=== PATIENT | male | born 1960 | race Caucasian/White ===

== ENCOUNTER → 2017-01-13 | Outpatient (CLI) | payer MEDICARE, MEDICAID ==
[~2017-01-13] VITALS: Ht 175.3 cm; Wt 117.9 kg
[~2017-01-13] MED LIST: /CARBXR20T; /CIPR75TA OR; /IPRA3SP INH; /PANT40TA; ABIL5TAB; ALBU83IN IN; ALBU83IN INH; ALBUTEROL LIQ INH; AMBI10TA; ASMA1AER3 INH; ASPI325T PO; ASPI81TA85 PO; ATRO0.06 INH; CHLO25TA; CLIN1CAP5 PO; COLA100C2 OR; DEPAKOTE PO; DITR1TAB PO; DOCU100T8 PO; DULO30CA PO; DYAZ37.5 OR; ENAL10TA2; ENAL10TA2 OR; FERR325T; FERR325T OR; FISH1000 PO; FLEXERIL PO; FLOM5CAP PO; FLON0.054; FLUN7IN; GABA300T; GLIP10TA PO; GLIP5TAB2 OR; GLUC1000; GLUC1000 OR; GLUC4CHW PO; HUMA100I5 SC; HYDR25T PO; HYDR25TA6; INSULANT SC; KETO0.02 OU; LANTINJ4 SC; LEVI20TA; LIPI20TA PO; LISI40TAB PO; LOPR1TAB6 PO; LOPR50TA OR; MELOPOW; METF500T PO; METH2.5T; METO25TAB PO; MOBI7.5T10 PO; MOME50SP; NS 1,000 ML IV SCH; OMEP20TA7 OR; POLY33502 PO; PRED10TA2 OR; PRIL20CA9 PO; PROA1AER INH; PROPOFOL 200 MG/20 ML VIAL As Ordered ONE; PROV90AE; SELE25SHA TOP; SEROQUEL PO; SIMV40TA2; SIMV40TA2 OR; SPIR50TA2 PO; TERB1CRE8 TOP; VICO5TAB; VICO5TAB OR; [UNRECOGNIZED DRUG - OTHER]; metroprolol
--- NOTE | 2017-01-13 08:46 | ROOR ---
Patient Name: Jameson Garrett Procedure Date: 01/13/2017 8:21 AM Date of : 1960 Age: 56 Room: [facility] Gender: Male Note Status: Finalized Procedure: Colonoscopy Indications: Rectal bleeding Providers: Venkatesh Dial Jr, MD Referring MD: Lalito Rivera DO Requesting Provider: Medicines: Propofol per Anesthesia Complications: No immediate complications. Procedure: Pre-Anesthesia Assessment: - Prior to the procedure, a History and Physical was performed, and patient medications and allergies were reviewed. The patient is competent. The risks and benefits of the procedure and the sedation options and risks were discussed with the patient. All questions were answered and informed consent was obtained. Patient identification and proposed procedure were verified by the physician and the nurse in the pre-procedure area and in the procedure room. Mental Status Examination: alert and oriented. Airway Examination: normal oropharyngeal airway and neck mobility. Respiratory Examination: clear to auscultation. CV Examination: normal. ASA Grade Assessment: II - A patient with mild systemic disease. After reviewing the risks and benefits, the patient was deemed in satisfactory condition to undergo the procedure. The anesthesia plan was to use moderate sedation / analgesia (conscious sedation). Immediately prior to administration of medications, the patient was re-assessed for adequacy to receive sedatives. The heart rate, respiratory rate, oxygen saturations, blood pressure, adequacy of pulmonary ventilation, and response to care were monitored throughout the procedure. The physical status of the patient was re-assessed after the procedure. The Colonoscope was introduced through the anus and advanced to the cecum, identified by appendiceal orifice and ileocecal valve. The colonoscopy was performed without difficulty. The patient tolerated the procedure well. The quality of the bowel preparation was adequate and fair. Findings: The perianal exam findings include non-thrombosed external hemorrhoids, non-thrombosed internal hemorrhoids, internal hemorrhoids that prolapse with straining, but spontaneously regress to the resting position (Grade II) and internal hemorrhoids that prolapse with straining, but require manual replacement into the anal canal (Grade III). A few small-mouthed diverticula were found in the sigmoid colon and ascending colon. The recto-sigmoid colon, descending colon, transverse colon, cecum, appendiceal orifice and ileocecal valve appeared normal. A localized area of moderately friable mucosa with no bleeding was found in the rectum and in the distal rectumand possibly localized proctitis. Impression: - Preparation of the colon was fair. - Non-thrombosed external hemorrhoids, non-thrombosed internal hemorrhoids, internal hemorrhoids that prolapse with straining, but spontaneously regress to the resting position (Grade II) and internal hemorrhoids that prolapse with straining, but require manual replacement into the anal canal (Grade III) found on perianal exam. - Diverticulosis in the sigmoid colon and in the ascending colon. - The recto-sigmoid colon, descending colon, transverse colon, cecum, appendiceal orifice and ileocecal valve are normal. - No specimens collected. Recommendation: - Discharge patient to home (ambulatory). - Repeat colonoscopy in 10 years for screening purposes. Venkatesh Dial MD Venkatesh Dial Jr, MD 01/13/2017 8:46:07 AM This report has been signed electronically. Number of Addenda: 0 Note Initiated On: 01/13/2017 8:21 AM Estimated Blood Loss: Estimated blood loss: none.
[2017-01-13 09:20] VITALS: BP 173/101
== END | disposition home or self-care (01) ==
LOC: M OPP 07:31
PROVIDERS: ATTEND Surgery
DX: K64.4 Residual hemorrhoidal skin tags (principal); K64.8 Other hemorrhoids; K64.1 Second degree hemorrhoids; K64.2 Third degree hemorrhoids; K57.30 Diverticulosis of large intestine without perforation or abscess without bleeding; I10 Essential (primary) hypertension; I25.10 Atherosclerotic heart disease of native coronary artery without angina pectoris; E78.00 Pure hypercholesterolemia, unspecified; E11.9 Type 2 diabetes mellitus without complications; M19.90 Unspecified osteoarthritis, unspecified site; J45.909 Unspecified asthma, uncomplicated; J44.9 Chronic obstructive pulmonary disease, unspecified; G47.30 Sleep apnea, unspecified; R06.83 Snoring; F41.9 Anxiety disorder, unspecified; F33.9 Major depressive disorder, recurrent, unspecified; G62.9 Polyneuropathy, unspecified; Z95.5 Presence of coronary angioplasty implant and graft; Z79.899 Other long term (current) drug therapy; Z79.82 Long term (current) use of aspirin; Z79.4 Long term (current) use of insulin; Z79.84 Long term (current) use of oral hypoglycemic drugs; Z79.51 Long term (current) use of inhaled steroids; Z88.0 Allergy status to penicillin; Z88.8 Allergy status to other drugs, medicaments and biological substances

== ENCOUNTER → 2017-02-28 | Outpatient (REF) | payer MEDICARE, MEDICAID ==
[~2017-02-28] MED LIST changes: -NS 1,000 ML IV SCH; -PROPOFOL 200 MG/20 ML VIAL As Ordered ONE
== END ==
LOC: M SFHCPLAZ 11:32
PROVIDERS: ATTEND Family Medicine
DX: E11.65 Type 2 diabetes mellitus with hyperglycemia (principal); Z53.8 Procedure and treatment not carried out for other reasons

== ENCOUNTER → 2017-04-13 | Outpatient (CLI) | payer MEDICARE, MEDICAID | LOC: M LAB 06:15 | PROVIDERS: ATTEND Family Medicine | DX: E11.65 Type 2 diabetes mellitus with hyperglycemia (principal) ==

== ENCOUNTER → 2017-04-15 | Outpatient (REF) | payer MEDICARE, MEDICAID | LOC: M SFHCPLAZ 15:13 | DX: E11.65 Type 2 diabetes mellitus with hyperglycemia (principal) ==

== ENCOUNTER 2017-05-13 16:08 | Emergency (ER) | payer MEDICARE, MEDICAID ==
[~2017-05-13] VITALS: Ht 175.3 cm; Wt 113.2 kg
[~2017-05-13 16:08] MED LIST changes: +CLIN150C14 PO; -CLIN1CAP5 PO; +HYDR-3363 PO; -HYDR25T PO; -METF500T PO; +METF500T13 PO; +MOBI4TAB PO; -MOBI7.5T10 PO; -POTA1TAB14 PO; -PROA1AER INH; +PROAAER10 INH; -SPIR25TA2 PO; +TERB1CRE12 TOP; -TERB1CRE8 TOP
[2017-05-13] MEDS ORDERED: ASPI81TA85 PO (16:21)
[2017-05-13] MEDS ORDERED: NS 1,000 ML IV ONE (17:15)
[2017-05-13 17:50] LABS: BASO % 0.7 % (0.0-1.0); EOS # 0.1 K/mm3 (0.0-0.50); EOS % 1.5 % (0.0-3.0); LARGE UNSTAINED CELL # 0.1 K/mm3 (0.0-0.4); LARGE UNSTAINED CELL % 1.6 % (0.0-4.0); LYMPH # 1.1 K/mm3 (1.5-4.5); LYMPH % 17.4 % (24.0-44.0); MEAN CORPUSCULAR HGB CONC 34.5 g/dl (32.0-36.5); MEAN CORPUSCULAR VOLUME 81.1 fl (80.0-96.0); MONO # 0.4 K/mm3 (0.0-0.8); MONO % 6.4 % (0.0-5.0); NEUTROPHILS # 4.3 K/mm3 (1.8-7.7); NEUTROPHILS % 72.4 % (36.0-66.0); PLATELET COUNT, AUTOMATED 228 k/mm3 (150-450); RED CELL DISTRIBUTION WIDTH 13.5 % (11.5-14.5); WHITE BLOOD COUNT 5.9 K/mm3 (4.0-10.0)
[2017-05-13 17:59] LABS: ALBUMIN 3.4 GM/DL (3.2-5.2); ALKALINE PHOSPHATASE 99 U/L (45-117); ALT/SGPT 34 U/L (12-78); ANION GAP 9 MEQ/L (8-16); AST/SGOT 20 U/L (15-37); BILIRUBIN,DIRECT < 0.1 MG/DL (0.0-0.2); BILIRUBIN,TOTAL 0.4 MG/DL (0.2-1.0); BLOOD UREA NITROGEN 10 MG/DL (7-18); CALCIUM LEVEL 8.6 MG/DL (8.5-10.1); CARBON DIOXIDE LEVEL 25 MEQ/L (21-32); CHLORIDE LEVEL 101 MEQ/L (98-107); CREATININE FOR GFR 0.95 MG/DL (0.70-1.30); GLOMERULAR FILTRATION RATE > 60.0 (>56); POTASSIUM SERUM 3.2 MEQ/L (3.5-5.1); SODIUM LEVEL 135 MEQ/L (136-145); TOTAL PROTEIN 6.8 GM/DL (6.4-8.2)
[2017-05-13 18:00] LABS: GLUCOSE, FASTING 431 MG/DL (70-105)
[2017-05-13] MEDS ORDERED: HumaLOG INSULIN (NovoLOG) PER UNIT SC ONE (18:00)
[2017-05-13] MEDS ORDERED: hydrALAZINE INJ 20 MG/ML VIAL IV ONE (19:00)
[2017-05-13] MEDS ORDERED: POTASSIUM CHLORIDE 10 MEQ SR TABLET PO ONE (19:00)
[2017-05-13] MEDS ORDERED: KCL 40MEQ in NS 1000ML 1,000 ML IV SCH (19:00)
[2017-05-13 19:24] VITALS: BP 177/109
[2017-05-13] MEDS ORDERED: POTA1TAB14 PO (19:28)
[2017-05-13] MEDS ORDERED: SPIR25TA2 PO (19:28)
[2017-05-13] MEDS ORDERED: SPIRONOLACTONE 25 MG TAB PO ONE (19:30)
[2017-05-13 19:59] VITALS: BP 168/94
== END 2017-05-13 20:01 | disposition home or self-care (01) ==
LOC: M ED 17:21
DX: E11.65 Type 2 diabetes mellitus with hyperglycemia (principal); E11.21 Type 2 diabetes mellitus with diabetic nephropathy; I10 Essential (primary) hypertension; Z91.14 Patient's other noncompliance with medication regimen; I25.10 Atherosclerotic heart disease of native coronary artery without angina pectoris; Z98.61 Coronary angioplasty status
CPT/HCPCS: 36415; 80048; 80076; 83036; 85025; 96372; 96374; 99284; 99490; G0463

== ENCOUNTER → 2017-05-13 | Outpatient (REF) | payer MEDICARE, MEDICAID ==
[~2017-05-13] MED LIST changes: +POTA1TAB14 PO; +SPIR25TA2 PO
[2017-05-13 14:00] LABS: ANION GAP 9 MEQ/L (8-16); BLOOD UREA NITROGEN 10 MG/DL (7-18); CALCIUM LEVEL 8.8 MG/DL (8.5-10.1); CARBON DIOXIDE LEVEL 26 MEQ/L (21-32); CHLORIDE LEVEL 101 MEQ/L (98-107); CREATININE FOR GFR 0.96 MG/DL (0.70-1.30); GLOMERULAR FILTRATION RATE > 60.0 (>56); POTASSIUM SERUM 3.8 MEQ/L (3.5-5.1); SODIUM LEVEL 136 MEQ/L (136-145)
[2017-05-13 14:05] LABS: GLUCOSE, FASTING 404 MG/DL (70-105)
== END ==
LOC: M SFHCPLAZ 10:45
PROVIDERS: ATTEND Family Medicine
DX: E11.65 Type 2 diabetes mellitus with hyperglycemia (principal); I10 Essential (primary) hypertension

== ENCOUNTER → 2017-05-26 | Outpatient (CLI) | payer MEDICARE, MEDICAID ==
[~2017-05-26] MED LIST changes: +AMBI10TA PO; +ATOR40TA75 PO; +CYCL10TA PO; +DULO1CAP3 PO; +FLON1SPR; +IBUP-1022 PO; +INSUHUMDS SC; +LOPR1TAB7 PO; +METF-699 PO; +NITR4TASL SL; +OMEP20CA3 PO; +OMEP40CA2 PO; +PERC5TAB12 PO; +POTA1TAB14 PO; +SPIR25TA2 PO; +TOUJ1.2I SC; +TROS20TA3 PO; +VICT18IN SC; +VIST25CA PO; +VITA1CAP40 PO
--- NOTE | 2017-05-26 16:49 | REP ---
Clinical: Pain. Dorsalgia. Technique: AP, lateral, flexion/extension, bilateral oblique, and open-mouth views. Comparison: 09/02/2015 Findings: Alignment and lordosis is maintained. There is no evidence for acute fracture / compression injury or subluxation. Mild multilevel degenerative changes include anterior spurring and disc space narrowing most notably at the C4-5 level. Oblique views demonstrate patent neural foramen. Open mouth view demonstrates normal C1-C2 articulation and odontoid process. Impression: Mild/early moderate degenerative changes at the C4-5 level. Signed by Greg Blackwood MD 05/26/2017 04:40 P
--- NOTE | 2017-05-26 16:50 | REP ---
Clinical: Dorsalgia. Technique: AP, lateral, swimmers views of the thoracic spine. Comparison: 09/02/2015. Findings: Alignment and kyphosis maintained. No acute fracture / compression injury or subluxation. Stable age-related degenerative changes include bridging osteophytes with endplate sclerosis and minimal disc space narrowing. Impression: Age-related degenerative changes. Normal alignment. No acute fracture / compression injury. Signed by Greg Blackwood MD 05/26/2017 04:41 P
--- NOTE | 2017-05-26 16:52 | REP ---
Clinical: Dorsalgia. Comparison: 09/02/2015. Technique: AP, lateral, bilateral oblique, and coned-down views. Findings: Alignment and lordosis is maintained. The vertebral bodies including transverse process and spinous processes are intact and normal. There is no evidence for acute fracture / compression injury or subluxation. No evidence for spondylolysis or spondylolisthesis. Mild relatively stable degenerative changes at the L5-S1 level include endplate sclerosis and hypertrophic facet changes. Remainder examination appears relatively normal for age. Impression: Essentially age-appropriate lumbosacral spine radiograph series. Mild/early moderate degenerative changes at the L5-S1 level similar to prior examination. Signed by Greg Blackwood MD 05/26/2017 04:44 P
== END ==
LOC: M RAD 15:51
PROVIDERS: ATTEND Family Medicine
DX: M50.321 Other cervical disc degeneration at C4-C5 level (principal); M51.36 Other intervertebral disc degeneration, lumbar region; M54.9 Dorsalgia, unspecified
CPT/HCPCS: 72052; 72072; 72114; G0463

== ENCOUNTER 2017-07-08 11:03 | Emergency (ER) | payer MEDICARE, MEDICAID ==
[~2017-07-08] VITALS: Ht 175.3 cm; Wt 112.0 kg
[~2017-07-08 11:03] MED LIST changes: -AMBI10TA PO; -ATOR40TA75 PO; -CYCL10TA PO; -DULO1CAP3 PO; -FLON1SPR; -IBUP-1022 PO; -INSUHUMDS SC; -LOPR1TAB7 PO; -METF-699 PO; -NITR4TASL SL; -OMEP20CA3 PO; -OMEP40CA2 PO; -PERC5TAB12 PO; -TOUJ1.2I SC; -TROS20TA3 PO; -VICT18IN SC; -VIST25CA PO; -VITA1CAP40 PO
[2017-07-08] MEDS ORDERED: METOPROLOL TART 25 MG TABLET PO ONE (12:00)
[2017-07-08] MEDS ORDERED: MORPHINE 4 MG/ML 1ML SYRINGE IV PRN (12:00)
[2017-07-08] MEDS ORDERED: ASPIRIN 81 MG CHEW TABLET PO ONE (12:00)
[2017-07-08 12:07] LABS: BASO % 0.8 % (0.0-1.0); EOS # 0.1 K/mm3 (0.0-0.50); EOS % 1.8 % (0.0-3.0); LARGE UNSTAINED CELL # 0.1 K/mm3 (0.0-0.4); LARGE UNSTAINED CELL % 1.3 % (0.0-4.0); LYMPH % 16.4 % (24.0-44.0); MEAN CORPUSCULAR HEMOGLOBIN 28.6 pg (27.0-33.0); MEAN CORPUSCULAR HGB CONC 35.2 g/dl (32.0-36.5); MEAN CORPUSCULAR VOLUME 81.3 fl (80.0-96.0); MONO # 0.4 K/mm3 (0.0-0.8); MONO % 6.8 % (0.0-5.0); NEUTROPHILS # 4.2 K/mm3 (1.8-7.7); NEUTROPHILS % 72.9 % (36.0-66.0); PLATELET COUNT, AUTOMATED 236 k/mm3 (150-450); RED CELL DISTRIBUTION WIDTH 13.3 % (11.5-14.5); WHITE BLOOD COUNT 5.7 K/mm3 (4.0-10.0)
[2017-07-08 12:23] LABS: INR 0.89
[2017-07-08 12:28] LABS: ALBUMIN 3.3 GM/DL (3.2-5.2); ALKALINE PHOSPHATASE 103 U/L (45-117); ANION GAP 9 MEQ/L (8-16); AST/SGOT 13 U/L (15-37); BILIRUBIN,DIRECT 0.1 MG/DL (0.0-0.2); BILIRUBIN,TOTAL 0.4 MG/DL (0.2-1.0); BLOOD UREA NITROGEN 8 MG/DL (7-18); CALCIUM LEVEL 8.3 MG/DL (8.5-10.1); CARBON DIOXIDE LEVEL 25 MEQ/L (21-32); CHLORIDE LEVEL 104 MEQ/L (98-107); CREATININE FOR GFR 0.69 MG/DL (0.70-1.30); GLOMERULAR FILTRATION RATE > 60.0 (>56); GLUCOSE, FASTING 251 MG/DL (70-105); POTASSIUM SERUM 3.4 MEQ/L (3.5-5.1); SODIUM LEVEL 138 MEQ/L (136-145); TOTAL PROTEIN 6.6 GM/DL (6.4-8.2)
[2017-07-08 12:34] LABS: ALT/SGPT 34 U/L (12-78)
--- NOTE | 2017-07-08 12:44 | REP ---
Chest one-view HISTORY: Chest pain Comparison: 09/22/2016 The lungs are clear. The cardiac silhouette is enlarged. The pulmonary vasculature is normal in appearance. Impression: Cardiomegaly. Signed by Jose Piedra MD 07/08/2017 12:36 P
[2017-07-08] MEDS ORDERED: MORPHINE 4 MG/ML 1ML SYRINGE IV ONE (13:30)
[2017-07-08] MEDS ORDERED: hydroCHLOROthiazide 25 MG TAB PO ONE (13:30)
[2017-07-08] MEDS ORDERED: LISINOPRIL 10 MG TAB PO ONE (13:30)
[2017-07-08 13:45] VITALS: BP 189/117
[2017-07-08 15:27] VITALS: BP 144/96
--- NOTE | 2017-07-08 19:55 | ECGEPIP ---
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 Order Number: [id number] Reading MD: Saima Vallejo Measurements Intervals [place] Rate: 79 P: 30 MS: 178 QRS: -18 QRSD: 113 T: 31 QT: 399 QTc: 460 Interpretive Statements SINUS RHYTHM INFERIOR MYOCARDIAL INFARCTION, PROBABLY OLD CW 09/23/16 RATE INCREASED Electronically Signed On 07-08-2017 19:54:52 EDT by Saima Vallejo
== END 2017-07-08 15:44 | disposition home or self-care (01) ==
LOC: M ED 11:03
DX: R07.89 Other chest pain (principal); I10 Essential (primary) hypertension; R06.02 Shortness of breath
CPT/HCPCS: 71010; 80048; 80076; 82550; 82553; 82948; 83880; 84484; 85025; 85379; 85610; 85730; 93005; 96374; 96376; 99284; G0463

== ENCOUNTER 2017-07-17 12:54 | Observation (INO) | payer MEDICARE, MEDICAID ==
[~2017-07-17] VITALS: Ht 175.3 cm; Wt 109.5 kg
[2017-07-17] MEDS ORDERED: GLIP10TA PO (13:11)
[2017-07-17] MEDS ORDERED: SPIR50TA2 PO (13:11)
[2017-07-17] MEDS ORDERED: LISI40TAB PO (13:11)
[2017-07-17] MEDS ORDERED: VIST25CA PO (13:11)
[2017-07-17] MEDS ORDERED: ASPI81TA85 PO (13:11)
[2017-07-17] MEDS ORDERED: LOPR1TAB6 PO (13:11)
[2017-07-17] MEDS ORDERED: DITR1TAB PO (13:11)
[2017-07-17] MEDS ORDERED: OMEP40CA2 PO (13:11)
[2017-07-17] MEDS ORDERED: METF500T13 PO (13:11)
[2017-07-17] MEDS ORDERED: LABETALOL HCL 100 MG/20 ML VIAL IV STA ×2 (14:28→16:14)
[2017-07-17 14:39] LABS: BASO % 0.8 % (0.0-1.0); EOS # 0.1 K/mm3 (0.0-0.50); EOS % 1.4 % (0.0-3.0); LARGE UNSTAINED CELL # 0.1 K/mm3 (0.0-0.4); LARGE UNSTAINED CELL % 1.2 % (0.0-4.0); LYMPH # 0.9 K/mm3 (1.5-4.5); LYMPH % 14.4 % (24.0-44.0); MEAN CORPUSCULAR HEMOGLOBIN 28.6 pg (27.0-33.0); MEAN CORPUSCULAR HGB CONC 34.8 g/dl (32.0-36.5); MEAN CORPUSCULAR VOLUME 82.2 fl (80.0-96.0); MONO # 0.4 K/mm3 (0.0-0.8); MONO % 6.6 % (0.0-5.0); NEUTROPHILS # 4.9 K/mm3 (1.8-7.7); NEUTROPHILS % 75.6 % (36.0-66.0); PLATELET COUNT, AUTOMATED 280 k/mm3 (150-450); RED CELL DISTRIBUTION WIDTH 13.4 % (11.5-14.5); WHITE BLOOD COUNT 6.5 K/mm3 (4.0-10.0)
[2017-07-17 14:47] LABS: ANION GAP 10 MEQ/L (8-16); BLOOD UREA NITROGEN 7 MG/DL (7-18); CALCIUM LEVEL 8.9 MG/DL (8.5-10.1); CARBON DIOXIDE LEVEL 25 MEQ/L (21-32); CHLORIDE LEVEL 102 MEQ/L (98-107); CREATININE FOR GFR 0.96 MG/DL (0.70-1.30); GLOMERULAR FILTRATION RATE > 60.0 (>56); GLUCOSE, FASTING 391 MG/DL (70-105); POTASSIUM SERUM 3.6 MEQ/L (3.5-5.1); SODIUM LEVEL 137 MEQ/L (136-145)
[2017-07-17] MEDS ORDERED: GLUCAGON FOR INJ 1 MG VIAL (J1610) SC PRN (16:30)
[2017-07-17] MEDS ORDERED: DEXTROSE 50% 50 ML SYRINGE IV PRN (16:30)
[2017-07-17] MEDS ORDERED: ONDANSETRON 4MG/2ML VIAL (J2405) IV PRN (16:30)
[2017-07-17] MEDS ORDERED: ACETAMINOPHEN TAB 650MG DOSE (2X325MG) PO PRN (16:30)
[2017-07-17] MEDS ORDERED: PERCOCET 5MG/325MG TAB PO PRN (16:30)
[2017-07-17] MEDS ORDERED: GLUCOSE 4 GM CHEW TABLET PO PRN (16:30)
[2017-07-17] MEDS ORDERED: IPRATROPIUM 0.5MG/ALBUTEROL 2.5MG INH SOL UD 3ML (DUONEB)(J7620) NEB PRN (16:45)
[2017-07-17] MEDS ORDERED: VICT18IN SC (17:13)
[2017-07-17] MEDS ORDERED: TROS20TA3 PO (17:13)
[2017-07-17] MEDS ORDERED: AMBI10TA PO (17:13)
[2017-07-17] MEDS ORDERED: OMEP20CA3 PO (17:13)
[2017-07-17] MEDS ORDERED: NITR4TASL SL (17:13)
[2017-07-17] MEDS ORDERED: DULO1CAP3 PO (17:13)
[2017-07-17] MEDS ORDERED: LOPR1TAB7 PO (17:13)
[2017-07-17] MEDS ORDERED: METF-699 PO (17:13)
[2017-07-17] MEDS ORDERED: FLON1SPR (17:13)
[2017-07-17] MEDS ORDERED: INSUHUMDS SC (17:13)
[2017-07-17] MEDS ORDERED: ATOR40TA75 PO (17:13)
[2017-07-17] MEDS ORDERED: TOUJ1.2I SC (17:13)
[2017-07-17] MEDS ORDERED: VITA1CAP40 PO (17:14)
[2017-07-17] MEDS ORDERED: hydrALAZINE INJ 20 MG/ML VIAL IV PRN (17:15)
[2017-07-17] MEDS ORDERED: HumaLOG INSULIN (NovoLOG) PER UNIT SC SCH ×3 (17:30→21:00)
[2017-07-17] MEDS ORDERED: hydrOXYzine 25 MG TAB PO PRN (17:30)
[2017-07-17] MEDS ORDERED: zolPIDEM TARTRATE 10MG TAB PO PRN (17:30)
[2017-07-17] MEDS ORDERED: CHLORTHALIDONE 25 MG TAB PO ONE (18:00)
[2017-07-17] MEDS ORDERED: POTASSIUM CHLORIDE 10 MEQ SR TABLET PO ONE (18:00)
--- NOTE | 2017-07-17 18:42 | HPE ---
DATE OF ADMISSION: 07/17/2017 CHIEF COMPLAINT: Headache and hypertension. PRIMARY CARE PROVIDER: Dr. Ace Ramirez. HISTORY OF PRESENT ILLNESS: This is a 57-year-old male with underlying medical history of hypertension, poorly controlled diabetes type 2, bipolar disorder type 1, depression, asthma, diabetic neuropathy, prostate cancer status post radiation 2013, coronary arterial disease with stent. The patient presented with headache since this morning, measured blood pressure at home that was really high, subsequently came to the emergency department (ED). In the emergency room, the patient's blood pressure was 200/100. Subsequently given labetalol with only minimal improvement, continued to have headache. The patient denies any chest pain, pressure, discomfort, although last week the patient was diagnosed with costochondritis, but no further chest pain since then. 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 The patient reported nausea but no vomiting. Denies any vision change, hearing change. Reported frontal headache that is sharp, about 9/10, constant since this morning. No weakness. No loss of consciousness. No shortness of breath. No fevers, chills, coughing, dysuria, abdominal pain. ALLERGIES: PENICILLIN. PAST MEDICAL HISTORY: 1. Hypertension. 2. Type 2 diabetes. 3. Obstructive sleep apnea. 4. Bipolar disorder. 5. Depression. 6. Asthma. 7. Diabetic neuropathy. 8. Prostate cancer status post radiation in 2013. 9. Coronary arterial disease with stent in 2012. PAST SURGICAL HISTORY: 1. Tonsillectomy. 2. Adenoidectomy. 3. Cholecystectomy. 4. Diverticulitis. 5. Cataract surgery. 6. Hernia repair. 7. Cardiac stent 2012. 8. Heel surgery. 9. Colonoscopy 2016. FAMILY HISTORY: Father with myocardial infarction ([place]) and stroke. Mother with type 2 diabetes. SOCIAL HISTORY: The patient lives at home with his girlfriend. 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 Denies smoking or alcohol drinking or illicit drug use, but does drink a lot of iced tea. REVIEW OF SYSTEMS: Reported frontal headache and hypertension. All other review of systems is negative. HOME MEDICATIONS: - nabumetone 750 mg by mouth twice a day - chlorthalidone 25 mg by mouth in the morning - Toujeo insulin 90 units subcutaneous daily - Humalog premeal three times a day 30 units - albuterol inhalation every four hours as needed - duloxetine 30 mg by mouth twice a day - Flonase nasal spray daily - ketotifen 0.025 solution ophthalmic drops twice a day - mometasone 220 inhalation once a day - omeprazole 20 mg by mouth daily - oxybutynin 10 mg by mouth daily - MiraLAX one pack as needed daily - selenium sulfide 2.5 lotion externally twice a day - Flomax 0.4 mg by mouth daily - fish oil one tablet by mouth daily - Lipitor 80 mg by mouth daily - metoprolol 50 mg by mouth daily - lisinopril 40 mg by mouth daily - Colace 100 mg by mouth twice a day - albuterol nebulizer treatment four times a day as needed - metformin 1000 mg by mouth twice a day - aspirin 81 mg by mouth daily - potassium chloride 20 mEq by mouth daily - spironolactone 25 mg by mouth daily - Victoza injection once a day - vitamin D 50,000 by mouth weekly PHYSICAL EXAMINATION: GENERAL: Patient obese, alert and oriented times three. VITAL SIGNS: Temperature 96.0, pulse 80, respirations 18, blood pressure 180/100, pulse oximetry 97% on room air. GENERAL: Patient alert and oriented times three, obese, in no acute distress. HEENT: Normocephalic, atraumatic. PULMONARY: Bilaterally clear to auscultation. CARDIAC: Regular rate and rhythm. Normal S1, S2. ABDOMEN: Soft, nontender. Positive bowel sounds. EXTREMITIES: No clubbing, cyanosis or edema. Foot, dorsalis pedis and posterior tibial (DPPT) pulses intact. No ulcers bilateral feet. IMAGING: EKG sinus rhythm at 74, no ST segment changes. CT of the head within normal limits. LABORATORY DATA: WBC 6.5, hemoglobin and hematocrit 15.6 over 44.9, platelets 280. Chemistry: Sodium 137, potassium 3.6, chloride 102, bicarbonate 25, BUN seven, creatinine 0.96, fasting glucose 390. Cardiac enzymes negative times one. ASSESSMENT AND PLAN: This is a 57-year-old male patient with underlying medical history of obstructive sleep apnea not compliant with CPAP, obesity, poorly controlled type 2 diabetes, hypertension, bipolar disorder, depression, chronic obstructive pulmonary disease (COPD) asthma, diabetic neuropathy, prostate cancer, coronary arterial disease with stents, admitted for hypertensive urgency with headache. 1. Hypertensive urgency with headache. Labetalol has been given. Continue lisinopril, chlorthalidone, metoprolol, spironolactone. Adjust as needed. Followup cardiac enzymes. EKG, telemetry. 2. Headache likely secondary to hypertension. Pain medication as prescribed. Control blood pressure. Blood pressure goal 140-160 systolic over the next 24 hours. Monitor heart rate. Neurologic with no focal neurologic deficits. CT scan appreciated. 3. Type 2 diabetes, poorly controlled. Followup A1c. Basal bolus insulin. Holding oral medication. 4. Bipolar disorder and depression. Continue home medication. 5. Asthma. Continue nebulizer treatment. Patient not having any wheeze. 6. Diabetic neuropathy. Continue current medication. 7. History of prostate cancer with radiation. Continue current medication. 8. Coronary arterial disease with stents. Continue aspirin, statin, beta blockers, angiotension-converting enzyme (FORREST) inhibitor, spironolactone. Monitor blood pressure. 9. Benign prostatic hypertrophy (BPH). Continue current medication. 10. Deep venous thrombosis (DVT) prophylaxis. Heparin subcutaneous. DISPOSITION: Pending clinical improvement.
[2017-07-17] MEDS ORDERED: zolPIDEM TARTRATE 5 MG TAB PO PRN (19:13)
[2017-07-17 20:00] VITALS: BP 158/88
[2017-07-17] MEDS: IPRATROPIUM 0.5MG/ALBUTEROL 2.5MG INH SOL UD 3ML (DUONEB)(J7620) NEB SCH (20:00)
[2017-07-17] MEDS: HumaLOG INSULIN (NovoLOG) PER UNIT SC SCH (20:16)
[2017-07-17] MEDS: OMEPRAZOLE 20 MG CAP PO SCH (20:18)
[2017-07-17] MEDS: HEPARIN SOD (PORCINE) 5000 UNITS/ML VIAL SC SCH (20:18)
[2017-07-17] MEDS: METOPROLOL TARTRATE 100 MG TAB PO SCH (20:18)
[2017-07-17] MEDS: LEVEMIR (INSULIN DETEMIR) 1 UNITS/0.01ML SC SCH (20:18)
[2017-07-17] MEDS: SENOKOT S TAB PO SCH (20:18)
[2017-07-17] MEDS ORDERED: NABUMETONE 500 MG TAB PO SCH (21:00)
[2017-07-17] MEDS ORDERED: TAMSULOSIN 0.4 MG CAP PO SCH (21:00)
[2017-07-17] MEDS ORDERED: ATORVASTATIN 20 MG TAB PO SCH ×2 (21:00)
[2017-07-17] MEDS ORDERED: LEVEMIR (INSULIN DETEMIR) 1 UNITS/0.01ML SC SCH (21:00)
[2017-07-17] MEDS ORDERED: DULoxetine 30 MG CAP (CYMBALTA) PO SCH (21:00)
--- NOTE | 2017-07-17 21:41 | ECGEPIP ---
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
[2017-07-17 23:11] LABS: METHADONE URINE NEGATIVE (NEGATIVE)
[2017-07-17 23:29] VITALS: BP 143/67
[2017-07-18] MEDS: IPRATROPIUM 0.5MG/ALBUTEROL 2.5MG INH SOL UD 3ML (DUONEB)(J7620) NEB SCH ×2 (02:00→08:15)
[2017-07-18 03:24] LABS: MEAN CORPUSCULAR HGB CONC 34.1 g/dl (32.0-36.5); MEAN CORPUSCULAR VOLUME 82.1 fl (80.0-96.0); RED CELL DISTRIBUTION WIDTH 13.5 % (11.5-14.5); WHITE BLOOD COUNT 7.9 K/mm3 (4.0-10.0)
[2017-07-18 03:43] LABS: ANION GAP 8 MEQ/L (8-16); BLOOD UREA NITROGEN 11 MG/DL (7-18); CALCIUM LEVEL 8.5 MG/DL (8.5-10.1); CARBON DIOXIDE LEVEL 29 MEQ/L (21-32); CHLORIDE LEVEL 107 MEQ/L (98-107); CREATININE FOR GFR 0.86 MG/DL (0.70-1.30); GLOMERULAR FILTRATION RATE > 60.0 (>56); GLUCOSE, FASTING 225 MG/DL (70-105); MAGNESIUM LEVEL 1.9 MG/DL (1.8-2.4); POTASSIUM SERUM 3.3 MEQ/L (3.5-5.1); SODIUM LEVEL 144 MEQ/L (136-145)
[2017-07-18] MEDS: HEPARIN SOD (PORCINE) 5000 UNITS/ML VIAL SC SCH (06:30)
[2017-07-18 07:21] VITALS: BP 122/83
[2017-07-18] MEDS: HumaLOG INSULIN (NovoLOG) PER UNIT SC SCH (08:21)
[2017-07-18] MEDS: LEVEMIR (INSULIN DETEMIR) 1 UNITS/0.01ML SC SCH (08:21)
[2017-07-18 08:22] VITALS: BP 123/79
[2017-07-18] MEDS: SENOKOT S TAB PO SCH (08:22)
[2017-07-18] MEDS: METOPROLOL TARTRATE 100 MG TAB PO SCH (08:22)
[2017-07-18] MEDS: OMEPRAZOLE 20 MG CAP PO SCH (08:23)
[2017-07-18] MEDS ORDERED: METOCLOPRAMIDE INJ 10MG/2ML VIAL (J2765) IV ONE (08:30)
[2017-07-18] MEDS ORDERED: KETOROLAC 30 MG/ML VIAL (J1885) IV ONE (08:30)
[2017-07-18] MEDS ORDERED: POTASSIUM CHLORIDE 10 MEQ SR TABLET PO ONE (08:30)
[2017-07-18] MEDS ORDERED: CHLORTHALIDONE 25 MG TAB PO SCH (09:00)
[2017-07-18] MEDS ORDERED: DULoxetine 30 MG CAP (CYMBALTA) PO SCH (09:00)
[2017-07-18] MEDS ORDERED: LISINOPRIL 40 MG TAB PO SCH (09:00)
[2017-07-18] MEDS ORDERED: ASPIRIN 81 MG ENTERIC TAB PO SCH (09:00)
[2017-07-18] MEDS ORDERED: oxyBUTYnin *DITROPAN XL* 5 MG TABCR PO SCH (09:00)
[2017-07-18] MEDS ORDERED: SPIRONOLACTONE 25 MG TAB PO SCH (09:00)
[2017-07-18] MEDS ORDERED: TROSPIUM 20 MG TAB PO SCH (09:00)
[2017-07-18] MEDS ORDERED: METOPROLOL SUCC (TopROL XL) 50MG **XL** TAB PO SCH (09:00)
[2017-07-18] MEDS ORDERED: OMEGA-3 1050MG CAPSULE PO SCH (09:00)
[2017-07-18] MEDS ORDERED: FLUTICASONE PROP 0.05% NASAL SPRAY 16 GM (FLONASE) SCH (09:00)
[2017-07-18] MEDS ORDERED: OMEPRAZOLE 20 MG CAP PO SCH (09:00)
--- NOTE | 2017-07-18 11:57 | REP ---
CT STUDY OF THE BRAIN WITHOUT CONTRAST: HISTORY: Headache. Hypertension. Evaluate for intracranial hemorrhage. COMPARISON STUDY: August 10, 2016. FINDINGS: Bone window settings demonstrate an intact bony calvarium. Visualized paranasal sinuses are clear. Vascular calcification is noted. There is no evidence of intracranial hemorrhage. There is minimal diffuse cerebral atrophy. No extra-axial fluid collection, mass, infarction or midline shift is seen. IMPRESSION: Vascular calcification and minimal diffuse atrophy. Otherwise negative. Signed by Tim Chacon MD 07/18/2017 12:37 P
--- NOTE | 2017-07-18 12:05 | REP ---
Chest x-ray: Two views. History: Hypertension. Evaluate for CHF. Comparison chest x-ray: July 08, 2017. Findings: EKG monitoring electrodes overlie the chest. Heart is not felt to be enlarged. It is unchanged. Pleural angles are sharp. Pulmonary vasculature is not increased. Impression: No acute disease. Signed by Tim Chacon MD 07/18/2017 12:39 P
--- NOTE | 2017-07-18 19:35 | DS.PDOC ---
Discharge Summary General Date of Admission Jul 17, 2017 at 16:28 Date of Discharge 07/18/17 Primary Care Physician: MELISSA ACEVEDO-1 Attending Physician: RADAMES CALLOWAY MD Specialist/Consultants Involve none. Discharge Summary PROCEDURES PERFORMED DURING STAY: None ADMITTING DIAGNOSES: 1. Hypertensive urgency. 2. Headache likely secondary to hypertensive urgency. 3. Type 2 diabetes, poorly controlled. DISCHARGE DIAGNOSES: 1. Hypertensive urgency. 2. Headache likely secondary to hypertensive urgency. 3. Type 2 diabetes, poorly controlled. COMPLICATIONS/CHIEF COMPLAINT: Hypertensive Urgency,Uncontrolled Hypertension. HISTORY OF PRESENT ILLNESS: Patient is a 57-year-old male with a past medical history type 2 diabetes, poorly controlled, bipolar and depression, asthma, diabetic neuropathy, coronary artery disease with stent, prostate cancer status post radiation 2013 presents to the ER with headache. Headache and been present since that morning of admission. Patient measured blood pressure at home and it was really high and subsequently came to the ER. In the emergency room the patient's blood pressure was 200/100. He was given labetalol with only minimal improvement and continued to have the headache. Patient denied any chest pain pressure discomfort. Last week he was diagnosed with costochondritis but no further chest pain since then. Patient reports that the headache is about 910 and was sharp and constant since the morning of admission. Patient denied weakness or loss of consciousness. No shortness of breath. HOSPITAL COURSE: Since being in the hospital patient has been given labetalol as blood pressure has dropped. Luttrell's given 2 separate times at 10 mg and 20 mg. The goal is to have blood pressure decrease to 140-160 systolic over the next 24 hours. This morning blood pressure had gone down to 122/83 by this morning on exam. Patient's headache improved with decreased blood pressure. Patient still had some headache this morning and was given 1 dose of Percocet. Patient's headache decreased to an 8 out of 10 on exam. At that point patient was given a dose of Reglan and Toradol. Patient's blood pressure remained lower. Patient was deemed eligible for discharge. Patient was instructed to follow-up with primary care physician to go over medications and one week. Patient needs to discuss compliance with PCP. DISCHARGE MEDICATIONS: Please see below. ALLERGIES: Please see below. PHYSICAL EXAMINATION ON DISCHARGE: VITAL SIGNS: Please see below. GENERAL: Alert. Orientated. Speech intact. No acute distress. HEENT: Atraumatic. No ptosis. No rhinorrhea. NECK: No lymphadenopathy, neck masses. No thyromegaly. CARDIOVASCULAR EXAMINATION: Normal S1 and S2. No clicks rubs gallops or murmurs. RESPIRATORY EXAMINATION: Clear to auscultation. No wheezing. ABDOMINAL EXAMINATION: Nondistended. Bowel sounds auscultation. Nontender to palpation. EXTREMITIES: No lower extremity edema. Radial pulses 2/4 bilaterally. SKIN: No rashes or skin lesions. NEUROLOGICAL EXAMINATION: Speech intact. PSYCHIATRIC EXAMINATION: Normal affect. LABORATORY DATA: Please see below. IMAGING:Head CT reported Vascular calcification and minimal diffuse atrophy. Otherwise negative. chest radiograph report showed No acute disease. PROGNOSIS: Stable ACTIVITY: As tolerated. DIET: Consistent carbohydrate diet. DISCHARGE PLAN: Home. Follow-up with PCP within one week. Continue home medications as prescribed. DISPOSITION: 01 , Self-Care. DISCHARGE INSTRUCTIONS: 1. Patient will follow-up with PCP and less than a week to discuss compliance with medications.. 2. Continue current medications at this time.. 3. Return to the ER if symptoms worsen.. DISCHARGE CONDITION: Stable. TIME SPENT ON DISCHARGE: Greater than 30 minutes. Vital Signs/I&Os Vital Signs Date Time Temp Pulse Resp B/P (MAP) Pulse Ox O2 Delivery O2 Flow Rate FiO2 07/18/17 08:51 20 07/18/17 08:22 67 123/79 07/18/17 07:21 98.7 96 Room Air I&O- Last 24 Hours up to 6 AM 07/18/17 06:00 Intake Total 200 ml Output Total 500 ml Balance -300 ml Laboratory Data Labs 24H Laboratory Tests 2 07/17/17 20:06: Bedside Glucose (Misc Panel) 254H 07/17/17 22:44: Urine Appearance CLEAR, Urine Color YELLOW, Urine pH 6.0, Urine Specific [place] 1.040, Urine Protein NEGATIVE, Urine Glucose (UA) 3+H, Urine Ketones TRACEH, Urine Urobilinogen 0.2, Urine Bilirubin NEGATIVE, Urine Leukocyte Esterase NEGATIVE, Urine Blood NEGATIVE, Urine Nitrite NEGATIVE, Urine WBC (Auto ) 1, Urine RBC (Auto) 0, Urine Hyaline Casts (Auto) 0, Urine Bacteria (Auto) NEGATIVE, Urine Squamous Epithelial Cells 0, Urine Sperm (Auto) , Urine Amphetamines Screen NEGATIVE, Urine Benzodiazepines Screen NEGATIVE, Urine Opiates Screen NEGATIVE, Urine Methadone Screen NEGATIVE, Urine Barbiturates Screen NEGATIVE, Urine Phencyclidine Screen NEGATIVE, Urine Cocaine Metabolite Screen NEGATIVE, Urine Cannabinoids Screen NEGATIVE 07/18/17 03:12: Anion Gap 8, Glomerular Filtration Rate > 60.0, Estimated Mean Plasma Glucose 269H, Hemoglobin A1c 11.0H, Blood Urea Nitrogen 11#, Creatinine 0.86, Sodium Level 144#, Potassium Level 3.3L, Chloride Level 107, Carbon Dioxide Level 29, Calcium Level 8.5, Magnesium Level 1.9 07/18/17 03:15: Total Creatine Kinase 40, Creatine Kinase MB 1.0, Creatine Kinase MB Relative Index 2.50, Troponin I < 0.02 07/18/17 06:29: Bedside Glucose (Misc Panel) 191H CBC/BMP Laboratory Tests 07/18/17 03:12 Red Blood Count 5.28, Mean Corpuscular Volume 82.1, Mean Corpuscular Hemoglobin 28.0, Mean Corpuscular Hemoglobin Concent 34.1, Red Cell Distribution Width 13.5 , Calcium Level 8.5 FSBS Laboratory Tests Test 07/17/17 20:06 07/18/17 06:29 Range/Units Bedside Glucose (Misc Panel) 254 191 70-105 MG/DL Discharge Medications Scheduled (Jasmin Callahan) 300 Unit/Ml Inj, 90 UNIT SC QHS, (Reported) Aspirin (Aspir-81) 81 Mg Tab, 81 MG PO DAILY, (Reported) Atorvastatin Calcium (Atorvastatin Calcium) 40 Mg Tab, 20 MG PO DAILY, (Reported ) Duloxetine Hcl (Duloxetine HCl) 60 Mg Cap, 120 MG PO DAILY, (Reported) Ergocalciferol (Vitamin D) 50,000 Unit Cap, 50,000 UNIT PO QWEEK, (Reported) MONDAYS Fish Oil (Fish Oil) 1,000 Mg Cap, 1,000 MG PO DAILY, (Reported) Insulin Human Lispro (Humalog) 1 Units/0.01 Ml Inj, 0 SC ACHS, (Reported) PER SLIDING SCALE Liraglutide (Victoza) 18 Mg/3 Ml Inj, 1.2 MG SC QHS, (Reported) Lisinopril (Lisinopril) 40 Mg Tab, 40 MG PO DAILY, (Reported) Metformin Hydrochloride (Metformin HCl ER) 500 Mg Tab, 2,000 MG PO DAILY, ( Reported) Metoprolol Tartrate (Lopressor) 100 Mg Tab, 100 MG PO BID, (Reported) Omeprazole (Omeprazole) 20 Mg Cap, 20 MG PO BID, (Reported) Tamsulosin Hydrochloride (Flomax) 0.4 Mg Cap, 0.8 MG PO DAILY, (Reported) Trospium Chloride (Trospium Chloride) 20 Mg Tab, 40 MG PO DAILY, (Reported) Scheduled PRN (Flonase Allergy Relief) 50 Mcg/Act Spr, 2 SPRAYS NA DAILY PRN for ALLERGIES, ( Reported) Albuterol Sulfate (Proair Hfa) 108 Mcg/Act Aer, 90 MCG INH Q6HP PRN for WHEEZING , (Reported) Docusate Sodium (Docusate Sodium) 100 Mg Tab, 100 MG PO BID PRN for CONSTIPATION , (Reported) Glucose (Glucose) 4 Gm Chw, 4 GM PO PRN PRN for BLOOD SUGAR < 50, (Reported) Hydroxyzine Pamoate (Vistaril) 25 Mg Cap, 25 MG PO Q4HP PRN for ANXIETY/ AGITATION, (Reported) Nitroglycerin (Nitrostat) 0.4 Mg Subl, 0.4 MG SL Q5MP PRN for CHEST PAIN, ( Reported) Zolpidem Tartrate (Ambien) 10 Mg Tab, 10 MG PO QHS PRN for SLEEP, (Reported) Allergies Coded Allergies: Penicillins (Verified Allergy, Unknown, 07/18/15) Procaine (Verified Allergy, Unknown, 07/18/15) GME ATTESTATION GME ATTESTATION My preceptor for this patient encounter was Dr. Calloway and he was physically present in the building during the encounter and was fully available. As needed , all aspects of the patient interview, examination, medical decision making process, and medical care plan development were reviewed and approved by the preceptor. Preceptor is aware and concurs with the plan as stated in the body of this note and will attest to such by his/her co-signature. ATTENDING NOTE Patient is seen and examined. Agree with the plan mentioned in the resident's note. I will continue to participate in the care of the patient. KIRILL Fountain MD, DO Jul 18, 2017 19:35 RADAMES CALLOWAY MD Jul 22, 2017 11:35
== END 2017-07-18 10:22 | disposition home or self-care (01) ==
LOC: M ED 12:54 → M ED INP 16:28
PROVIDERS: ADMIT Hospitalist; ATTEND Hospitalist
DX: I16.0 Hypertensive urgency (principal); R51 Headache; E11.65 Type 2 diabetes mellitus with hyperglycemia; J45.909 Unspecified asthma, uncomplicated; E11.21 Type 2 diabetes mellitus with diabetic nephropathy; I25.10 Atherosclerotic heart disease of native coronary artery without angina pectoris; Z95.5 Presence of coronary angioplasty implant and graft; F31.9 Bipolar disorder, unspecified; G47.30 Sleep apnea, unspecified; E66.9 Obesity, unspecified; J44.9 Chronic obstructive pulmonary disease, unspecified; Z85.46 Personal history of malignant neoplasm of prostate; Z79.899 Other long term (current) drug therapy; Z79.4 Long term (current) use of insulin; Z79.82 Long term (current) use of aspirin; Z88.0 Allergy status to penicillin; Z92.3 Personal history of irradiation
CPT/HCPCS: 36415; 70450; 71020; 80048; 80307; 81001; 82550; 82553; 83036; 83735; 84484; 85025; 85027; 93005; 93041; 94640; 94760; 96372; 96374; 96375; 96376; 99285; G0378; J1885; J2765

== ENCOUNTER → 2017-08-03 | Outpatient (REF) | payer MEDICARE, MEDICAID ==
[~2017-08-03] MED LIST changes: +AMBI10TA PO; +ATOR40TA75 PO; +CYCL10TA PO; +DULO1CAP3 PO; +FLON1SPR; +IBUP-1022 PO; +INSUHUMDS SC; +LOPR1TAB7 PO; +METF-699 PO; +NITR4TASL SL; +OMEP20CA3 PO; +OMEP40CA2 PO; +PERC5TAB12 PO; +TOUJ1.2I SC; +TROS20TA3 PO; +VICT18IN SC; +VIST25CA PO; +VITA1CAP40 PO
[2017-08-03 14:16] LABS: ANION GAP 12 MEQ/L (8-16); BLOOD UREA NITROGEN 14 MG/DL (7-18); CALCIUM LEVEL 9.2 MG/DL (8.5-10.1); CARBON DIOXIDE LEVEL 26 MEQ/L (21-32); CHLORIDE LEVEL 103 MEQ/L (98-107); CREATININE FOR GFR 0.88 MG/DL (0.70-1.30); GLOMERULAR FILTRATION RATE > 60.0 (>56); GLUCOSE, FASTING 251 MG/DL (70-105); MAGNESIUM LEVEL 1.8 MG/DL (1.8-2.4); POTASSIUM SERUM 3.9 MEQ/L (3.5-5.1); SODIUM LEVEL 141 MEQ/L (136-145)
== END ==
LOC: M SFHCPLAZ 10:41
PROVIDERS: ATTEND Family Medicine
DX: I10 Essential (primary) hypertension (principal); E11.65 Type 2 diabetes mellitus with hyperglycemia
CPT/HCPCS: 80048; 82043; 83735; G0463

== ENCOUNTER 2017-08-27 17:57 | Emergency (ER) | payer MEDICARE, MEDICAID ==
[~2017-08-27] VITALS: Ht 175.3 cm; Wt 110.0 kg
[~2017-08-27 17:57] MED LIST changes: -CYCL10TA PO; -IBUP-1022 PO; -PERC5TAB12 PO
[2017-08-27] MEDS ORDERED: ASPIRIN 81 MG CHEW TABLET PO ONE (18:30)
[2017-08-27 18:35] LABS: BASO # 0.1 10^3/uL (0.0-0.2); BASO % 0.7 % (0.0-1.0); EOS # 0.1 10^3/uL (0.0-0.50); EOS % 1.9 % (0.0-3.0); IMMATURE GRANULOCYTE % 0.7 % (0-0); LYMPH # 1.9 10^3/uL (1.5-4.5); LYMPH % 25.7 % (24.0-44.0); MEAN CORPUSCULAR HEMOGLOBIN 27.7 pg (27.0-33.0); MEAN CORPUSCULAR HGB CONC 34.9 g/dl (32.0-36.5); MEAN CORPUSCULAR VOLUME 79.3 fl (80.0-96.0); MONO # 0.7 10^3/uL (0.0-0.8); MONO % 9.2 % (0.0-5.0); NEUTROPHILS # 4.5 10^3/uL (1.8-7.7); NEUTROPHILS % 61.8 % (36.0-66.0); PLATELET COUNT, AUTOMATED 262 10^3/uL (150-450); RED CELL DISTRIBUTION WIDTH 12.8 % (11.5-14.5); WHITE BLOOD COUNT 7.3 10^3/uL (4.0-10.0)
[2017-08-27] MEDS: NITROGLYCERIN 0.4 MG SUBL TABLET SL PRN ×3 (18:36→19:18)
[2017-08-27 18:39] LABS: ADD MORPHOLOGY? NO
[2017-08-27 18:43] LABS: INR 0.87
[2017-08-27 19:02] LABS: ALBUMIN 3.3 GM/DL (3.2-5.2); ALBUMIN/GLOBULIN RATIO 0.85 (1.00-1.93); ALKALINE PHOSPHATASE 98 U/L (45-117); ALT/SGPT 28 U/L (12-78); ANION GAP 9 MEQ/L (8-16); AST/SGOT 11 U/L (15-37); BILIRUBIN,DIRECT < 0.1 MG/DL (0.0-0.2); BILIRUBIN,TOTAL 0.4 MG/DL (0.2-1.0); BLOOD UREA NITROGEN 14 MG/DL (7-18); CALCIUM LEVEL 8.5 MG/DL (8.5-10.1); CARBON DIOXIDE LEVEL 24 MEQ/L (21-32); CHLORIDE LEVEL 98 MEQ/L (98-107); CREATININE FOR GFR 1.15 MG/DL (0.70-1.30); FREE T4 1.01 NG/DL (0.76-1.46); GLOMERULAR FILTRATION RATE > 60.0 (>56); POTASSIUM SERUM 3.5 MEQ/L (3.5-5.1); SODIUM LEVEL 131 MEQ/L (136-145); TOTAL PROTEIN 7.2 GM/DL (6.4-8.2)
--- NOTE | 2017-08-27 19:12 | REP ---
PA and lateral chest: Comparison is 07/17/2017. Lung noble are clear. Cardiac size is normal. The thee, mediastinum, and bony thorax are unremarkable. There is a right epicardial fat pad, unchanged. Impression: No interval change. No acute cardiopulmonary findings. Signed by Jaziel Cheney MD 08/27/2017 07:03 P
[2017-08-27 19:15] LABS: GLUCOSE, FASTING 421 MG/DL (70-105)
[2017-08-27] MEDS ORDERED: NS 1,000 ML IV ONE (19:30)
[2017-08-27 19:45] LABS: VENOUS BASE EXCESS -0.2 (-2.0-2.0); VENOUS O2 SATURATION 81.9 % (60.0-80.0); VENOUS PARTIAL PRESSURE CO2 42.2 mmHg (38.0-50.0); VENOUS PARTIAL PRESSURE O2 43.6 mmHg (30.0-50.0); VENOUS STANDARD HCO3 23.9 MEQ/L; VENOUS TOTAL CO2 26.2 MEQ/L (24.0-28.0)
[2017-08-27] MEDS ORDERED: KETOROLAC 30 MG/ML VIAL (J1885) IV ONE (20:15)
[2017-08-27 21:16] VITALS: BP 118/65
--- NOTE | 2017-08-27 21:53 | ECGEPIP ---
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
--- NOTE | 2017-08-27 21:55 | ECGEPIP ---
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
== END 2017-08-27 22:39 | disposition home or self-care (01) ==
LOC: M ED 17:57
DX: R07.9 Chest pain, unspecified (principal); R73.9 Hyperglycemia, unspecified; R06.02 Shortness of breath; I11.0 Hypertensive heart disease with heart failure; E78.5 Hyperlipidemia, unspecified; I50.9 Heart failure, unspecified; G47.33 Obstructive sleep apnea (adult) (pediatric); G89.29 Other chronic pain; M54.9 Dorsalgia, unspecified; Z87.19 Personal history of other diseases of the digestive system; Z95.5 Presence of coronary angioplasty implant and graft; Z82.49 Family history of ischemic heart disease and other diseases of the circulatory system; Z79.899 Other long term (current) drug therapy; Z79.82 Long term (current) use of aspirin; Z88.0 Allergy status to penicillin
CPT/HCPCS: 36415; 71020; 80048; 80076; 82010; 82550; 82553; 82803; 83690; 83880; 84439; 84443; 84484; 85025; 85379; 85610; 85730; 93005; 93041; 96361; 96374; 99285; J1885

== ENCOUNTER 2017-09-11 16:14 | Emergency (ER) | payer OTHER, MEDICARE, MEDICAID ==
[~2017-09-11] VITALS: Ht 175.3 cm; Wt 113.2 kg
[2017-09-11 16:15] VITALS: BP 137/94
[2017-09-11] MEDS ORDERED: IBUP-1022 PO (18:42)
[2017-09-11] MEDS ORDERED: CYCL10TA PO (18:42)
[2017-09-11] MEDS ORDERED: PERC5TAB12 PO (18:42)
== END 2017-09-11 18:51 | disposition home or self-care (01) ==
LOC: M ED 16:14
DX: S16.1XXA Strain of muscle, fascia and tendon at neck level, initial encounter (principal); S33.5XXA Sprain of ligaments of lumbar spine, initial encounter; V43.52XA Car driver injured in collision with other type car in traffic accident, initial encounter; Y92.410 Unspecified street and highway as the place of occurrence of the external cause; Y93.89 Activity, other specified; Y99.8 Other external cause status; M54.40 Lumbago with sciatica, unspecified side; I11.0 Hypertensive heart disease with heart failure; J44.9 Chronic obstructive pulmonary disease, unspecified; E11.9 Type 2 diabetes mellitus without complications; I50.9 Heart failure, unspecified; E78.00 Pure hypercholesterolemia, unspecified; F41.9 Anxiety disorder, unspecified; F33.9 Major depressive disorder, recurrent, unspecified; K76.0 Fatty (change of) liver, not elsewhere classified; Z95.5 Presence of coronary angioplasty implant and graft; Z79.899 Other long term (current) drug therapy; Z79.82 Long term (current) use of aspirin; Z79.4 Long term (current) use of insulin; Z88.0 Allergy status to penicillin; Z88.4 Allergy status to anesthetic agent

== ENCOUNTER 2017-10-14 20:58 | Emergency (ER) | payer MEDICARE, MEDICAID ==
[~2017-10-14] VITALS: Ht 175.3 cm; Wt 111.8 kg
[~2017-10-14 20:58] MED LIST changes: +CYCL10TA PO; +IBUP-1022 PO; +PERC5TAB12 PO
[2017-10-14] MEDS ORDERED: METOPROLOL TART 50 MG TAB PO ONE (22:15)
[2017-10-14] MEDS ORDERED: LISINOPRIL 40 MG TAB PO ONE (22:15)
[2017-10-14] MEDS ORDERED: METOPROLOL TARTRATE 100 MG TAB PO ONE (22:15)
[2017-10-14 23:53] VITALS: BP 153/95
== END 2017-10-14 23:55 | disposition home or self-care (01) ==
LOC: M ED 20:58 → EDBD 20:58 → M ED 23:55
DX: I10 Essential (primary) hypertension (principal); Z91.14 Patient's other noncompliance with medication regimen; I25.10 Atherosclerotic heart disease of native coronary artery without angina pectoris; E11.9 Type 2 diabetes mellitus without complications; J45.909 Unspecified asthma, uncomplicated; G47.30 Sleep apnea, unspecified; F31.9 Bipolar disorder, unspecified; Z95.5 Presence of coronary angioplasty implant and graft; Z85.46 Personal history of malignant neoplasm of prostate; Z87.19 Personal history of other diseases of the digestive system; Z98.890 Other specified postprocedural states
CPT/HCPCS: 82948; 99284; G0463

== ENCOUNTER → 2017-10-25 | Outpatient (REF) | payer MEDICARE, MEDICAID | LOC: M SFHCPLAZ 11:54 | PROVIDERS: ATTEND Family Medicine | DX: E11.9 Type 2 diabetes mellitus without complications (principal) ==

== ENCOUNTER 2017-11-23 10:12 | Outpatient (RCR) | payer MEDICARE, SELFPAY, MEDICAID | END 2017-11-27 | LOC: M PT 10:12 | DX: Z51.89 Encounter for other specified aftercare (principal); M54.9 Dorsalgia, unspecified | CPT/HCPCS: 97163 ==

== ENCOUNTER 2017-11-30 08:39 | Outpatient (RCR) | payer SELFPAY | END 2017-12-28 | LOC: M PT 08:39 | DX: Z51.89 Encounter for other specified aftercare (principal); M54.2 Cervicalgia; M54.5 Low back pain ==

== ENCOUNTER → 2018-01-11 | Outpatient (REF) | payer MEDICARE, MEDICAID ==
[2018-01-11 15:10] LABS: TOTAL 25(OH) VITAMIN D 22.5 NG/ML (30.0-100.0)
== END ==
LOC: M SFHCPLAZ 11:16
DX: E55.9 Vitamin D deficiency, unspecified (principal)
CPT/HCPCS: 82306

== ENCOUNTER → 2018-02-01 | Outpatient (REF) | payer MEDICARE, MEDICAID ==
[2018-02-01 12:51] LABS: BASO % 0.7 % (0.0-1.0); EOS # 0.1 10^3/uL (0.0-0.50); EOS % 1.9 % (0.0-3.0); HEMATOCRIT 46.8 % (42.0-52.0); HEMOGLOBIN 15.9 g/dl (14.0-18.0); IMMATURE GRANULOCYTE % 0.7 % (0-3.0); LYMPH # 1.2 10^3/uL (1.5-4.5); LYMPH % 20.9 % (24.0-44.0); MEAN CORPUSCULAR HEMOGLOBIN 27.1 pg (27.0-33.0); MEAN CORPUSCULAR VOLUME 79.9 fl (80.0-96.0); MONO # 0.6 10^3/uL (0.0-0.8); MONO % 10.3 % (0.0-5.0); NEUTROPHILS # 3.8 10^3/uL (1.8-7.7); NEUTROPHILS % 65.5 % (36.0-66.0); PLATELET COUNT, AUTOMATED 265 10^3/uL (150-450); RED BLOOD COUNT 5.86 10^6/uL (4.30-6.10); RED CELL DISTRIBUTION WIDTH 13.3 % (11.5-14.5); RETIC HEMOGLOBIN EQUIVALENT 33.8 pg (24-36); RETICULOCYTE # 113.1 10^9/L (17-77); RETICULOCYTE % 1.9 % (0.5-1.5); WHITE BLOOD COUNT 5.9 10^3/uL (4.0-10.0)
[2018-02-01 13:48] LABS: ALBUMIN 3.7 GM/DL (3.2-5.2); ANION GAP 9 MEQ/L (8-16); BLOOD UREA NITROGEN 8 MG/DL (7-18); CALCIUM LEVEL 8.6 MG/DL (8.5-10.1); CARBON DIOXIDE LEVEL 25 MEQ/L (21-32); CHLORIDE LEVEL 105 MEQ/L (98-107); CREATININE FOR GFR 0.89 MG/DL (0.70-1.30); GLOMERULAR FILTRATION RATE > 60.0 (>56); GLUCOSE, FASTING 246 MG/DL (70-100); PHOSPHORUS LEVEL 2.6 MG/DL (2.5-4.9); POTASSIUM SERUM 3.9 MEQ/L (3.5-5.1); SODIUM LEVEL 139 MEQ/L (136-145)
[2018-02-01 15:04] LABS: MALB URINE SIEMENS 79.8 MG/L; MAU/CREAT RATIO 53.2 MCG/MG (0.0-30.0)
[2018-02-01 15:41] LABS: ESTIMATED AVERAGE GLUCOSE 263 MG/DL (60-110); HEMOGLOBIN A1c 10.8 %
== END ==
LOC: M SFHCPLAZ 07:54
DX: I10 Essential (primary) hypertension (principal); E11.65 Type 2 diabetes mellitus with hyperglycemia
CPT/HCPCS: 80069

== ENCOUNTER → 2018-03-15 | Outpatient (CLI) | payer MEDICARE, MEDICAID | LOC: M RAD 10:22 | DX: M54.5 Low back pain (principal) | CPT/HCPCS: 72052 ==

== ENCOUNTER 2018-04-03 22:52 | Emergency (ER) | payer MEDICARE, MEDICAID ==
[2018-04-04] MEDS: ONDANSETRON 4MG/2ML VIAL (J2405) IV ×2 (00:10)
[2018-04-04 00:13] LABS: BASO # 0.1 10^3/uL (0.0-0.2); BASO % 0.7 % (0.0-1.0); EOS # 0.1 10^3/uL (0.0-0.50); EOS % 1.2 % (0.0-3.0); HEMATOCRIT 46.3 % (42.0-52.0); HEMOGLOBIN 15.9 g/dl (13.5-17.5); IMMATURE GRANULOCYTE % 0.7 % (0-3.0); LYMPH # 1.8 10^3/uL (1.5-4.5); LYMPH % 21.5 % (24.0-44.0); MEAN CORPUSCULAR HEMOGLOBIN 27.3 pg (27.0-33.0); MEAN CORPUSCULAR HGB CONC 34.3 g/dl (32.0-36.5); MEAN CORPUSCULAR VOLUME 79.6 fl (80.0-96.0); MONO # 0.7 10^3/uL (0.0-0.8); MONO % 8.6 % (0.0-5.0); NEUTROPHILS # 5.7 10^3/uL (1.8-7.7); NEUTROPHILS % 67.3 % (36.0-66.0); PLATELET COUNT, AUTOMATED 293 10^3/uL (150-450); RED BLOOD COUNT 5.82 10^6/uL (4.30-6.10); RED CELL DISTRIBUTION WIDTH 13.3 % (11.5-14.5); WHITE BLOOD COUNT 8.5 10^3/uL (4.0-10.0)
[2018-04-04] MEDS: MORPHINE 4 MG/ML 1ML VIAL/SYRINGE (J2270) IV ×4 (00:13→00:42)
[2018-04-04 00:23] LABS: ALBUMIN 3.8 GM/DL (3.2-5.2); ALBUMIN/GLOBULIN RATIO 1.09 (1.00-1.93); ALKALINE PHOSPHATASE 108 U/L (45-117); ALT/SGPT 21 U/L (12-78); ANION GAP 5 MEQ/L (8-16); AST/SGOT 15 U/L (7-37); BILIRUBIN,DIRECT 0.1 MG/DL (0.0-0.2); BILIRUBIN,TOTAL 0.5 MG/DL (0.2-1.0); BLOOD UREA NITROGEN 12 MG/DL (7-18); CALCIUM LEVEL 8.7 MG/DL (8.5-10.1); CARBON DIOXIDE LEVEL 28 MEQ/L (21-32); CHLORIDE LEVEL 108 MEQ/L (98-107); CREATININE FOR GFR 0.87 MG/DL (0.70-1.30); GLOMERULAR FILTRATION RATE > 60.0 (>56); GLUCOSE, FASTING 184 MG/DL (70-100); LIPASE 178 U/L (73-393); POTASSIUM SERUM 3.5 MEQ/L (3.5-5.1); SODIUM LEVEL 141 MEQ/L (136-145); TOTAL PROTEIN 7.3 GM/DL (6.4-8.2)
[2018-04-04] MEDS ORDERED: ISOVUE-370 76% 100ML VIAL (Q9967) As Ordered ×2 (00:42)
[2018-04-04] MEDS: MAGNESIUM CITRATE 300 ML BTL PO ×2 (02:49)
== END 2018-04-04 02:58 | disposition home or self-care (01) ==
LOC: M ED 22:52
DX: K59.00 Constipation, unspecified (principal); Z79.899 Other long term (current) drug therapy; Z79.82 Long term (current) use of aspirin; Z79.4 Long term (current) use of insulin; Z88.0 Allergy status to penicillin; Z88.6 Allergy status to analgesic agent
CPT/HCPCS: J2270

== ENCOUNTER → 2018-04-03 | Outpatient (CLI) | payer MEDICARE, MEDICAID ==
[2018-04-03 17:07] LABS: ALBUMIN 3.8 GM/DL (3.2-5.2); ALBUMIN/GLOBULIN RATIO 1.12 (1.00-1.93); ALKALINE PHOSPHATASE 113 U/L (45-117); ALT/SGPT 17 U/L (12-78); ANION GAP 7 MEQ/L (8-16); AST/SGOT 15 U/L (7-37); BILIRUBIN,TOTAL 0.8 MG/DL (0.2-1.0); BLOOD UREA NITROGEN 13 MG/DL (7-18); CALCIUM LEVEL 8.9 MG/DL (8.5-10.1); CARBON DIOXIDE LEVEL 26 MEQ/L (21-32); CHLORIDE LEVEL 108 MEQ/L (98-107); CREATININE FOR GFR 0.93 MG/DL (0.70-1.30); GLOMERULAR FILTRATION RATE > 60.0 (>56); GLUCOSE, FASTING 230 MG/DL (70-100); LIPASE 162 U/L (73-393); POTASSIUM SERUM 4.1 MEQ/L (3.5-5.1); SODIUM LEVEL 141 MEQ/L (136-145); TOTAL PROTEIN 7.2 GM/DL (6.4-8.2)
[2018-04-03 17:35] LABS: BASO # 0.1 10^3/uL (0.0-0.2); BASO % 0.8 % (0.0-1.0); EOS # 0.1 10^3/uL (0.0-0.50); EOS % 0.9 % (0.0-3.0); HEMATOCRIT 48.3 % (42.0-52.0); HEMOGLOBIN 16.4 g/dl (13.5-17.5); IMMATURE GRANULOCYTE % 0.6 % (0-3.0); LYMPH # 1.3 10^3/uL (1.5-4.5); LYMPH % 20.6 % (24.0-44.0); MEAN CORPUSCULAR HEMOGLOBIN 27.4 pg (27.0-33.0); MEAN CORPUSCULAR VOLUME 80.6 fl (80.0-96.0); MONO # 0.5 10^3/uL (0.0-0.8); MONO % 8.2 % (0.0-5.0); NEUTROPHILS # 4.5 10^3/uL (1.8-7.7); NEUTROPHILS % 68.9 % (36.0-66.0); PLATELET COUNT, AUTOMATED 269 10^3/uL (150-450); RED BLOOD COUNT 5.99 10^6/uL (4.30-6.10); RED CELL DISTRIBUTION WIDTH 13.4 % (11.5-14.5); WHITE BLOOD COUNT 6.5 10^3/uL (4.0-10.0)
== END ==
LOC: M WUC 11:40
DX: R10.9 Unspecified abdominal pain (principal); Z98.890 Other specified postprocedural states
CPT/HCPCS: 83690

== ENCOUNTER 2018-05-23 12:10 | Emergency (ER) | payer MEDICARE, MEDICAID ==
[2018-05-23 16:32] LABS: CHLAMYDIA DNA AMPLIFICATION NEGATIVE (NEGATIVE); GC DNA AMPLIFICATION NEGATIVE (NEGATIVE)
[2018-05-24 10:01] LABS: HEPATITIS B SURFACE ANTIBODY POSITIVE (POSITIVE)
[2018-05-24 10:12] LABS: HEPATITIS B SURFACE ANTIGEN NEGATIVE (NEGATIVE)
[2018-05-24 10:39] LABS: HEPATITIS C VIRUS ABY INDEX 0.1 INDEX (<0.8)
[2018-05-24 10:40] LABS: HIV 1&2 SCREEN CENTAUR NEGATIVE (NEGATIVE)
== END 2018-05-23 14:42 | disposition home or self-care (01) ==
LOC: M ED 12:10
DX: M25.511 Pain in right shoulder (principal); M79.621 Pain in right upper arm; Z11.3 Encounter for screening for infections with a predominantly sexual mode of transmission; E11.9 Type 2 diabetes mellitus without complications; J44.9 Chronic obstructive pulmonary disease, unspecified; I10 Essential (primary) hypertension; E78.5 Hyperlipidemia, unspecified; Z88.8 Allergy status to other drugs, medicaments and biological substances; Z88.0 Allergy status to penicillin; Z79.899 Other long term (current) drug therapy
CPT/HCPCS: 73060

== ENCOUNTER → 2018-06-19 | Outpatient (CLI) | payer MEDICARE, MEDICAID ==
[2018-06-19 18:30] LABS: MAU/CREAT RATIO 29.1 MCG/MG (0.0-30.0)
[2018-06-19 18:47] LABS: ESTIMATED AVERAGE GLUCOSE 220 MG/DL (60-110); HEMOGLOBIN A1c 9.3 %
[2018-06-22 08:10] LABS: AMPHETAMINE SCREEN, URINE Negative ng/mL (Cutoff=1000); BARBITURATES SCREEN, URINE Negative ng/mL (Cutoff=200); BENZODIAZEPINES, URINE SCREEN Negative ng/mL (Cutoff=200); CANNABINOID SCREEN, URINE Negative ng/mL (Cutoff=20); COCAINE SCREEN, URINE Negative ng/mL (Cutoff=300); CREATININE, URINE 114.3 mg/dL (20.0-300.0); FENTANYL URINE SCREEN Negative pg/mL (Cutoff=2000); METHADONE, URINE SCREEN Negative ng/mL (Cutoff=300); OPIATE SCREEN, URINE Negative ng/mL (Cutoff=300); OXYCODONE, SCREEN, URINE Negative ng/mL (Cutoff=100); PCP SCREEN, URINE Negative ng/mL (Cutoff=25); SPECIFIC GRAVITY, URINE 1.013 (.); pH, URINE 5.7 (4.5-8.9)
== END ==
LOC: M WUC 14:03
DX: E11.65 Type 2 diabetes mellitus with hyperglycemia (principal); G89.29 Other chronic pain
CPT/HCPCS: 83036

== ENCOUNTER 2018-06-23 11:48 | Observation (INO) | payer MEDICARE, MEDICAID ==
[2018-06-23 13:08] LABS: BASO % 0.4 % (0.0-1.0); EOS % 0.3 % (0.0-3.0); HEMATOCRIT 47.3 % (42.0-52.0); HEMOGLOBIN 16.4 g/dl (13.5-17.5); IMMATURE GRANULOCYTE % 0.8 % (0-3.0); LYMPH # 0.6 10^3/uL (1.5-4.5); LYMPH % 6.2 % (24.0-44.0); MEAN CORPUSCULAR HEMOGLOBIN 27.7 pg (27.0-33.0); MEAN CORPUSCULAR HGB CONC 34.7 g/dl (32.0-36.5); MONO # 0.6 10^3/uL (0.0-0.8); MONO % 5.9 % (0.0-5.0); NEUTROPHILS % 86.4 % (36.0-66.0); PLATELET COUNT, AUTOMATED 301 10^3/uL (150-450); RED BLOOD COUNT 5.91 10^6/uL (4.30-6.10); RED CELL DISTRIBUTION WIDTH 13.1 % (11.5-14.5); WHITE BLOOD COUNT 10.4 10^3/uL (4.0-10.0)
[2018-06-23 13:21] LABS: ALBUMIN 3.5 GM/DL (3.2-5.2); ALKALINE PHOSPHATASE 103 U/L (45-117); ALT/SGPT 19 U/L (12-78); ANION GAP 8 MEQ/L (8-16); AST/SGOT 11 U/L (7-37); BILIRUBIN,DIRECT < 0.1 MG/DL (0.0-0.2); BILIRUBIN,TOTAL 0.5 MG/DL (0.2-1.0); BLOOD UREA NITROGEN 10 MG/DL (7-18); CALCIUM LEVEL 8.4 MG/DL (8.5-10.1); CARBON DIOXIDE LEVEL 24 MEQ/L (21-32); CHLORIDE LEVEL 104 MEQ/L (98-107); CPK CREATINE PHOSPHOKINASE 63 U/L (39-308); CREATININE FOR GFR 0.87 MG/DL (0.70-1.30); FREE T4 0.93 NG/DL (0.76-1.46); GLOMERULAR FILTRATION RATE > 60.0 (>56); GLUCOSE, FASTING 238 MG/DL (70-100); INR 0.89; LIPASE 205 U/L (73-393); PARTIAL THROMBOPLASTIN TIME 23.6 SECONDS (25.4-37.6); POTASSIUM SERUM 4.1 MEQ/L (3.5-5.1); PROTHROMBIN TIME 12.1 SECONDS (12.1-14.4); SODIUM LEVEL 136 MEQ/L (136-145); TOTAL PROTEIN 7.4 GM/DL (6.4-8.2); TROPONIN I < 0.02 NG/ML (< 0.10)
[2018-06-23 13:26] LABS: CK-MB VALUE MASS 1.2 NG/ML (<3.6); NT-PRO BNP 47 PG/ML (<125)
[2018-06-23] MEDS: KETOROLAC 30 MG/ML VIAL (J1885) IV ×2 (14:14)
[2018-06-23] MEDS: ONDANSETRON 4MG/2ML VIAL (J2405) IV ×2 (14:14)
[2018-06-23] MEDS: NS 1,000 ML IV ×2 (14:14)
[2018-06-23] MEDS: MORPHINE 2 MG/ML 1ML SYRINGE (J2270) IV ×4 (14:14→18:11)
[2018-06-23] MEDS: CLINDAMYCIN 600 MG in APPROPRIATE DILUENT 1 EA IV (17:08)
[2018-06-23] MEDS: PERCOCET 5MG/325MG TAB PO ×2 (17:08)
[2018-06-23] MEDS ORDERED: ISOVUE-370 76% 100ML VIAL (Q9967) As Ordered ×2 (19:39)
[2018-06-23] MEDS: KETOROLAC TROMETHAMINE 10 MG TAB PO ×2 (20:27)
[2018-06-23] MEDS: GABAPENTIN 100 MG CAP PO ×2 (20:27)
[2018-06-23] MEDS: METOCLOPRAMIDE INJ 10MG/2ML VIAL (J2765) IV ×2 (20:28)
[2018-06-23] MEDS ORDERED: CLINDAMYCIN 300 MG in APPROPRIATE DILUENT 1 EA IV (20:30)
[2018-06-23] MEDS ORDERED: hydrOXYzine 25 MG TAB PO ×2 (21:00)
[2018-06-23] MEDS: cefTRIAXone SOD 1 GM in D5W MINI-BAG PLUS 50 ML IV (21:00)
[2018-06-23] MEDS: HumaLOG INSULIN (NovoLOG) PER UNIT SC ×2 (21:00)
[2018-06-23] MEDS ORDERED: GLUCAGON FOR INJ 1 MG VIAL (J1610) SC ×2 (21:00)
[2018-06-23] MEDS ORDERED: DEXTROSE 50% 50 ML SYRINGE IV ×2 (21:00)
[2018-06-23] MEDS ORDERED: GLUCOSE 4 GM CHEW TABLET PO ×2 (21:00)
[2018-06-23] MEDS: hydrALAZINE INJ 20 MG/ML VIAL IV ×2 (21:15)
[2018-06-23] MEDS ORDERED: hydrALAZINE INJ 20 MG/ML VIAL IV ×2 (21:15)
[2018-06-24 02:45] LABS: C REACTIVE PROTEIN QUANTITATIV 1.41 MG/DL (0.00-0.30); CK-MB VALUE MASS < 1.0 NG/ML (<3.6); CPK CREATINE PHOSPHOKINASE 37 U/L (39-308); TROPONIN I < 0.02 NG/ML (< 0.10)
[2018-06-24] MEDS: metroNIDAZOLE 500 MG in APPROPRIATE DILUENT 1 EA IV ×4 (03:32→21:01)
[2018-06-24] MEDS: METOPROLOL TARTRATE 100 MG TAB PO ×6 (05:27→20:18)
[2018-06-24] MEDS: OMEPRAZOLE 20 MG CAP PO ×6 (05:28→20:17)
[2018-06-24] MEDS: DOCUSATE SODIUM 100 MG CAP PO ×6 (05:28→20:17)
[2018-06-24 05:48] LABS: HEMATOCRIT 45.9 % (42.0-52.0); MEAN CORPUSCULAR HEMOGLOBIN 27.1 pg (27.0-33.0); MEAN CORPUSCULAR HGB CONC 32.7 g/dl (32.0-36.5); MEAN CORPUSCULAR VOLUME 82.9 fl (80.0-96.0); PLATELET COUNT, AUTOMATED 277 10^3/uL (150-450); RED BLOOD COUNT 5.54 10^6/uL (4.30-6.10); RED CELL DISTRIBUTION WIDTH 13.3 % (11.5-14.5); WHITE BLOOD COUNT 10.6 10^3/uL (4.0-10.0)
[2018-06-24 06:08] LABS: ANION GAP 5 MEQ/L (8-16); BLOOD UREA NITROGEN 12 MG/DL (7-18); C REACTIVE PROTEIN QUANTITATIV 1.67 MG/DL (0.00-0.30); CALCIUM LEVEL 8.1 MG/DL (8.5-10.1); CARBON DIOXIDE LEVEL 30 MEQ/L (21-32); CHLORIDE LEVEL 104 MEQ/L (98-107); CK-MB VALUE MASS < 1.0 NG/ML (<3.6); CPK CREATINE PHOSPHOKINASE 40 U/L (39-308); CREATININE FOR GFR 1.02 MG/DL (0.70-1.30); GLOMERULAR FILTRATION RATE > 60.0 (>56); GLUCOSE, FASTING 128 MG/DL (70-100); MAGNESIUM LEVEL 1.8 MG/DL (1.8-2.4); SODIUM LEVEL 139 MEQ/L (136-145); TROPONIN I < 0.02 NG/ML (< 0.10)
[2018-06-24] MEDS: HumaLOG INSULIN (NovoLOG) PER UNIT SC ×8 (08:20→21:00)
[2018-06-24] MEDS: DULoxetine 30 MG CAP (CYMBALTA) PO ×2 (08:35)
[2018-06-24] MEDS: ASPIRIN 81 MG ENTERIC TAB PO ×2 (08:35)
[2018-06-24] MEDS: ATORVASTATIN 20 MG TAB PO ×2 (08:35)
[2018-06-24] MEDS: TROSPIUM 20 MG TAB PO ×2 (08:35)
[2018-06-24] MEDS: GABAPENTIN 100 MG CAP PO ×6 (08:35→20:17)
[2018-06-24] MEDS: LISINOPRIL 40 MG TAB PO ×2 (08:35)
[2018-06-24] MEDS: ENOXAPARIN 40 MG/0.4 ML SYRINGE (J1650) SC ×2 (08:36)
[2018-06-24] MEDS: SENOKOT S TAB PO ×4 (08:36→20:17)
[2018-06-24 11:56] LABS: BEDSIDE GLUCOSE 229 MG/DL (70-105)
[2018-06-24] MEDS: ACETAMINOPHEN TAB 650MG DOSE (2X325MG) PO ×2 (14:29)
[2018-06-24 17:16] LABS: BEDSIDE GLUCOSE 187 MG/DL (70-105)
[2018-06-24] MEDS: cefTRIAXone SOD 1 GM in D5W MINI-BAG PLUS 50 ML IV (20:18)
[2018-06-24 21:07] LABS: BEDSIDE GLUCOSE 238 MG/DL (70-105)
[2018-06-25] MEDS: metroNIDAZOLE 500 MG in APPROPRIATE DILUENT 1 EA IV (05:37)
[2018-06-25 06:28] LABS: HEMATOCRIT 40.7 % (42.0-52.0); HEMOGLOBIN 13.7 g/dl (13.5-17.5); MEAN CORPUSCULAR HGB CONC 33.7 g/dl (32.0-36.5); MEAN CORPUSCULAR VOLUME 80.3 fl (80.0-96.0); PLATELET COUNT, AUTOMATED 228 10^3/uL (150-450); RED BLOOD COUNT 5.07 10^6/uL (4.30-6.10); RED CELL DISTRIBUTION WIDTH 13.2 % (11.5-14.5); WHITE BLOOD COUNT 5.9 10^3/uL (4.0-10.0)
[2018-06-25 06:47] LABS: ANION GAP 7 MEQ/L (8-16); BLOOD UREA NITROGEN 11 MG/DL (7-18); C REACTIVE PROTEIN QUANTITATIV 1.84 MG/DL (0.00-0.30); CALCIUM LEVEL 7.8 MG/DL (8.5-10.1); CARBON DIOXIDE LEVEL 27 MEQ/L (21-32); CHLORIDE LEVEL 107 MEQ/L (98-107); CREATININE FOR GFR 0.92 MG/DL (0.70-1.30); GLOMERULAR FILTRATION RATE > 60.0 (>56); GLUCOSE, FASTING 265 MG/DL (70-100); MAGNESIUM LEVEL 1.9 MG/DL (1.8-2.4); POTASSIUM SERUM 3.9 MEQ/L (3.5-5.1); SODIUM LEVEL 141 MEQ/L (136-145)
[2018-06-25 07:38] LABS: BEDSIDE GLUCOSE 143 MG/DL (70-105)
[2018-06-25] MEDS: HumaLOG INSULIN (NovoLOG) PER UNIT SC ×4 (07:52→12:17)
[2018-06-25] MEDS: GABAPENTIN 100 MG CAP PO ×2 (07:53)
[2018-06-25] MEDS: ASPIRIN 81 MG ENTERIC TAB PO ×2 (07:53)
[2018-06-25] MEDS: DULoxetine 30 MG CAP (CYMBALTA) PO ×2 (07:53)
[2018-06-25] MEDS: LISINOPRIL 40 MG TAB PO ×2 (07:53)
[2018-06-25] MEDS: TROSPIUM 20 MG TAB PO ×2 (07:53)
[2018-06-25] MEDS: DOCUSATE SODIUM 100 MG CAP PO ×2 (07:54)
[2018-06-25] MEDS: SENOKOT S TAB PO ×2 (07:54)
[2018-06-25] MEDS: METOPROLOL TARTRATE 100 MG TAB PO ×2 (07:54)
[2018-06-25] MEDS: OMEPRAZOLE 20 MG CAP PO ×2 (07:54)
[2018-06-25] MEDS: ATORVASTATIN 20 MG TAB PO ×2 (07:55)
[2018-06-25] MEDS: ENOXAPARIN 40 MG/0.4 ML SYRINGE (J1650) SC ×2 (07:55)
[2018-06-25] MEDS: KETOROLAC TROMETHAMINE 10 MG TAB PO ×2 (08:01)
[2018-06-25 11:34] LABS: BEDSIDE GLUCOSE 142 MG/DL (70-105)
== END 2018-06-25 12:45 | disposition home or self-care (01) ==
LOC: M PCU 06-24 04:27 → M PED 06-25 00:50 → M ED 11:48 → M ED INP 21:43
DX: I16.0 Hypertensive urgency (principal); K08.89 Other specified disorders of teeth and supporting structures (principal); K08.9 Disorder of teeth and supporting structures, unspecified; G43.809 Other migraine, not intractable, without status migrainosus; E11.21 Type 2 diabetes mellitus with diabetic nephropathy; E11.9 Type 2 diabetes mellitus without complications; F31.9 Bipolar disorder, unspecified; N32.81 Overactive bladder; J44.9 Chronic obstructive pulmonary disease, unspecified; Z79.82 Long term (current) use of aspirin; Z79.899 Other long term (current) drug therapy; Z79.4 Long term (current) use of insulin; Z88.0 Allergy status to penicillin; Z88.8 Allergy status to other drugs, medicaments and biological substances; I25.10 Atherosclerotic heart disease of native coronary artery without angina pectoris; Z92.3 Personal history of irradiation; Z85.46 Personal history of malignant neoplasm of prostate
CPT/HCPCS: J2405

== ENCOUNTER → 2018-07-07 | Outpatient (CLI) | payer MEDICARE, MEDICAID ==
[2018-07-07 16:50] LABS: BASO # 0.1 10^3/uL (0.0-0.2); BASO % 0.9 % (0.0-1.0); EOS # 0.1 10^3/uL (0.0-0.50); EOS % 1.4 % (0.0-3.0); HEMATOCRIT 48.9 % (42.0-52.0); HEMOGLOBIN 16.8 g/dl (13.5-17.5); IMMATURE GRANULOCYTE % 0.8 % (0-3.0); LYMPH # 1.6 10^3/uL (1.5-4.5); LYMPH % 17.9 % (24.0-44.0); MEAN CORPUSCULAR HEMOGLOBIN 27.1 pg (27.0-33.0); MEAN CORPUSCULAR HGB CONC 34.4 g/dl (32.0-36.5); MONO # 0.6 10^3/uL (0.0-0.8); MONO % 7.4 % (0.0-5.0); NEUTROPHILS # 6.2 10^3/uL (1.8-7.7); NEUTROPHILS % 71.6 % (36.0-66.0); PLATELET COUNT, AUTOMATED 331 10^3/uL (150-450); RED BLOOD COUNT 6.19 10^6/uL (4.30-6.10); RED CELL DISTRIBUTION WIDTH 13.2 % (11.5-14.5); WHITE BLOOD COUNT 8.7 10^3/uL (4.0-10.0)
[2018-07-07 17:37] LABS: ALBUMIN 3.6 GM/DL (3.2-5.2); ALKALINE PHOSPHATASE 118 U/L (45-117); ALT/SGPT 28 U/L (12-78); ANION GAP 11 MEQ/L (8-16); AST/SGOT 13 U/L (7-37); BILIRUBIN,TOTAL 0.3 MG/DL (0.2-1.0); BLOOD UREA NITROGEN 18 MG/DL (7-18); C REACTIVE PROTEIN QUANTITATIV 0.41 MG/DL (0.00-0.30); CALCIUM LEVEL 9.1 MG/DL (8.5-10.1); CARBON DIOXIDE LEVEL 22 MEQ/L (21-32); CHLORIDE LEVEL 102 MEQ/L (98-107); CREATININE FOR GFR 0.92 MG/DL (0.70-1.30); FREE T4 0.76 NG/DL (0.76-1.46); GLOMERULAR FILTRATION RATE > 60.0 (>56); GLUCOSE, FASTING 302 MG/DL (70-100); POTASSIUM SERUM 4.3 MEQ/L (3.5-5.1); SODIUM LEVEL 135 MEQ/L (136-145); TOTAL PROTEIN 7.6 GM/DL (6.4-8.2)
[2018-07-07 17:45] LABS: ERYTHROCYTE SEDIMENTATION RATE 1 mm/hr (0-20)
[2018-07-11 00:07] LABS: Lyme Disease IgG/IgM Antibodie <0.91 ISR (0.00-0.90); Lyme Disease IgM Ab Quantitati <0.80 index (0.00-0.79)
== END ==
LOC: M WUC 14:09
DX: R53.83 Other fatigue (principal)
CPT/HCPCS: 84443

== ENCOUNTER 2018-07-13 17:07 | Emergency (ER) | payer MEDICARE, MEDICAID ==
[2018-07-13] MEDS: NS 1,000 ML IV (18:45)
[2018-07-13 19:55] LABS: BASO % 0.4 % (0.0-1.0); EOS # 0.1 10^3/uL (0.0-0.50); EOS % 0.7 % (0.0-3.0); HEMATOCRIT 47.7 % (42.0-52.0); HEMOGLOBIN 16.3 g/dl (13.5-17.5); IMMATURE GRANULOCYTE % 0.7 % (0-3.0); LYMPH # 1.7 10^3/uL (1.5-4.5); MEAN CORPUSCULAR HEMOGLOBIN 27.2 pg (27.0-33.0); MEAN CORPUSCULAR HGB CONC 34.2 g/dl (32.0-36.5); MEAN CORPUSCULAR VOLUME 79.5 fl (80.0-96.0); MONO # 0.7 10^3/uL (0.0-0.8); MONO % 7.3 % (0.0-5.0); NEUTROPHILS # 7.2 10^3/uL (1.8-7.7); NEUTROPHILS % 73.9 % (36.0-66.0); PLATELET COUNT, AUTOMATED 323 10^3/uL (150-450); RED CELL DISTRIBUTION WIDTH 13.2 % (11.5-14.5); WHITE BLOOD COUNT 9.7 10^3/uL (4.0-10.0)
[2018-07-13 19:56] LABS: VENOUS BASE EXCESS -4.9 (-2.0-2.0); VENOUS HCO3 19.6 MEQ/L (23.0-27.0); VENOUS O2 SATURATION 92.9 % (60.0-80.0); VENOUS PARTIAL PRESSURE CO2 35.5 mmHg (38.0-50.0); VENOUS PARTIAL PRESSURE O2 66.3 mmHg (30.0-50.0); VENOUS STANDARD HCO3 20.4 MEQ/L; VENOUS TOTAL CO2 20.7 MEQ/L (24.0-28.0)
[2018-07-13] MEDS ORDERED: LABETALOL 100 MG TAB PO (20:00)
[2018-07-13 20:15] LABS: AMPHETAMINES LEVEL URINE NEGATIVE (NEGATIVE); BARBITURATES URINE NEGATIVE (NEGATIVE); BENZODIAZEPINES URINE NEGATIVE (NEGATIVE); CANNABINOIDS URINE NEGATIVE (NEGATIVE); COCAINE METABOLITE URINE NEGATIVE (NEGATIVE); METHADONE URINE NEGATIVE (NEGATIVE); OPIATES URINE NEGATIVE (NEGATIVE); PHENCYCLIDINE URINE NEGATIVE (NEGATIVE)
[2018-07-13 20:20] LABS: ALBUMIN 3.4 GM/DL (3.2-5.2); ALBUMIN/GLOBULIN RATIO 0.89 (1.00-1.93); ALKALINE PHOSPHATASE 117 U/L (45-117); ALT/SGPT 36 U/L (12-78); ANION GAP 12 MEQ/L (8-16); AST/SGOT 16 U/L (7-37); BILIRUBIN,DIRECT < 0.1 MG/DL (0.0-0.2); BILIRUBIN,TOTAL 0.2 MG/DL (0.2-1.0); BLOOD UREA NITROGEN 13 MG/DL (7-18); CALCIUM LEVEL 8.7 MG/DL (8.5-10.1); CARBON DIOXIDE LEVEL 21 MEQ/L (21-32); CHLORIDE LEVEL 105 MEQ/L (98-107); CK-MB VALUE MASS < 1.0 NG/ML (<3.6); CPK CREATINE PHOSPHOKINASE 74 U/L (39-308); CREATININE FOR GFR 1.15 MG/DL (0.70-1.30); ETHYL ALCOHOL (ETHANOL) < 0.003 % (0.000-0.010); GLOMERULAR FILTRATION RATE > 60.0 (>56); GLUCOSE, FASTING 368 MG/DL (70-100); MB/CK RELATIVE INDEX 1.35 (< OR =4); POTASSIUM SERUM 3.9 MEQ/L (3.5-5.1); SALICYLATE LEVEL < 1.7 MG/DL (5.0-30.0); SODIUM LEVEL 138 MEQ/L (136-145); TOTAL PROTEIN 7.2 GM/DL (6.4-8.2); TROPONIN I < 0.02 NG/ML (< 0.10)
[2018-07-13 20:23] LABS: ACETAMINOPHEN LEVEL < 2.0 UG/ML (10.0-30.0)
[2018-07-13] MEDS: HumuLIN R (REGULAR) INSULIN (NovoLIN R) **100U/ML** PER UNIT IV (20:43)
[2018-07-13 20:50] LABS: BEDSIDE GLUCOSE 288 MG/DL (70-105)
[2018-07-13 21:31] LABS: BEDSIDE GLUCOSE 198 MG/DL (70-105)
== END 2018-07-13 22:11 | disposition home or self-care (01) ==
LOC: M ED 17:07
DX: E11.65 Type 2 diabetes mellitus with hyperglycemia (principal); R00.0 Tachycardia, unspecified; I10 Essential (primary) hypertension; Z82.49 Family history of ischemic heart disease and other diseases of the circulatory system; Z88.0 Allergy status to penicillin; Z88.4 Allergy status to anesthetic agent; Z79.899 Other long term (current) drug therapy; Z79.2 Long term (current) use of antibiotics; Z79.82 Long term (current) use of aspirin; Z79.4 Long term (current) use of insulin
CPT/HCPCS: 71045

== ENCOUNTER → 2018-08-11 | Outpatient (CLI) | payer MEDICARE, MEDICAID | LOC: M SLEEP 19:33 | DX: G47.33 Obstructive sleep apnea (adult) (pediatric) (principal) | CPT/HCPCS: 95810 ==

== ENCOUNTER → 2018-09-07 | Outpatient (CLI) | payer MEDICARE, MEDICAID | LOC: M SLEEP 19:59 | DX: G47.33 Obstructive sleep apnea (adult) (pediatric) (principal) | CPT/HCPCS: 95811 ==

== ENCOUNTER → 2018-09-22 | Outpatient (CLI) | payer MEDICARE, MEDICAID ==
[2018-09-22 15:28] LABS: PROSTATIC SPECIFIC AG MONITOR 0.18 NG/ML (< 4.0)
== END ==
LOC: M SMT 11:55
DX: C61 Malignant neoplasm of prostate (principal); R35.0 Frequency of micturition
CPT/HCPCS: 84153

== ENCOUNTER → 2018-09-22 | Outpatient (REF) | payer MEDICARE, MEDICAID ==
[2018-09-22 13:57] LABS: APPEARANCE, URINE CLEAR (CLEAR); BACTERIA, URINE AUTO NEGATIVE (NEGATIVE); BILIRUBIN, URINE AUTO NEGATIVE (NEGATIVE); BLOOD, URINE BLOOD NEGATIVE (NEGATIVE); COLOR, URINE YELLOW (YELLOW); GLUCOSE, URINE (UA) AUTO 3+ mg/dL (NEGATIVE); KETONE, URINE AUTO NEGATIVE (NEGATIVE); LEUKOCYTE ESTERASE, URINE AUTO NEGATIVE (NEGATIVE); MUCUS, URINE SMALL (NEGATIVE); NITRITE, URINE AUTO NEGATIVE (NEGATIVE); PROTEIN, URINE AUTO NEGATIVE (NEGATIVE); RBC, URINE AUTO 0 /HPF (0-3); SPECIFIC GRAVITY URINE AUTO 1.035 (1.002-1.035); SQUAMOUS EPITHELIAL CELL UR AU 0 /HPF (0-6); UROBILINOGEN, URINE AUTO 0.2 mg/dL (0.0-2.0); WBC, URINE AUTO 1 /HPF (0-3)
== END ==
LOC: M SMT 13:17
DX: R35.0 Frequency of micturition (principal)
CPT/HCPCS: 81001

== ENCOUNTER → 2018-10-06 | Outpatient (REF) | payer MEDICARE, MEDICAID ==
[2018-10-06 11:08] LABS: CHOLESTEROL LEVEL 189 MG/DL (<200); CHOLESTEROL RISK RATIO 5.906 (<5); HDL CHOLESTEROL 32 MG/DL (>40); LDL CHOLESTEROL 125 MG/DL (<100); NON-HDL-C 157 MG/DL; TRIGLYCERIDES LEVEL 158 MG/DL (<150)
[2018-10-06 11:19] LABS: ESTIMATED AVERAGE GLUCOSE 214 MG/DL (60-110); HEMOGLOBIN A1c 9.1 %
== END ==
LOC: M SFHCPLAZ 08:39
DX: E11.65 Type 2 diabetes mellitus with hyperglycemia (principal)
CPT/HCPCS: 83036

== ENCOUNTER 2018-11-03 15:38 | Emergency (ER) | payer MEDICARE, MEDICAID ==
[2018-11-03] MEDS: MECLIZINE 25 MG TABLET PO (16:19)
[2018-11-03 16:31] LABS: BASO % 0.3 % (0.0-1.0); EOS % 0.2 % (0.0-3.0); HEMOGLOBIN 17.5 g/dl (13.5-17.5); IMMATURE GRANULOCYTE % 0.3 % (0-3.0); LYMPH # 1.4 10^3/uL (1.5-4.5); LYMPH % 13.9 % (24.0-44.0); MEAN CORPUSCULAR HEMOGLOBIN 27.2 pg (27.0-33.0); MEAN CORPUSCULAR VOLUME 77.8 fl (80.0-96.0); MONO # 0.8 10^3/uL (0.0-0.8); MONO % 8.2 % (0.0-5.0); NEUTROPHILS # 7.9 10^3/uL (1.8-7.7); NEUTROPHILS % 77.1 % (36.0-66.0); PLATELET COUNT, AUTOMATED 319 10^3/uL (150-450); RED BLOOD COUNT 6.43 10^6/uL (4.30-6.10); RED CELL DISTRIBUTION WIDTH 13.6 % (11.5-14.5); WHITE BLOOD COUNT 10.2 10^3/uL (4.0-10.0)
[2018-11-03] MEDS: NS 1,000 ML IV (17:00)
[2018-11-03 17:03] LABS: ANION GAP 12 MEQ/L (8-16); BLOOD UREA NITROGEN 17 MG/DL (7-18); CARBON DIOXIDE LEVEL 26 MEQ/L (21-32); CHLORIDE LEVEL 103 MEQ/L (98-107); CPK CREATINE PHOSPHOKINASE 140 U/L (39-308); CREATININE FOR GFR 1.16 MG/DL (0.70-1.30); GLOMERULAR FILTRATION RATE > 60.0 (>56); GLUCOSE, FASTING 180 MG/DL (70-100); MB/CK RELATIVE INDEX 0.79 (< OR =4); SODIUM LEVEL 141 MEQ/L (136-145); TROPONIN I < 0.02 NG/ML (< 0.10)
[2018-11-03] MEDS: ONDANSETRON 4 MG ORAL DISINTEGRATING TAB (Q0162 PER 1MG) PO (17:59)
== END 2018-11-03 18:01 | disposition home or self-care (01) ==
LOC: M ED 15:38
DX: H65.01 Acute serous otitis media, right ear (principal); R42 Dizziness and giddiness; I10 Essential (primary) hypertension; R11.0 Nausea; I25.2 Old myocardial infarction; Z98.61 Coronary angioplasty status; Z88.4 Allergy status to anesthetic agent; Z88.0 Allergy status to penicillin; Z79.82 Long term (current) use of aspirin; Z79.84 Long term (current) use of oral hypoglycemic drugs; Z79.899 Other long term (current) drug therapy
CPT/HCPCS: Q0162

== ENCOUNTER 2018-11-24 17:10 | Inpatient (IN) | payer MEDICARE, MEDICAID ==
[~2018-11-24] VITALS: Ht 175.3 cm; Wt 109.0 kg
[~2018-11-24 17:10] MED LIST changes: +AMLO2.5T2 PO; +CYMB60CA3 PO; +FLOM0.4C39 PO; -FLOM5CAP PO; -GLUC4CHW PO; +GLUC4CHW19 PO; +MECL25CH45 PO; +MYRB25TA PO; +NOVOINJ3 SC; +SPIR-10 PO; -SPIR25TA2 PO; -SPIR50TA2 PO; +SPIR50TA4 PO; +TRAM50TA2 PO; +TRES1INJ; +TRUL0.5I SQ; -VITA1CAP40 PO; +VITA50005 PO; +ZOFR4TAB14 PO; +[UNRECOGNIZED DRUG - REMARK] SQ
[2018-11-24 18:20] VITALS: BP 156/97
[2018-11-24] MEDS ORDERED: ONDANSETRON 4 MG TAB (S0181) PO PRN (19:00)
[2018-11-24] MEDS ORDERED: ACETAMINOPHEN TAB 650MG DOSE (2X325MG) PO PRN (19:00)
[2018-11-24] MEDS ORDERED: IPRATROPIUM 0.5MG/ALBUTEROL 2.5MG INH SOL UD 3ML (DUONEB)(J7620) NEB PRN (19:15)
[2018-11-24] MEDS ORDERED: PERCOCET 5MG/325MG TAB PO PRN (19:15)
[2018-11-24] MEDS ORDERED: GLUCOSE 4 GM CHEW TABLET PO PRN (19:15)
[2018-11-24] MEDS ORDERED: MECLIZINE 25 MG TABLET PO PRN (19:15)
[2018-11-24] MEDS ORDERED: DEXTROSE 50% 50 ML SYRINGE IV PRN (19:15)
[2018-11-24] MEDS ORDERED: GLUCAGON FOR INJ 1 MG VIAL (J1610) SC PRN (19:15)
[2018-11-24] MEDS ORDERED: METF500T4 PO (20:11)
[2018-11-24] MEDS ORDERED: ZOFR4TAB14 PO (20:11)
--- NOTE | 2018-11-24 20:11 | CR.PDOC ---
General Date of Consultation: Nov 24, 2018 Consultation REASON FOR CONSULTATION/CHIEF COMPLAINT: Medical management. HISTORY OF PRESENT ILLNESS: Mr. Garrett is a 58-year-old male presenting to [facility] for rehabilitation after being discharged from [facility] in [place] following a left thalamic stroke on 11/16/18. He presented to the emergency department with right sided weakness and initially an MRI was negative for acute stroke. The timing of the rest of his hospitalization his confusing given the discharge summary provided, however it is evident that on day 3 of his hospital stay (a bilateral lower extremity numbness necessitating an MRI that showed a left thalamic stroke that was not present on the prior MRI. He also at some point during his hospital stay began having episodes of confusion. Given this acute confusion and Ortega's palsy that was noted on admission to the emergency department, a lumbar puncture was performed that demonstrated elevated protein without pleocytosis suggestive of Guillain- Wyatt syndrome and was started on steroids. He was discharged on 11/25/18 to do follow-up rehabilitation at [facility]. We are consulted for medical management at this time. ALLERGIES: Please see below. HOME MEDICATIONS: Please see below. PAST MEDICAL HISTORY: [place] Palsy Acute ischemic stroke Guillain [place] syndrome Type 2 diabetes COPD Asthma Diabetic nephropathy Hypertension Patent foramen ovale Hyperlipidemia HUMBEL History of present prostate cancer status post radiation 2013 CAD status post stenting 2012 CHF PAST SURGICAL HISTORY: TNA Cholecystectomy Diverticulitis 2004 Cataract 1998 and 2008 Hernia repair 1998 Cardiac stent 09/2013 Heel surgery Colonoscopy 12/2016 FAMILY HISTORY: Father: , stroke, [place] Mother: Alive, type 2 diabetes Children: Son and daughter both alivehealthy SOCIAL HISTORY: Nonsmoker. Denies alcohol use. Denies illicit drugs. Lives at home with girlfriend, stepchild, friend, [id number]. He is unemployed secondary to disability REVIEW OF SYSTEMS: CONSTITUTIONAL: Denies fevers, chills, recent unexpected weight change. HEENT: States he has had a headache since being admitted to [facility]. Denies vision changes. States he cannot hear out of his right ear for the past 2 weeks. CARDIOVASCULAR: Denies chest pain, palpitations, dyspnea. RESPIRATORY: Denies shortness of breath, wheezing, cough. GENITOURINARY: Denies difficulty urinating, frequency, urgency. MUSCULOSKELETAL: Denies muscle aches, joint pain. GASTROINTESTINAL: States he vomited yesterday morning after breakfast. Denies any current nausea, vomiting, abdominal pain, constipation, diarrhea.. NEUROLOGICAL: Denies current numbness/tingling. States he does feel weakness on his right side PSYCHIATRIC: Normal mood. PHYSICAL EXAMINATION: VITAL SIGNS: Please see below. GENERAL APPEARANCE: No acute distress resting comfortably in bed HEENT: Normocephalic, atraumatic. EOMI. RESPIRATORY: CTAB with full breath sounds bilaterally. No wheezes, crackles, rhonchi.. CARDIOVASCULAR: RRR. Normal S1 and S2. No murmurs appreciated on auscultation ABDOMEN: Soft, nontender, nondistended. Obese abdomen. Bowel sounds present. EXTREMITIES: Feet tender to palpation bilaterally. NEUROLOGICAL: Alert and oriented 3. Cranial nerves VII exhibits right-sided facial weakness with smiling. Remainder of cranial nerve exam was normal. Cranial nerve I was not tested. Strength 5/5 in right upper extremity, 4 minus in left upper extremity. 5/5 bilateral lower extremities. PSYCHIATRIC: Mood normal.. LABORATORY DATA: Please see below. ASSESSMENT/PLAN: Patient is a 58-year-old male who presents to us for rehabilitation following discharge from [facility] for an acute ischemic stroke. #. History of stroke Continue aspirin, atorvastatin, Plavix. Continue with rehabilitation #. Guillain [place] syndrome Continue steroid as prescribed by [facility] #. Type 2 diabetes Continue home meds #. COPD/Asthma Continue home meds #. Diabetic nephropathy Continue home meds #. Hypertension Continue home meds #. Hyperlipidemia Continue home meds #. HUMBLE - Continue with home CPAP #GI prophylaxis Continue pantoprazole #. DVT prophylaxis Heparin Vital Signs/I&O Vital Signs Date Time Temp Pulse Resp B/P (MAP) Pulse Ox O2 Delivery O2 Flow Rate FiO2 11/24/18 18:20 97.9 90 20 156/97 (116) 98 Room Air Allergies Coded Allergies: Penicillins (Verified Allergy, Unknown, 06/23/18) Procaine (Verified Allergy, Unknown, 06/23/18) Home Medications Scheduled (Trulicity) 1.5 Mg/0.5 Ml Inj, 1.5 MG SQ 1XWK, (Reported) TUESDAYS Aspirin (Aspir-81) 81 Mg Tab, 81 MG PO DAILY, (Reported) Atorvastatin Calcium (Atorvastatin Calcium) 40 Mg Tab, 20 MG PO DAILY, (Reported) Budesonide/Formoterol (Symbicort 160-4.5 Mcg/Act) 60 Puff/Inhaler Aers, 2 PUFF INH BID, (Reported) Chlorthalidone (Chlorthalidone) 25 Mg Tab, 25 MG PO DAILY, (Reported) Duloxetine Hcl (Cymbalta) 60 Mg Cap, 60 MG PO DAILY, (Reported) Insulin Aspart (Novolog Flexpen) 100 Unit/Ml Inj, 1 DOSE SC ACHS, (Reported) PER SLIDING SCALE Insulin Glargine (Lantus Solostar) 100 Unit/Ml Inj, 15 UNITS SC QHS, (Reported) Lisinopril (Lisinopril) 40 Mg Tab, 40 MG PO DAILY, (Reported) Metformin Hydrochloride (Metformin HCl ER) 500 Mg Tab, 1,000 MG PO BID, (Reported) Metoprolol Tartrate (Lopressor) 100 Mg Tab, 100 MG PO BID, (Reported) Mirabegron Base (Myrbetriq) 25 Mg Tab, 25 MG PO DAILY, (Reported) Omeprazole (Omeprazole) 20 Mg Cap, 20 MG PO BID, (Reported) Scheduled PRN Albuterol Sulfate (Proair Hfa) 108 Mcg/Act Aer, 2 PUFF INH Q6H PRN for WHEEZING, (Reported) Albuterol Sulfate (Albuterol Sulfate) 2.5 Mg/3 Ml Nebu, 2.5 MG INH QID PRN for SOB/WHEEZING, (Reported) Glucose (Glucose) 4 Gm Chw, 4 GM PO ASDIRECTED PRN for BLOOD SUGAR < 50, (Reported) Hydroxyzine Pamoate (Vistaril) 25 Mg Cap, 25 MG PO Q4H PRN for ANXIETY/AGITATION, (Reported) Meclizine HCl (Meclizine HCl) 25 Mg Tab, 25 MG PO Q6H PRN for DIZZINESS, (Reported) Nitroglycerin (Nitrostat) 0.4 Mg Subl, 0.4 MG SL NITRO PRN for CHEST PAIN, (Reported) Ondansetron (Zofran Odt) 4 Mg Tab, 4 MG PO Q4H PRN for NAUSEA, (Reported) Tramadol HCl (Tramadol HCl) 50 Mg Tab, 50 MG PO Q6H PRN for PAIN, (Reported) GME ATTESTATION GME ATTESTATION My faculty preceptor for this patient encounter was physically present during the encounter and was fully available. All aspects of the patient interview, examination, medical decision making process, and medical care plan development were reviewed and approved by the faculty preceptor. The faculty preceptor is aware and concurs with the plan as stated in the body of this note and will attest to such by his/her cosignature. AUDRA EDUARDO DO Nov 24, 2018 20:11 NATANAEL BURLESON MD Nov 25, 2018 23:07
[2018-11-24] MEDS ORDERED: ALBU83IN INH (20:14)
[2018-11-24] MEDS ORDERED: CHLO25TA PO (20:14)
[2018-11-24] MEDS ORDERED: LANTINJ4 SC (20:14)
[2018-11-24] MEDS ORDERED: SYMB16INH INH (20:14)
[2018-11-24] MEDS ORDERED: MECL-68 PO (20:14)
[2018-11-24 20:30] VITALS: BP 180/100
[2018-11-24] MEDS ORDERED: LEVEMIR (INSULIN DETEMIR) 1 UNITS/0.01ML SC SCH (21:00)
[2018-11-24] MEDS ORDERED: HumaLOG INSULIN (NovoLOG) PER UNIT SC SCH (21:00)
[2018-11-24] MEDS: HEPARIN SOD (PORCINE) 5000 UNITS/ML VIAL SQ SCH (21:33)
[2018-11-24] MEDS: LISINOPRIL 40 MG TAB PO SCH (21:34)
[2018-11-24] MEDS: GABAPENTIN 300 MG CAP PO SCH (21:34)
[2018-11-24] MEDS: METOPROLOL TART 50 MG TAB PO SCH (21:35)
[2018-11-24] MEDS: SYMBICORT 160/4.5MCG INHALER 6GM INH SCH (23:28)
[2018-11-25 01:45] VITALS: BP 152/100
[2018-11-25 05:28] VITALS: BP 152/98
[2018-11-25] MEDS: HEPARIN SOD (PORCINE) 5000 UNITS/ML VIAL SQ SCH ×2 (05:49→15:19)
[2018-11-25 06:51] LABS: BASO % 0.3 % (0.0-1.0); EOS % 0.2 % (0.0-3.0); HEMATOCRIT 45.1 % (42.0-52.0); HEMOGLOBIN 15.8 g/dl (13.5-17.5); LYMPH # 1.8 10^3/uL (1.5-4.5); LYMPH % 14.2 % (24.0-44.0); MEAN CORPUSCULAR VOLUME 77.1 fl (80.0-96.0); MONO # 1.2 10^3/uL (0.0-0.8); MONO % 9.4 % (0.0-5.0); NEUTROPHILS # 9.7 10^3/uL (1.8-7.7); NEUTROPHILS % 74.8 % (36.0-66.0); PLATELET COUNT, AUTOMATED 346 10^3/uL (150-450); RED BLOOD COUNT 5.85 10^6/uL (4.30-6.10)
[2018-11-25 07:06] LABS: ALBUMIN 2.8 GM/DL (3.2-5.2); ALT/SGPT 19 U/L (12-78); BILIRUBIN,TOTAL 0.6 MG/DL (0.2-1.0); BLOOD UREA NITROGEN 34 MG/DL (7-18); CALCIUM LEVEL 8.8 MG/DL (8.5-10.1); CARBON DIOXIDE LEVEL 19 MEQ/L (21-32); CHLORIDE LEVEL 105 MEQ/L (98-107); CREATININE FOR GFR 1.15 MG/DL (0.70-1.30); GLOMERULAR FILTRATION RATE > 60.0 (>56); GLUCOSE, FASTING 280 MG/DL (70-100); POTASSIUM SERUM 3.4 MEQ/L (3.5-5.1); SODIUM LEVEL 132 MEQ/L (136-145); TOTAL PROTEIN 9.4 GM/DL (6.4-8.2)
[2018-11-25] MEDS ORDERED: metFORMIN (GLUCOPHAGE) 1000 MG TABLET PO SCH (08:00)
[2018-11-25] MEDS: SYMBICORT 160/4.5MCG INHALER 6GM INH SCH ×2 (08:10→18:37)
[2018-11-25] MEDS: LISINOPRIL 40 MG TAB PO SCH (08:31)
[2018-11-25] MEDS: GABAPENTIN 300 MG CAP PO SCH ×2 (08:31→15:48)
[2018-11-25 08:33] VITALS: BP 130/80
[2018-11-25] MEDS: METOPROLOL TART 50 MG TAB PO SCH (08:33)
[2018-11-25] MEDS ORDERED: ASPIRIN 81 MG ENTERIC TAB PO SCH (09:00)
[2018-11-25] MEDS ORDERED: CHLORTHALIDONE 25 MG TAB PO SCH (09:00)
[2018-11-25] MEDS ORDERED: CLOPIDOGREL 75 MG TAB PO SCH (09:00)
[2018-11-25] MEDS ORDERED: PANTOPRAZOLE 40MG TAB (PROTONIX) PO SCH (09:00)
[2018-11-25] MEDS ORDERED: ATORVASTATIN 20 MG TAB PO SCH (09:00)
[2018-11-25] MEDS ORDERED: CYANOCOBALAMIN 500 MCG TAB PO SCH (09:00)
[2018-11-25] MEDS ORDERED: predniSONE 20 MG TAB PO SCH (09:00)
[2018-11-25] MEDS ORDERED: BISACODYL 10 MG SUPP PR PRN (10:45)
[2018-11-25] MEDS ORDERED: MIRALAX *UNIT DOSE* 17GM PACKET PO PRN (10:45)
[2018-11-25] MEDS ORDERED: traZODone 50 MG TAB PO PRN (10:45)
[2018-11-25] MEDS ORDERED: POTASSIUM CHLORIDE 10 MEQ SR TABLET PO ONE (11:00)
[2018-11-25] MEDS: DOCUSATE SODIUM 100 MG CAP PO SCH ×2 (11:08→15:48)
--- NOTE | 2018-11-25 12:16 | NUR ---
Bedside dypshagia eval completed. Pt safe and appropriate for a regular textured diet with thin liquids. Recommend upright positioning for all PO intake with encouragement for small bites and slow rate of intake. Pt noted to take large bites, but adequate tolerance noted despite bite size. Adequate mastication despite bottom dentition only. Pt reports trying dentures several years ago, but with poor fit so he Addendum: 11/25/18 at 1219 by LARISA DUTTA SSV SP Amended: Links added.
--- NOTE | 2018-11-25 12:27 | NUR ---
Speech eval completed. Pt presents with mild dysarthria affecting speech intellibility. Intelligibility adequate for comprehension by listener, but not at pt's baseline. Poor breath support and control also affects speech intelligibility. Pt noted to have reduced breath support and reduced intelligibility at greatest levels when producing lengthy sentences and in conversation. Addendum: 11/25/18 at 1229 by LARISA DUTTA SSV SP Amended: Links added.
--- NOTE | 2018-11-25 12:53 | REP ---
Clinical: Altered mental status. Rule out acute infarction. Comparison: 11/03/2018 . Findings: The ventricles, sulci, and cisterns are normal in position and appearance. Mild atrophy. George-white differentiation is maintained. No acute intracranial hemorrhage, mass/mass effect, pathology or trauma/injury. No evidence for acute infarction. No extra-axial fluid collection. Calvarium is intact. Paranasal sinuses and mastoid air cells are clear. Impression: Mild stable atrophy suggested. No evidence for acute intracranial pathology or trauma/injury. Electronically Signed by Greg Blackwood MD 11/25/2018 12:45 P
[2018-11-25 14:00] VITALS: BP 109/57
[2018-11-25 14:16] LABS: HEMATOCRIT 51.6 % (42.0-52.0); HEMOGLOBIN 17.3 g/dl (13.5-17.5); MEAN CORPUSCULAR HGB CONC 33.5 g/dl (32.0-36.5); MEAN CORPUSCULAR VOLUME 80.5 fl (80.0-96.0); PLATELET COUNT, AUTOMATED 261 10^3/uL (150-450); RED BLOOD COUNT 6.41 10^6/uL (4.30-6.10); WHITE BLOOD COUNT 13.5 10^3/uL (4.0-10.0)
--- NOTE | 2018-11-25 14:53 | REP ---
Clinical: Symptoms related to acute infarction. Technique: Standard noncontrast MRI of the brain. Note: Examination is limited due to motion artifact and prematurely terminated at the patient's request. Findings: The limited examination demonstrates high signal intensity foci on diffusion weighted sequence in the left thalamus and scattered within the bilateral occipital lobes (left greater than right) and left parietal lobe are consistent with small acute non hemorrhagic infarctions. There also appears to be an area of acute infarction in the right cerebellar peduncle. No obvious hemorrhage or mass/mass effect. No significant edema or shift. No extra-axial collection. Impression: Limited examination demonstrates multiple small scattered acute non hemorrhagic infarctions primarily noted in the left thalamus, right cerebellar peduncle, and within the occipital lobes (left greater than right) and left parietal lobe. Electronically Signed by Greg Blackwood MD 11/25/2018 02:44 P
[2018-11-25] MEDS ORDERED: prednisoLONE ACET 1% OPHTH SUSP 5ML XX SCH (16:00)
--- NOTE | 2018-11-25 17:08 | HPEPDOC ---
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 CTH showed no acute intracranial findings, MRI on 11-17-18 showed small vessel ischemic disease. ECHO was positive for LVEF 40-45% function, bubble study was positive, and CTA head and neck angiogram on 11-16-18 showed showed severe stenosis of the left P3 segment of the left posterior cerebral artery and moderate stenosis of the P1-P2 junction in the right [employer] in addition to "an area of left occipital hypodensity...may represent an acute posterior watershed zone infarction". Repeat MRI on 11-19-18 showed a left thalamic stroke. On 11-19-18 h e developed ascending paresthesias and bilateral LE weakness and there was concern for Guillain Redbird Syndrome given a recent history of ear infection. He was given IVIG from 11-20 until 11-24 and after two days his bilateral weakness resolved, but he had a persistent right facial droop. He was found to have preserved reflexes and EMG/NCS work-up did not confirm an acute demyelinating process, but did provide evidence for a right C6-C7 and right L2-L3 chronic radiculopathy. MRI of the entire spine sis not show any contrast enhancement or focal cord lesion , but did show chronic degenerative changes. He was started on a steroid taper and deemed medically appropriate for discharge to ARU on . Upon arrival patient reported having right sided numbness in both the upper and lower extremity, and reported his bilateral leg weakness had resolved. He denied any dysphagia or difficulty breathing. He reports still having right ear pain. REVIEW OF SYSTEMS: The following is a completed review of systems and has been reviewed. Review of systems otherwise unremarkable. PAIN: right ear pain EYES: Negative EARS, NOSE, & THROAT: +right facial droop, no dysphagia, no rhinorrhea CARDIOVASCULAR: denies chest pain or palpitations PULMONARY: Negative. Denies shortness of breath, +HUMBLE GASTROINTESTINAL: +constipation GENITOURINARY: Negative for dysuria NEUROLOGICAL: right facial droop, possible recent GBS PSYCHIATRIC: Unremarkable All other review of systems found to be negative. PAST MEDICAL HISTORY: HTN, HLD, HUMBLE (non-compliant with CPAP), DM ALLERGIES: Please see below. MEDICATIONS: Please see below. SOCIAL HISTORY: Lives with significant other, denies smoking, ETOH, or drug use DIET: Regular PHYSICAL EXAMINATION: VITAL SIGNS: Please see below. GENERAL: Pleasant and cooperative. No acute distress. Alert and oriented times three. HEENT: PERRL. Extraocular movements intact. Clear conjunctiva, +eyebrow sparing right facial droop CARDIOVASCULAR: Regular rate and rhythm. No murmurs, rubs, or gallops LUNGS:Clear to auscultation bilaterally. No wheezes. No rhonchi ABDOMEN: Soft, nontender, nondistended. Positive bowel sounds. Normal active bowel sounds NEUROLOGICAL: [Alert and oriented times three. Cranial nerves II through XII grossly intact. Sensation decreased RUE and RLE EXTREMITIES:5\\5 strength bilateral upper extremities. 5\\5 strength right lower extremity. 5/5 strength in left lower extremity. Imaging documentation personally reviewed by record FUNCTIONAL STATUS: Premorbid: Independent with all activities of daily life as well as mobility On Admission: Minimal Assist for functional transfers and ambulation with RW. Goal: Sara-I with ambulation RW, grooming, upper and lower body grooming, stairs, medical optimization, assess for DME needs, family training. ASSESSMENT:58-year-old M with past medical history of DM, HTN, HUMBLE who presents status post left thalamic stroke and possible AIDP/GBS PLAN: 1. Rehab: PT/OT, KITCHEN AIDE assess for DME needs 2. Neuro: recent left thalamic stroke with multiple foci of intracranial stenosis, right facial droop is eye-brow sparing suggesting it is central in origin and not Ortega's Palsey -BP management and statin for secondary stroke prevention, ASA and Plavix for stenosis -recent asceding paralysis and paresthesias s/p IVIG currently on Prednisone taper 3. Cardio: pmh HTN- continue home BP meds, ASa and Plavix- medicine consulted 4. Resp: HUMBLE may use home CPAP, duonebs, monitor for signs of infection, Incent ria Spirometry 5. Endo: pmh DM- continue MEtofrim and Insulin coverage 6. : f/u admission UA and Ucx, monitor PVRs 7. DVT ppx Heparin 8. Dipo: TBD POST ADMISSION PHYSICIAN EVALUATION: Medical and functional status: Description of medical status, medical assessment: As above. Rehabilitation diagnosis and current and prior cold morbid medical conditions as above. Risk of complications and plans to mitigate them as above. Description of functional status current status is as above. Prior status as above. Status compared to preadmission: There are no clinically significant differences between the patient's current status and the information described on the preadmission screening document. Treatment plan anticipated: Treatment plan is as described above. Required disciplines including physical therapy, occupational therapy, others as noted above Intensity of services: 3 hours a day, 6 days a week. Special considerations: There are no specific special or safety considerations that would likely preclude immediate implementation of an intensive rehabilitation program or subsequently influence the plan of care ATTESTATION: Considering all the information above, it is my best judgment that this patient requires intensive rehabilitation therapy as described above and an inpatient hospital environment due to the complexity of nursing, medical, and rehabilitation needs required by the patient. Furthermore, this patient can reasonably be expected to participate in an benefit from an inpatient rehabilitation stay with an interdisciplinary team approach to the delivery of rehabilitation care under the direction and supervision of rehabilitation physician PROGNOSIS: Excellent ESTIMATED LENGTH OF STAY:10-14 days. PROJECTED DISCHARGE DESTINATION: Home with family support and any durable medical equipment required to increase functional safety and mobility. TIME SPENT COUNSELING AND COORDINATING INITIAL CARE: Greater than 70 minutes. Vital Signs Vital Sign - Last 24 Hours 11/24/18 11/24/18 11/24/18 11/25/18 18:20 20:30 21:35 01:45 Temp 97.9 98.5 Pulse 90 93 93 Resp 20 18 B/P (MAP) 156/97 (116) 180/100 (126) 180/100 152/100 (117) Pulse Ox 98 96 O2 Delivery Room Air Room Air 11/25/18 11/25/18 05:28 08:33 Temp 97.7 Pulse 77 77 Resp 18 B/P (MAP) 152/98 (116) 130/80 Pulse Ox 96 O2 Delivery Room Air Laboratory Data CBC/BMP Laboratory Tests 11/25/18 06:23 Red Blood Count 5.85, Mean Corpuscular Volume 77.1 L, Mean Corpuscular Hemoglobin 27.0, Mean Corpuscular Hemoglobin Concent 35.0, Red Cell Distribution Width 13.7, Neutrophils (%) (Auto) 74.8 H, Lymphocytes (%) (Auto) 14.2 L, Monocytes (%) (Auto) 9.4 H, Eosinophils (%) (Auto) 0.2, Basophils (%) (Auto) 0.3, Neutrophils # (Auto) 9.7 H, Lymphocytes # (Auto) 1.8, Monocytes # (Auto) 1.2 H, Eosinophils # (Auto) 0.0, Basophils # (Auto) 0.0, Calcium Level 8.8, Aspartate Amino Transf (AST/SGOT) 11, Alanine Aminotransferase (ALT/SGPT) 19, Alkaline Phosphatase 79, Total Bilirubin 0.6, Total Protein 9.4 H, Albumin 2.8 L 11/25/18 14:03 Red Blood Count 6.41 H, Mean Corpuscular Volume 80.5, Mean Corpuscular Hemoglobin 27.0, Mean Corpuscular Hemoglobin Concent 33.5, Red Cell Distribution Width 13.9 Labs 24H Laboratory Tests 2 11/24/18 21:22: Bedside Glucose (Misc Panel) 407H 11/25/18 06:23: Immature Granulocyte % (Auto) 1.1, White Blood Count 13.0H, Red Blood Count 5.85, Hemoglobin 15.8, Hematocrit 45.1, Mean Corpuscular Volume 77.1L, Mean Corpuscular Hemoglobin 27.0, Mean Corpuscular Hemoglobin Concent 35.0, Red Cell Distribution Width 13.7, Platelet Count 346, Neutrophils (%) (Auto) 74.8H, Lymphocytes (%) (Auto) 14.2L, Monocytes (%) (Auto) 9.4H, Eosinophils (%) (Auto) 0.2, Basophils (%) (Auto) 0.3, Neutrophils # (Auto) 9.7H, Lymphocytes # (Auto) 1.8, Monocytes # (Auto) 1.2H, Eosinophils # (Auto) 0.0, Basophils # (Auto) 0.0, Nucleated Red Blood Cells % (auto) 0.0, Anion Gap 8, Glomerular Filtration Rate > 60.0, Blood Urea Nitrogen 34H, Creatinine 1.15, Sodium Level 132L, Potassium Level 3.4L, Chloride Level 105, Carbon Dioxide Level 19L, Calcium Level 8.8, Aspartate Amino Transf (AST/SGOT) 11, Alanine Aminotransferase (ALT/SGPT) 19, Alkaline Phosphatase 79, Total Bilirubin 0.6, Total Protein 9.4H, Albumin 2.8L, Albumin/Globulin Ratio 0.42L 11/25/18 11:42: Bedside Glucose (Misc Panel) 350H 11/25/18 14:03: Nucleated Red Blood Cells % (auto) 0.0 FSBS Laboratory Tests Test 11/24/18 21:22 11/25/18 11:42 Range/Units Bedside Glucose (Misc Panel) 407 350 70-105 MG/DL Home Medications Scheduled (Trulicity) 1.5 Mg/0.5 Ml Inj, 1.5 MG SQ 1XWK, (Reported) TUESDAYS Aspirin (Aspir-81) 81 Mg Tab, 81 MG PO DAILY, (Reported) Atorvastatin Calcium (Atorvastatin Calcium) 40 Mg Tab, 20 MG PO DAILY, (Reported) Budesonide/Formoterol (Symbicort 160-4.5 Mcg/Act) 60 Puff/Inhaler Aers, 2 PUFF INH BID, (Reported) Chlorthalidone (Chlorthalidone) 25 Mg Tab, 25 MG PO DAILY, (Reported) Duloxetine Hcl (Cymbalta) 60 Mg Cap, 60 MG PO DAILY, (Reported) Insulin Aspart (Novolog Flexpen) 100 Unit/Ml Inj, 1 DOSE SC ACHS, (Reported) PER SLIDING SCALE Insulin Glargine (Lantus Solostar) 100 Unit/Ml Inj, 15 UNITS SC QHS, (Reported) Lisinopril (Lisinopril) 40 Mg Tab, 40 MG PO DAILY, (Reported) Metformin Hydrochloride (Metformin HCl ER) 500 Mg Tab, 1,000 MG PO BID, (Reported) Metoprolol Tartrate (Lopressor) 100 Mg Tab, 100 MG PO BID, (Reported) Mirabegron Base (Myrbetriq) 25 Mg Tab, 25 MG PO DAILY, (Reported) Omeprazole (Omeprazole) 20 Mg Cap, 20 MG PO BID, (Reported) Scheduled PRN Albuterol Sulfate (Proair Hfa) 108 Mcg/Act Aer, 2 PUFF INH Q6H PRN for WHEEZING, (Reported) Albuterol Sulfate (Albuterol Sulfate) 2.5 Mg/3 Ml Nebu, 2.5 MG INH QID PRN for SOB/WHEEZING, (Reported) Glucose (Glucose) 4 Gm Chw, 4 GM PO ASDIRECTED PRN for BLOOD SUGAR < 50, (Reported) Hydroxyzine Pamoate (Vistaril) 25 Mg Cap, 25 MG PO Q4H PRN for ANXIETY/AGITATION, (Reported) Meclizine HCl (Meclizine HCl) 25 Mg Tab, 25 MG PO Q6H PRN for DIZZINESS, (Reported) Nitroglycerin (Nitrostat) 0.4 Mg Subl, 0.4 MG SL NITRO PRN for CHEST PAIN, (Reported) Ondansetron (Zofran Odt) 4 Mg Tab, 4 MG PO Q4H PRN for NAUSEA, (Reported) Tramadol HCl (Tramadol HCl) 50 Mg Tab, 50 MG PO Q6H PRN for PAIN, (Reported) Allergies Coded Allergies: Penicillins (Verified Allergy, Unknown, 06/23/18) Procaine (Verified Allergy, Unknown, 06/23/18) SILVA STEEN MD Nov 25, 2018 16:30
--- NOTE | 2018-11-25 17:27 | IPNPDOC ---
Date Seen The patient was seen on 11/25/18. Progress Note SUBJECTIVE: Patient complains of numbness to his right lip as well as weakness in his right leg which she has not had for several days. He denies changes in bowel or bladder or visual changes difficulty with word finding or any other complaints upon extensive questioning OBJECTIVE PHYSICAL EXAMINATION: VITAL SIGNS: Please see below. GENERAL: Obese man appears older than stated age laying comfortably in bed at a 25 angle he is in no acute distress HEENT: I do appreciate some depression of the right nasolabial fold also [employer] is not able to close his right eyelid CARDIOVASCULAR: 1 S2 regular. RESPIRATORY: Clear to auscultation. ABDOMINAL: Obese bowel sounds present abdomen soft EXTREMITIES: No Cyanosis or edema, 5/5 strength throughout some decreased sensation subjectively stated on the right lower extremity LABORATORY DATA, IMAGING STUDIES, MICROBIOLOGY: Please see below. Echocardiogram: Per report from [place] reported a positive bubble study as well as moderately reduced systolic function with EF of 40-45%. DVT prophylaxis ordered?: Heparin every 8 ASSESSMENT AND PLAN: This is a 58-year-old man with right facial droop as well as right lower extremity weakness. PROBLEMS: 1. And right facial droop and right lower extremity weakness: He did have this upon his presentation on November 16 at [facility] however it did reportedly improve with steroids and IVIG. He had extensive workup there including EMGs which revealed chronic polyneuropathy he did have an LP that elevated protein which raises concern for GBS henceforth IVIG 2 days he received there. His actual presentation that was more suggestive of Ortega's palsy and as such was started on steroids however he had acute worsening of symptoms while there and had a second MRI which revealed left thalamic tiny acute stroke as well as some occipital hyperintensity lesion suggestive of occipital watershed stroke as well. From there he had an echocardiogram that reportedly had a positive bubble study as well as a CTA that revealed severe P3 stenosis. At this time his exam is more consistent with Ortega's palsy-type picture however strains of the symptoms have waxed and waned in that he has an MRI today which shows new findings. Nursing staff and I have attempted to obtain the previous images from outside hospital unfortunately we will be unable to have these until Tuesday at which point a true comparison can be made. For the time being he remains on aspirin Plavix Lipitor blood pressure control, prednisone taper glycemic control gabapentin. I do have concern for him potential thromboembolic disease versus intracranial atherosclerotic disease as well and will recheck her to neurology f or consultation at this time. I wonder if he would not benefit from anticoagulation and transesophageal echocardiogram to assess for any source of emboli related to his PFO 2. 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 4. Diabetes: Previously uncontrolled, hold his metformin and add sliding scale insulin to with meal coverage in addition to the at night that he is currently receiving and change his diet to consistent carb. Address his neuropathy is continued on gabapentin. His neuropathy was also started on B12 daily at [facility] 5. Hypertension fairly resistant he is currently on metoprolol lisinopril and chlorthalidone is certainly possible he has some resistance secondary to his noncompliance for obstructive sleep apnea 6. Obstructive sleep apnea: Noncompliant with CPAP lengthy discussion was had with him he understands the importance of this but tells me he is claustrophobic and cannot tolerate it is not open to trying it at this time 7. COPD: He is at his baseline respiratory status she is continued on Symbicort and DuoNeb when necessary 8. Coronary artery disease: Documented history that she is on aspirin and statin and beta kushal as well as Plavix 9. PFO: Reportedly positive bubble study in Jun could not find the actual echocardiogram report documented in progress notes. He also does have some systolic dysfunction which is near as I can tell no clear etiology has been discerned. I think he would benefit from outpatient cardiology evaluation VS, I&O, 24H, Fishbone Vital Signs/I&O Vital Signs Date Time Temp Pulse Resp B/P (MAP) Pulse Ox O2 Delivery O2 Flow Rate FiO2 11/25/18 08:33 77 130/80 11/25/18 05:28 97.7 18 96 Room Air I&O- Last 24 Hours up to 6 AM 11/25/18 06:00 Intake Total 770 ml Output Total 1375 ml Balance -605 ml Laboratory Data 24H LABS Laboratory Tests 2 11/24/18 21:22: Bedside Glucose (Misc Panel) 407H 11/25/18 06:23: Immature Granulocyte % (Auto) 1.1, White Blood Count 13.0H, Red Blood Count 5.85, Hemoglobin 15.8, Hematocrit 45.1, Mean Corpuscular Volume 77.1L, Mean Corpuscular Hemoglobin 27.0, Mean Corpuscular Hemoglobin Concent 35.0, Red Cell Distribution Width 13.7, Platelet Count 346, Neutrophils (%) (Auto) 74.8H, Lymphocytes (%) (Auto) 14.2L, Monocytes (%) (Auto) 9.4H, Eosinophils (%) (Auto) 0.2, Basophils (%) (Auto) 0.3, Neutrophils # (Auto) 9.7H, Lymphocytes # (Auto) 1.8, Monocytes # (Auto) 1.2H, Eosinophils # (Auto) 0.0, Basophils # (Auto) 0.0, Nucleated Red Blood Cells % (auto) 0.0, Anion Gap 8, Glomerular Filtration Rate > 60.0, Blood Urea Nitrogen 34H, Creatinine 1.15, Sodium Level 132L, Potassium Level 3.4L, Chloride Level 105, Carbon Dioxide Level 19L, Calcium Level 8.8, Aspartate Amino Transf (AST/SGOT) 11, Alanine Aminotransferase (ALT/SGPT) 19, Alkaline Phosphatase 79, Total Bilirubin 0.6, Total Protein 9.4H, Albumin 2.8L, Albumin/Globulin Ratio 0.42L 11/25/18 11:42: Bedside Glucose (Misc Panel) 350H 11/25/18 14:03: Nucleated Red Blood Cells % (auto) 0.0 11/25/18 16:56: Bedside Glucose (Misc Panel) 471H CBC/BMP Laboratory Tests 11/25/18 06:23 Red Blood Count 5.85, Mean Corpuscular Volume 77.1 L, Mean Corpuscular Hemoglobin 27.0, Mean Corpuscular Hemoglobin Concent 35.0, Red Cell Distribution Width 13.7, Neutrophils (%) (Auto) 74.8 H, Lymphocytes (%) (Auto) 14.2 L, Monocytes (%) (Auto) 9.4 H, Eosinophils (%) (Auto) 0.2, Basophils (%) (Auto) 0.3, Neutrophils # (Auto) 9.7 H, Lymphocytes # (Auto) 1.8, Monocytes # (Auto) 1.2 H, Eosinophils # (Auto) 0.0, Basophils # (Auto) 0.0, Calcium Level 8.8, Aspartate Amino Transf (AST/SGOT) 11, Alanine Aminotransferase (ALT/SGPT) 19, Alkaline Phosphatase 79, Total Bilirubin 0.6, Total Protein 9.4 H, Albumin 2.8 L 11/25/18 14:03 Red Blood Count 6.41 H, Mean Corpuscular Volume 80.5, Mean Corpuscular Hemoglobin 27.0, Mean Corpuscular Hemoglobin Concent 33.5, Red Cell Distribution Width 13.9 OSEAS PEDROZA MD Nov 25, 2018 17:27
[2018-11-25] MEDS ORDERED: HumaLOG INSULIN (NovoLOG) PER UNIT SC SCH (17:30)
[2018-11-25 18:40] VITALS: BP 148/92
[2018-11-25] MEDS ORDERED: NS 1,000 ML IV ONE (19:15)
[2018-11-25 19:50] VITALS: BP 143/92
[2018-11-25] MEDS ORDERED: LEVEMIR (INSULIN DETEMIR) 1 UNITS/0.01ML SC SCH (21:00)
[2018-11-26] MEDS ORDERED: SENNA 8.6 MG TAB (SENOKOT) PO SCH (12:00)
[2018-11-27] MEDS ORDERED: predniSONE 20 MG TAB PO SCH (09:00)
[2018-11-29] MEDS ORDERED: predniSONE 10 MG TAB PO SCH (09:00)
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
[2018-12-02] MEDS ORDERED: predniSONE 5 MG TAB PO SCH (09:00)
[2018-12-05] MEDS ORDERED: predniSONE 5 MG TAB PO SCH (09:00)
== END 2018-11-25 20:33 | disposition short-term general hospital (02) | DRG 56 ==
LOC: M PM&R 18:20
PROVIDERS: ADMIT Physical Medicine & Rehabilitation; ATTEND Physical Medicine & Rehabilitation
DX: I69.392 Facial weakness following cerebral infarction (principal); I63.59 Cerebral infarction due to unspecified occlusion or stenosis of other cerebral artery; G61.0 Guillain-Barre syndrome; Q21.1 Atrial septal defect; E11.42 Type 2 diabetes mellitus with diabetic polyneuropathy; I11.0 Hypertensive heart disease with heart failure; E78.5 Hyperlipidemia, unspecified; G47.33 Obstructive sleep apnea (adult) (pediatric); E11.21 Type 2 diabetes mellitus with diabetic nephropathy; I25.10 Atherosclerotic heart disease of native coronary artery without angina pectoris; J44.9 Chronic obstructive pulmonary disease, unspecified; J45.909 Unspecified asthma, uncomplicated; I50.9 Heart failure, unspecified; Z79.82 Long term (current) use of aspirin; Z79.4 Long term (current) use of insulin; Z79.899 Other long term (current) drug therapy; Z88.0 Allergy status to penicillin; Z88.8 Allergy status to other drugs, medicaments and biological substances; Z85.46 Personal history of malignant neoplasm of prostate; Z95.5 Presence of coronary angioplasty implant and graft; Z92.3 Personal history of irradiation; Z91.19 Patient's noncompliance with other medical treatment and regimen

== ENCOUNTER 2018-11-30 14:05 | Inpatient (IN) | payer MEDICARE, MEDICAID ==
[~2018-11-30] VITALS: Ht 175.3 cm; Wt 98.1 kg
[~2018-11-30 14:05] MED LIST changes: -AMLO2.5T2 PO; +AMLO2.5T3 PO; +CHLO25TA PO; +LISI40TA PO; +MECL-68 PO; +METF500T4 PO; +POLY1POW38 PO; -POLY33502 PO; +SYMB16INH INH
[2018-11-30 15:30] VITALS: BP 153/88
[2018-11-30] MEDS ORDERED: ALBUTEROL SULFATE 2.5 MG/0.5 ML INH NEB SOLN NEB PRN (15:45)
[2018-11-30] MEDS ORDERED: ULTRACET TAB PO PRN (15:45)
[2018-11-30] MEDS ORDERED: GLUCOSE 4 GM CHEW TABLET PO PRN (15:45)
[2018-11-30] MEDS ORDERED: GLUCAGON FOR INJ 1 MG VIAL (J1610) SC PRN (15:45)
[2018-11-30] MEDS ORDERED: DEXTROSE 50% 50 ML SYRINGE IV PRN (15:45)
[2018-11-30] MEDS ORDERED: ATOR80TA59 PO (15:47)
[2018-11-30] MEDS ORDERED: ELIQ5TAB PO (15:50)
[2018-11-30] MEDS ORDERED: VITA100072 PO (15:50)
[2018-11-30] MEDS ORDERED: GABA-843 PO (15:50)
[2018-11-30] MEDS ORDERED: BISACODYL 10 MG SUPP PR PRN (16:00)
[2018-11-30] MEDS ORDERED: MOM 30ML SUSPENSION UDC PO PRN (16:00)
[2018-11-30] MEDS ORDERED: ACETAMINOPHEN TAB 650MG DOSE (2X325MG) PO PRN (16:00)
[2018-11-30] MEDS: HumaLOG INSULIN (NovoLOG) PER UNIT SC SCH (17:35)
[2018-11-30 18:00] LABS: APPEARANCE, URINE CLEAR (CLEAR); BACTERIA, URINE AUTO NEGATIVE (NEGATIVE); BILIRUBIN, URINE AUTO NEGATIVE (NEGATIVE); BLOOD, URINE BLOOD NEGATIVE (NEGATIVE); COLOR, URINE YELLOW (YELLOW); GLUCOSE, URINE (UA) AUTO 3+ mg/dL (NEGATIVE); KETONE, URINE AUTO NEGATIVE (NEGATIVE); LEUKOCYTE ESTERASE, URINE AUTO NEGATIVE (NEGATIVE); MUCUS, URINE SMALL (NEGATIVE); NITRITE, URINE AUTO NEGATIVE (NEGATIVE); PROTEIN, URINE AUTO NEGATIVE (NEGATIVE); RBC, URINE AUTO 1 /HPF (0-3); SQUAMOUS EPITHELIAL CELL UR AU 0 /HPF (0-6); WBC, URINE AUTO 1 /HPF (0-3)
[2018-11-30] MEDS: SYMBICORT 160/4.5MCG INHALER 6GM INH SCH (18:52)
[2018-11-30] MEDS: metFORMIN XR 500MG TAB *GLUCOPHAGE XR PO SCH (19:53)
[2018-11-30 20:00] VITALS: BP 164/106
[2018-11-30 21:30] VITALS: BP 142/84
[2018-11-30] MEDS: GABAPENTIN 100 MG CAP PO SCH (21:32)
[2018-11-30] MEDS: DOCUSATE SODIUM 100 MG CAP PO SCH (21:32)
[2018-11-30] MEDS: SENNA 8.6 MG TAB (SENOKOT) PO SCH (21:32)
[2018-11-30] MEDS: APIXABAN 5 MG TAB (ELIQUIS) PO SCH (21:35)
[2018-11-30] MEDS: METOPROLOL TART 50 MG TAB PO SCH (21:35)
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
[2018-12-01] MEDS: GABAPENTIN 100 MG CAP PO SCH ×3 (05:41→21:45)
[2018-12-01 06:00] VITALS: BP 137/98
[2018-12-01 06:27] LABS: BASO % 0.3 % (0.0-1.0); EOS # 0.1 10^3/uL (0.0-0.50); EOS % 1.3 % (0.0-3.0); HEMATOCRIT 43.6 % (42.0-52.0); HEMOGLOBIN 15.2 g/dl (13.5-17.5); LYMPH # 1.6 10^3/uL (1.5-4.5); LYMPH % 18.5 % (24.0-44.0); MEAN CORPUSCULAR HEMOGLOBIN 27.4 pg (27.0-33.0); MEAN CORPUSCULAR HGB CONC 34.9 g/dl (32.0-36.5); MEAN CORPUSCULAR VOLUME 78.6 fl (80.0-96.0); MONO # 0.8 10^3/uL (0.0-0.8); MONO % 9.4 % (0.0-5.0); NEUTROPHILS # 5.9 10^3/uL (1.8-7.7); NEUTROPHILS % 68.9 % (36.0-66.0); PLATELET COUNT, AUTOMATED 278 10^3/uL (150-450); RED BLOOD COUNT 5.55 10^6/uL (4.30-6.10); WHITE BLOOD COUNT 8.6 10^3/uL (4.0-10.0)
[2018-12-01 06:50] LABS: ALBUMIN 2.7 GM/DL (3.2-5.2); ALT/SGPT 29 U/L (12-78); BILIRUBIN,TOTAL 0.6 MG/DL (0.2-1.0); BLOOD UREA NITROGEN 16 MG/DL (7-18); CALCIUM LEVEL 8.3 MG/DL (8.5-10.1); CARBON DIOXIDE LEVEL 19 MEQ/L (21-32); CHLORIDE LEVEL 112 MEQ/L (98-107); GLOMERULAR FILTRATION RATE > 60.0 (>56); GLUCOSE, FASTING 181 MG/DL (70-100); POTASSIUM SERUM 3.7 MEQ/L (3.5-5.1); SODIUM LEVEL 140 MEQ/L (136-145); TOTAL PROTEIN 7.5 GM/DL (6.4-8.2)
[2018-12-01] MEDS: SYMBICORT 160/4.5MCG INHALER 6GM INH SCH ×2 (08:27→19:59)
[2018-12-01] MEDS: APIXABAN 5 MG TAB (ELIQUIS) PO SCH ×2 (08:38→21:45)
[2018-12-01] MEDS: HumaLOG INSULIN (NovoLOG) PER UNIT SC SCH ×3 (08:38→17:27)
[2018-12-01] MEDS: CHLORTHALIDONE 25 MG TAB PO SCH (08:38)
[2018-12-01] MEDS: METOPROLOL TART 50 MG TAB PO SCH (08:38)
[2018-12-01] MEDS: DOCUSATE SODIUM 100 MG CAP PO SCH ×2 (08:38→21:00)
[2018-12-01] MEDS: PANTOPRAZOLE 40MG TAB (PROTONIX) PO SCH (08:38)
[2018-12-01] MEDS: LISINOPRIL 40 MG TAB PO SCH (08:38)
[2018-12-01] MEDS: ATORVASTATIN 20 MG TAB PO SCH (08:38)
--- NOTE | 2018-12-01 11:02 | NUR ---
Pt w/ moderate cognitive impairment. Deficits in attention, memory, problem-solving, awareness of deficits, and goal-setting. Pt w/ poor awareness of deficits, although he may be close to baseline status. Pt reports mild dysarthria, but notes no other changes since CVA. Recommend ACID MAKER tx for cognitive-communication skills. Addendum: 12/01/18 at 1104 by ELIO TOLENTINO [facility] SP Amended: Links added.
--- NOTE | 2018-12-01 11:09 | NUR ---
Pt w/ mild-moderate dysarthria. Recommend DOUGHNUT MAKER tx for articulation training and oral motor exercises. Addendum: 12/01/18 at 1109 by ELIO TOLENTINO [facility] SP Amended: Links added.
[2018-12-01] MEDS ORDERED: VARIBAR PUDDING 40% w/v 230ML TUBE As Ordered ONE (11:59)
[2018-12-01] MEDS ORDERED: E-Z-PAQUE 96% w/w SUSP 176GM BTL As Ordered ONE (12:00)
[2018-12-01] MEDS ORDERED: VARIBAR NECTAR 40% w/v 240ML SUSP BTL As Ordered ONE (12:00)
--- NOTE | 2018-12-01 13:36 | NUR ---
[facility] completed this date s/p thalamic stroke. Exam was unremarkable and swallow is adequate. Pt is baseline with chewing without dentures. Recommend: Regular solids and thin liquids. Upright in chair for all meals. Frequent checks throughout meals. Addendum: 12/01/18 at 1338 by NATI BILLINGSLEY [facility] SP Amended: Links added.
[2018-12-01 14:00] VITALS: BP 134/92
--- NOTE | 2018-12-01 14:56 | HPEPDOC ---
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 CTH showed no acute intracranial findings, MRI on 11-17-18 showed small vessel ischemic disease. ECHO was positive for LVEF 40-45% function, bubble study was positive, and CTA head and neck angiogram on 11-16-18 showed showed severe stenosis of the left P3 segment of the left posterior cerebral artery and moderate stenosis of the P1-P2 junction in the right [place] in addition to "an area of left occipital hypodensity...may represent an acute posterior watershed zone infarction". Repeat MRI on 11-19-18 showed a left thalamic stroke. 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 He was given IVIG from 11-20 until 11-24 and after two days his bilateral weakness resolved, but he had a persistent right facial droop. He was found to have preserved reflexes and EMG/NCS work-up did not confirm an acute demyelinating process, but did provide evidence for a right C6-C7 and right L2-L3 chronic radiculopathy. MRI of the entire spine sis not show any contrast enhancement or focal cord lesion , but did show chronic degenerative changes. He was started on a steroid taper and deemed medically appropriate for discharge to ARU on 11-24-18. Upon arrival patient reported having right sided numbness in both the upper and lower extremity, and reported his bilateral leg weakness had resolved. He denied any dysphagia or difficulty breathing. He reported having right ear pain. On 11-25-18 he complained of worsening numbness and had slurred speech so stat CT was negative for hemorrhage and stat MRI showed, "Limited examination demonstrates multiple small scattered acute non hemorrhagic infarctions primarily noted in the left thalamus, right cerebellar peduncle, and within the occipital lobes (left greater than right) and left parietal lobe." He was urgently transferred back to [facility] for further work-up. He was admitted to telemetry, KIAH revealed no LA Appendage thrombus, given concern for embolic source, he was started on Eliquis on 11-30-18 and his antiplatelet therapy was discontinued. A Loop recorder was also placed. He was found to have rectal bleeding on 11-28-18 for which GI was consulted, but was deemed to be from hemorrhoids and was cleared for AC per GI following a colonoscopy performed 11-29-18. Overall his numbness and paresthesias improved, he continued to have a right facial droop, and he was deemed medically appropriate for discharge back to ARU on 11-30-18. REVIEW OF SYSTEMS: The following is a completed review of systems and has been reviewed. Review of systems otherwise unremarkable. PAIN: right ear pain EYES: Negative EARS, NOSE, & THROAT: +right facial droop, no dysphagia, no rhinorrhea CARDIOVASCULAR: denies chest pain or palpitations PULMONARY: Negative. Denies shortness of breath, +HUMBLE GASTROINTESTINAL: +constipation GENITOURINARY: Negative for dysuria NEUROLOGICAL: right facial droop, possible recent GBS PSYCHIATRIC: Unremarkable All other review of systems found to be negative. PAST MEDICAL HISTORY: HTN, HLD, HUMBLE (non-compliant with CPAP), DM ALLERGIES: Please see below. MEDICATIONS: Please see below. SOCIAL HISTORY: Lives with significant other, denies smoking, ETOH, or drug use DIET: puree and nectar PHYSICAL EXAMINATION: VITAL SIGNS: Please see below. GENERAL: Pleasant and cooperative. No acute distress. Alert and oriented times three. HEENT: PERRL. Extraocular movements intact. Clear conjunctiva, +right facial droop including eyebrow lifting CARDIOVASCULAR: Regular rate and rhythm. No murmurs, rubs, or gallops LUNGS:Clear to auscultation bilaterally. No wheezes. No rhonchi ABDOMEN: Soft, nontender, nondistended. Positive bowel sounds. Normal active bowel sounds NEUROLOGICAL: Alert and oriented times three. No notable aphasia, mild dysarthria Cranial nerves II through XII grossly intact. Sensation decreased bilateral LE (-) Babinski 3+biceps and brachioradialis reflex on the right EXTREMITIES:5\\5 strength bilateral upper extremities. 5\\5 strength right lower extremity. 5/5 strength in left lower extremity. Imaging documentation personally reviewed by record FUNCTIONAL STATUS: Premorbid: Independent with all activities of daily life as well as mobility On Admission: Minimal Assist for functional transfers and ambulation with RW. Goal: Sara-I with ambulation RW, grooming, upper and lower body grooming, stairs, medical optimization, assess for DME needs, family training. ASSESSMENT:58-year-old M with past medical history of DM, HTN, HUMBLE who presents status post left thalamic stroke and possible AIDP/GBS PLAN: 1. Rehab: PT/OT, [facility] assess for DME needs, advance diet per [facility]RAYON SAWYER 2. 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 Cardio: pmh HTN- continue home BP meds, medicine consulted 4. Resp: HUMBLE may use home CPAP, duonebs, monitor for signs of infection, Incentive Spirometry 5. Endo: pmh DM- continue MEtofrim and Insulin coverage 6. : f/u admission UA and Ucx, monitor PVRs 7. ID: right ear infection, will start antibiotic ear drops and prednisolone for pain 8. DVT on Eliquis 9. Dipo: TBD POST ADMISSION PHYSICIAN EVALUATION: Medical and functional status: Description of medical status, medical assessment: As above. Rehabilitation diagnosis and current and prior cold morbid medical conditions as above. Risk of complications and plans to mitigate them as above. Description of functional status current status is as above. Prior status as above. Status compared to preadmission: There are no clinically significant differences between the patient's current status and the information described on the preadmission screening document. Treatment plan anticipated: Treatment plan is as described above. Required disciplines including physical therapy, occupational therapy, others as noted above Intensity of services: 3 hours a day, 6 days a week. Special considerations: There are no specific special or safety considerations that would likely preclude immediate implementation of an intensive rehabilitation program or subsequently influence the plan of care ATTESTATION: Considering all the information above, it is my best judgment that this patient requires intensive rehabilitation therapy as described above and an inpatient hospital environment due to the complexity of nursing, medical, and rehabilitation needs required by the patient. Furthermore, this patient can reasonably be expected to participate in an benefit from an inpatient rehabilitation stay with an interdisciplinary team approach to the delivery of rehabilitation care under the direction and supervision of rehabilitation physician PROGNOSIS: Excellent ESTIMATED LENGTH OF STAY:14-18 days. PROJECTED DISCHARGE DESTINATION: Home with family support and any durable medical equipment required to increase functional safety and mobility. TIME SPENT COUNSELING AND COORDINATING INITIAL CARE: Greater than 70 minutes. Vital Signs Vital Signs Date Time Temp Pulse Resp B/P (MAP) Pulse Ox O2 Delivery O2 Flow Rate FiO2 11/30/18 15:30 97.0 71 18 153/88 (109) 98 Room Air Laboratory Data Labs 24H Laboratory Tests 2 11/30/18 17:16: Bedside Glucose (Misc Panel) 181H 11/30/18 17:24: Urine Appearance CLEAR, Urine Color YELLOW, Urine pH 5.0, Urine Specific [place] 1.010, Urine Protein NEGATIVE, Urine Glucose (UA) 3+H, Urine Ketones NEGATIVE, Urine Urobilinogen 2.0H, Urine Bilirubin NEGATIVE, Urine Leukocyte Esterase NEGATIVE, Urine Blood NEGATIVE, Urine Nitrite NEGATIVE, Urine WBC (Auto) 1, Urine RBC (Auto) 1, Urine Hyaline Casts (Auto) 0, Urine Bacteria (Auto) NEGATIVE, Urine Squamous Epithelial Cells 0, Urine Mucus (Auto) SMALL, Urine Sperm (Auto) FSBS Laboratory Tests Test 11/30/18 17:16 Range/Units Bedside Glucose (Misc Panel) 181 70-105 MG/DL Microbiology Microbiology 11/30/18 Urine Culture, Received Pending Home Medications Scheduled (Trulicity) 1.5 Mg/0.5 Ml Inj, 1.5 MG SQ 1XWK, (Reported) TUESDAYS Apixaban Base (Eliquis) 5 Mg Tab, 5 MG PO BID, (Reported) Atorvastatin Calcium (Atorvastatin Calcium) 80 Mg Tab, 80 MG PO DAILY, (Reported) Budesonide/Formoterol (Symbicort 160-4.5 Mcg/Act) 60 Puff/Inhaler Aers, 2 PUFF INH BID, (Reported) Chlorthalidone (Chlorthalidone) 25 Mg Tab, 25 MG PO DAILY, (Reported) Cyanocobalamin (Vitamin B12) 1,000 Mcg Tab, 1,000 MCG PO DAILY, (Reported) Duloxetine Hcl (Cymbalta) 60 Mg Cap, 60 MG PO DAILY, (Reported) Gabapentin (Gabapentin) 300 Mg Cap, 300 MG PO TID, (Reported) Insulin Aspart (Novolog Flexpen) 100 Unit/Ml Inj, 1 DOSE SC ACHS, (Reported) PER SLIDING SCALE Lisinopril (Lisinopril) 40 Mg Tab, 40 MG PO DAILY, (Reported) Metformin Hydrochloride (Metformin HCl ER) 500 Mg Tab, 1,000 MG PO BID, (Reported) Metoprolol Tartrate (Lopressor) 100 Mg Tab, 100 MG PO BID, (Reported) Mirabegron Base (Myrbetriq) 25 Mg Tab, 25 MG PO DAILY, (Reported) Omeprazole (Omeprazole) 20 Mg Cap, 20 MG PO BID, (Reported) Scheduled PRN Albuterol Sulfate (Proair Hfa) 108 Mcg/Act Aer, 2 PUFF INH Q6H PRN for WHEEZING, (Reported) Albuterol Sulfate (Albuterol Sulfate) 2.5 Mg/3 Ml Nebu, 2.5 MG INH QID PRN for SOB/WHEEZING, (Reported) Glucose (Glucose) 4 Gm Chw, 4 GM PO ASDIRECTED PRN for BLOOD SUGAR < 50, (Reported) Meclizine HCl (Meclizine HCl) 25 Mg Tab, 25 MG PO Q6H PRN for DIZZINESS, (Reported) Nitroglycerin (Nitrostat) 0.4 Mg Subl, 0.4 MG SL NITRO PRN for CHEST PAIN, (Reported) Ondansetron (Zofran Odt) 4 Mg Tab, 4 MG PO Q4H PRN for NAUSEA, (Reported) Tramadol HCl (Tramadol HCl) 50 Mg Tab, 50 MG PO Q6H PRN for PAIN, (Reported) Allergies Coded Allergies: Penicillins (Verified Allergy, Unknown, 06/23/18) Procaine (Verified Allergy, Unknown, 06/23/18) SILVA STEEN MD Nov 30, 2018 19:46
--- NOTE | 2018-12-01 14:58 | IPNPDOC ---
PM&R Progress Note DATE OF SERVICE: Dec 01, 2018 [employer] Dispatcher Progress Note Subjective: He is eager to eat a regular diet and reports right ear pain. REVIEW OF SYSTEMS: The following is a completed review of systems and has been reviewed. Review of systems otherwise unremarkable. PAIN: right ear pain EYES: Negative EARS, NOSE, & THROAT: +right facial droop, no dysphagia, no rhinorrhea CARDIOVASCULAR: denies chest pain or palpitations PULMONARY: Negative. Denies shortness of breath, +HUMBLE GASTROINTESTINAL: +constipation GENITOURINARY: Negative for dysuria NEUROLOGICAL: right facial droop, possible recent GBS PSYCHIATRIC: Unremarkable All other review of systems found to be negative. PAST MEDICAL HISTORY: HTN, HLD, HUMBLE (non-compliant with CPAP), DM PHYSICAL EXAMINATION: VITAL SIGNS: Please see below. GENERAL: Pleasant and cooperative. No acute distress. Alert and oriented times three. HEENT: PERRL. Extraocular movements intact. Clear conjunctiva, +right facial droop including eyebrow lifting CARDIOVASCULAR: Regular rate and rhythm. No murmurs, rubs, or gallops LUNGS:Clear to auscultation bilaterally. No wheezes. No rhonchi ABDOMEN: Soft, nontender, nondistended. Positive bowel sounds. Normal active bowel sounds NEUROLOGICAL: Alert and oriented times three. No notable aphasia, mild dysarthria Cranial nerves II through XII grossly intact. Sensation decreased bilateral LE (-) Babinski 3+biceps and brachioradialis reflex on the right EXTREMITIES:5\5 strength bilateral upper extremities. 5\5 strength right lower extremity. 5/5 strength in left lower extremity. ASSESSMENT:58-year-old M with past medical history of DM, HTN, HUMBLE who presents status post left thalamic stroke and possible AIDP/GBS PLAN: 1. Rehab: PT/OT, [employer] assess for DME needs, MBS today, rodrigo to tolerate regular diet and thins 2. 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 Cardio: pmh HTN- continue home BP meds, medicine consulted 4. Resp: HUMBLE may use home CPAP, duonebs, monitor for signs of infection, Incentive Spirometry 5. Endo: pmh DM- continue MEtofrim and Insulin coverage 6. : f/u admission UA and Ucx, monitor PVRs 7. ID: right ear infection, will start antibiotic ear drops and prednisolone for pain 8. DVT on Eliquis 9. Dipo: TBD Allergies Coded Allergies: Penicillins (Verified Allergy, Unknown, 06/23/18) Procaine (Verified Allergy, Unknown, 06/23/18) Vital Signs Vital Signs Date Time Temp Pulse Resp B/P (MAP) Pulse Ox O2 Delivery O2 Flow Rate FiO2 12/01/18 14:00 98.2 86 18 134/92 (106) 99 Room Air Laboratory Data CBC/BMP Laboratory Tests 12/01/18 05:56 Red Blood Count 5.55, Mean Corpuscular Volume 78.6 L, Mean Corpuscular Hemoglobin 27.4, Mean Corpuscular Hemoglobin Concent 34.9, Red Cell Distribution Width 13.9, Neutrophils (%) (Auto) 68.9 H, Lymphocytes (%) (Auto) 18.5 L, Monocytes (%) (Auto) 9.4 H, Eosinophils (%) (Auto) 1.3, Basophils (%) (Auto) 0.3, Neutrophils # (Auto) 5.9, Lymphocytes # (Auto) 1.6, Monocytes # (Auto) 0.8, Eosinophils # (Auto) 0.1, Basophils # (Auto) 0.0, Calcium Level 8.3 L, Aspartate Amino Transf (AST/SGOT) 17, Alanine Aminotransferase (ALT/SGPT) 29, Alkaline Phosphatase 76, Total Bilirubin 0.6, Total Protein 7.5, Albumin 2.7 L Labs 24H Laboratory Tests 2 11/30/18 17:16: Bedside Glucose (Misc Panel) 181H 11/30/18 17:24: Urine Appearance CLEAR, Urine Color YELLOW, Urine pH 5.0, Urine Specific [place] 1.010, Urine Protein NEGATIVE, Urine Glucose (UA) 3+H, Urine Ketones NEGATIVE, Urine Urobilinogen 2.0H, Urine Bilirubin NEGATIVE, Urine Leukocyte Esterase NEGATIVE, Urine Blood NEGATIVE, Urine Nitrite NEGATIVE, Urine WBC (Auto) 1, Urine RBC (Auto) 1, Urine Hyaline Casts (Auto) 0, Urine Bacteria (Auto) NEGATIVE, Urine Squamous Epithelial Cells 0, Urine Mucus (Auto) SMALL, Urine Sperm (Auto) 11/30/18 19:47: Bedside Glucose (Misc Panel) 248H 12/01/18 05:53: Bedside Glucose (Misc Panel) 192H 12/01/18 05:56: Immature Granulocyte % (Auto) 1.6, White Blood Count 8.6, Red Blood Count 5.55, Hemoglobin 15.2, Hematocrit 43.6, Mean Corpuscular Volume 78.6L, Mean Corpuscular Hemoglobin 27.4, Mean Corpuscular Hemoglobin Concent 34.9, Red Cell Distribution Width 13.9, Platelet Count 278, Neutrophils (%) (Auto) 68.9H, Lymphocytes (%) (Auto) 18.5L, Monocytes (%) (Auto) 9.4H, Eosinophils (%) (Auto) 1.3, Basophils (%) (Auto) 0.3, Neutrophils # (Auto) 5.9, Lymphocytes # (Auto) 1.6, Monocytes # (Auto) 0.8, Eosinophils # (Auto) 0.1, Basophils # (Auto) 0.0, Nucleated Red Blood Cells % (auto) 0.0, Anion Gap 9, Glomerular Filtration Rate > 60.0, Blood Urea Nitrogen 16, Creatinine 1.00, Sodium Level 140, Potassium Level 3.7, Chloride Level 112H, Carbon Dioxide Level 19L, Calcium Level 8.3L, Aspartate Amino Transf (AST/SGOT) 17, Alanine Aminotransferase (ALT/SGPT) 29, Alkaline Phosphatase 76, Total Bilirubin 0.6, Total Protein 7.5, Albumin 2.7L, Albumin/Globulin Ratio 0.56L 12/01/18 12:18: Bedside Glucose (Misc Panel) 196H Microbiology Microbiology 11/30/18 Urine Culture - Final, Complete Current Medications Current Medications Current Medications Acetaminophen (Tylenol Tab) 650 mg Q4HP PRN PO fever/MILD PAIN (PS 1-4); Start 11/30/18 at 16:00 Albuterol Sulfate (Proventil Neb) 2.5 mg Q6HP PRN NEB SOB/WHEEZING; Start 11/30/18 at 15:45 Apixaban (Eliquis) 5 mg BID PO Last administered on 12/01/18 08:38; Start 11/30/18 at 21:00 Atorvastatin Calcium (Lipitor) 80 mg DAILY PO Last administered on 12/01/18at 08:38; Start 12/01/18 at 09:00 Bisacodyl (Dulcolax Suppository) 10 mg DAILYPRN PRN AR CONSTIPATION; Start 11/30/18 at 16:00 Budesonide/ Formoterol Fumarate (Symbicort 160/ 4.5mcg) 2 puff BID INH Last administered on 12/01/18at 08:27; Start 11/30/18 at 21:00 Chlorthalidone (Hygroton) 25 mg DAILY PO Last administered on 12/01/18at 08:38; Start 12/01/18 at 09:00 Dextrose (Dextrose 50%) 25 ml ASDIRECTED PRN IV SEE LABEL COMMENTS; Start 11/30/18 at 15:45 Docusate Sodium (Colace) 100 mg BID PO Last administered on 12/01/18 08:38; Start 11/30/18 at 21:00 Gabapentin (Neurontin) 100 mg Q8H PO Last administered on 12/01/18at 14:32; Start 11/30/18 at 22:00 Glucagon (Glucagon) 1 mg ASDIRECTED PRN SC SEE LABEL COMMENTS; Start 11/30/18 at 15:45 Glucose (Glucose) 16 GM ASDIRECTED PRN PO SEE LABEL COMMENTS; Start 11/30/18 at 15:45 Home Med (Med Rec Complete!) ASDIRECTED XX ; Start 11/30/18 at 16:00; Stop 11/30/18 at 16:19; Status DC Insulin Detemir (Levemir Insulin) 5 units QHS SC ; Start 12/01/18 at 21:00 Insulin Human Lispro (HumaLOG INSULIN) SEE PROTOCOL TABLE AC SC Last administered on 12/01/18at 14:32; Start 11/30/18 at 17:30 Lisinopril (Prinivil) 40 mg DAILY PO Last administered on 12/01/18at 08:38; Start 12/01/18 at 09:00 Magnesium Hydroxide (Milk Of Magnesia) 30 ml DAILYPRN PRN PO CONSTIPATION; Start 11/30/18 at 16:00 Metformin HCl (Glucophage Xr) 1,000 mg DAILY@18 PO Last administered on 11/30/18at 19:53; Start 11/30/18 at 18:00 Metoprolol Tartrate (Lopressor) 50 mg BID PO Last administered on 12/01/18at 08:38; Start 11/30/18 at 21:00; Stop 12/01/18 at 11:01; Status DC Metoprolol Tartrate (Lopressor) 75 mg BID PO ; Start 12/01/18 at 21:00 Pantoprazole Sodium (Protonix) 40 mg DAILY PO Last administered on 12/01/18at 08:38; Start 12/01/18 at 09:00 Senna (Senokot) 1 tab QHS PO Last administered on 11/30/18at 21:32; Start 11/30/18 at 21:00 Tramadol/ Acetaminophen (Ultracet 37.5/ 325 Mg) 1 tab Q6HP PRN PO PAIN; Start 11/30/18 at 15:45 SILVA STEEN MD Dec 01, 2018 14:58
[2018-12-01] MEDS: FLUTICASONE PROP 0.05% NASAL SPRAY 16 GM (FLONASE) NARES SCH (17:26)
[2018-12-01] MEDS: SODIUM CHLORIDE NASAL 0.65% SPRAY BTL (OCEAN) SCH ×2 (17:26→21:46)
[2018-12-01] MEDS: prednisoLONE ACET 1% OPHTH SUSP 5ML XX SCH ×2 (17:27→21:45)
[2018-12-01] MEDS: metFORMIN XR 500MG TAB *GLUCOPHAGE XR PO SCH (17:27)
--- NOTE | 2018-12-01 18:22 | REP ---
COOKIE SWALLOW The procedure was performed under the direct supervision of Dr. Chacon. The procedure was performed with Manasa Alves from speech pathology present. 5 ml aliquots of nectar, thin, pudding, fruit and solid consistency barium was administered. There is no evidence of penetration or aspiration. The detailed report of this examination will be provided by speech pathology. Reviewed by ANDREY Johnson 12/01/2018 03:36 P Electronically Signed by Tim Chacon MD 12/01/2018 06:14 P
[2018-12-01 20:00] VITALS: BP 135/88
[2018-12-01] MEDS: SENNA 8.6 MG TAB (SENOKOT) PO SCH (21:00)
[2018-12-01] MEDS ORDERED: LEVEMIR (INSULIN DETEMIR) 1 UNITS/0.01ML SC SCH (21:00)
[2018-12-01] MEDS: DOXYCYCLINE HYCLATE 100 MG TAB PO SCH (21:45)
[2018-12-01] MEDS: METOPROLOL TART 25 MG TABLET PO SCH (21:46)
[2018-12-02 06:00] VITALS: BP 138/88
[2018-12-02] MEDS: GABAPENTIN 100 MG CAP PO SCH ×3 (06:01→20:53)
[2018-12-02] MEDS: SYMBICORT 160/4.5MCG INHALER 6GM INH SCH ×2 (08:12→21:00)
[2018-12-02] MEDS: HumaLOG INSULIN (NovoLOG) PER UNIT SC SCH ×4 (08:28→17:53)
[2018-12-02] MEDS: APIXABAN 5 MG TAB (ELIQUIS) PO SCH ×2 (08:29→20:53)
[2018-12-02] MEDS: ATORVASTATIN 20 MG TAB PO SCH (08:29)
[2018-12-02] MEDS: DOXYCYCLINE HYCLATE 100 MG TAB PO SCH ×2 (08:29→20:53)
[2018-12-02] MEDS: LISINOPRIL 40 MG TAB PO SCH (08:29)
[2018-12-02] MEDS: DOCUSATE SODIUM 100 MG CAP PO SCH ×2 (08:29→20:53)
[2018-12-02] MEDS: METOPROLOL TART 25 MG TABLET PO SCH ×2 (08:29→20:53)
[2018-12-02] MEDS: PANTOPRAZOLE 40MG TAB (PROTONIX) PO SCH (08:29)
[2018-12-02] MEDS: CHLORTHALIDONE 25 MG TAB PO SCH (08:29)
[2018-12-02] MEDS: SODIUM CHLORIDE NASAL 0.65% SPRAY BTL (OCEAN) SCH ×3 (08:30→20:54)
[2018-12-02] MEDS: prednisoLONE ACET 1% OPHTH SUSP 5ML XX SCH ×3 (08:30→20:54)
[2018-12-02] MEDS: FLUTICASONE PROP 0.05% NASAL SPRAY 16 GM (FLONASE) NARES SCH (08:30)
[2018-12-02 14:00] VITALS: BP 111/78
[2018-12-02] MEDS: metFORMIN XR 500MG TAB *GLUCOPHAGE XR PO SCH (17:54)
[2018-12-02 20:00] VITALS: BP 127/75
[2018-12-02] MEDS: SENNA 8.6 MG TAB (SENOKOT) PO SCH (20:53)
[2018-12-02] MEDS: LEVEMIR (INSULIN DETEMIR) 1 UNITS/0.01ML SC SCH (20:54)
[2018-12-03] MEDS: GABAPENTIN 100 MG CAP PO SCH ×3 (05:38→21:41)
[2018-12-03 06:00] VITALS: BP 120/72
[2018-12-03] MEDS: SYMBICORT 160/4.5MCG INHALER 6GM INH SCH ×2 (07:53→20:57)
[2018-12-03] MEDS: DOCUSATE SODIUM 100 MG CAP PO SCH ×2 (08:52→21:40)
[2018-12-03] MEDS: APIXABAN 5 MG TAB (ELIQUIS) PO SCH ×2 (08:52→21:40)
[2018-12-03] MEDS: PANTOPRAZOLE 40MG TAB (PROTONIX) PO SCH (08:52)
[2018-12-03] MEDS: METOPROLOL TART 25 MG TABLET PO SCH ×2 (08:52→21:41)
[2018-12-03] MEDS: DOXYCYCLINE HYCLATE 100 MG TAB PO SCH ×2 (08:52→21:41)
[2018-12-03] MEDS: ATORVASTATIN 20 MG TAB PO SCH (08:52)
[2018-12-03] MEDS: prednisoLONE ACET 1% OPHTH SUSP 5ML XX SCH ×3 (08:53→21:45)
[2018-12-03] MEDS: SODIUM CHLORIDE NASAL 0.65% SPRAY BTL (OCEAN) SCH ×3 (08:53→21:44)
[2018-12-03] MEDS: FLUTICASONE PROP 0.05% NASAL SPRAY 16 GM (FLONASE) NARES SCH (08:53)
[2018-12-03] MEDS: CHLORTHALIDONE 25 MG TAB PO SCH (08:53)
[2018-12-03] MEDS: LISINOPRIL 40 MG TAB PO SCH (08:53)
[2018-12-03] MEDS: HumaLOG INSULIN (NovoLOG) PER UNIT SC SCH ×6 (08:54→17:49)
[2018-12-03 14:00] VITALS: BP 113/69
[2018-12-03] MEDS: metFORMIN XR 500MG TAB *GLUCOPHAGE XR PO SCH (17:50)
[2018-12-03 20:00] VITALS: BP 118/68
[2018-12-03] MEDS: SENNA 8.6 MG TAB (SENOKOT) PO SCH (21:41)
[2018-12-03] MEDS: LEVEMIR (INSULIN DETEMIR) 1 UNITS/0.01ML SC SCH (21:44)
[2018-12-04 06:00] VITALS: BP 145/73
[2018-12-04] MEDS: GABAPENTIN 100 MG CAP PO SCH ×3 (06:30→20:16)
[2018-12-04] MEDS: HumaLOG INSULIN (NovoLOG) PER UNIT SC SCH ×6 (08:07→17:18)
[2018-12-04] MEDS: CHLORTHALIDONE 25 MG TAB PO SCH (08:08)
[2018-12-04] MEDS: LISINOPRIL 40 MG TAB PO SCH (08:08)
[2018-12-04] MEDS: APIXABAN 5 MG TAB (ELIQUIS) PO SCH ×2 (08:08→20:17)
[2018-12-04] MEDS: PANTOPRAZOLE 40MG TAB (PROTONIX) PO SCH (08:08)
[2018-12-04] MEDS: DOXYCYCLINE HYCLATE 100 MG TAB PO SCH ×2 (08:08→20:17)
[2018-12-04] MEDS: DOCUSATE SODIUM 100 MG CAP PO SCH ×2 (08:08→20:17)
[2018-12-04] MEDS: ATORVASTATIN 20 MG TAB PO SCH (08:09)
[2018-12-04] MEDS: METOPROLOL TART 25 MG TABLET PO SCH ×2 (08:09→20:17)
[2018-12-04] MEDS: SODIUM CHLORIDE NASAL 0.65% SPRAY BTL (OCEAN) SCH ×3 (08:09→20:19)
[2018-12-04] MEDS: prednisoLONE ACET 1% OPHTH SUSP 5ML XX SCH ×3 (08:10→20:20)
[2018-12-04] MEDS: FLUTICASONE PROP 0.05% NASAL SPRAY 16 GM (FLONASE) NARES SCH (08:10)
[2018-12-04] MEDS: SYMBICORT 160/4.5MCG INHALER 6GM INH SCH (11:45)
--- NOTE | 2018-12-04 13:10 | IPNPDOC ---
Date Seen The patient was seen on 12/04/18. Progress Note HPI: Mr. Garrett is a 58-year-old male presenting to [facility] for rehabilitation after being discharged from [facility] (11/17/18-11/24/18) after he was admitted to [facility] for rehab on 11/24/18 and exhibited signs and symptoms of another stroke on 11/25/18. After discussion with [facility] neurology service, there was concern for a new embolic stroke coming from his PFO so he was transferred there for further care. A KIAH performed at [facility] demonstrated no LA appendage thrombus and PFO with R-L shunt. The patient also had a 1 hour episode of expressive aphasia the evening of 11/28/18, repeat imaging was stable. An EEG done out of concern for possible seizures revealved no epileptiform discharges. The patient was ultimately placed on eliquis to prevent further thrombus formation and a loop recorder was implanted for intermediate ambulatory cardiac telemetry monitoring to assess for PAF/flutter as a possible cause of cryptogenic stroke. During the course of his hospital stay he also had an episode of hematochezia which was found to likely be due to hemorrhoids given his history of hemorrhoids and negative colonoscopy results on 11/29/18. He was deemed stable for discharge on 11/30/18, and was transferred to the care of ARU, Dr Moreno, 11/30/18. No acute medical complaints today. The pt has been OOB and working with therapy. Denies any fevers, chills, weakness, fatigue, Headache, Chest Pain, Shortness of breath, cough, palpitations, abdominal pain, N/V/D or changes in bowel or bladder habits. PAST MEDICAL HISTORY: [place] Palsy Acute ischemic stroke Guillain [place] syndrome Type 2 diabetes COPD Asthma Diabetic nephropathy Hypertension Patent foramen ovale Hyperlipidemia HUMBLE History of present prostate cancer status post radiation 2013 CAD status post stenting 2012 CHF PAST SURGICAL HISTORY: TNA Cholecystectomy Diverticulitis 2004 Cataract 1998 and 2008 Hernia repair 1998 Cardiac stent 09/2013 Heel surgery Colonoscopy 12/2016 PE: GENERAL APPEARANCE: No acute distress sitting on side of bed HEENT: Normocephalic, atraumatic. EOMI. RESPIRATORY: CTAB with full breath sounds bilaterally. No wheezes, crackles, rhonchi.. CARDIOVASCULAR: RRR. Normal S1 and S2. No murmurs appreciated on auscultation ABDOMEN: Soft, nontender, nondistended. Obese abdomen. Bowel sounds present. Scar from loop recorder is CDI with no signs of purulence or infection. EXTREMITIES: No edema or cyanosis bilaterally. NEUROLOGICAL: Alert and oriented 3. Nml strength bilaterally. Mild dysarthria noted. PSYCHIATRIC: Mood normal. A&P: Mr. Garrett is a 58-year-old male presenting to [facility] for rehabilitation after being discharged from [facility] (11/17/18-11/24/18) after he was admitted to [facility] for rehab on 11/24/18 and exhibited signs and symptoms of another stroke on 11/25/18. After discussion with [facility] neurology service, there was concern for a new embolic stroke coming from his PFO so he was transferred there for further care. A KIAH performed at [facility] demonstrated no LA appendage thrombus and PFO with R-L shunt. The patient also had a 1 hour episode of expressive aphasia the evening of 11/28/18, repeat imaging was stable. An EEG done out of concern for possible seizures revealved no epileptiform discharges. The patient was ultimately placed on eliquis to prevent further thrombus formation and a loop recorder was implanted for terminal block assembler ambulatory cardiac telemetry monitoring to assess for PAF/flutter as a possible cause of cryptogenic stroke. During the course of his hospital stay he also had an episode of hematochezia which was found to likely be due to hemorrhoids given his history of hemorrhoids and negative colonoscopy results on 11/29/18. He was deemed stable for discharge on 11/30/18, and was transferred to the care of ARU, Dr Moreno, 11/30/18. Cryptogenic stroke Continue Eliquis and atorvastatin ARU as per Dr Moreno. PT/OT/ST as per Dr Moreno. Pain control as per Dr Moreno. Bowel care as per Dr Moreno. Type 2 diabetes CC diet Metformin. Levemir SSI COPD/Asthma Symbicort Hypertension Lopressor/Chlorthalidone/Lisinopril. Hyperlipidemia statin. HUMBLE Continue with home CPAP DVT prophylaxis Pt on Eliquis VS, I&O, 24H, Fishbone Vital Signs/I&O Vital Signs Date Time Temp Pulse Resp B/P (MAP) Pulse Ox O2 Delivery O2 Flow Rate FiO2 12/04/18 08:09 77 130/84 12/04/18 06:00 97.6 22 97 Room Air I&O- Last 24 Hours up to 6 AM 12/04/18 06:00 Intake Total 1760 ml Output Total 600 ml Balance 1160 ml Laboratory Data 24H LABS Laboratory Tests 2 12/03/18 17:10: Bedside Glucose (Misc Panel) 286H 12/03/18 19:59: Bedside Glucose (Misc Panel) 248H Microbiology Microbiology 11/30/18 Urine Culture - Final, Complete Hiral Day Dec 04, 2018 13:10
[2018-12-04 14:00] VITALS: BP 128/79
--- NOTE | 2018-12-04 16:07 | IPNPDOC ---
PM&R Progress Note DATE OF SERVICE: Dec 04, 2018 Director Religious Education Progress Note Subjective: Patient reports he did well over the weekend, his ear pain is improving, and he still has bilateral extremity numbness. REVIEW OF SYSTEMS: The following is a completed review of systems and has been reviewed. Review of systems otherwise unremarkable. PAIN: right ear pain EYES: Negative EARS, NOSE, & THROAT: +right facial droop, no dysphagia, no rhinorrhea CARDIOVASCULAR: denies chest pain or palpitations PULMONARY: Negative. Denies shortness of breath, +HUMBLE GASTROINTESTINAL: +constipation GENITOURINARY: Negative for dysuria NEUROLOGICAL: right facial droop, possible recent GBS PHYSICAL EXAMINATION: VITAL SIGNS: Please see below. GENERAL: Pleasant and cooperative. No acute distress. Alert and oriented times three. HEENT: PERRL. Extraocular movements intact. Clear conjunctiva, +right facial droop including eyebrow lifting CARDIOVASCULAR: Regular rate and rhythm. No murmurs, rubs, or gallops LUNGS:Clear to auscultation bilaterally. No wheezes. No rhonchi ABDOMEN: Soft, nontender, nondistended. Positive bowel sounds. Normal active bowel sounds NEUROLOGICAL: Alert and oriented times three. No notable aphasia, mild dysa rthria Cranial nerves II through XII grossly intact. Sensation decreased bilateral LE (-) Babinski 3+biceps and brachioradialis reflex on the right EXTREMITIES:5\5 strength bilateral upper extremities. 5\5 strength right lower extremity. 5/5 strength in left lower extremity. ASSESSMENT:58-year-old M with past medical history of DM, HTN, HUMBLE who presents status post left thalamic stroke and possible AIDP/GBS PLAN: 1. Rehab: PT/OT, DEPARTMENT EDITOR assess for DME needs, upgraded to regular diet with thins, ambulating well with RW 2. 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 Cardio: pmh HTN- continue home BP meds, medicine consulted, recs appreciated 4. Resp: HUMBLE may use home CPAP, duonebs, monitor for signs of infection, Incentive Spirometry 5. Endo: pmh DM- continue MEtofrim and Insulin coverage, increased eventing Levemir to 15 units 6. : admission UA and Ucx negative, monitor PVRs 7. ID: right ear infection, continue Doxycycline and prednisolone ear drops 8. DVT on Eliquis 9. Dipo: 12-15-18 to home, progressing towards goals Allergies Coded Allergies: Penicillins (Verified Allergy, Unknown, 06/23/18) Procaine (Verified Allergy, Unknown, 06/23/18) Vital Signs Vital Signs Date Time Temp Pulse Resp B/P (MAP) Pulse Ox O2 Delivery O2 Flow Rate FiO2 12/04/18 14:00 98.1 78 18 128/79 (95) 99 Room Air Laboratory Data Labs 24H Laboratory Tests 2 12/03/18 17:10: Bedside Glucose (Misc Panel) 286H 12/03/18 19:59: Bedside Glucose (Misc Panel) 248H Microbiology Microbiology 11/30/18 Urine Culture - Final, Complete Current Medications Current Medications Current Medications Acetaminophen (Tylenol Tab) 650 mg Q4HP PRN PO fever/MILD PAIN (PS 1-4); Start 11/30/18 at 16:00 Albuterol Sulfate (Proventil Neb) 2.5 mg Q6HP PRN NEB SOB/WHEEZING; Start 11/30/18 at 15:45 Apixaban (Eliquis) 5 mg BID PO Last administered on 12/04/18at 08:08; Start 11/30/18 at 21:00 Atorvastatin Calcium (Lipitor) 80 mg DAILY PO Last administered on 12/04/18at 08 :09; Start 12/01/18 at 09:00 Bisacodyl (Dulcolax Suppository) 10 mg DAILYPRN PRN [place] CONSTIPATION; Start 11/30/18 at 16:00 Budesonide/ Formoterol Fumarate (Symbicort 160/ 4.5mcg) 2 puff BID INH Last administered on 12/04/18at 11:45; Start 11/30/18 at 21:00 Chlorthalidone (Hygroton) 25 mg DAILY PO Last administered on 12/04/18at 08:08; Start 12/01/18 at 09:00 Dextrose (Dextrose 50%) 25 ml ASDIRECTED PRN IV SEE LABEL COMMENTS; Start 11/30/18 at 15:45 Docusate Sodium (Colace) 100 mg BID PO Last administered on 12/04/18at 08:08; Start 11/30/18 at 21:00 Doxycycline Hyclate (Vibramycin) 100 mg BID PO Last administered on 12/04/18at 08:08; Start 12/01/18 at 21:00; Stop 12/08/18 at 09:01 Fluticasone Propionate (Flonase 0.05% Nasal [place]) 2 spray DAILY NARES Last administered on 12/04/18at 08:10; Start 12/01/18 at 09:00 Gabapentin (Neurontin) 100 mg Q8H PO Last administered on 12/04/18at 14:05; Start 11/30/18 at 22:00 Glucagon (Glucagon) 1 mg ASDIRECTED PRN SC SEE LABEL COMMENTS; Start 11/30/18 at 15:45 Glucose (Glucose) 16 GM ASDIRECTED PRN PO SEE LABEL COMMENTS; Start 11/30/18 at 15:45 Home Med (Med Rec Complete!) ASDIRECTED XX ; Start 11/30/18 at 16:00; Stop 11/30/18 at 16:19; Status DC Insulin Detemir (Levemir Insulin) 5 units QHS SC Last administered on 12/01/18at 21:47; Start 12/01/18 at 21:00; Stop 12/02/18 at 15:14; Status DC Insulin Detemir (Levemir Insulin) 10 units QHS SC Last administered on 12/03/18at 21:44; Start 12/02/18 at 21:00; Stop 12/04/18 at 11:29; Status DC Insulin Detemir (Levemir Insulin) 15 units QHS SC ; Start 12/04/18 at 21:00 Insulin Human Lispro (HumaLOG INSULIN) 4 units AC SC Last administered on 12/04/18at 08:07; Start 12/02/18 at 17:30; Stop 12/04/18 at 10:26; Status DC Insulin Human Lispro (HumaLOG INSULIN) 6 units AC SC Last administered on 12/04/18at 12:21; Start 12/04/18 at 12:00 Insulin Human Lispro (HumaLOG INSULIN) SEE PROTOCOL TABLE AC SC Last administered on 12/04/18 12:21; Start 11/30/18 at 17:30 Lisinopril (Prinivil) 40 mg DAILY PO Last administered on 12/04/18 08:08; Start 12/01/18 at 09:00 Magnesium Hydroxide (Milk Of Magnesia) 30 ml DAILYPRN PRN PO CONSTIPATION; Start 11/30/18 at 16:00 Metformin HCl (Glucophage Xr) 1,000 mg DAILY@18 PO Last administered on 12/03/18 17:50; Start 11/30/18 at 18:00 Metoprolol Tartrate (Lopressor) 50 mg BID PO Last administered on 12/01/18 08:38; Start 11/30/18 at 21:00; Stop 12/01/18 at 11:01; Status DC Metoprolol Tartrate (Lopressor) 75 mg BID PO Last administered on 12/04/18 08:09; Start 12/01/18 at 21:00 Pantoprazole Sodium (Protonix) 40 mg DAILY PO Last administered on 12/04/18 08:08; Start 12/01/18 at 09:00 Prednisolone Acetate (Predforte 1% Ophth Susp) 2 drop TID XX Last administered on 12/04/18 08:10; Start 12/01/18 at 16:00 Senna (Senokot) 1 tab QHS PO Last administered on 12/03/18 21:41; Start 11/30/18 at 21:00 Sodium Chloride ([place] Nasal [place]) 2 spray TID NA Last administered on 12/04/18 08:09; Start 12/01/18 at 16:00 Tramadol/ Acetaminophen (Ultracet 37.5/ 325 Mg) 1 tab Q6HP PRN PO PAIN; Start 11/30/18 at 15:45 SILVA STEEN MD Dec 04, 2018 16:07
[2018-12-04] MEDS: metFORMIN XR 500MG TAB *GLUCOPHAGE XR PO SCH (17:17)
[2018-12-04 20:00] VITALS: BP 109/72
[2018-12-04] MEDS: LEVEMIR (INSULIN DETEMIR) 1 UNITS/0.01ML SC SCH (20:17)
[2018-12-04] MEDS: SENNA 8.6 MG TAB (SENOKOT) PO SCH (20:17)
[2018-12-05] MEDS: SYMBICORT 160/4.5MCG INHALER 6GM INH SCH ×2 (00:34→07:48)
[2018-12-05] MEDS: GABAPENTIN 100 MG CAP PO SCH (05:42)
[2018-12-05 06:00] VITALS: BP 109/72
[2018-12-05 06:49] LABS: BASO % 0.4 % (0.0-1.0); EOS # 0.1 10^3/uL (0.0-0.50); EOS % 1.5 % (0.0-3.0); HEMATOCRIT 41.6 % (42.0-52.0); HEMOGLOBIN 14.3 g/dl (13.5-17.5); LYMPH # 1.6 10^3/uL (1.5-4.5); LYMPH % 22.4 % (24.0-44.0); MEAN CORPUSCULAR HEMOGLOBIN 27.2 pg (27.0-33.0); MEAN CORPUSCULAR HGB CONC 34.4 g/dl (32.0-36.5); MEAN CORPUSCULAR VOLUME 79.2 fl (80.0-96.0); MONO # 0.7 10^3/uL (0.0-0.8); MONO % 9.6 % (0.0-5.0); NEUTROPHILS # 4.7 10^3/uL (1.8-7.7); NEUTROPHILS % 65.1 % (36.0-66.0); PLATELET COUNT, AUTOMATED 263 10^3/uL (150-450); RED BLOOD COUNT 5.25 10^6/uL (4.30-6.10); WHITE BLOOD COUNT 7.2 10^3/uL (4.0-10.0)
[2018-12-05 07:20] LABS: BLOOD UREA NITROGEN 23 MG/DL (7-18); CALCIUM LEVEL 8.5 MG/DL (8.5-10.1); CARBON DIOXIDE LEVEL 24 MEQ/L (21-32); CHLORIDE LEVEL 108 MEQ/L (98-107); CREATININE FOR GFR 1.28 MG/DL (0.70-1.30); GLOMERULAR FILTRATION RATE > 60.0 (>56); GLUCOSE, FASTING 153 MG/DL (70-100); POTASSIUM SERUM 3.7 MEQ/L (3.5-5.1); SODIUM LEVEL 142 MEQ/L (136-145)
[2018-12-05] MEDS: HumaLOG INSULIN (NovoLOG) PER UNIT SC SCH ×6 (08:56→17:34)
[2018-12-05] MEDS: ATORVASTATIN 20 MG TAB PO SCH (08:57)
[2018-12-05] MEDS: PANTOPRAZOLE 40MG TAB (PROTONIX) PO SCH (08:57)
[2018-12-05] MEDS: DOCUSATE SODIUM 100 MG CAP PO SCH ×2 (08:57→21:00)
[2018-12-05] MEDS: DOXYCYCLINE HYCLATE 100 MG TAB PO SCH ×2 (08:57→21:03)
[2018-12-05] MEDS: APIXABAN 5 MG TAB (ELIQUIS) PO SCH ×2 (08:57→21:03)
[2018-12-05] MEDS: LISINOPRIL 40 MG TAB PO SCH (08:58)
[2018-12-05] MEDS: METOPROLOL TART 25 MG TABLET PO SCH ×2 (08:58→21:03)
[2018-12-05] MEDS: CHLORTHALIDONE 25 MG TAB PO SCH (08:58)
[2018-12-05] MEDS: FLUTICASONE PROP 0.05% NASAL SPRAY 16 GM (FLONASE) NARES SCH (08:59)
[2018-12-05] MEDS: prednisoLONE ACET 1% OPHTH SUSP 5ML XX SCH ×3 (08:59→21:05)
[2018-12-05] MEDS: SODIUM CHLORIDE NASAL 0.65% SPRAY BTL (OCEAN) SCH ×3 (08:59→21:04)
[2018-12-05 14:00] VITALS: BP 131/79
--- NOTE | 2018-12-05 15:21 | REP ---
MRA Brain without contrast History: Confusion Comparison: 06/11/2009 3-D [id number] MR angiography was performed at the level of the [place] of [place]. There is no aneurysm or arteriovenous malformation. Mild atherosclerotic disease involves the right middle cerebral artery trifurcation. There are areas of moderate to severe atherosclerotic disease involving the posterior cerebral arteries. Major intracranial vessels are patent. The left vertebral artery is dominant. Impression: 1. There is no aneurysm or arteriovenous malformation. 2. Atherosclerotic disease as described above. Electronically Signed by Jose Piedra MD 12/05/2018 03:12 P
[2018-12-05] MEDS: metFORMIN XR 500MG TAB *GLUCOPHAGE XR PO SCH (17:32)
--- NOTE | 2018-12-05 18:38 | IPNPDOC ---
PM&R Progress Note DATE OF SERVICE: Dec 05, 2018 Graphic Art Designer Progress Note Subjective: Patient reports he does not feel more confused today or since he was admitted to the hospital, he denies any worsening paresthesias, swallowing, or speech. No dizziness or new focal weakness. He did have episode of fecal and urinary incontinence. REVIEW OF SYSTEMS: The following is a completed review of systems and has been reviewed. Review of systems otherwise unremarkable. PAIN: right ear pain EYES: Negative EARS, NOSE, & THROAT: +right facial droop, no dysphagia, no rhinorrhea CARDIOVASCULAR: denies chest pain or palpitations PULMONARY: Negative. Denies shortness of breath, +HUMBLE GASTROINTESTINAL: +constipation GENITOURINARY: Negative for dysuria NEUROLOGICAL: right facial droop, possible recent GBS PHYSICAL EXAMINATION: VITAL SIGNS: Please see below. GENERAL: Pleasant and cooperative. No acute distress. Alert and oriented times three. HEENT: PERRL. Extraocular movements intact. Clear conjunctiva, +right facial droop including eyebrow lifting CARDIOVASCULAR: Regular rate and rhythm. No murmurs, rubs, or gallops LUNGS:Clear to auscultation bilaterally. No wheezes. No rhonchi ABDOMEN: Soft, nontender, nondistended. Positive bowel sounds. Normal active bowel sounds NEUROLOGICAL: Alert and oriented times three. No notable aphasia, mild dysarthria Cranial nerves II through XII grossly intact. Sensation decreased bilateral LE (-) Babinski 3+biceps and brachioradialis reflex on the right EXTREMITIES:5\5 strength bilateral upper extremities. 5\5 strength right lower extremity. 5/5 strength in left lower extremity. ASSESSMENT:58-year-old M with past medical history of DM, HTN, HUMBLE who presents status post left thalamic stroke and possible AIDP/GBS PLAN: 1. Rehab: PT/OT, MERCHANDISING COORDINATOR assess for DME needs, upgraded to regular diet with thins, ambulating further with RW 2. 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 Cardio: pmh HTN- continue home BP meds, medicine consulted, recs appreciated 4. Resp: HUMBLE may use home CPAP, duonebs, monitor for signs of infection, Incent ria Spirometry 5. Endo: pmh DM- continue MEtofrim and Insulin coverage, increased evening Levemir to 15 units 6. : admission UA and Ucx negative, monitor PVRs, episode of incontinence, will order repeat UA 7. ID: right ear infection, continue Doxycycline and prednisolone ear drops 8. DVT on Eliquis 9. Dipo: 12-15-18 to home, progressing towards goals Allergies Coded Allergies: Penicillins (Verified Allergy, Unknown, 06/23/18) Procaine (Verified Allergy, Unknown, 06/23/18) Vital Signs Vital Signs Date Time Temp Pulse Resp B/P (MAP) Pulse Ox O2 Delivery O2 Flow Rate FiO2 12/05/18 14:00 97.2 104 19 131/79 (96) 98 Room Air Laboratory Data CBC/BMP Laboratory Tests 12/05/18 06:30 Red Blood Count 5.25, Mean Corpuscular Volume 79.2 L, Mean Corpuscular Hemoglobin 27.2, Mean Corpuscular Hemoglobin Concent 34.4, Red Cell Distribution Width 14.2, Neutrophils (%) (Auto) 65.1, Lymphocytes (%) (Auto) 22.4 L, Monocytes (%) (Auto) 9.6 H, Eosinophils (%) (Auto) 1.5, Basophils (%) (Auto) 0.4, Neutrophils # (Auto) 4.7, Lymphocytes # (Auto) 1.6, Monocytes # (Auto) 0.7, Eosinophils # (Auto) 0.1, Basophils # (Auto) 0.0, Calcium Level 8.5 Labs 24H Laboratory Tests 2 12/04/18 20:40: Bedside Glucose (Misc Panel) 263H 12/05/18 06:30: Immature Granulocyte % (Auto) 1.0, White Blood Count 7.2, Red Blood Count 5.25, Hemoglobin 14.3, Hematocrit 41.6L, Mean Corpuscular Volume 79.2L, Mean Corpuscular Hemoglobin 27.2, Mean Corpuscular Hemoglobin Concent 34.4, Red Cell Distribution Width 14.2, Platelet Count 263, Neutrophils (%) (Auto) 65.1, Lymphocytes (%) (Auto) 22.4L, Monocytes (%) (Auto) 9.6H, Eosinophils (%) (Auto) 1.5, Basophils (%) (Auto) 0.4, Neutrophils # (Auto) 4.7, Lymphocytes # (Auto) 1.6, Monocytes # (Auto) 0.7, Eosinophils # (Auto) 0.1, Basophils # (Auto) 0.0, Nucleated Red Blood Cells % (auto) 0.0, Anion Gap 10, Glomerular Filtration Rate > 60.0, Blood Urea Nitrogen 23H, Creatinine 1.28, Sodium Level 142, Potassium Level 3.7, Chloride Level 108H, Carbon Dioxide Level 24, Calcium Level 8.5 12/05/18 11:52: Bedside Glucose (Misc Panel) 192H 12/05/18 16:56: Bedside Glucose (Misc Panel) 220H Microbiology Microbiology 11/30/18 Urine Culture - Final, Complete Current Medications Current Medications Current Medications Acetaminophen (Tylenol Tab) 650 mg Q4HP PRN PO fever/MILD PAIN (PS 1-4); Start 11/30/18 at 16:00 Albuterol Sulfate (Proventil Neb) 2.5 mg Q6HP PRN NEB SOB/WHEEZING; Start 11/30/18 at 15:45 Apixaban (Eliquis) 5 mg BID PO Last administered on 12/05/18at 08:57; Start 11/30/18 at 21:00 Atorvastatin Calcium (Lipitor) 80 mg DAILY PO Last administered on 12/05/18at 08:57; Start 12/01/18 at 09:00 Bisacodyl (Dulcolax Suppository) 10 mg DAILYPRN PRN [place] CONSTIPATION; Start 11/30/18 at 16:00 Budesonide/ Formoterol Fumarate (Symbicort 160/ 4.5mcg) 2 puff BID INH Last administered on 12/05/18at 07:48; Start 11/30/18 at 21:00 Chlorthalidone (Hygroton) 25 mg DAILY PO Last administered on 12/04/18at 08:08; Start 12/01/18 at 09:00 Dextrose (Dextrose 50%) 25 ml ASDIRECTED PRN IV SEE LABEL COMMENTS; Start 11/30/18 at 15:45 Docusate Sodium (Colace) 100 mg BID PO Last administered on 12/05/18at 08:57; Start 11/30/18 at 21:00 Doxycycline Hyclate (Vibramycin) 100 mg BID PO Last administered on 12/05/18at 08:57; Start 12/01/18 at 21:00; Stop 12/08/18 at 09:01 Fluticasone Propionate (Flonase 0.05% Nasal [place]) 2 spray DAILY NARES Last administered on 12/05/18at 08:59; Start 12/01/18 at 09:00 Gabapentin (Neurontin) 100 mg Q8H PO Last administered on 12/05/18at 05:42; Start 11/30/18 at 22:00; Stop 12/05/18 at 14:13; Status DC Glucagon (Glucagon) 1 mg ASDIRECTED PRN SC SEE LABEL COMMENTS; Start 11/30/18 at 15:45 Glucose (Glucose) 16 GM ASDIRECTED PRN PO SEE LABEL COMMENTS; Start 11/30/18 at 15:45 Home Med (Med Rec Complete!) ASDIRECTED XX ; Start 11/30/18 at 16:00; Stop 11/30/18 at 16:19; Status DC Insulin Detemir (Levemir Insulin) 5 units QHS SC Last administered on 12/01/18at 21:47; Start 12/01/18 at 21:00; Stop 12/02/18 at 15:14; Status DC Insulin Detemir (Levemir Insulin) 10 units QHS SC Last administered on 12/03/18at 21:44; Start 12/02/18 at 21:00; Stop 12/04/18 at 11:29; Status DC Insulin Detemir (Levemir Insulin) 15 units QHS SC Last administered on 12/04/18at 20:17; Start 12/04/18 at 21:00 Insulin Human Lispro (HumaLOG INSULIN) 4 units AC SC Last administered on 12/04/18at 08:07; Start 12/02/18 at 17:30; Stop 12/04/18 at 10:26; Status DC Insulin Human Lispro (HumaLOG INSULIN) 6 units AC SC Last administered on 12/05/18 17:34; Start 12/04/18 at 12:00 Insulin Human Lispro (HumaLOG INSULIN) SEE PROTOCOL TABLE AC SC Last administered on 12/05/18 17:33; Start 11/30/18 at 17:30 Lisinopril (Prinivil) 40 mg DAILY PO Last administered on 12/04/18 08:08; Start 12/01/18 at 09:00 Magnesium Hydroxide (Milk Of Magnesia) 30 ml DAILYPRN PRN PO CONSTIPATION; Start 11/30/18 at 16:00 Metformin HCl (Glucophage Xr) 1,000 mg DAILY@18 PO Last administered on 17:32; Start 11/30/18 at 18:00 Metoprolol Tartrate (Lopressor) 50 mg BID PO Last administered on 12/01/18 08:38; Start 11/30/18 at 21:00; Stop 12/01/18 at 11:01; Status DC Metoprolol Tartrate (Lopressor) 75 mg BID PO Last administered on 12/04/18 08:09; Start 12/01/18 at 21:00 Pantoprazole Sodium (Protonix) 40 mg DAILY PO Last administered on 12/05/18 08:57; Start 12/01/18 at 09:00 Prednisolone Acetate (Predforte 1% Ophth Susp) 2 drop TID XX Last administered on 12/05/18 16:10; Start 12/01/18 at 16:00 Senna (Senokot) 1 tab QHS PO Last administered on 12/04/18 20:17; Start 11/30/18 at 21:00 Sodium Chloride ([place] Nasal [place]) 2 spray TID NA Last administered on 12/05/18 16:10; Start 12/01/18 at 16:00 Tramadol/ Acetaminophen (Ultracet 37.5/ 325 Mg) 1 tab Q6HP PRN PO PAIN; Start 11/30/18 at 15:45 SILVA STEEN MD Dec 05, 2018 18:38
[2018-12-05 20:20] VITALS: BP 126/71
[2018-12-05] MEDS: SENNA 8.6 MG TAB (SENOKOT) PO SCH (21:00)
[2018-12-05] MEDS: LEVEMIR (INSULIN DETEMIR) 1 UNITS/0.01ML SC SCH (21:04)
--- NOTE | 2018-12-05 21:15 | REPVR ---
EXAM: MR Head Without Contrast EXAM DATE/TIME: 12/05/2018 8:24 PM CLINICAL HISTORY: 58 years old, male; Signs and symptoms; Altered mental status/memory loss; Confusion or disorientation; Patient HX: AMS; Additional info: Recent multiple stroke, rule out new stroke TECHNIQUE: MR of the head without contrast. COMPARISON: MRI-Brain without Contrast 11/25/2018 1:10 PM FINDINGS: Brain: Focus of diffusion-weighted and ADC map abnormality in the posterior paraventricular white matter and a small focus in the mid periventricular white matter on the left. Small similar foci demonstrated in the posterior parieto-occipital white matter on the left. Findings visible on T2 weighted and flair weighted imaging and faintly visible on T1 weighted imaging suggesting acute to subacute duration. Multiplicity of findings suggests possible embolic etiology. Multiple foci of T2 lengthening are demonstrated in the subcortical, periventricular and centrum semiovale white matter consistent with age-related small vessel gliosis. Ventricles: Normal. No ventriculomegaly. Bones/joints: See Brain Finding. Soft tissues: Normal. Sinuses: Normal as visualized. No acute sinusitis. Mastoid air cells: Normal as visualized. No mastoid effusion. Orbits: Unremarkable. IMPRESSION: 1. Multiple new foci of abnormal diffusion and ADC map weighted images in the left periventricular and right occipital white matter which are faintly visible on flair, T2 and to a lesser degree T1 weighted imaging consistent with acute to subacute infarcts. Several foci were demonstrated on the prior study of 11/25/2018 indicating subacute infarcts whereas others have reverted to normal diffusion/ADC signal in the interval between scans. Multiplicity of findings suggests possible embolic etiology. 2. Multiple foci of T2 lengthening are demonstrated in the subcortical, periventricular and centrum semiovale white matter consistent with age-related small vessel gliosis. A critical call has been made to speak with the ordering physician/practitioner. This report will be amended once consultation has occurred. Electronically signed by: Shantanu Yoon On 12/05/2018 21:15:22 PM
[2018-12-06] MEDS: SYMBICORT 160/4.5MCG INHALER 6GM INH SCH ×3 (03:48→20:53)
[2018-12-06 06:02] VITALS: BP 113/79
[2018-12-06] MEDS: HumaLOG INSULIN (NovoLOG) PER UNIT SC SCH ×6 (07:30→17:26)
[2018-12-06] MEDS: METOPROLOL TART 25 MG TABLET PO SCH ×3 (09:00→21:28)
[2018-12-06] MEDS ORDERED: METOPROLOL TART 25 MG TABLET PO SCH (09:00)
[2018-12-06] MEDS: DOCUSATE SODIUM 100 MG CAP PO SCH ×2 (09:34→21:00)
[2018-12-06] MEDS: CHLORTHALIDONE 25 MG TAB PO SCH (09:35)
[2018-12-06] MEDS: ATORVASTATIN 20 MG TAB PO SCH (09:35)
[2018-12-06] MEDS: APIXABAN 5 MG TAB (ELIQUIS) PO SCH ×2 (09:36→21:27)
[2018-12-06] MEDS: PANTOPRAZOLE 40MG TAB (PROTONIX) PO SCH (09:36)
[2018-12-06] MEDS: DOXYCYCLINE HYCLATE 100 MG TAB PO SCH ×2 (09:36→21:27)
[2018-12-06] MEDS: FLUTICASONE PROP 0.05% NASAL SPRAY 16 GM (FLONASE) NARES SCH (12:29)
[2018-12-06] MEDS: SODIUM CHLORIDE NASAL 0.65% SPRAY BTL (OCEAN) SCH ×3 (12:30→21:28)
[2018-12-06] MEDS: prednisoLONE ACET 1% OPHTH SUSP 5ML XX SCH ×3 (12:30→21:29)
--- NOTE | 2018-12-06 12:44 | IPNPDOC ---
Date Seen The patient was seen on 12/06/18. Progress Note HPI: Mr. Garrett is a 58-year-old male presenting to [facility] for rehabilitation after being discharged from [facility] (11/17/18-11/24/18) after he was admitted to [facility] for rehab on 11/24/18 and exhibited signs and symptoms of another stroke on 11/25/18. After discussion with [facility] neurology service, there was concern for a new embolic stroke coming from his PFO so he was transferred there for further care. A KIAH performed at [facility] demonstrated no LA appendage thrombus and PFO with R-L shunt. The patient also had a 1 hour episode of expressive aphasia the evening of 11/28/18, repeat imaging was stable. An EEG done out of concern for possible seizures revealed no epileptiform discharges. The patient was ultimately placed on eliquis to prevent further thrombus formation and a loop recorder was implanted for gem stone cutter ambulatory cardiac telemetry monitoring to assess for PAF/flutter as a possible cause of cryptogenic stroke. During the course of his hospital stay he also had an episode of hematochezia which was found to likely be due to hemorrhoids given his history of hemorrhoids and negative colonoscopy results on 11/29/18. He was deemed stable for discharge on 11/30/18, and was transferred to the care of ARU, Dr Moreno, 11/30/18. The pt has no verbalized complaints today and states he does not feel confused. Denies any fevers, chills, weakness, fatigue, Headache, Chest Pain, Shortness of breath, cough, palpitations, abdominal pain, N/V/D or changes in bowel or bladder habits. 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 EOMI. RESPIRATORY: CTAB with full breath sounds bilaterally. No wheezes, crackles, rhonchi.. CARDIOVASCULAR: RRR. Normal S1 and S2. No murmurs appreciated on auscultation ABDOMEN: Soft, nontender, nondistended. Obese abdomen. Bowel sounds present. EXTREMITIES: No edema or cyanosis bilaterally. NEUROLOGICAL: Alert and oriented 3. Nml strength bilaterally. Mild dysarthria noted. PSYCHIATRIC: Mood normal. 12/06/18 pending. A&P: Mr. Garrett is a 58-year-old male presenting to [facility] for rehabilitation after being discharged from [facility] (11/17/18-11/24/18) after he was admitted to [facility] for rehab on 11/24/18 and exhibited signs and symptoms of another stroke on 11/25/18. After discussion with [facility] neurology service, there was concern for a new embolic stroke coming from his PFO so he was transferred there for further care. A KIAH performed at [facility] demonstrated no LA appendage thrombus and PFO with R-L shunt. The patient also had a 1 hour episode of expressive aphasia the evening of 11/28/18, repeat imaging was stable. An EEG done out of concern for possible seizures revealved no epileptiform discharges. The patient was ultimately placed on eliquis to prevent further thrombus formation and a loop recorder was implanted for assisted ambulatory cardiac telemetry monitoring to assess for PAF/flutter as a possible cause of cryptogenic stroke. During the course of his hospital stay he also had an episode of hematochezia which was found to likely be due to hemorrhoids given his history of hemorrhoids and negative colonoscopy results on 11/29/18. He was deemed stable for discharge on 11/30/18, and was transferred to the care of ARU, Dr Moreno, 11/30/18. Cryptogenic stroke Continue Eliquis and atorvastatin ARU as per Dr Moreno. PT/OT/ST as per Dr Moreno. Pain control as per Dr Moreno. Bowel care as per Dr Moreno. As per therapy 12/05/18 the patient seemed more confused, repeat MRI/MRA was ordered. Reviewed results and discussed with Dr Moreno who states these were forwarded to Neurology [facility] for review, comparison to films there, and any further recommendations. Dr Moreno discussed with [facility] this afternoon. Plan to proceed with LEs U/S B/L. Further review with radiology. Recommend to allow for higher BP. MRA brain 3-D [id number] MR angiography was performed at the level of the [place] of [place]. There is no aneurysm or arteriovenous malformation. Mild atherosclerotic disease involves the right middle cerebral artery trifurcation. There are areas of moderate to severe atherosclerotic disease involving the posterior cerebral arteries. Major intracranial vessels are patent. The left vertebral artery is Metoprolol was decreased with plan for SBP 130-150 acceptable. Type 2 diabetes CC diet Metformin. Levemir SSI COPD/Asthma Symbicort Hypertension Lopressor/Chlorthalidone/Lisinopril. SBP 130-150 acceptable. Hyperlipidemia statin. HUMBLE Continue with home CPAP DVT prophylaxis Pt on Eliquis VS, I&O, 24H, Fishbone Vital Signs/I&O Vital Signs Date Time Temp Pulse Resp B/P (MAP) Pulse Ox O2 Delivery O2 Flow Rate FiO2 12/06/18 09:00 82 120/78 12/06/18 06:02 97.3 18 98 Room Air I&O- Last 24 Hours up to 6 AM 12/06/18 06:00 Intake Total 600 ml Output Total 0 ml Balance 600 ml Laboratory Data 24H LABS Laboratory Tests 2 12/05/18 16:56: Bedside Glucose (Misc Panel) 220H 12/05/18 20:51: Bedside Glucose (Misc Panel) 177H 12/06/18 04:42: Urine Color YELLOW, Urine Appearance HAZY, Urine pH 5.0, Urine Specific [place] 1.024, Urine Protein NEGATIVE, Urine Glucose (UA) NEGATIVE, Urine Ketones NEGATIVE, Urine Blood NEGATIVE, Urine Nitrite NEGATIVE, Urine Bilirubin NEGATIVE, Urine Urobilinogen 0.2, Urine Leukocyte Esterase NEGATIVE, Urine WBC (Auto) 11H, Urine RBC (Auto) 2, Urine Hyaline Casts (Auto) 6, Urine Bacteria (Auto) NEGATIVE, Urine Squamous Epithelial Cells 1, Urine Transitional Epithelial Cells 1, Urine Mucus (Auto) SMALL, Urine Sperm (Auto) 12/06/18 05:59: Bedside Glucose (Misc Panel) 158H 12/06/18 11:47: Bedside Glucose (Misc Panel) 126H Microbiology Microbiology 12/06/18 Urine Culture, Received Pending 11/30/18 Urine Culture - Final, Complete Hiral Day Dec 06, 2018 12:44
[2018-12-06 14:00] VITALS: BP 107/64
[2018-12-06] MEDS: metFORMIN XR 500MG TAB *GLUCOPHAGE XR PO SCH (17:26)
--- NOTE | 2018-12-06 18:39 | IPNPDOC ---
PM&R Progress Note DATE OF SERVICE: Dec 06, 2018 Air Turning Machine Feeder Progress Note Subjective: Patient seen today reports he feels well overall and denies any dysphagia, worsening difficulty speaking, worsening paresthesias or focal weakness. He was not educated on his stroke etiology and the need for maintaining him at a higher blood pressure. REVIEW OF SYSTEMS: The following is a completed review of systems and has been reviewed. Review of systems otherwise unremarkable. PAIN: right ear pain EYES: Negative EARS, NOSE, & THROAT: +right facial droop, no dysphagia, no rhinorrhea CARDIOVASCULAR: denies chest pain or palpitations PULMONARY: Negative. Denies shortness of breath, +HUMBLE GASTROINTESTINAL: +constipation GENITOURINARY: Negative for dysuria NEUROLOGICAL: right facial droop, possible recent GBS PHYSICAL EXAMINATION: VITAL SIGNS: Please see below. GENERAL: Pleasant and cooperative. No acute distress. Alert and oriented times three. HEENT: PERRL. Extraocular movements intact. Clear conjunctiva, +right facial droop including eyebrow lifting CARDIOVASCULAR: Regular rate and rhythm. No murmurs, rubs, or gallops LUNGS:Clear to auscultation bilaterally. No wheezes. No rhonchi ABDOMEN: Soft, nontender, nondistended. Positive bowel sounds. Normal active bowel sounds NEUROLOGICAL: Alert and oriented times three. No notable aphasia, mild dysarthria Cranial nerves II through XII grossly intact. Sensation decreased bilateral LE (-) Babinski 3+biceps and brachioradialis reflex on the right EXTREMITIES:5\\5 strength bilateral upper extremities. 5\\5 strength right lower extremity. 5/5 strength in left lower extremity. ASSESSMENT:58-year-old M with past medical history of DM, HTN, HUMBLE who presents status post left thalamic stroke and possible AIDP/GBS PLAN: 1. Rehab: PT/OT, DONOR RELATIONS COORDINATOR assess for DME needs, upgraded to regular diet with thins, ambulating further with RW 2. 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 Several foci were demonstrated on the prior study of 11/25/2018 indicating subacute infarcts whereas others have reverted to normal diffusion/ADC signal in the interval between scans. Multiplicity of findings suggests possible embolic etiology." Given his significant multi-vessel cerebral stenosis, negative work-up for emboli at [facility], and notable lower sBPs while here, greater concern for hypoperfusion mediated strokes for which his BP meds were either lowered or discontinued -Discussed his case with neurologist Dr. Soto and radiology staff at [facility] who reviewed their most recent MRI and [facility]'s imaging and agree there are new strokes and believe the source is most likely from hypoperfusion, not embolic, noting even the aortic arch is patent, they do not recommend addition of ASA, but to continue Eliquis and loosen BP parameters-patient's confusion resolved today and is able to use his cell phone and denies any dysphagia, or focal weakness, and none noted on exam -I will order Dopplers to r/o DVT in setting of PFO 3. Cardio: pmh HTN- continue home BP meds, medicine consulted, recs appreciated 4. Resp: HUMBLE may use home CPAP, duonebs, monitor for signs of infection, Incentive Spirometry 5. Endo: pmh DM- continue MEtofrim and Insulin coverage, increased evening Levemir to 15 units 6. : admission UA and Ucx negative, monitor PVRs, episode of incontinence, will order repeat UA 7. ID: right ear infection, continue Doxycycline and prednisolone ear drops 8. DVT on Eliquis 9. Dipo: 12-15-18 to home, progressing towards goals Allergies Coded Allergies: Penicillins (Verified Allergy, Unknown, 06/23/18) Procaine (Verified Allergy, Unknown, 06/23/18) Vital Signs Vital Signs Date Time Temp Pulse Resp B/P (MAP) Pulse Ox O2 Delivery O2 Flow Rate FiO2 12/06/18 16:00 87 121/84 12/06/18 14:00 98.2 15 97 Room Air Laboratory Data Labs 24H Laboratory Tests 2 12/05/18 20:51: Bedside Glucose (Misc Panel) 177H 12/06/18 04:42: Urine Color YELLOW, Urine Appearance HAZY, Urine pH 5.0, Urine Specific Mary D 1.024, Urine Protein NEGATIVE, Urine Glucose (UA) NEGATIVE, Urine Ketones NEGATIVE, Urine Blood NEGATIVE, Urine Nitrite NEGATIVE, Urine Bilirubin NEGATIVE, Urine Urobilinogen 0.2, Urine Leukocyte Esterase NEGATIVE, Urine WBC (Auto) 11H, Urine RBC (Auto) 2, Urine Hyaline Casts (Auto) 6, Urine Bacteria (Auto) NEGATIVE, Urine Squamous Epithelial Cells 1, Urine Transitional Epithelial Cells 1, Urine Mucus (Auto) SMALL, Urine Sperm (Auto) 12/06/18 05:59: Bedside Glucose (Misc Panel) 158H 12/06/18 11:47: Bedside Glucose (Misc Panel) 126H 12/06/18 17:10: Bedside Glucose (Misc Panel) 147H Microbiology Microbiology 12/06/18 Urine Culture, Received Pending 11/30/18 Urine Culture - Final, Complete Current Medications Current Medications Current Medications Acetaminophen (Tylenol Tab) 650 mg Q4HP PRN PO fever/MILD PAIN (PS 1-4); Start 11/30/18 at 16:00 Albuterol Sulfate (Proventil Neb) 2.5 mg Q6HP PRN NEB SOB/WHEEZING; Start 11/30/18 at 15:45 Apixaban (Eliquis) 5 mg BID PO Last administered on 12/06/18at 09:36; Start 11/30/18 at 21:00 Atorvastatin Calcium (Lipitor) 80 mg DAILY PO Last administered on 12/06/18at 09:35; Start 12/01/18 at 09:00 Bisacodyl (Dulcolax Suppository) 10 mg DAILYPRN PRN [place] CONSTIPATION; Start 11/30/18 at 16:00 Budesonide/ Formoterol Fumarate (Symbicort 160/ 4.5mcg) 2 puff BID INH Last administered on 12/06/18at 07:32; Start 11/30/18 at 21:00 Chlorthalidone (Hygroton) 25 mg DAILY PO Last administered on 12/06/18at 09:35; Start 12/01/18 at 09:00; Stop 12/06/18 at 10:47; Status DC Dextrose (Dextrose 50%) 25 ml ASDIRECTED PRN IV SEE LABEL COMMENTS; Start 11/30/18 at 15:45 Docusate Sodium (Colace) 100 mg BID PO Last administered on 12/06/18at 09:34; Start 11/30/18 at 21:00 Doxycycline Hyclate (Vibramycin) 100 mg BID PO Last administered on 12/06/18at 09:36; Start 12/01/18 at 21:00; Stop 12/08/18 at 09:01 Fluticasone Propionate (Flonase 0.05% Nasal [place]) 2 spray DAILY NARES Last administered on 12/06/18at 12:29; Start 12/01/18 at 09:00 Gabapentin (Neurontin) 100 mg Q8H PO Last administered on 12/05/18at 05:42; Start 11/30/18 at 22:00; Stop 12/05/18 at 14:13; Status DC Glucagon (Glucagon) 1 mg ASDIRECTED PRN SC SEE LABEL COMMENTS; Start 11/30/18 at 15:45 Glucose (Glucose) 16 GM ASDIRECTED PRN PO SEE LABEL COMMENTS; Start 11/30/18 at 15:45 Home Med (Med Rec Complete!) ASDIRECTED XX ; Start 11/30/18 at 16:00; Stop 11/30/18 at 16:19; Status DC Insulin Detemir (Levemir Insulin) 5 units QHS SC Last administered on 12/01/18at 21:47; Start 12/01/18 at 21:00; Stop 12/02/18 at 15:14; Status DC Insulin Detemir (Levemir Insulin) 10 units QHS SC Last administered on 12/03/18at 21:44; Start 12/02/18 at 21:00; Stop 12/04/18 at 11:29; Status DC Insulin Detemir (Levemir Insulin) 15 units QHS SC Last administered on 12/05/18at 21:04; Start 12/04/18 at 21:00 Insulin Human Lispro (HumaLOG INSULIN) 4 units AC SC Last administered on 12/04/18at 08:07; Start 12/02/18 at 17:30; Stop 12/04/18 at 10:26; Status DC Insulin Human Lispro (HumaLOG INSULIN) 6 units AC SC Last administered on 12/06/18 17:26; Start 12/04/18 at 12:00 Insulin Human Lispro (HumaLOG INSULIN) SEE PROTOCOL TABLE AC SC Last admi nistered on 12/06/18 17:25; Start 11/30/18 at 17:30 Lisinopril (Prinivil) 40 mg DAILY PO Last administered on 12/04/18 08:08; S tart 12/01/18 at 09:00; Stop 12/05/18 at 22:21; Status DC Magnesium Hydroxide (Milk Of Magnesia) 30 ml DAILYPRN PRN PO CONSTIPATION; Start 11/30/18 at 16:00 Metformin HCl (Glucophage Xr) 1,000 mg DAILY@18 PO Last administered on 12/06/18 17:26; Start 11/30/18 at 18:00 Metoprolol Tartrate (Lopressor) 25 mg TID PO ; Start 12/06/18 at 09:00 Metoprolol Tartrate (Lopressor) 50 mg BID PO Last administered on 12/01/18at 08:38; Start 11/30/18 at 21:00; Stop 12/01/18 at 11:01; Status DC Metoprolol Tartrate (Lopressor) 75 mg BID PO Last administered on 12/05/18 21:03; Start 12/01/18 at 21:00; Stop 12/05/18 at 22:23; Status DC Metoprolol Tartrate (Lopressor) 75 mg TID PO ; Start 12/06/18 at 09:00; Status Cancel Pantoprazole Sodium (Protonix) 40 mg DAILY PO Last administered on 12/06/18 09:36; Start 12/01/18 at 09:00 Prednisolone Acetate (Predforte 1% Ophth Susp) 2 drop TID XX Last administered on 12/06/18 16:33; Start 12/01/18 at 16:00 Senna (Senokot) 1 tab QHS PO Last administered on 12/04/18at 20:17; Start 11/30/18 at 21:00 Sodium Chloride ([place] Nasal [place]) 2 spray TID NA Last administered on 12/06/18 16:32; Start 12/01/18 at 16:00 Tramadol/ Acetaminophen (Ultracet 37.5/ 325 Mg) 1 tab Q6HP PRN PO PAIN; Start 11/30/18 at 15:45; Stop 12/06/18 at 15:47; Status DC SILVA STEEN MD Dec 06, 2018 18:39
[2018-12-06] MEDS ORDERED: ERYTHROMYCIN OPHTH OINT OD SCH (18:45)
[2018-12-06 20:00] VITALS: BP 130/72
[2018-12-06] MEDS: SENNA 8.6 MG TAB (SENOKOT) PO SCH (21:00)
[2018-12-06] MEDS: LEVEMIR (INSULIN DETEMIR) 1 UNITS/0.01ML SC SCH (21:28)
[2018-12-07 05:49] VITALS: BP 119/75
--- NOTE | 2018-12-07 07:03 | REPVR ---
EXAM: US Bilateral Duplex Lower Extremity Veins EXAM DATE/TIME: 12/06/2018 8:08 PM CLINICAL HISTORY: 58 years old, male; Signs and symptoms; Swelling (edema) of limb; Lower extremity, bilateral; Additional info: Pfo and multiple strokes TECHNIQUE: Real-time duplex ultrasound of the Bilateral Lower Extremities with 2-D louis scale, color Doppler flow and spectral waveform analysis. Complete exam focused on the bilateral lower extremity veins. COMPARISON: US Duplex, Ext LOWER veins, bilat BILATERAL 12/14/2015 11:22 PM FINDINGS: Right deep veins: Unremarkable. The common femoral, femoral and popliteal veins are patent without thrombus. Normal compressibility, augmentation response and Doppler waveforms. Right superficial veins: Saphenofemoral junction is patent without thrombus. Left deep veins: Unremarkable. The common femoral, femoral and popliteal veins are patent without thrombus. Normal compressibility, augmentation response and Doppler waveforms. Left superficial veins: Saphenofemoral junction is patent without thrombus. Soft tissues: Unremarkable. IMPRESSION: No acute findings. No evidence of deep vein thrombosis. Electronically signed by: Greg Barriga On 12/07/2018 07:03:32 AM
[2018-12-07] MEDS: HumaLOG INSULIN (NovoLOG) PER UNIT SC SCH ×6 (07:30→17:22)
[2018-12-07] MEDS: SYMBICORT 160/4.5MCG INHALER 6GM INH SCH (07:32)
[2018-12-07] MEDS: METOPROLOL TART 25 MG TABLET PO SCH ×3 (09:00→20:41)
[2018-12-07] MEDS: DOCUSATE SODIUM 100 MG CAP PO SCH ×2 (09:00→20:43)
[2018-12-07 09:09] VITALS: BP 114/75
[2018-12-07] MEDS: PANTOPRAZOLE 40MG TAB (PROTONIX) PO SCH (09:13)
[2018-12-07] MEDS: ATORVASTATIN 20 MG TAB PO SCH (09:13)
[2018-12-07] MEDS: DOXYCYCLINE HYCLATE 100 MG TAB PO SCH ×2 (09:13→20:41)
[2018-12-07] MEDS: APIXABAN 5 MG TAB (ELIQUIS) PO SCH ×2 (09:14→20:41)
[2018-12-07] MEDS: FLUTICASONE PROP 0.05% NASAL SPRAY 16 GM (FLONASE) NARES SCH (09:14)
[2018-12-07] MEDS: prednisoLONE ACET 1% OPHTH SUSP 5ML XX SCH ×3 (09:14→20:42)
[2018-12-07] MEDS: SODIUM CHLORIDE NASAL 0.65% SPRAY BTL (OCEAN) SCH ×3 (09:14→20:42)
--- NOTE | 2018-12-07 12:04 | IPNPDOC ---
Date Seen The patient was seen on 12/07/18. Progress Note HPI: Mr. Garrett is a 58-year-old male presenting to [facility] for rehabilitation after being discharged from [facility] (11/17/18-11/24/18) after he was admitted to [facility] for rehab on 11/24/18 and exhibited signs and symptoms of another stroke on 11/25/18. After discussion with [facility] neurology service, there was concern for a new embolic stroke coming from his PFO so he was transferred there for further care. A KIAH performed at [facility] demonstrated no LA appendage thrombus and PFO with R-L shunt. The patient also had a 1 hour episode of expressive aphasia the evening of 11/28/18, repeat imaging was stable. An EEG done out of concern for possible seizures revealed no epileptiform discharges. The patient was ultimately placed on eliquis to prevent further thrombus formation and a loop recorder was implanted for jail ambulatory cardiac telemetry monitoring to assess for PAF/flutter as a possible cause of cryptogenic stroke. During the course of his hospital stay he also had an episode of hematochezia which was found to likely be due to hemorrhoids given his history of hemorrhoids and negative colonoscopy results on 11/29/18. He was deemed stable for discharge on 11/30/18, and was transferred to the care of ARU, Dr Moreno, 11/30/18. The pt has no verbalized complaints today and states he has not had any further episodes of confusion. 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 Denies any fevers, chills, weakness, fatigue, Headache, Chest Pain, Shortness of breath, cough, palpitations, abdominal pain, N/V/D or changes in bowel or bladder habits. 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 EOMI. RESPIRATORY: CTAB with full breath sounds bilaterally. No wheezes, crackles, rhonchi.. CARDIOVASCULAR: RRR. Normal S1 and S2. No murmurs appreciated on auscultation ABDOMEN: Soft, nontender, nondistended. Obese abdomen. Bowel sounds present. EXTREMITIES: No edema or cyanosis bilaterally. NEUROLOGICAL: Alert and oriented 3. Nml strength bilaterally. Mild dysarthria noted. PSYCHIATRIC: Mood normal. UC 12/06/18 pending. MRA brain 12/05/18 3-D [id number] MR angiography was performed at the level of the [place] of [place]. There is no aneurysm or arteriovenous malformation. Mild atherosclerotic disease involves the right middle cerebral artery trifurcation. There are areas of moderate to severe atherosclerotic disease involving the posterior cerebral arteries. Major intracranial vessels are patent. The left vertebral artery is LE U/S neg for DVT 12/06/17. A&P: Mr. Garrett is a 58-year-old male presenting to [facility] for rehabilitation after being discharged from [facility] (11/17/18-11/24/18) after he was admitted to [facility] for rehab on 11/24/18 and exhibited signs and symptoms of another stroke on 11/25/18. After discussion with [facility] neurology service, there was concern for a new embolic stroke coming from his PFO so he was transferred there for further care. A KIAH performed at [facility] demonstrated no LA appendage thrombus and PFO with R-L shunt. The patient also had a 1 hour episode of expressive aphasia the evening of 11/28/18, repeat imaging was stable. An EEG done out of concern for possible seizures revealved no epileptiform discharges. The patient was ultimately placed on eliquis to prevent further thrombus formation and a loop recorder was implanted for roasterman ambulatory cardiac telemetry monitoring to assess for PAF/flutter as a possible cause of cryptogenic stroke. During the course of his hospital stay he also had an episode of hematochezia which was found to likely be due to hemorrhoids given his history of hemorrhoids and negative colonoscopy results on 11/29/18. He was deemed stable for discharge on 11/30/18, and was transferred to the care of ARU, Dr Moreno, 11/30/18. Cryptogenic stroke Continue Eliquis and atorvastatin ARU as per Dr Moreno. PT/OT/ST as per Dr Moreno. Pain control as per Dr Moreno. Bowel care as per Dr Moreno. As per therapy 12/05/18 the patient seemed more confused, repeat MRI/MRA was ordered. Dr Moreno has discussed MRI/MRA results with Neurology and Radiology at [facility], they reviewed and compared imaging. Recommendation to allow for higher BP related to possible hypoperfusion. Metoprolol was decreased with hold parameters SBP <130. Plan for SBP 130-150 acceptable. Continue to closely monitor. Disposition as per ARU, Dr Moreno Type 2 diabetes CC diet Metformin. Levemir SSI COPD/Asthma Symbicort Hypertension Lopressor with hold parameters SBP <130, HR <60. SBP 130-150 acceptable. Hyperlipidemia statin. HUMBLE Continue with home CPAP DVT prophylaxis Pt on Eliquis VS, I&O, 24H, Fishbone Vital Signs/I&O Vital Signs Date Time Temp Pulse Resp B/P (MAP) Pulse Ox O2 Delivery O2 Flow Rate FiO2 12/07/18 09:09 94 114/75 (88) 12/07/18 05:49 97.8 16 97 Room Air I&O- Last 24 Hours up to 6 AM 12/07/18 06:00 Intake Total 1200 ml Output Total 475 ml Balance 725 ml Laboratory Data 24H LABS Laboratory Tests 2 12/06/18 17:10: Bedside Glucose (Misc Panel) 147H 12/06/18 19:36: Bedside Glucose (Misc Panel) 181H 12/07/18 06:39: Bedside Glucose (Misc Panel) 109H Microbiology Microbiology 12/06/18 Urine Culture - Final, Complete 11/30/18 Urine Culture - Final, Complete Hiral Day Dec 07, 2018 12:04
[2018-12-07 14:00] VITALS: BP 121/71
[2018-12-07 17:19] VITALS: BP 117/74
[2018-12-07] MEDS: metFORMIN XR 500MG TAB *GLUCOPHAGE XR PO SCH (17:20)
[2018-12-07 20:00] VITALS: BP 105/60
[2018-12-07] MEDS: LEVEMIR (INSULIN DETEMIR) 1 UNITS/0.01ML SC SCH (20:42)
[2018-12-07] MEDS: SENNA 8.6 MG TAB (SENOKOT) PO SCH (20:43)
[2018-12-08 06:00] VITALS: BP 117/67
[2018-12-08 07:06] LABS: BASO % 0.6 % (0.0-1.0); EOS # 0.1 10^3/uL (0.0-0.50); EOS % 1.8 % (0.0-3.0); HEMATOCRIT 43.9 % (42.0-52.0); HEMOGLOBIN 15.1 g/dl (13.5-17.5); LYMPH # 1.5 10^3/uL (1.5-4.5); LYMPH % 21.6 % (24.0-44.0); MEAN CORPUSCULAR HEMOGLOBIN 27.3 pg (27.0-33.0); MEAN CORPUSCULAR HGB CONC 34.4 g/dl (32.0-36.5); MEAN CORPUSCULAR VOLUME 79.4 fl (80.0-96.0); MONO # 0.6 10^3/uL (0.0-0.8); MONO % 8.9 % (0.0-5.0); NEUTROPHILS # 4.5 10^3/uL (1.8-7.7); NEUTROPHILS % 66.2 % (36.0-66.0); PLATELET COUNT, AUTOMATED 231 10^3/uL (150-450); RED BLOOD COUNT 5.53 10^6/uL (4.30-6.10); WHITE BLOOD COUNT 6.8 10^3/uL (4.0-10.0)
[2018-12-08] MEDS: HumaLOG INSULIN (NovoLOG) PER UNIT SC SCH ×6 (07:30→17:06)
[2018-12-08 07:32] LABS: BLOOD UREA NITROGEN 26 MG/DL (7-18); CALCIUM LEVEL 8.7 MG/DL (8.5-10.1); CARBON DIOXIDE LEVEL 22 MEQ/L (21-32); CHLORIDE LEVEL 106 MEQ/L (98-107); CREATININE FOR GFR 1.17 MG/DL (0.70-1.30); GLOMERULAR FILTRATION RATE > 60.0 (>56); GLUCOSE, FASTING 164 MG/DL (70-100); POTASSIUM SERUM 3.3 MEQ/L (3.5-5.1); SODIUM LEVEL 140 MEQ/L (136-145)
[2018-12-08] MEDS: SYMBICORT 160/4.5MCG INHALER 6GM INH SCH ×2 (07:32→19:47)
[2018-12-08 07:40] LABS: ERYTHROCYTE SEDIMENTATION RATE 17 mm/hr (0-20)
[2018-12-08] MEDS: ATORVASTATIN 20 MG TAB PO SCH (08:50)
[2018-12-08] MEDS: DOXYCYCLINE HYCLATE 100 MG TAB PO SCH (08:50)
[2018-12-08] MEDS: DOCUSATE SODIUM 100 MG CAP PO SCH ×2 (08:50→20:14)
[2018-12-08] MEDS: PANTOPRAZOLE 40MG TAB (PROTONIX) PO SCH (08:50)
[2018-12-08] MEDS: APIXABAN 5 MG TAB (ELIQUIS) PO SCH ×2 (08:50→20:14)
[2018-12-08] MEDS: METOPROLOL TART 25 MG TABLET PO SCH ×3 (08:51→20:15)
[2018-12-08] MEDS: FLUTICASONE PROP 0.05% NASAL SPRAY 16 GM (FLONASE) NARES SCH (08:55)
[2018-12-08] MEDS: SODIUM CHLORIDE NASAL 0.65% SPRAY BTL (OCEAN) SCH ×3 (08:55→20:16)
[2018-12-08] MEDS: prednisoLONE ACET 1% OPHTH SUSP 5ML XX SCH ×3 (08:55→20:16)
--- NOTE | 2018-12-08 10:45 | HPEPDOC ---
[facility] Medical History & Physical Date of Admission Dec 08, 2018 History and Physical HPI: Mr. Garrett is a 58-year-old male presenting to [facility] for rehabilitation after being discharged from [facility] (11/17/18-11/24/18) after he was admitted to [facility] for rehab on 11/24/18 and exhibited signs and symptoms of another stroke on 11/25/18. After discussion with [facility] neurology service, there was concern for a new embolic stroke coming from his PFO so he was transferred there for further care. A KIAH performed at [facility] demonstrated no LA appendage thrombus and PFO with R-L shunt. The patient also had a 1 hour episode of expressive aphasia the evening of 11/28/18, repeat imaging was stable. An EEG done out of concern for possible seizures revealed no epileptiform discharges. The patient was ultimately placed on eliquis to prevent further thrombus formation and a loop recorder was implanted for residential ambulatory cardiac telemetry monitoring to assess for PAF/flutter as a possible cause of cryptogenic stroke. During the course of his hospital stay he also had an episode of hematochezia which was found to likely be due to hemorrhoids given his history of hemorrhoids and negative colonoscopy results on 11/29/18. He was deemed stable for discharge on 11/30/18, and was transferred to the care of ARU, Dr Moreno, 11/30/18. The pt has no verbalized complaints today and states he has not had any further episodes of confusion. 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 Denies any fevers, chills, weakness, fatigue, Headache, Chest Pain, Shortness of breath, cough, palpitations, abdominal pain, N/V/D or changes in bowel or bladder habits. 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 EOMI. RESPIRATORY: CTAB with full breath sounds bilaterally. No wheezes, crackles, rhonchi.. CARDIOVASCULAR: RRR. Normal S1 and S2. No murmurs appreciated on auscultation ABDOMEN: Soft, nontender, nondistended. Obese abdomen. Bowel sounds present. EXTREMITIES: No edema or cyanosis bilaterally. NEUROLOGICAL: Alert and oriented 3. Nml strength bilaterally. Mild dysarthria noted. PSYCHIATRIC: Mood normal. UC 12/06/18 pending. MRA brain 12/05/18 3-D [id number] MR angiography was performed at the level of the [place]. There is no aneurysm or arteriovenous malformation. Mild atherosclerotic disease involves the right middle cerebral artery trifurcation. There are areas of moderate to severe atherosclerotic disease involving the posterior cerebral arteries. Major intracranial vessels are patent. The left vertebral artery is LE U/S neg for DVT 12/06/17. A&P: Mr. Garrett is a 58-year-old male presenting to [facility] for rehabilitation after being discharged from [facility] (11/17/18-11/24/18) after he was admitted to [facility] for rehab on 11/24/18 and exhibited signs and sy mptoms of another stroke on 11/25/18. After discussion with [facility] neurology service, there was concern for a new embolic stroke coming from his PFO so he was transferred there for further care. A KIAH performed at [facility] demonstrated no LA appendage thrombus and PFO with R-L shunt. The patient also had a 1 hour episode of expressive aphasia the evening of 11/28/18, repeat imaging was stable. An EEG done out of concern for possible seizures revealved no epileptiform discharges. The patient was ultimately placed on eliquis to prevent further thrombus formation and a loop recorder was implanted for residential ambulatory cardiac telemetry monitoring to assess for PAF/flutter as a possible cause of cryptogenic stroke. During the course of his hospital stay he also had an episode of hematochezia which was found to likely be due to hemorrhoids given his history of hemorrhoids and negative colonoscopy results on 11/29/18. He was deemed stable for discharge on 11/30/18, and was transferred to the care of ARU, Dr Moreno, 11/30/18. Cryptogenic stroke Continue Eliquis and atorvastatin ARU as per Dr Moreno. PT/OT/ST as per Dr Moreno. Pain control as per Dr Moreno. Bowel care as per Dr Moreno. As per therapy 12/05/18 the patient seemed more confused, repeat MRI/MRA was ordered. Dr Moreno has discussed MRI/MRA results with Neurology and Radiology at [facility], they reviewed and compared imaging. Recommendation to allow for higher BP related to possible hypoperfusion. Metoprolol was decreased with plan for SBP 130-150 acceptable. Continue to closely monitor. Disposition as per ARU, Dr Moreno Type 2 diabetes CC diet Metformin. Levemir SSI COPD/Asthma Symbicort Hypertension Lopressor with hold parameters SBP 130-150 acceptable. Hyperlipidemia statin. HUMBLE Continue with home CPAP DVT prophylaxis Pt on Eliquis Vital Signs Vital Signs Date Time Temp Pulse Resp B/P (MAP) Pulse Ox O2 Delivery O2 Flow Rate FiO2 12/08/18 08:51 115 122/90 12/08/18 06:00 98.4 18 94 Room Air Laboratory Data Labs 24H Laboratory Tests 2 12/07/18 12:04: Bedside Glucose (Misc Panel) 152H 12/07/18 16:37: Bedside Glucose (Misc Panel) 181H 12/07/18 19:32: Bedside Glucose (Misc Panel) 210H 12/08/18 05:33: Bedside Glucose (Misc Panel) 176H 12/08/18 06:16: Immature Granulocyte % (Auto) 0.9, White Blood Count 6.8, Red Blood Count 5.53, Hemoglobin 15.1, Hematocrit 43.9, Mean Corpuscular Volume 79.4L, Mean Dianelys uscular Hemoglobin 27.3, Mean Corpuscular Hemoglobin Concent 34.4, Red Cell Distribution Width 14.1, Platelet Count 231, Neutrophils (%) (Auto) 66.2H, Lymphocytes (%) (Auto) 21.6L, Monocytes (%) (Auto) 8.9H, Eosinophils (%) (Auto) 1.8, Basophils (%) (Auto) 0.6, Neutrophils # (Auto) 4.5, Lymphocytes # (Auto) 1.5, Monocytes # (Auto) 0.6, Eosinophils # (Auto) 0.1, Basophils # (Auto) 0.0, Nucleated Red Blood Cells % (auto) 0.0, Erythrocyte Sedimentation Rate 17, Anion Gap 12, Glomerular Filtration Rate > 60.0, Blood Urea Nitrogen 26H, Creatinine 1.17, Sodium Level 140, Potassium Level 3.3L, Chloride Level 106, Carbon Dioxide Level 22, Calcium Level 8.7 CBC/BMP Laboratory Tests 12/08/18 06:16 Red Blood Count 5.53, Mean Corpuscular Volume 79.4 L, Mean Corpuscular Hemoglobin 27.3, Mean Corpuscular Hemoglobin Concent 34.4, Red Cell Distribution Width 14.1, Neutrophils (%) (Auto) 66.2 H, Lymphocytes (%) (Auto) 21.6 L, Monocytes (%) (Auto) 8.9 H, Eosinophils (%) (Auto) 1.8, Basophils (%) (Auto) 0.6, Neutrophils # (Auto) 4.5, Lymphocytes # (Auto) 1.5, Monocytes # (Auto) 0.6, Eosinophils # (Auto) 0.1, Basophils # (Auto) 0.0, Calcium Level 8.7 Microbiology Microbiology 12/06/18 Urine Culture - Final, Complete 11/30/18 Urine Culture - Final, Complete Home Medications Scheduled (Trulicity) 1.5 Mg/0.5 Ml Inj, 1.5 MG SQ [id number] TUES Apixaban Base (Eliquis) 5 Mg Tab, 5 MG PO BID Atorvastatin Calcium (Atorvastatin Calcium) 80 Mg Tab, 80 MG PO DAILY Budesonide/Formoterol (Symbicort 160-4.5 Mcg/Act) 60 Puff/Inhaler Aers, 2 PUFF INH BID Chlorthalidone (Chlorthalidone) 25 Mg Tab, 25 MG PO DAILY Cyanocobalamin (Vitamin B12) 1,000 Mcg Tab, 1,000 MCG PO DAILY Duloxetine Hcl (Cymbalta) 60 Mg Cap, 60 MG PO DAILY Gabapentin (Gabapentin) 300 Mg Cap, 300 MG PO TID Insulin Aspart (Novolog Flexpen) 100 Unit/Ml Inj, 1 DOSE SC ACHS PER SLIDING SCALE Lisinopril (Lisinopril) 40 Mg Tab, 40 MG PO DAILY Metformin Hydrochloride (Metformin HCl ER) 500 Mg Tab, 1,000 MG PO BID Metoprolol Tartrate (Lopressor) 100 Mg Tab, 100 MG PO BID Mirabegron Base (Myrbetriq) 25 Mg Tab, 25 MG PO DAILY Omeprazole (Omeprazole) 20 Mg Cap, 20 MG PO BID Scheduled PRN Albuterol Sulfate (Proair Hfa) 108 Mcg/Act Aer, 2 PUFF INH Q6H PRN for WHEEZING Albuterol Sulfate (Albuterol Sulfate) 2.5 Mg/3 Ml Nebu, 2.5 MG INH QID PRN for SOB/WHEEZING Glucose (Glucose) 4 Gm Chw, 4 GM PO ASDIRECTED PRN for BLOOD SUGAR < 50 Meclizine HCl (Meclizine HCl) 25 Mg Tab, 25 MG PO Q6H PRN for DIZZINESS Nitroglycerin (Nitrostat) 0.4 Mg Subl, 0.4 MG SL NITRO PRN for CHEST PAIN Ondansetron (Zofran Odt) 4 Mg Tab, 4 MG PO Q4H PRN for NAUSEA Tramadol HCl (Tramadol HCl) 50 Mg Tab, 50 MG PO Q6H PRN for PAIN Allergies Coded Allergies: Penicillins (Verified Allergy, Unknown, 06/23/18) Procaine (Verified Allergy, Unknown, 06/23/18) Hiral Day Dec 08, 2018 10:45
--- NOTE | 2018-12-08 11:15 | IPNPDOC ---
Date Seen The patient was seen on 12/08/18. Progress Note HPI: Mr. Garrett is a 58-year-old male presenting to [facility] for rehabilitation after being discharged from [facility] (11/17/18-11/24/18) after he was admitted to [facility] for rehab on 11/24/18 and exhibited signs and symptoms of another stroke on 11/25/18. After discussion with [facility] neurology service, there was concern for a new embolic stroke coming from his PFO so he was transferred there for further care. A KIAH performed at [facility] demonstrated no LA appendage thrombus and PFO with R-L shunt. The patient also had a 1 hour episode of expressive aphasia the evening of 11/28/18, repeat imaging was stable. An EEG done out of concern for possible seizures revealed no e pileptiform discharges. 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 During the course of his hospital stay he also had an episode of hematochezia which was found to likely be due to hemorrhoids given his history of hemorrhoids and negative colonoscopy results on 11/29/18. He was deemed stable for discharge on 11/30/18, and was transferred to the care of ARU, Dr Moreno, 11/30/18. The pt has no verbalized complaints today and states he has not had any further episodes of confusion. 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 Denies any concerns at this time. Denies any fevers, chills, weakness, fatigue, Headache, Chest Pain, Shortness of breath, cough, palpitations, abdominal pain, N/V/D or changes in bowel or b ladder habits. 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 EOMI. RESPIRATORY: CTAB with full breath sounds bilaterally. No wheezes, crackles, rhonchi.. CARDIOVASCULAR: RRR. Normal S1 and S2. No murmurs appreciated on auscultation ABDOMEN: Soft, nontender, nondistended. Obese abdomen. Bowel sounds present. EXTREMITIES: No edema or cyanosis bilaterally. NEUROLOGICAL: Alert and oriented 3. Nml strength bilaterally. Mild dysarthria noted. PSYCHIATRIC: Mood normal. UC 12/06/18 negative. MRA brain 12/05/18 3-D [id number] MR angiography was performed at the level of the [place]. There is no aneurysm or arteriovenous malformation. Mild atherosclerotic disease involves the right middle cerebral artery trifurcation. There are areas of moderate to severe atherosclerotic disease involving the posterior cerebral arteries. Major intracranial vessels are patent. The left vertebral artery is LE U/S neg for DVT 12/06/17. A&P: Mr. Garrett is a 58-year-old male presenting to [facility] for rehabilitation after being discharged from [facility] (11/17/18-11/24/18) after he was admitted to [facility] for rehab on 11/24/18 and exhibited signs and sym ptoms of another stroke on 11/25/18. After discussion with [facility] neurology service, there was concern for a new embolic stroke coming from his PFO so he was transferred there for further care. A KIAH performed at [facility] demonstrated no LA appendage thrombus and PFO with R-L shunt. The patient also had a 1 hour episode of expressive aphasia the evening of 11/28/18, repeat imaging was stable. An EEG done out of concern for possible seizures revealved no epileptiform discharges. 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 During the course of his hospital stay he also had an episode of hematochezia which was found to likely be due to hemorrhoids given his history of hemorrhoids and negative colonoscopy results on 11/29/18. He was deemed stable for discharge on 11/30/18, and was transferred to the care of ARU, Dr Moreno, 11/30/18. Cryptogenic stroke Continue Eliquis and atorvastatin ARU as per Dr Moreno. PT/OT/ST as per Dr Moreno. Pain control as per Dr Moreno. Bowel care as per Dr Moreno. As per therapy 12/05/18 the patient seemed more confused, repeat MRI/MRA was ordered. Dr Moreno has discussed MRI/MRA results with Neurology and Radiology at [facility], they reviewed and compared imaging. Recommendation to allow for higher BP related to possible hypoperfusion. Metoprolol was decreased with hold parameters SBP <130. Plan for SBP 130-150 acceptable. Continue to closely monitor. Disposition as per ARU, Dr Moreno Type 2 diabetes CC diet Metformin. Levemir SSI COPD/Asthma Symbicort Hypertension Lopressor with hold parameters SBP <130, HR <60. SBP 130-150 acceptable. Continue to monitor. Hyperlipidemia statin. HUMBLE Continue with home CPAP Hypokalemia. K 3.3 this AM. PO supplement x 1 . Recheck BMP in AM. DVT prophylaxis Pt on Eliquis VS, I&O, 24H, Fishbone Vital Signs/I&O Vital Signs Date Time Temp Pulse Resp B/P (MAP) Pulse Ox O2 Delivery O2 Flow Rate FiO2 12/08/18 08:51 115 122/90 12/08/18 06:00 98.4 18 94 Room Air I&O- Last 24 Hours up to 6 AM 12/08/18 06:00 Intake Total 1290 ml Output Total 700 ml Balance 590 ml Laboratory Data 24H LABS Laboratory Tests 2 12/07/18 12:04: Bedside Glucose (Misc Panel) 152H 12/07/18 16:37: Bedside Glucose (Misc Panel) 181H 12/07/18 19:32: Bedside Glucose (Misc Panel) 210H 12/08/18 05:33: Bedside Glucose (Misc Panel) 176H 12/08/18 06:16: Immature Granulocyte % (Auto) 0.9, White Blood Count 6.8, Red Blood Count 5.53, Hemoglobin 15.1, Hematocrit 43.9, Mean Corpuscular Volume 79.4L, Mean Corpuscular Hemoglobin 27.3, Mean Corpuscular Hemoglobin Concent 34.4, Red Cell Distribution Width 14.1, Platelet Count 231, Neutrophils (%) (Auto) 66.2H, Lymphocytes (%) (Auto) 21.6L, Monocytes (%) (Auto) 8.9H, Eosinophils (%) (Auto) 1.8, Basophils (%) (Auto) 0.6, Neutrophils # (Auto) 4.5, Lymphocytes # (Auto) 1.5, Monocytes # (Auto) 0.6, Eosinophils # (Auto) 0.1, Basophils # (Auto) 0.0, Nucleated Red Blood Cells % (auto) 0.0, Erythrocyte Sedimentation Rate 17, Anion Gap 12, Glomerular Filtration Rate > 60.0, Blood Urea Nitrogen 26H, Creatinine 1.17, Sodium Level 140, Potassium Level 3.3L, Chloride Level 106, Carbon Dioxide Level 22, Calcium Level 8.7 CBC/BMP Laboratory Tests 12/08/18 06:16 Red Blood Count 5.53, Mean Corpuscular Volume 79.4 L, Mean Corpuscular Hemoglobin 27.3, Mean Corpuscular Hemoglobin Concent 34.4, Red Cell Distribution Width 14.1, Neutrophils (%) (Auto) 66.2 H, Lymphocytes (%) (Auto) 21.6 L, Monocytes (%) (Auto) 8.9 H, Eosinophils (%) (Auto) 1.8, Basophils (%) (Auto) 0.6, Neutrophils # (Auto) 4.5, Lymphocytes # (Auto) 1.5, Monocytes # (Auto) 0.6, Eosinophils # (Auto) 0.1, Basophils # (Auto) 0.0, Calcium Level 8.7 Microbiology Microbiology 12/06/18 Urine Culture - Final, Complete 11/30/18 Urine Culture - Final, Complete Hiral Day Dec 08, 2018 11:15
[2018-12-08] MEDS ORDERED: POTASSIUM CHLORIDE 10 MEQ SR TABLET PO ONE (12:00)
--- NOTE | 2018-12-08 12:38 | IPNPDOC ---
PM&R Progress Note DATE OF SERVICE: Dec 07, 2018 [employer]ori Liaison Adviser Progress Note Subjective: Patient seen today reporting his ear pain is still there, but otherwise he is feeling well. REVIEW OF SYSTEMS: The following is a completed review of systems and has been reviewed. Review of systems otherwise unremarkable. PAIN: right ear pain EYES: Negative EARS, NOSE, & THROAT: +right facial droop, no dysphagia, no rhinorrhea CARDIOVASCULAR: denies chest pain or palpitations PULMONARY: Negative. Denies shortness of breath, +HUMBLE GASTROINTESTINAL: +constipation GENITOURINARY: Negative for dysuria NEUROLOGICAL: right facial droop, possible recent GBS PHYSICAL EXAMINATION: VITAL SIGNS: Please see below. GENERAL: Pleasant and cooperative. No acute distress. Alert and oriented times three. HEENT: PERRL. Extraocular movements intact. Clear conjunctiva, +right facial droop including eyebrow lifting CARDIOVASCULAR: Regular rate and rhythm. No murmurs, rubs, or gallops LUNGS:Clear to auscultation bilaterally. No wheezes. No rhonchi ABDOMEN: Soft, nontender, nondistended. Positive bowel sounds. Normal active bowel sounds NEUROLOGICAL: Alert and oriented times three. No notable aphasia, mild dysarthria Cranial nerves II through XII grossly intact. Sensation decreased bilateral LE (-) Babinski 3+biceps and brachioradialis reflex on the right EXTREMITIES:5\\5 strength bilateral upper extremities. 5\\5 strength right lower extremity. 5/5 strength in left lower extremity. ASSESSMENT:58-year-old M with past medical history of DM, HTN, HUMBLE who presents status post left thalamic stroke and possible AIDP/GBS PLAN: 1. 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 Several foci were demonstrated on the prior study of 11/25/2018 indicating subacute infarcts whereas others have reverted to normal diffusion/ADC signal in the interval between scans. Multiplicity of findings suggests possible embolic etiology." Given his significant multi-vessel cerebral stenosis, negative work-up for emboli at [facility], and notable lower sBPs while here, greater concern for hypoperfusion mediated strokes for which his BP meds were either lowered or discontinued -Discussed his case with neurologist Dr. Soto and radiology staff at [facility] who reviewed their most recent MRI and [facility]'s imaging and agree there are new strokes and believe the source is most likely from hypoperfusion, not embolic, noting even the aortic arch is patent, they do not recommend addition of ASA, but to continue Eliquis and loosen BP parameters-patient's confusion resolved today and is able to use his cell phone and denies any dysphagia, or focal weakness, and none noted on exam -Dopplers LE negative for DVT, will order CHARISMA, ANCA and ESR for possible cerebral vasculitis stroke etiology 3. Cardio: pmh HTN- continue home BP meds, medicine consulted, recs appreciated 4. Resp: HUMBLE may use home CPAP, duonebs, monitor for signs of infection, Incentive Spirometry 5. Endo: pmh DM- continue MEtofrim and Insulin coverage, increased evening Levemir to 15 units-stable 6. : admission UA and Ucx negative, monitor PVRs, episode of incontinence, improving, repeat UA negative 7. ID: right ear infection, continue Doxycycline and prednisolone ear drops 8. DVT on Eliquis 9. Dipo: 12-15-18 to home, progressing towards goals Allergies Coded Allergies: Penicillins (Verified Allergy, Unknown, 06/23/18) Procaine (Verified Allergy, Unknown, 06/23/18) Vital Signs Vital Signs Date Time Temp Pulse Resp B/P (MAP) Pulse Ox O2 Delivery O2 Flow Rate FiO2 12/08/18 08:51 115 122/90 12/08/18 06:00 98.4 18 94 Room Air Laboratory Data CBC/BMP Laboratory Tests 12/08/18 06:16 Red Blood Count 5.53, Mean Corpuscular Volume 79.4 L, Mean Corpuscular Hemoglobin 27.3, Mean Corpuscular Hemoglobin Concent 34.4, Red Cell Distribution Width 14.1, Neutrophils (%) (Auto) 66.2 H, Lymphocytes (%) (Auto) 21.6 L, Monocytes (%) (Auto) 8.9 H, Eosinophils (%) (Auto) 1.8, Basophils (%) (Auto) 0.6, Neutrophils # (Auto) 4.5, Lymphocytes # (Auto) 1.5, Monocytes # (Auto) 0.6, Eosinophils # (Auto) 0.1, Basophils # (Auto) 0.0, Calcium Level 8.7 Labs 24H Laboratory Tests 2 12/07/18 16:37: Bedside Glucose (Misc Panel) 181H 12/07/18 19:32: Bedside Glucose (Misc Panel) 210H 12/08/18 05:33: Bedside Glucose (Misc Panel) 176H 12/08/18 06:16: Immature Granulocyte % (Auto) 0.9, White Blood Count 6.8, Red Blood Count 5.53, Hemoglobin 15.1, Hematocrit 43.9, Mean Corpuscular Volume 79.4L, Mean Corpuscular Hemoglobin 27.3, Mean Corpuscular Hemoglobin Concent 34.4, Red Cell Distribution Width 14.1, Platelet Count 231, Neutrophils (%) (Auto) 66.2H, Lymphocytes (%) (Auto) 21.6L, Monocytes (%) (Auto) 8.9H, Eosinophils (%) (Auto) 1.8, Basophils (%) (Auto) 0.6, Neutrophils # (Auto) 4.5, Lymphocytes # (Auto) 1.5, Monocytes # (Auto) 0.6, Eosinophils # (Auto) 0.1, Basophils # (Auto) 0.0, Nucleated Red Blood Cells % (auto) 0.0, Erythrocyte Sedimentation Rate 17, Anion Gap 12, Glomerular Filtration Rate > 60.0, Blood Urea Nitrogen 26H, Creatinine 1.17, Sodium Level 140, Potassium Level 3.3L, Chloride Level 106, Carbon Dioxide Level 22, Calcium Level 8.7 Microbiology Microbiology 12/06/18 Urine Culture - Final, Complete 11/30/18 Urine Culture - Final, Complete Current Medications Current Medications Current Medications Acetaminophen (Tylenol Tab) 650 mg Q4HP PRN PO fever/MILD PAIN (PS 1-4); Start 11/30/18 at 16:00 Albuterol Sulfate (Proventil Neb) 2.5 mg Q6HP PRN NEB SOB/WHEEZING; Start 11/30/18 at 15:45 Apixaban (Eliquis) 5 mg BID PO Last administered on 12/08/18at 08:50; Start 11/30/18 at 21:00 Atorvastatin Calcium (Lipitor) 80 mg DAILY PO Last administered on 12/08/18at 08:50; Start 12/01/18 at 09:00 Bisacodyl (Dulcolax Suppository) 10 mg DAILYPRN PRN [place] CONSTIPATION; Start 11/30/18 at 16:00 Budesonide/ Formoterol Fumarate (Symbicort 160/ 4.5mcg) 2 puff BID INH Last administered on 12/08/18at 07:32; Start 11/30/18 at 21:00 Chlorthalidone (Hygroton) 25 mg DAILY PO Last administered on 12/06/18at 09:35; Start 12/01/18 at 09:00; Stop 12/06/18 at 10:47; Status DC Dextrose (Dextrose 50%) 25 ml ASDIRECTED PRN IV SEE LABEL COMMENTS; Start 11/30/18 at 15:45 Docusate Sodium (Colace) 100 mg BID PO Last administered on 12/08/18at 08:50; Start 11/30/18 at 21:00 Doxycycline Hyclate (Vibramycin) 100 mg BID PO Last administered on 12/08/18at 08:50; Start 12/01/18 at 21:00; Stop 12/08/18 at 09:01; Status DC Erythromycin (Ilotycin) 1 CM RIBBON TID OD ; Start 12/06/18 at 18:45; Status UNV Fluticasone Propionate (Flonase 0.05% Nasal [place]) 2 spray DAILY NARES Last administered on 12/08/18at 08:55; Start 12/01/18 at 09:00 Gabapentin (Neurontin) 100 mg Q8H PO Last administered on 12/05/18at 05:42; Start 11/30/18 at 22:00; Stop 12/05/18 at 14:13; Status DC Glucagon (Glucagon) 1 mg ASDIRECTED PRN SC SEE LABEL COMMENTS; Start 11/30/18 at 15:45 Glucose (Glucose) 16 GM ASDIRECTED PRN PO SEE LABEL COMMENTS; Start 11/30/18 at 15:45 Home Med (Med Rec Complete!) ASDIRECTED XX ; Start 11/30/18 at 16:00; Stop 11/30/18 at 16:19; Status DC Insulin Detemir (Levemir Insulin) 5 units QHS SC Last administered on 12/01/18at 21:47; Start 12/01/18 at 21:00; Stop 12/02/18 at 15:14; Status DC Insulin Detemir (Levemir Insulin) 10 units QHS SC Last administered on 12/03/18at 21:44; Start 12/02/18 at 21:00; Stop 12/04/18 at 11:29; Status DC Insulin Detemir (Levemir Insulin) 15 units QHS SC Last administered on 12/07/18at 20:42; Start 12/04/18 at 21:00 Insulin Human Lispro (HumaLOG INSULIN) 4 units AC SC Last administered on 12/04/18at 08:07; Start 12/02/18 at 17:30; Stop 12/04/18 at 10:26; Status DC Insulin Human Lispro (HumaLOG INSULIN) 6 units AC SC Last administered on 12/08/18at 07:30; Start 12/04/18 at 12:00 Insulin Human Lispro (HumaLOG INSULIN) SEE PROTOCOL TABLE AC SC Last admin istered on 12/08/18at 07:30; Start 11/30/18 at 17:30 Lisinopril (Prinivil) 40 mg DAILY PO Last administered on 12/04/18at 08:08; Start 12/01/18 at 09:00; Stop 12/05/18 at 22:21; Status DC Magnesium Hydroxide (Milk Of Magnesia) 30 ml DAILYPRN PRN PO CONSTIPATION; Start 11/30/18 at 16:00 Metformin HCl (Glucophage Xr) 1,000 mg DAILY@18 PO Last administered on 12/07/18at 17:20; Start 11/30/18 at 18:00 Metoprolol Tartrate (Lopressor) 25 mg TID PO Last administered on 12/08/18at 08:51; Start 12/06/18 at 09:00 Metoprolol Tartrate (Lopressor) 50 mg BID PO Last administered on 12/01/18at 08:38; Start 11/30/18 at 21:00; Stop 12/01/18 at 11:01; Status DC Metoprolol Tartrate (Lopressor) 75 mg BID PO Last administered on 12/05/18at 21:03; Start 12/01/18 at 21:00; Stop 12/05/18 at 22:23; Status DC Metoprolol Tartrate (Lopressor) 75 mg TID PO ; Start 12/06/18 at 09:00; Status Cancel Miscellaneous (Unresolved Clarification Entry) SEE LABEL COMMENTS DAILY XX ; Start 12/08/18 at 09:00; Stop 12/08/18 at 09:00; Status DC Pantoprazole Sodium (Protonix) 40 mg DAILY PO Last administered on 12/08/18at 08:50; Start 12/01/18 at 09:00 Prednisolone Acetate (Predforte 1% Ophth Susp) 2 drop TID XX Last administered on 12/08/18at 08:55; Start 12/01/18 at 16:00 Senna (Senokot) 1 tab QHS PO Last administered on 12/04/18at 20:17; Start 11/30/18 at 21:00 Sodium Chloride ([place] Nasal [place]) 2 spray TID NA Last administered on 12/08/18at 08:55; Start 12/01/18 at 16:00 Tramadol/ Acetaminophen (Ultracet 37.5/ 325 Mg) 1 tab Q6HP PRN PO PAIN; Start 11/30/18 at 15:45; Stop 12/06/18 at 15:47; Status DC SILVA STEEN MD Dec 08, 2018 12:38
--- NOTE | 2018-12-08 12:40 | IPNPDOC ---
PM&R Progress Note DATE OF SERVICE: Dec 08, 2018 Histology Aide Progress Note Subjective: Patient seen in gym working on dynamic balance and reports his ear is still hurting. REVIEW OF SYSTEMS: The following is a completed review of systems and has been reviewed. Review of systems otherwise unremarkable. PAIN: right ear pain EYES: Negative EARS, NOSE, & THROAT: +right facial droop, no dysphagia, no rhinorrhea CARDIOVASCULAR: denies chest pain or palpitations PULMONARY: Negative. Denies shortness of breath, +HUMBLE GASTROINTESTINAL: +constipation GENITOURINARY: Negative for dysuria NEUROLOGICAL: right facial droop, possible recent GBS PHYSICAL EXAMINATION: VITAL SIGNS: Please see below. GENERAL: Pleasant and cooperative. No acute distress. Alert and oriented times three. HEENT: PERRL. Extraocular movements intact. Clear conjunctiva, +right facial droop including eyebrow lifting CARDIOVASCULAR: Regular rate and rhythm. No murmurs, rubs, or gallops LUNGS:Clear to auscultation bilaterally. No wheezes. No rhonchi ABDOMEN: Soft, nontender, nondistended. Positive bowel sounds. Normal active bowel sounds NEUROLOGICAL: Alert and oriented times three. No notable aphasia, mild dysarthria Cranial nerves II through XII grossly intact. Sensation decreased bilateral LE (-) Babinski 3+biceps and brachioradialis reflex on the right EXTREMITIES:5\\5 strength bilateral upper extremities. 5\\5 strength right lower extremity. 5/5 strength in left lower extremity. ASSESSMENT:58-year-old M with past medical history of DM, HTN, HUMBLE who presents status post left thalamic stroke and possible AIDP/GBS PLAN: 1. 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 Several foci were demonstrated on the prior study of 11/25/2018 indicating subacute infarcts whereas others have reverted to normal diffusion/ADC signal in the interval between scans. Multiplicity of findings suggests possible embolic etiology." Given his significant multi-vessel cerebral stenosis, negative work-up for emboli at [facility], and notable lower sBPs while here, greater concern for hypoperfusion mediated strokes for which his BP meds were either lowered or discontinued -Discussed his case with neurologist Dr. Soto and radiology staff at [facility] who reviewed their most recent MRI and [facility]'s imaging and agree there are new strokes and believe the source is most likely from hypoperfusion, not embolic, noting even the aortic arch is patent, they do not recommend addition of ASA, but to continue Eliquis and loosen BP parameters-patient's confusion resolved -Dopplers LE negative for DVT, -vascultic work-up thus far, ESR negative, CHARISMA and ANCA pending for possible cerebral vasculitis stroke etiology 3. Cardio: pmh HTN- continue home BP meds, medicine consulted, recs appreciated 4. Resp: HUMBLE may use home CPAP, duonebs, monitor for signs of infection, Incentive Spirometry 5. Endo: pmh DM- continue MEtofrim and Insulin coverage, increased evening Levemir to 15 units-stable 6. : admission UA and Ucx negative, monitor PVRs, episode of incontinence, improving, repeat UA negative 7. ID: right ear infection, continue Doxycycline and prednisolone ear drops 8. DVT on Eliquis 9. Dipo: 12-15-18 to home, progressing towards goals Allergies Coded Allergies: Penicillins (Verified Allergy, Unknown, 06/23/18) Procaine (Verified Allergy, Unknown, 06/23/18) Vital Signs Vital Signs Date Time Temp Pulse Resp B/P (MAP) Pulse Ox O2 Delivery O2 Flow Rate FiO2 12/08/18 08:51 115 122/90 12/08/18 06:00 98.4 18 94 Room Air Laboratory Data CBC/BMP Laboratory Tests 12/08/18 06:16 Red Blood Count 5.53, Mean Corpuscular Volume 79.4 L, Mean Corpuscular Hemoglobin 27.3, Mean Corpuscular Hemoglobin Concent 34.4, Red Cell Distribution Width 14.1, Neutrophils (%) (Auto) 66.2 H, Lymphocytes (%) (Auto) 21.6 L, Monocytes (%) (Auto) 8.9 H, Eosinophils (%) (Auto) 1.8, Basophils (%) (Auto) 0.6, Neutrophils # (Auto) 4.5, Lymphocytes # (Auto) 1.5, Monocytes # (Auto) 0.6, Eosinophils # (Auto) 0.1, Basophils # (Auto) 0.0, Calcium Level 8.7 Labs 24H Laboratory Tests 2 12/07/18 16:37: Bedside Glucose (Misc Panel) 181H 12/07/18 19:32: Bedside Glucose (Misc Panel) 210H 12/08/18 05:33: Bedside Glucose (Misc Panel) 176H 12/08/18 06:16: Immature Granulocyte % (Auto) 0.9, White Blood Count 6.8, Red Blood Count 5.53, Hemoglobin 15.1, Hematocrit 43.9, Mean Corpuscular Volume 79.4L, Mean Corpuscular Hemoglobin 27.3, Mean Corpuscular Hemoglobin Concent 34.4, Red Cell Distribution Width 14.1, Platelet Count 231, Neutrophils (%) (Auto) 66.2H, Lymphocytes (%) (Auto) 21.6L, Monocytes (%) (Auto) 8.9H, Eosinophils (%) (Auto) 1.8, Basophils (%) (Auto) 0.6, Neutrophils # (Auto) 4.5, Lymphocytes # (Auto) 1.5, Monocytes # (Auto) 0.6, Eosinophils # (Auto) 0.1, Basophils # (Auto) 0.0, Nucleated Red Blood Cells % (auto) 0.0, Erythrocyte Sedimentation Rate 17, Anion Gap 12, Glomerular Filtration Rate > 60.0, Blood Urea Nitrogen 26H, Creatinine 1.17, Sodium Level 140, Potassium Level 3.3L, Chloride Level 106, Carbon Dioxide Level 22, Calcium Level 8.7 Microbiology Microbiology 12/06/18 Urine Culture - Final, Complete 11/30/18 Urine Culture - Final, Complete Current Medications Current Medications Current Medications Acetaminophen (Tylenol Tab) 650 mg Q4HP PRN PO fever/MILD PAIN (PS 1-4); Start 11/30/18 at 16:00 Albuterol Sulfate (Proventil Neb) 2.5 mg Q6HP PRN NEB SOB/WHEEZING; Start 11/30/18 at 15:45 Apixaban (Eliquis) 5 mg BID PO Last administered on 12/08/18at 08:50; Start 11/30/18 at 21:00 Atorvastatin Calcium (Lipitor) 80 mg DAILY PO Last administered on 12/08/18at 08:50; Start 12/01/18 at 09:00 Bisacodyl (Dulcolax Suppository) 10 mg DAILYPRN PRN [place] CONSTIPATION; Start 11/30/18 at 16:00 Budesonide/ Formoterol Fumarate (Symbicort 160/ 4.5mcg) 2 puff BID INH Last administered on 12/08/18at 07:32; Start 11/30/18 at 21:00 Chlorthalidone (Hygroton) 25 mg DAILY PO Last administered on 12/06/18at 09:35; Start 12/01/18 at 09:00; Stop 12/06/18 at 10:47; Status DC Dextrose (Dextrose 50%) 25 ml ASDIRECTED PRN IV SEE LABEL COMMENTS; Start 11/30/18 at 15:45 Docusate Sodium (Colace) 100 mg BID PO Last administered on 12/08/18at 08:50; Start 11/30/18 at 21:00 Doxycycline Hyclate (Vibramycin) 100 mg BID PO Last administered on 12/08/18at 08:50; Start 12/01/18 at 21:00; Stop 12/08/18 at 09:01; Status DC Erythromycin (Ilotycin) 1 CM RIBBON TID OD ; Start 12/06/18 at 18:45; Status UNV Fluticasone Propionate (Flonase 0.05% Nasal [place]) 2 spray DAILY NARES Last administered on 12/08/18at 08:55; Start 12/01/18 at 09:00 Gabapentin (Neurontin) 100 mg Q8H PO Last administered on 12/05/18at 05:42; Start 11/30/18 at 22:00; Stop 12/05/18 at 14:13; Status DC Glucagon (Glucagon) 1 mg ASDIRECTED PRN SC SEE LABEL COMMENTS; Start 11/30/18 at 15:45 Glucose (Glucose) 16 GM ASDIRECTED PRN PO SEE LABEL COMMENTS; Start 11/30/18 at 15:45 Home Med (Med Rec Complete!) ASDIRECTED XX ; Start 11/30/18 at 16:00; Stop 11/30/18 at 16:19; Status DC Insulin Detemir (Levemir Insulin) 5 units QHS SC Last administered on 12/01/18at 21:47; Start 12/01/18 at 21:00; Stop 12/02/18 at 15:14; Status DC Insulin Detemir (Levemir Insulin) 10 units QHS SC Last administered on 12/03/18at 21:44; Start 12/02/18 at 21:00; Stop 12/04/18 at 11:29; Status DC Insulin Detemir (Levemir Insulin) 15 units QHS SC Last administered on 12/07/18at 20:42; Start 12/04/18 at 21:00 Insulin Human Lispro (HumaLOG INSULIN) 4 units AC SC Last administered on 12/04/18at 08:07; Start 12/02/18 at 17:30; Stop 12/04/18 at 10:26; Status DC Insulin Human Lispro (HumaLOG INSULIN) 6 units AC SC Last administered on 12/08/18at 07:30; Start 12/04/18 at 12:00 Insulin Human Lispro (HumaLOG INSULIN) SEE PROTOCOL TABLE AC SC Last administered on 12/08/18at 07:30; Start 11/30/18 at 17:30 Lisinopril (Prinivil) 40 mg DAILY PO Last administered on 12/04/18at 08:08; Start 12/01/18 at 09:00; Stop 12/05/18 at 22:21; Status DC Magnesium Hydroxide (Milk Of Magnesia) 30 ml DAILYPRN PRN PO CONSTIPATION; Start 11/30/18 at 16:00 Metformin HCl (Glucophage Xr) 1,000 mg DAILY@18 PO Last administered on 12/07/18at 17:20; Start 11/30/18 at 18:00 Metoprolol Tartrate (Lopressor) 25 mg TID PO Last administered on 12/08/18at 08:51; Start 12/06/18 at 09:00 Metoprolol Tartrate (Lopressor) 50 mg BID PO Last administered on 12/01/18at 0 8:38; Start 11/30/18 at 21:00; Stop 12/01/18 at 11:01; Status DC Metoprolol Tartrate (Lopressor) 75 mg BID PO Last administered on 12/05/18at 21:03; Start 12/01/18 at 21:00; Stop 12/05/18 at 22:23; Status DC Metoprolol Tartrate (Lopressor) 75 mg TID PO ; Start 12/06/18 at 09:00; Status Cancel Miscellaneous (Unresolved Clarification Entry) SEE LABEL COMMENTS DAILY XX ; Start 12/08/18 at 09:00; Stop 12/08/18 at 09:00; Status DC Pantoprazole Sodium (Protonix) 40 mg DAILY PO Last administered on 12/08/18at 08:50; Start 12/01/18 at 09:00 Prednisolone Acetate (Predforte 1% Ophth Susp) 2 drop TID XX Last administered on 12/08/18 08:55; Start 12/01/18 at 16:00 Senna (Senokot) 1 tab QHS PO Last administered on 12/04/18at 20:17; Start 11/30/18 at 21:00 Sodium Chloride (Chloride Nasal [place]) 2 spray TID NA Last administered on 12/08/18at 08:55; Start 12/01/18 at 16:00 Tramadol/ Acetaminophen (Ultracet 37.5/ 325 Mg) 1 tab Q6HP PRN PO PAIN; Start 11/30/18 at 15:45; Stop 12/06/18 at 15:47; Status DC SILVA STEEN MD Dec 08, 2018 12:39
[2018-12-08 14:00] VITALS: BP 132/85
[2018-12-08] MEDS: metFORMIN XR 500MG TAB *GLUCOPHAGE XR PO SCH (17:27)
[2018-12-08] MEDS: SENNA 8.6 MG TAB (SENOKOT) PO SCH (20:14)
[2018-12-08] MEDS: LEVEMIR (INSULIN DETEMIR) 1 UNITS/0.01ML SC SCH (20:14)
[2018-12-08 20:30] VITALS: BP 120/68
[2018-12-09 06:00] VITALS: BP 110/62
[2018-12-09] MEDS: SYMBICORT 160/4.5MCG INHALER 6GM INH SCH ×2 (07:36→22:41)
[2018-12-09 08:10] LABS: BLOOD UREA NITROGEN 22 MG/DL (7-18); CARBON DIOXIDE LEVEL 25 MEQ/L (21-32); CHLORIDE LEVEL 106 MEQ/L (98-107); CREATININE FOR GFR 1.15 MG/DL (0.70-1.30); GLOMERULAR FILTRATION RATE > 60.0 (>56); GLUCOSE, FASTING 225 MG/DL (70-100); POTASSIUM SERUM 3.7 MEQ/L (3.5-5.1); SODIUM LEVEL 141 MEQ/L (136-145)
[2018-12-09] MEDS: HumaLOG INSULIN (NovoLOG) PER UNIT SC SCH ×6 (08:12→17:45)
[2018-12-09] MEDS: APIXABAN 5 MG TAB (ELIQUIS) PO SCH ×2 (08:13→20:10)
[2018-12-09] MEDS: METOPROLOL TART 25 MG TABLET PO SCH ×4 (08:13→20:11)
[2018-12-09] MEDS: PANTOPRAZOLE 40MG TAB (PROTONIX) PO SCH (08:13)
[2018-12-09] MEDS: SODIUM CHLORIDE NASAL 0.65% SPRAY BTL (OCEAN) SCH ×3 (08:14→20:10)
[2018-12-09] MEDS: FLUTICASONE PROP 0.05% NASAL SPRAY 16 GM (FLONASE) NARES SCH (08:14)
[2018-12-09] MEDS: DOCUSATE SODIUM 100 MG CAP PO SCH ×2 (08:14→20:09)
[2018-12-09] MEDS: ATORVASTATIN 20 MG TAB PO SCH (08:14)
[2018-12-09] MEDS: prednisoLONE ACET 1% OPHTH SUSP 5ML XX SCH ×3 (08:15→20:10)
[2018-12-09 14:00] VITALS: BP 124/74
[2018-12-09] MEDS: metFORMIN XR 500MG TAB *GLUCOPHAGE XR PO SCH (17:45)
[2018-12-09 20:00] VITALS: BP 130/80
[2018-12-09] MEDS: SENNA 8.6 MG TAB (SENOKOT) PO SCH (20:10)
[2018-12-09] MEDS: LEVEMIR (INSULIN DETEMIR) 1 UNITS/0.01ML SC SCH (20:11)
[2018-12-10 06:00] VITALS: BP 137/82
[2018-12-10] MEDS: SYMBICORT 160/4.5MCG INHALER 6GM INH SCH ×2 (07:36→20:49)
[2018-12-10] MEDS: HumaLOG INSULIN (NovoLOG) PER UNIT SC SCH ×6 (08:43→17:38)
[2018-12-10] MEDS: APIXABAN 5 MG TAB (ELIQUIS) PO SCH ×2 (08:44→21:16)
[2018-12-10] MEDS: PANTOPRAZOLE 40MG TAB (PROTONIX) PO SCH (08:44)
[2018-12-10] MEDS: ATORVASTATIN 20 MG TAB PO SCH (08:44)
[2018-12-10] MEDS: SODIUM CHLORIDE NASAL 0.65% SPRAY BTL (OCEAN) SCH ×3 (08:45→21:19)
[2018-12-10] MEDS: prednisoLONE ACET 1% OPHTH SUSP 5ML XX SCH ×3 (08:45→21:19)
[2018-12-10] MEDS: DOCUSATE SODIUM 100 MG CAP PO SCH ×2 (08:45→21:00)
[2018-12-10] MEDS: METOPROLOL TART 25 MG TABLET PO SCH ×3 (08:45→21:00)
[2018-12-10] MEDS: FLUTICASONE PROP 0.05% NASAL SPRAY 16 GM (FLONASE) NARES SCH (08:45)
[2018-12-10 14:00] VITALS: BP 143/85
[2018-12-10] MEDS: metFORMIN XR 500MG TAB *GLUCOPHAGE XR PO SCH (17:38)
[2018-12-10 20:00] VITALS: BP 119/65
[2018-12-10] MEDS: SENNA 8.6 MG TAB (SENOKOT) PO SCH (21:00)
[2018-12-10] MEDS: LEVEMIR (INSULIN DETEMIR) 1 UNITS/0.01ML SC SCH (21:20)
[2018-12-11 06:00] VITALS: BP 133/86
[2018-12-11] MEDS: HumaLOG INSULIN (NovoLOG) PER UNIT SC SCH ×6 (08:15→17:05)
[2018-12-11] MEDS: DOCUSATE SODIUM 100 MG CAP PO SCH ×2 (08:15→21:07)
[2018-12-11] MEDS: APIXABAN 5 MG TAB (ELIQUIS) PO SCH ×2 (08:15→21:07)
[2018-12-11] MEDS: ATORVASTATIN 20 MG TAB PO SCH (08:15)
[2018-12-11] MEDS: PANTOPRAZOLE 40MG TAB (PROTONIX) PO SCH (08:16)
[2018-12-11] MEDS: SODIUM CHLORIDE NASAL 0.65% SPRAY BTL (OCEAN) SCH ×3 (08:16→21:08)
[2018-12-11] MEDS: METOPROLOL TART 25 MG TABLET PO SCH ×3 (08:16→21:00)
[2018-12-11] MEDS: prednisoLONE ACET 1% OPHTH SUSP 5ML XX SCH ×3 (08:17→21:08)
[2018-12-11] MEDS: FLUTICASONE PROP 0.05% NASAL SPRAY 16 GM (FLONASE) NARES SCH (08:17)
[2018-12-11] MEDS: SYMBICORT 160/4.5MCG INHALER 6GM INH SCH ×2 (11:42→20:41)
--- NOTE | 2018-12-11 12:51 | IPNPDOC ---
Date Seen The patient was seen on 12/11/18. Progress Note HPI: Mr. Garrett is a 58-year-old male presenting to [facility] for rehabilitation after being discharged from [facility] [place] (11/17/18-11/24/18) after he was admitted to [facility] for rehab on 11/24/18 and exhibited signs and symptoms of another stroke on 11/25/18. After discussion with [facility] [place] neurology service, there was concern for a new embolic stroke coming from his PFO so he was transferred there for further care. A KIAH performed at [facility] demonstrated no LA appendage thrombus and PFO with R-L shunt. The patient also had a 1 hour episode of expressive aphasia the evening of 11/28/18, repeat imaging was stable. An EEG done out of concern for possible seizures revealed no epileptiform discharges. The patient was ultimately placed on eliquis to prevent further thrombus formation and a loop recorder was implanted for detention ambulatory cardiac telemetry monitoring to assess for PAF/flutter as a possible cause of cryptogenic stroke. During the course of his hospital stay he also had an episode of hematochezia which was found to likely be due to hemorrhoids given his history of hemorrhoids and negative colonoscopy results on 11/29/18. He was deemed stable for discharge on 11/30/18, and was transferred to the care of ARU, Dr Moreno, 11/30/18. OOB with OT. Pt reports a rash in the groin area, itchy and red. Denies any fevers, chills, weakness, fatigue, Headache, Chest Pain, Shortness of breath, cough, palpitations, abdominal pain, N/V/D or changes in bowel or bladder habits. 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 EOMI. RESPIRATORY: CTAB with full breath sounds bilaterally. No wheezes, crackles, rhonchi.. CARDIOVASCULAR: RRR. Normal S1 and S2. No murmurs appreciated on auscultation ABDOMEN: Soft, nontender, nondistended. Obese abdomen. Bowel sounds present. EXTREMITIES: No edema or cyanosis bilaterally. NEUROLOGICAL: Alert and oriented 3. Nml strength bilaterally. Mild dysarthria noted. PSYCHIATRIC: Mood normal. Skin. erythematous rash noted B/L groin areas with excoriation noted. UC 12/06/18 negative. MRA brain 12/05/18 3-D [id number] MR angiography was performed at the level of the [place]. There is no aneurysm or arteriovenous malformation. Mild atherosclerotic disease involves the right middle cerebral artery trifurcation. There are areas of moderate to severe atherosclerotic disease involving the posterior cerebral arteries. Major intracranial vessels are patent. The left vertebral artery is LE U/S neg for DVT 12/06/17. A&P: Mr. Garrett is a 58-year-old male presenting to [facility] for rehabilitation after being discharged from [facility] [place] (11/17/18-11/24/18) after he was admitted to [facility] for rehab on 11/24/18 and exhibited signs and symptoms of another stroke on 11/25/18. After discussion with [facility] [place] neurology service, there was concern for a new embolic stroke coming from his PFO so he was transferred there for further care. A KIAH performed at [facility] demonstrated no LA appendage thrombus and PFO with R-L shunt. The patient also had a 1 hour episode of expressive aphasia the evening of 11/28/18, repeat imaging was stable. An EEG done out of concern for possible seizures revealved no epileptiform discharges. The patient was ultimately placed on eliquis to prevent further thrombus formation and a loop recorder was implanted for tax attorney ambulatory cardiac telemetry monitoring to assess for PAF/flutter as a possible cause of cryptogenic stroke. During the course of his hospital stay he also had an episode of hematochezia which was found to likely be due to hemorrhoids given his history of hemorrhoids and negative colonoscopy results on 11/29/18. He was deemed stable for discharge on 11/30/18, and was transferred to the care of ARU, Dr Moreno, 11/30/18. Cryptogenic stroke Continue Eliquis and atorvastatin ARU as per Dr Moreno. PT/OT/ST as per Dr Moreno. Pain control as per Dr Moreno. Bowel care as per Dr Moreno. As per therapy 12/05/18 the patient seemed more confused, repeat MRI/MRA was ordered. Dr Moreno has discussed MRI/MRA results with Neurology and Radiology at [facility], they reviewed and compared imaging. Recommendation to allow for higher BP related to possible hypoperfusion. Metoprolol was decreased with hold parameters SBP <130. Plan for SBP 130-150 acceptable. Continue to closely monitor. Disposition as per ARU, Dr Moreno Type 2 diabetes CC diet Metformin. Levemir SSI COPD/Asthma Symbicort Hypertension Lopressor with hold parameters SBP <130, HR <60. SBP 130-150 acceptable. Continue to monitor. Hyperlipidemia statin. HUMBLE Continue with home CPAP Hypokalemia. resolved s/p supplement. Dermatophytosis groin. Nystatin powder BID. DVT prophylaxis Pt on Eliquis VS, I&O, 24H, Fishbone Vital Signs/I&O Vital Signs Date Time Temp Pulse Resp B/P (MAP) Pulse Ox O2 Delivery O2 Flow Rate FiO2 12/11/18 08:16 96 133/86 12/11/18 06:00 97.7 18 98 Room Air I&O- Last 24 Hours up to 6 AM 12/11/18 06:00 Intake Total 1620 ml Balance 1620 ml Laboratory Data 24H LABS Laboratory Tests 2 12/10/18 16:42: Bedside Glucose (Misc Panel) 169H 12/10/18 21:15: Bedside Glucose (Misc Panel) 219H 12/11/18 06:45: Bedside Glucose (Misc Panel) 190H 12/11/18 11:30: Bedside Glucose (Misc Panel) 127H Microbiology Microbiology 12/06/18 Urine Culture - Final, Complete Hiral Day Dec 11, 2018 12:51
[2018-12-11] MEDS: NYSTATIN 100,000 UNITS/GM TOPICAL PWD 15 GM TOP SCH ×2 (13:10→21:08)
[2018-12-11 14:00] VITALS: BP 132/87
--- NOTE | 2018-12-11 15:16 | NUR ---
Lengthy discussion w/ significant other at bedside today, who reports she is always home with pt. Per significant other, pt has been dependent on her assistance for ADL's including medication management and managing finances. She states that other than physical deficits, the pt presents as he did prior to his stroke. She does not appreciate any deficits in memory, attention, or problem-solving skills. Addendum: 12/11/18 at 1519 by ELIO TOLENTINO [facility] Amended: Links added.
[2018-12-11] MEDS: metFORMIN XR 500MG TAB *GLUCOPHAGE XR PO SCH (17:03)
[2018-12-11 20:05] VITALS: BP 106/57
[2018-12-11] MEDS: SENNA 8.6 MG TAB (SENOKOT) PO SCH (21:07)
[2018-12-11] MEDS: LEVEMIR (INSULIN DETEMIR) 1 UNITS/0.01ML SC SCH (21:08)
[2018-12-12 00:06] LABS: ANTINUCLEAR ANTIBODIES DIRECT Negative (Negative)
[2018-12-12 06:05] VITALS: BP 127/77
[2018-12-12 08:06] VITALS: BP 118/60
[2018-12-12] MEDS: METOPROLOL TART 25 MG TABLET PO SCH (08:07)
[2018-12-12] MEDS: HumaLOG INSULIN (NovoLOG) PER UNIT SC SCH ×6 (08:10→17:16)
[2018-12-12] MEDS: DOCUSATE SODIUM 100 MG CAP PO SCH ×2 (08:11→21:17)
[2018-12-12] MEDS: ATORVASTATIN 20 MG TAB PO SCH (08:11)
[2018-12-12] MEDS: PANTOPRAZOLE 40MG TAB (PROTONIX) PO SCH (08:11)
[2018-12-12] MEDS: FLUTICASONE PROP 0.05% NASAL SPRAY 16 GM (FLONASE) NARES SCH (08:11)
[2018-12-12] MEDS: APIXABAN 5 MG TAB (ELIQUIS) PO SCH ×2 (08:11→21:18)
[2018-12-12] MEDS: SYMBICORT 160/4.5MCG INHALER 6GM INH SCH ×2 (08:11→20:50)
[2018-12-12] MEDS: SODIUM CHLORIDE NASAL 0.65% SPRAY BTL (OCEAN) SCH ×3 (08:12→21:17)
[2018-12-12] MEDS: prednisoLONE ACET 1% OPHTH SUSP 5ML XX SCH (08:13)
[2018-12-12] MEDS: NYSTATIN 100,000 UNITS/GM TOPICAL PWD 15 GM TOP SCH ×2 (08:13→21:17)
--- NOTE | 2018-12-12 10:37 | IPNPDOC ---
Date Seen The patient was seen on 12/12/18. Progress Note HPI: Mr. Garrett is a 58-year-old male presenting to [facility] for rehabilitation after being discharged from [facility] (11/17/18-11/24/18) after he was admitted to [facility] for rehab on 11/24/18 and exhibited signs and symptoms of another stroke on 11/25/18. After discussion with [facility] neurology service, there was concern for a new embolic stroke coming from his PFO so he was transferred there for further care. A KIAH performed at [facility] demonstrated no LA appendage thrombus and PFO with R-L shunt. The patient also had a 1 hour episode of expressive aphasia the evening of 11/28/18, repeat imaging was stable. An EEG done out of concern for possible seizures revealed no epileptiform discharges. The patient was ultimately placed on eliquis to prevent further thrombus formation and a loop recorder was implanted for skilled nursing ambulatory cardiac telemetry monitoring to assess for PAF/flutter as a possible cause of cryptogenic stroke. During the course of his hospital stay he also had an episode of hematochezia which was found to likely be due to hemorrhoids given his history of hemorrhoids and negative colonoscopy results on 11/29/18. He was deemed stable for discharge on 11/30/18, and was transferred to the care of ARU, Dr Moreno, 11/30/18. OOB with PT. Feeling well. No concerns reported. Denies any fevers, chills, weakness, fatigue, Headache, Chest Pain, Shortness of breath, cough, palpitations, abdominal pain, N/V/D or changes in bowel or bladder habits. PAST MEDICAL HISTORY: [place] Palsy Acute ischemic stroke Guillain Whitman syndrome Type 2 diabetes COPD Asthma Diabetic nephropathy Hypertension Patent foramen ovale Hyperlipidemia HUMBLE History of present prostate cancer status post radiation 2013 CAD status post stenting 2012 CHF PAST SURGICAL HISTORY: TNA Cholecystectomy Diverticulitis 2004 Cataract 1998 and 2009 Hernia repair 1998 Cardiac stent 09/2013 Heel surgery Colonoscopy 12/2016 PE: GENERAL APPEARANCE: No acute distress sitting on side of bed HEENT: Normocephalic, atraumatic. EOMI. RESPIRATORY: CTAB with full breath sounds bilaterally. No wheezes, crackles, rhonchi.. CARDIOVASCULAR: RRR. Normal S1 and S2. No murmurs appreciated on auscultation ABDOMEN: Soft, nontender, nondistended. Obese abdomen. Bowel sounds present. EXTREMITIES: No edema or cyanosis bilaterally. NEUROLOGICAL: Alert and oriented 3. Nml strength bilaterally. Mild dysarthria noted. PSYCHIATRIC: Mood normal. UC 12/06/18 negative. MRA brain 12/05/18 3-D [id number] MR angiography was performed at the level of the [place] of [place]. There is no aneurysm or arteriovenous malformation. Mild atherosclerotic disease involves the right middle cerebral artery trifurcation. There are areas of moderate to severe atherosclerotic disease involving the posterior cerebral arteries. Major intracranial vessels are patent. The left vertebral artery is LE U/S neg for DVT 12/06/17. A&P: Mr. Garrett is a 58-year-old male presenting to [facility] for rehabilitation after being discharged from [facility] (11/17/18-11/24/18) after he was admitted to [facility] for rehab on 11/24/18 and exhibited signs and symptoms of another stroke on 11/25/18. After discussion with [facility] neurology service, there was concern for a new embolic stroke coming from his PFO so he was transferred there for further care. A KIAH performed at [facility] demonstrated no LA appendage thrombus and PFO with R-L shunt. The patient also had a 1 hour episode of expressive aphasia the evening of 11/28/18, repeat imaging was stable. An EEG done out of concern for possible seizures revealved no epileptiform discharges. 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 During the course of his hospital stay he also had an episode of hematochezia which was found to likely be due to hemorrhoids given his history of hemorrhoids and negative colonoscopy results on 11/29/18. He was deemed stable for discharge on 11/30/18, and was transferred to the care of ARU, Dr Moreno, 11/30/18. Cryptogenic stroke Continue Eliquis and atorvastatin ARU as per Dr Moreno. PT/OT/ST as per Dr Moreno. Pain control as per Dr Moreno. Bowel care as per Dr Moreno. As per therapy 12/05/18 the patient seemed more confused, repeat MRI/MRA was ordered. Dr Moreno has discussed MRI/MRA results with Neurology and Radiology at [place], they reviewed and compared imaging. Recommendation to allow for higher BP related to possible hypoperfusion. Metoprolol was decreased with hold parameters SBP <130. Plan for SBP 130-150 acceptable. Continue to closely monitor. Disposition as per ARU, Dr Moreno Type 2 diabetes CC diet Metformin. Levemir SSI COPD/Asthma Symbicort Hypertension Lopressor with hold parameters SBP <130, HR <60. SBP 130-150 acceptable. Continue to monitor. Hyperlipidemia statin. HUMBLE Continue with home CPAP Hypokalemia. resolved s/p supplement. Dermatophytosis groin. Nystatin powder BID. DVT prophylaxis Pt on Eliquis VS, I&O, 24H, Fishbone Vital Signs/I&O Vital Signs Date Time Temp Pulse Resp B/P (MAP) Pulse Ox O2 Delivery O2 Flow Rate FiO2 12/12/18 08:07 74 118/60 12/12/18 06:05 97.7 20 96 12/11/18 20:05 Room Air I&O- Last 24 Hours up to 6 AM 12/12/18 06:00 Intake Total 1080 ml Output Total 240 ml Balance 840 ml Laboratory Data 24H LABS Laboratory Tests 2 12/11/18 11:30: Bedside Glucose (Misc Panel) 127H 12/11/18 16:55: Bedside Glucose (Misc Panel) 191H 12/11/18 19:31: Bedside Glucose (Misc Panel) 202H 12/12/18 06:18: Bedside Glucose (Misc Panel) 155H Microbiology Microbiology 12/06/18 Urine Culture - Final, Complete Hiral Day Dec 12, 2018 10:37
--- NOTE | 2018-12-12 12:40 | IPNPDOC ---
PM&R Progress Note DATE OF SERVICE: Dec 12, 2018 Point Of Care Technician Progress Note Subjective: Patient seen in his room states the antibiotic and prednisone ear drops are not helping. He reports having a constant dull ache that has lasted 6 weeks. REVIEW OF SYSTEMS: The following is a completed review of systems and has been reviewed. Review of systems otherwise unremarkable. PAIN: right ear pain EYES: Negative EARS, NOSE, & THROAT: +right facial droop, no dysphagia, no rhinorrhea CARDIOVASCULAR: denies chest pain or palpitations PULMONARY: Negative. Denies shortness of breath, +HUMBLE GASTROINTESTINAL: +constipation GENITOURINARY: Negative for dysuria NEUROLOGICAL: right facial droop, possible recent GBS PHYSICAL EXAMINATION: VITAL SIGNS: Please see below. GENERAL: Pleasant and cooperative. No acute distress. Alert and oriented times three. HEENT: PERRL. Extraocular movements intact. Clear conjunctiva, +right facial droop including eyebrow lifting- right TM arnold with possible effusion CARDIOVASCULAR: Regular rate and rhythm. No murmurs, rubs, or gallops LUNGS:Clear to auscultation bilaterally. No wheezes. No rhonchi ABDOMEN: Soft, nontender, nondistended. Positive bowel sounds. Normal active bowel sounds NEUROLOGICAL: Alert and oriented times three. No notable aphasia, mild dysarthria Cranial nerves II through XII grossly intact. Sensation decreased bilateral LE (-) Babinski 3+biceps and brachioradialis reflex on the right EXTREMITIES:5\\5 strength bilateral upper extremities. 5\\5 strength right lower extremity. 5/5 strength in left lower extremity. ASSESSMENT:58-year-old M with past medical history of DM, HTN, HUMBLE who presents status post left thalamic stroke and possible AIDP/GBS PLAN: 1. 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 Several foci were demo nstrated on the prior study of 11/25/2018 indicating subacute infarcts whereas others have reverted to normal diffusion/ADC signal in the interval between scans. Multiplicity of findings suggests possible embolic etiology." Given his significant multi-vessel cerebral stenosis, negative work-up for emboli at [facility], and notable lower sBPs while here, greater concern for hypoperfusion mediated strokes for which his BP meds were either lowered or discontinued -Discussed his case with neurologist Dr. Soto and radiology staff at [facility] who reviewed their most recent MRI and [facility]'s imaging and agree there are new strokes and believe the source is most likely from hypoperfusion, not embolic, noting even the aortic arch is patent, they do not recommend addition of ASA, but to continue Eliquis and loosen BP parameters-patient's confusion resolved -Dopplers LE negative for DVT, -vascultic work-up thus far, ESR negative, vasculitic work-up negative 3. Cardio: pmh HTN- continue home BP meds, medicine consulted, recs appreciated 4. Resp: HUMBLE may use home CPAP, duonebs, monitor for signs of infection, Incentive Spirometry 5. Endo: pmh DM- continue Metformin and Insulin coverage, increased evening Levemir to 15 units-stable 6. : admission UA and Ucx negative, monitor PVRs, episode of incontinence, improving, repeat UA negative 7. ID: right ear infection, s/p Doxycycline and prednisolone ear drops, will trial Azithromycin and Debrox 8. DVT on Eliquis 9. Dipo: 12-15-18 to home, progressing towards goals Allergies Coded Allergies: Penicillins (Verified Allergy, Unknown, 06/23/18) Procaine (Verified Allergy, Unknown, 06/23/18) Vital Signs Vital Signs Date Time Temp Pulse Resp B/P (MAP) Pulse Ox O2 Delivery O2 Flow Rate FiO2 12/12/18 08:07 74 118/60 12/12/18 06:05 97.7 20 96 12/11/18 20:05 Room Air Laboratory Data Labs 24H Laboratory Tests 2 12/11/18 16:55: Bedside Glucose (Misc Panel) 191H 12/11/18 19:31: Bedside Glucose (Misc Panel) 202H 12/12/18 06:18: Bedside Glucose (Misc Panel) 155H 12/12/18 11:43: Bedside Glucose (Misc Panel) 132H Microbiology Microbiology 12/06/18 Urine Culture - Final, Complete Current Medications Current Medications Current Medications Acetaminophen (Tylenol Tab) 650 mg Q4HP PRN PO fever/MILD PAIN (PS 1-4) Last administered on 12/09/18at 15:24; Start 11/30/18 at 16:00 Albuterol Sulfate (Proventil Neb) 2.5 mg Q6HP PRN NEB SOB/WHEEZING; Start 11/30/18 at 15:45 Apixaban (Eliquis) 5 mg BID PO Last administered on 12/12/18at 08:11; Start 11/30/18 at 21:00 Atorvastatin Calcium (Lipitor) 80 mg DAILY PO Last administered on 12/12/18at 08:11; Start 12/01/18 at 09:00 Bisacodyl (Dulcolax Suppository) 10 mg DAILYPRN PRN AR CONSTIPATION; Start 11/30/18 at 16:00 Budesonide/ Formoterol Fumarate (Symbicort 160/ 4.5mcg) 2 puff BID INH Last administered on 12/12/18at 08:11; Start 11/30/18 at 21:00 Chlorthalidone (Hygroton) 25 mg DAILY PO Last administered on 12/06/18at 09:35; Start 12/01/18 at 09:00; Stop 12/06/18 at 10:47; Status DC Dextrose (Dextrose 50%) 25 ml ASDIRECTED PRN IV SEE LABEL COMMENTS; Start 11/30/18 at 15:45 Docusate Sodium (Colace) 100 mg BID PO Last administered on 12/12/18at 08:11; Start 11/30/18 at 21:00 Doxycycline Hyclate (Vibramycin) 100 mg BID PO Last administered on 12/08/18at 08:50; Start 12/01/18 at 21:00; Stop 12/08/18 at 09:01; Status DC Erythromycin (Ilotycin) 1 CM RIBBON TID OD ; Start 12/06/18 at 18:45; Status UNV Fluticasone Propionate (Flonase 0.05% Nasal [place]) 2 spray DAILY NARES Last administered on 12/12/18at 08:11; Start 12/01/18 at 09:00 Gabapentin (Neurontin) 100 mg Q8H PO Last administered on 12/05/18at 05:42; Start 11/30/18 at 22:00; Stop 12/05/18 at 14:13; Status DC Glucagon (Glucagon) 1 mg ASDIRECTED PRN SC SEE LABEL COMMENTS; Start 11/30/18 at 15:45 Glucose (Glucose) 16 GM ASDIRECTED PRN PO SEE LABEL COMMENTS; Start 11/30/18 at 15:45 Home Med (Med Rec Complete!) ASDIRECTED XX ; Start 11/30/18 at 16:00; Stop 11/30/18 at 16:19; Status DC Insulin Detemir (Levemir Insulin) 5 units QHS SC Last administered on 12/01/18at 21:47; Start 12/01/18 at 21:00; Stop 12/02/18 at 15:14; Status DC Insulin Detemir (Levemir Insulin) 10 units QHS SC Last administered on 12/03/18at 21:44; Start 12/02/18 at 21:00; Stop 12/04/18 at 11:29; Status DC Insulin Detemir (Levemir Insulin) 15 units QHS SC Last administered on 12/11/18at 21:08; Start 12/04/18 at 21:00 Insulin Human Lispro (HumaLOG INSULIN) 4 units AC SC Last administered on 12/04/18at 08:07; Start 12/02/18 at 17:30; Stop 12/04/18 at 10:26; Status DC Insulin Human Lispro (HumaLOG INSULIN) 6 units AC SC Last administered on 12/12/18at 08:11; Start 12/04/18 at 12:00 Insulin Human Lispro (HumaLOG INSULIN) SEE PROTOCOL TABLE AC SC Last administered on 12/12/18at 08:10; Start 11/30/18 at 17:30 Lisinopril (Prinivil) 40 mg DAILY PO Last administered on 12/04/18at 08:08; Start 12/01/18 at 09:00; Stop 12/05/18 at 22:21; Status DC Magnesium Hydroxide (Milk Of Magnesia) 30 ml DAILYPRN PRN PO CONSTIPATION; Start 11/30/18 at 16:00 Metformin HCl (Glucophage Xr) 1,000 mg DAILY@18 PO Last administered on 11/28 17:03; Start 11/30/18 at 18:00 Metoprolol Tartrate (Lopressor) 12.5 mg TID PO ; Start 12/12/18 at 16:00 Metoprolol Tartrate (Lopressor) 25 mg TID PO Last administered on 12/11/18at 17:03; Start 12/06/18 at 09:00; Stop 12/12/18 at 11:04; Status DC Metoprolol Tartrate (Lopressor) 50 mg BID PO Last administered on 12/01/18at 08:38; Start 11/30/18 at 21:00; Stop 12/01/18 at 11:01; Status DC Metoprolol Tartrate (Lopressor) 75 mg BID PO Last administered on 12/05/18at 21:03; Start 12/01/18 at 21:00; Stop 12/05/18 at 22:23; Status DC Metoprolol Tartrate (Lopressor) 75 mg TID PO ; Start 12/06/18 at 09:00; Status Cancel Miscellaneous (Unresolved Clarification Entry) SEE LABEL COMMENTS DAILY XX ; Start 12/08/18 at 09:00; Stop 12/08/18 at 09:00; Status DC Nystatin (Mycostatin Powder, Nystop) 1 dose BID TOP Last administered on 12/12/18at 08:13; Start 12/11/18 at 11:30 Pantoprazole Sodium (Protonix) 40 mg DAILY PO Last administered on 12/12/18 08:11; Start 12/01/18 at 09:00 Prednisolone Acetate (Predforte 1% Ophth Susp) 2 drop TID XX Last administered on 12/12/18 08:13; Start 12/01/18 at 16:00 Senna (Senokot) 1 tab QHS PO Last administered on 12/11/18at 21:07; Start 11/30/18 at 21:00 Sodium Chloride ([place] Nasal [place]) 2 spray TID NA Last administered on 12/12/18at 08:12; Start 12/01/18 at 16:00 Tramadol/ Acetaminophen (Ultracet 37.5/ 325 Mg) 1 tab Q6HP PRN PO PAIN; Start 11/30/18 at 15:45; Stop 12/06/18 at 15:47; Status DC SILVA STEEN MD Dec 12, 2018 12:40
[2018-12-12] MEDS ORDERED: AZITHROMYCIN 250 MG TAB PO ONE (13:00)
[2018-12-12 14:00] VITALS: BP 107/71
[2018-12-12] MEDS: CARBAMIDE PEROXIDE 6.5% OTIC SOLN 15ML AD SCH ×2 (14:01→21:17)
[2018-12-12 16:02] VITALS: BP 115/65
[2018-12-12] MEDS: METOPROLOL TART 12.5 MG PER 1/2 TAB PO SCH ×2 (16:03→21:18)
[2018-12-12] MEDS: metFORMIN XR 500MG TAB *GLUCOPHAGE XR PO SCH (17:16)
[2018-12-12 20:00] VITALS: BP 134/82
[2018-12-12] MEDS: SENNA 8.6 MG TAB (SENOKOT) PO SCH (21:18)
[2018-12-12] MEDS: LEVEMIR (INSULIN DETEMIR) 1 UNITS/0.01ML SC SCH (21:19)
[2018-12-13 06:00] VITALS: BP 131/86
[2018-12-13] MEDS: PANTOPRAZOLE 40MG TAB (PROTONIX) PO SCH (07:52)
[2018-12-13] MEDS: APIXABAN 5 MG TAB (ELIQUIS) PO SCH ×2 (07:53→20:31)
[2018-12-13] MEDS: AZITHROMYCIN 250 MG TAB PO SCH (07:53)
[2018-12-13] MEDS: DOCUSATE SODIUM 100 MG CAP PO SCH ×2 (07:53→20:31)
[2018-12-13] MEDS: METOPROLOL TART 12.5 MG PER 1/2 TAB PO SCH (07:53)
[2018-12-13] MEDS: ATORVASTATIN 20 MG TAB PO SCH (07:53)
[2018-12-13] MEDS: HumaLOG INSULIN (NovoLOG) PER UNIT SC SCH ×5 (07:54→17:57)
[2018-12-13] MEDS: CARBAMIDE PEROXIDE 6.5% OTIC SOLN 15ML AD SCH ×2 (07:55→20:34)
[2018-12-13] MEDS: SODIUM CHLORIDE NASAL 0.65% SPRAY BTL (OCEAN) SCH ×3 (07:55→20:32)
[2018-12-13] MEDS: FLUTICASONE PROP 0.05% NASAL SPRAY 16 GM (FLONASE) NARES SCH ×2 (07:55→12:57)
[2018-12-13] MEDS: NYSTATIN 100,000 UNITS/GM TOPICAL PWD 15 GM TOP SCH ×2 (07:56→20:33)
[2018-12-13] MEDS: SYMBICORT 160/4.5MCG INHALER 6GM INH SCH ×2 (12:32→20:26)
[2018-12-13 14:00] VITALS: BP 137/87
[2018-12-13] MEDS: metFORMIN XR 500MG TAB *GLUCOPHAGE XR PO SCH (17:57)
--- NOTE | 2018-12-13 17:58 | IPNPDOC ---
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 He also reports having a feeling of sinus pressure in his face, but overall feels stronger and more steady on his feet. REVIEW OF SYSTEMS: The following is a completed review of systems and has been reviewed. Review of systems otherwise unremarkable. PAIN: right ear pain EYES: Negative EARS, NOSE, & THROAT: +right facial droop, no dysphagia, no rhinorrhea CARDIOVASCULAR: denies chest pain or palpitations PULMONARY: Negative. Denies shortness of breath, +HUMBLE GASTROINTESTINAL: +constipation GENITOURINARY: Negative for dysuria NEUROLOGICAL: right facial droop, possible recent GBS PHYSICAL EXAMINATION: VITAL SIGNS: Please see below. GENERAL: Pleasant and cooperative. No acute distress. Alert and oriented times three. HEENT: PERRL. Extraocular movements intact. Clear conjunctiva, +right facial droop including eyebrow lifting- right TM arnold with possible effusion CARDIOVASCULAR: Regular rate and rhythm. No murmurs, rubs, or gallops LUNGS:Clear to auscultation bilaterally. No wheezes. No rhonchi ABDOMEN: Soft, nontender, nondistended. Positive bowel sounds. Normal active bowel sounds NEUROLOGICAL: Alert and oriented times three. No notable aphasia, mild dysarthria Cranial nerves II through XII grossly intact. Sensation decreased bilateral LE (-) Babinski 3+biceps and brachioradialis reflex on the right EXTREMITIES:5\\5 strength bilateral upper extremities. 5\\5 strength right lower extremity. 5/5 strength in left lower extremity. ASSESSMENT:58-year-old M with past medical history of DM, HTN, HUMBLE who presents status post left thalamic stroke and possible AIDP/GBS PLAN: 1. Rehab: PT/OT, [employer] assess for DME needs, upgraded to regular diet with thins, ambulating further and improving balance 2. 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 Several foci were demonstrated on the prior study of 11/25/2018 indicating subacute infarcts whereas others have reverted to normal diffusion/ADC signal in the interval between scans. Multiplicity of findings suggests possible embolic etiology." Given his significant multi-vessel cerebral stenosis, negative work-up for emboli at [facility], and notable lower sBPs while here, greater concern for hypoperfusion mediated strokes for which his BP meds were either lowered or discontinued -Discussed his case with neurologist Dr. Soto and radiology staff at [facility] who reviewed their most recent MRI and [facility]'s imaging and agree there are new strokes and believe the source is most likely from hypoperfusion, not embolic, noting even the aortic arch is patent, they do not recommend addition of ASA, but to continue Eliquis and loosen BP parameters-patient's confusion resolved -Dopplers LE negative for DVT, -vasculitic work-up thus far, ESR negative, vasculitic work-up negative 3. Cardio: pmh HTN- continue adjusted BP meds, medicine consulted, recs appreciated 4. Resp: HUMBLE may use home CPAP, duonebs, monitor for signs of infection, Incentive Spirometry 5. Endo: pmh DM- continue Metformin and Insulin coverage, increased evening Levemir to 15 units-stable 6. : admission UA and Ucx negative, monitor PVRs, episode of incontinence, improving, repeat UA negative 7. ID: right ear infection, s/p Doxycycline and prednisolone ear drops, no improvement, will trial Azithromycin and Debrox in addition to nasal saline drops and flonase as patient describes an inner ear pressure and this may be sinus related, no leukocytosis- will write referral for outpatient ENT appointment 8. DVT on Eliquis 9. Dipo: 12-15-18 to home, progressing towards goals Allergies Coded Allergies: Penicillins (Verified Allergy, Unknown, 06/23/18) Procaine (Verified Allergy, Unknown, 06/23/18) Vital Signs Vital Signs Date Time Temp Pulse Resp B/P (MAP) Pulse Ox O2 Delivery O2 Flow Rate FiO2 12/13/18 14:00 97.5 98 20 137/87 (104) 97 Room Air Laboratory Data Labs 24H Laboratory Tests 2 12/12/18 19:49: Bedside Glucose (Misc Panel) 220H 12/13/18 05:53: Bedside Glucose (Misc Panel) 170H 12/13/18 11:31: Bedside Glucose (Misc Panel) 162H 12/13/18 16:39: Bedside Glucose (Misc Panel) 139H Microbiology Microbiology 12/06/18 Urine Culture - Final, Complete Current Medications Current Medications Current Medications Acetaminophen (Tylenol Tab) 650 mg Q4HP PRN PO fever/MILD PAIN (PS 1-4) Last administered on 12/09/18at 15:24; Start 11/30/18 at 16:00 Albuterol Sulfate (Proventil Neb) 2.5 mg Q6HP PRN NEB SOB/WHEEZING; Start 11/30/18 at 15:45 Apixaban (Eliquis) 5 mg BID PO Last administered on 12/13/18at 07:53; Start 11/30/18 at 21:00 Atorvastatin Calcium (Lipitor) 80 mg DAILY PO Last administered on 12/13/18at 07:53; Start 12/01/18 at 09:00 Azithromycin (Zithromax Tab) 250 mg DAILY PO Last administered on 12/13/18at 07:53; Start 12/13/18 at 09:00; Stop 12/16/18 at 09:01 Bisacodyl (Dulcolax Suppository) 10 mg DAILYPRN PRN [place] CONSTIPATION; Start 11/30/18 at 16:00 Budesonide/ Formoterol Fumarate (Symbicort 160/ 4.5mcg) 2 puff BID INH Last administered on 12/13/18 12:32; Start 11/30/18 at 21:00 Carbamide Perox/ Anhydrous Glycerin (Debrox) 5 drop BID AD Last administered on 12/13/18at 07:55; Start 12/12/18 at 09:00; Stop 12/16/18 at 08:59 Chlorthalidone (Hygroton) 25 mg DAILY PO Last administered on 12/06/18at 09:35; Start 12/01/18 at 09:00; Stop 12/06/18 at 10:47; Status DC Dextrose (Dextrose 50%) 25 ml ASDIRECTED PRN IV SEE LABEL COMMENTS; Start 11/30/18 at 15:45 Docusate Sodium (Colace) 100 mg BID PO Last administered on 12/13/18at 07:53; Start 11/30/18 at 21:00 Doxycycline Hyclate (Vibramycin) 100 mg BID PO Last administered on 12/08/18at 08:50; Start 12/01/18 at 21:00; Stop 12/08/18 at 09:01; Status DC Erythromycin (Ilotycin) 1 CM RIBBON TID OD ; Start 12/06/18 at 18:45; Status UNV Fluticasone Propionate (Flonase 0.05% Nasal [place]) 2 spray DAILY NARES Last administered on 12/13/18at 12:57; Start 12/13/18 at 12:45 Fluticasone Propionate (Flonase 0.05% Nasal [place]) 2 spray DAILY NARES Last administered on 12/12/18at 08:11; Start 12/01/18 at 09:00; Stop 12/13/18 at 12:47; Status DC Gabapentin (Neurontin) 100 mg Q8H PO Last administered on 12/05/18at 05:42; Start 11/30/18 at 22:00; Stop 12/05/18 at 14:13; Status DC Glucagon (Glucagon) 1 mg ASDIRECTED PRN SC SEE LABEL COMMENTS; Start 11/30/18 at 15:45 Glucose (Glucose) 16 GM ASDIRECTED PRN PO SEE LABEL COMMENTS; Start 11/30/18 at 15:45 Home Med (Med Rec Complete!) ASDIRECTED XX ; Start 11/30/18 at 16:00; Stop 11/30/18 at 16:19; Status DC Insulin Detemir (Levemir Insulin) 5 units QHS SC Last administered on 12/01/18at 21:47; Start 12/01/18 at 21:00; Stop 12/02/18 at 15:14; Status DC Insulin Detemir (Levemir Insulin) 10 units QHS SC Last administered on 12/03/18at 21:44; Start 12/02/18 at 21:00; Stop 12/04/18 at 11:29; Status DC Insulin Detemir (Levemir Insulin) 15 units QHS SC Last administered on 12/12/18at 21:19; Start 12/04/18 at 21:00 Insulin Human Lispro (HumaLOG INSULIN) 4 units AC SC Last administered on 12/04/18at 08:07; Start 12/02/18 at 17:30; Stop 12/04/18 at 10:26; Status DC Insulin Human Lispro (HumaLOG INSULIN) 6 units AC SC Last administered on 12/13/18at 12:32; Start 12/04/18 at 12:00 Insulin Human Lispro (HumaLOG INSULIN) SEE PROTOCOL TABLE AC SC Last administered on 12/13/18at 12:31; Start 11/30/18 at 17:30; Stop 12/13/18 at 12:45; Status DC Lisinopril (Prinivil) 40 mg DAILY PO Last administered on 12/04/18at 08:08; Start 12/01/18 at 09:00; Stop 12/05/18 at 22:21; Status DC Magnesium Hydroxide (Milk Of Magnesia) 30 ml DAILYPRN PRN PO CONSTIPATION; Start 11/30/18 at 16:00 Metformin HCl (Glucophage Xr) 1,000 mg DAILY@18 PO Last administered on 12/12/18at 17:16; Start 11/30/18 at 18:00 Metoprolol Succinate (TopROL XL) 12.5 mg DAILY PO ; Start 12/14/18 at 09:00 Metoprolol Tartrate (Lopressor) 12.5 mg TID PO Last administered on 12/13/18at 07:53; Start 12/12/18 at 16:00; Stop 12/13/18 at 12:44; Status DC Metoprolol Tartrate (Lopressor) 25 mg TID PO Last administered on 12/11/18at 17:03; Start 12/06/18 at 09:00; Stop 12/12/18 at 11:04; Status DC Metoprolol Tartrate (Lopressor) 50 mg BID PO Last administered on 12/01/18at 08:38; Start 11/30/18 at 21:00; Stop 12/01/18 at 11:01; Status DC Metoprolol Tartrate (Lopressor) 75 mg BID PO Last administered on 12/05/18at 21:03; Start 12/01/18 at 21:00; Stop 12/05/18 at 22:23; Status DC Metoprolol Tartrate (Lopressor) 75 mg TID PO ; Start 12/06/18 at 09:00; Status Cancel Miscellaneous (Unresolved Clarification Entry) SEE LABEL COMMENTS DAILY XX ; Start 12/08/18 at 09:00; Stop 12/08/18 at 09:00; Status DC Nystatin (Mycostatin Powder, Nystop) 1 dose BID TOP Last administered on 12/13/18at 07:56; Start 12/11/18 at 11:30 Pantoprazole Sodium (Protonix) 40 mg DAILY PO Last administered on 12/13/18at 07:52; Start 12/01/18 at 09:00 Prednisolone Acetate (Predforte 1% Ophth Susp) 2 drop TID XX Last administered on 12/12/18at 08:13; Start 12/01/18 at 16:00; Stop 12/12/18 at 12:37; Status DC Senna (Senokot) 1 tab QHS PO Last administered on 12/12/18at 21:18; Start 11/30/18 at 21:00 Sodium Chloride ([place] Nasal [place]) 2 spray TID NA Last administered on 12/13/18at 12:58; Start 12/13/18 at 12:45 Sodium Chloride ([place] Nasal [place]) 2 spray TID NA Last administered on 12/13/18at 07:55; Start 12/01/18 at 16:00; Stop 12/13/18 at 12:48; Status DC Tramadol/ Acetaminophen (Ultracet 37.5/ 325 Mg) 1 tab Q6HP PRN PO PAIN; Start 11/30/18 at 15:45; Stop 12/06/18 at 15:47; Status DC SILVA STEEN MD Dec 13, 2018 17:58
[2018-12-13 20:09] VITALS: BP 127/75
[2018-12-13] MEDS: LEVEMIR (INSULIN DETEMIR) 1 UNITS/0.01ML SC SCH (20:31)
[2018-12-13] MEDS: SENNA 8.6 MG TAB (SENOKOT) PO SCH (20:31)
[2018-12-14 06:00] VITALS: BP 130/71
[2018-12-14 07:18] LABS: BASO % 0.6 % (0.0-1.0); EOS # 0.2 10^3/uL (0.0-0.50); EOS % 2.9 % (0.0-3.0); HEMATOCRIT 36.4 % (42.0-52.0); HEMOGLOBIN 12.5 g/dl (13.5-17.5); LYMPH # 1.3 10^3/uL (1.5-4.5); LYMPH % 25.3 % (24.0-44.0); MEAN CORPUSCULAR HEMOGLOBIN 27.3 pg (27.0-33.0); MEAN CORPUSCULAR HGB CONC 34.3 g/dl (32.0-36.5); MEAN CORPUSCULAR VOLUME 79.5 fl (80.0-96.0); MONO # 0.5 10^3/uL (0.0-0.8); MONO % 9.7 % (0.0-5.0); NEUTROPHILS # 3.1 10^3/uL (1.8-7.7); NEUTROPHILS % 60.5 % (36.0-66.0); PLATELET COUNT, AUTOMATED 195 10^3/uL (150-450); RED BLOOD COUNT 4.58 10^6/uL (4.30-6.10); WHITE BLOOD COUNT 5.2 10^3/uL (4.0-10.0)
[2018-12-14 07:36] LABS: BLOOD UREA NITROGEN 13 MG/DL (7-18); CALCIUM LEVEL 8.1 MG/DL (8.5-10.1); CARBON DIOXIDE LEVEL 28 MEQ/L (21-32); CHLORIDE LEVEL 108 MEQ/L (98-107); CREATININE FOR GFR 0.95 MG/DL (0.70-1.30); GLOMERULAR FILTRATION RATE > 60.0 (>56); GLUCOSE, FASTING 130 MG/DL (70-100); POTASSIUM SERUM 3.5 MEQ/L (3.5-5.1); SODIUM LEVEL 143 MEQ/L (136-145)
[2018-12-14] MEDS: SYMBICORT 160/4.5MCG INHALER 6GM INH SCH ×2 (08:19→19:29)
[2018-12-14] MEDS: APIXABAN 5 MG TAB (ELIQUIS) PO SCH ×2 (08:20→20:17)
[2018-12-14] MEDS: DOCUSATE SODIUM 100 MG CAP PO SCH ×2 (08:20→20:18)
[2018-12-14] MEDS: AZITHROMYCIN 250 MG TAB PO SCH (08:20)
[2018-12-14] MEDS: PANTOPRAZOLE 40MG TAB (PROTONIX) PO SCH (08:20)
[2018-12-14] MEDS: ATORVASTATIN 20 MG TAB PO SCH (08:20)
[2018-12-14] MEDS: CARBAMIDE PEROXIDE 6.5% OTIC SOLN 15ML AD SCH ×2 (08:21→20:17)
[2018-12-14] MEDS: METOPROLOL SUCC *XL* 12.5MG PER 1/2 TAB (TopROL *XL*) PO SCH (08:21)
[2018-12-14] MEDS: SODIUM CHLORIDE NASAL 0.65% SPRAY BTL (OCEAN) SCH ×3 (08:21→20:17)
[2018-12-14] MEDS: HumaLOG INSULIN (NovoLOG) PER UNIT SC SCH ×3 (08:21→17:37)
[2018-12-14] MEDS: FLUTICASONE PROP 0.05% NASAL SPRAY 16 GM (FLONASE) NARES SCH (08:22)
[2018-12-14] MEDS: NYSTATIN 100,000 UNITS/GM TOPICAL PWD 15 GM TOP SCH ×2 (08:22→20:18)
[2018-12-14 14:00] VITALS: BP 127/79
[2018-12-14] MEDS: metFORMIN XR 500MG TAB *GLUCOPHAGE XR PO SCH (17:37)
[2018-12-14 19:57] VITALS: BP 124/84
[2018-12-14] MEDS: LEVEMIR (INSULIN DETEMIR) 1 UNITS/0.01ML SC SCH (20:17)
[2018-12-14] MEDS: SENNA 8.6 MG TAB (SENOKOT) PO SCH (20:18)
--- NOTE | 2018-12-14 20:32 | IPNPDOC ---
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 REVIEW OF SYSTEMS: The following is a completed review of systems and has been reviewed. Review of systems otherwise unremarkable. PAIN: right ear pain EYES: Negative EARS, NOSE, & THROAT: +right facial droop, no dysphagia, no rhinorrhea, +right ear dull ache CARDIOVASCULAR: denies chest pain or palpitations PULMONARY: Negative. Denies shortness of breath, +HUMBLE GASTROINTESTINAL:negative for constipation or diarrhea GENITOURINARY: Negative for dysuria NEUROLOGICAL: right facial droop, possible recent GBS PHYSICAL EXAMINATION: VITAL SIGNS: Please see below. GENERAL: Pleasant and cooperative. No acute distress. Alert and oriented times three. HEENT: PERRL. Extraocular movements intact. Clear conjunctiva, +right facial droop including eyebrow lifting- right TM arnold with possible effusion CARDIOVASCULAR: Regular rate and rhythm. No murmurs, rubs, or gallops LUNGS:Clear to auscultation bilaterally. No wheezes. No rhonchi ABDOMEN: Soft, nontender, nondistended. Positive bowel sounds. Normal active bowel sounds NEUROLOGICAL: Alert and oriented times three. No notable aphasia, mild dysarthri a Cranial nerves II through XII grossly intact. Sensation decreased bilateral LE (-) Babinski 3+biceps and brachioradialis reflex on the right EXTREMITIES:5\\5 strength bilateral upper extremities. 5\\5 strength right lower extremity. 5/5 strength in left lower extremity. ASSESSMENT:58-year-old M with past medical history of DM, HTN, HUMBLE who presents status post left thalamic stroke and possible AIDP/GBS PLAN: 1. Rehab: PT/OT, [employer] assess for DME needs, upgraded to regular diet with thins, ambulating further and improving balance 2. 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 Several foci were demonstrated on the prior study of 11/25/2018 indicating subacute infarcts whereas others have reverted to normal diffusion/ADC signal in the interval between scans. Multiplicity of findings suggests possible embolic etiology." Given his significant multi-vessel cerebral stenosis, negative work-up for emboli at [facility], and notable lower sBPs while here, greater concern for hypoperfusion mediated strokes for which his BP meds have been either lowered or discontinued, Discussed his case with neurologist Dr. Soto and radiology staff at [facility] who reviewed their most recent MRI and [facility]'s imaging and agree there are new strokes and believe the source is most likely from hypoperfusion, not embolic, noting even the aortic arch is patent, they do not recommend addition of ASA, but to continue Eliquis and loosen BP parameters-patient's confusion resolved -Dopplers LE negative for DVT, -vasculitic work-up negative 3. Cardio: pmh HTN- continue adjusted BP meds, medicine consulted, recs appreciated 4. Resp: HUMBLE may use home CPAP, duonebs, monitor for signs of infection, Incentive Spirometry 5. Endo: pmh DM- continue Metformin and Insulin coverage, increased evening Levemir to 15 units-stable 6. : admission UA and Ucx negative, monitor PVRs, episode of incontinence, improving, repeat UA negative 7. ID: right ear infection, s/p Doxycycline and prednisolone ear drops, no improvement, will trial Azithromycin and Debrox in addition to nasal saline fidencio ps and flonase as patient describes an inner ear pressure and this may be sinus related, no leukocytosis- will write referral for outpatient ENT appointment 8. DVT on Eliquis- drop on Hgb on today's lab, however FOBT negative and asymptomatic 9. Dipo: 12-15-18 to home, progressing towards goals Allergies Coded Allergies: Penicillins (Verified Allergy, Unknown, 06/23/18) Procaine (Verified Allergy, Unknown, 06/23/18) Vital Signs Vital Signs Date Time Temp Pulse Resp B/P (MAP) Pulse Ox O2 Delivery O2 Flow Rate FiO2 12/14/18 19:57 98.9 75 18 124/84 (97) 96 Room Air Laboratory Data CBC/BMP Laboratory Tests 12/14/18 06:57 Red Blood Count 4.58, Mean Corpuscular Volume 79.5 L, Mean Corpuscular Hemoglobin 27.3, Mean Corpuscular Hemoglobin Concent 34.3, Red Cell Distribution Width 14.2, Neutrophils (%) (Auto) 60.5, Lymphocytes (%) (Auto) 25.3, Monocytes (%) (Auto) 9.7 H, Eosinophils (%) (Auto) 2.9, Basophils (%) (Auto) 0.6, Neutrophils # (Auto) 3.1, Lymphocytes # (Auto) 1.3 L, Monocytes # (Auto) 0.5, Eosinophils # (Auto) 0.2, Basophils # (Auto) 0.0, Calcium Level 8.1 L Labs 24H Laboratory Tests 2 12/14/18 05:56: Bedside Glucose (Misc Panel) 124H 12/14/18 06:57: Immature Granulocyte % (Auto) 1.0, White Blood Count 5.2, Red Blood Count 4.58, Hemoglobin 12.5L, Hematocrit 36.4L, Mean Corpuscular Volume 79.5L, Mean Corpuscular Hemoglobin 27.3, Mean Corpuscular Hemoglobin Concent 34.3, Red Cell Distribution Width 14.2, Platelet Count 195, Neutrophils (%) (Auto) 60.5, Lymphocytes (%) (Auto) 25.3, Monocytes (%) (Auto) 9.7H, Eosinophils (%) (Auto) 2.9, Basophils (%) (Auto) 0.6, Neutrophils # (Auto) 3.1, Lymphocytes # (Auto) 1.3L, Monocytes # (Auto) 0.5, Eosinophils # (Auto) 0.2, Basophils # (Auto) 0.0, Nucleated Red Blood Cells % (auto) 0.0, Anion Gap 7L, Glomerular Filtration Rate > 60.0, Blood Urea Nitrogen 13, Creatinine 0.95, Sodium Level 143, Potassium Level 3.5, Chloride Level 108H, Carbon Dioxide Level 28, Calcium Level 8.1L 12/14/18 16:53: Bedside Glucose (Misc Panel) 139H Microbiology Microbiology 12/14/18 Stool Occult Blood (NIDA) - Final, Complete 12/06/18 Urine Culture - Final, Complete Current Medications Current Medications Current Medications Acetaminophen (Tylenol Tab) 650 mg Q4HP PRN PO fever/MILD PAIN (PS 1-4) Last administered on 12/09/18at 15:24; Start 11/30/18 at 16:00 Albuterol Sulfate (Proventil Neb) 2.5 mg Q6HP PRN NEB SOB/WHEEZING; Start 11/30/18 at 15:45 Apixaban (Eliquis) 5 mg BID PO Last administered on 12/14/18at 20:17; Start 11/30/18 at 21:00 Atorvastatin Calcium (Lipitor) 80 mg DAILY PO Last administered on 12/14/18at 08:20; Start 12/01/18 at 09:00 Azithromycin (Zithromax Tab) 250 mg DAILY PO Last administered on 12/14/18at 08:20; Start 12/13/18 at 09:00; Stop 12/16/18 at 09:01 Bisacodyl (Dulcolax Suppository) 10 mg DAILYPRN PRN [place] CONSTIPATION; Start 11/30/18 at 16:00 Budesonide/ Formoterol Fumarate (Symbicort 160/ 4.5mcg) 2 puff BID INH Last administered on 12/14/18at 19:29; Start 11/30/18 at 21:00 Carbamide Perox/ Anhydrous Glycerin (Debrox) 5 drop BID AD Last administered on 12/14/18at 20:17; Start 12/12/18 at 09:00; Stop 12/16/18 at 08:59 Chlorthalidone (Hygroton) 25 mg DAILY PO Last administered on 12/06/18at 09:35; Start 12/01/18 at 09:00; Stop 12/06/18 at 10:47; Status DC Dextrose (Dextrose 50%) 25 ml ASDIRECTED PRN IV SEE LABEL COMMENTS; Start 11/30/18 at 15:45 Docusate Sodium (Colace) 100 mg BID PO Last administered on 12/14/18at 20:18; Start 11/30/18 at 21:00 Doxycycline Hyclate (Vibramycin) 100 mg BID PO Last administered on 12/08/18at 08:50; Start 12/01/18 at 21:00; Stop 12/08/18 at 09:01; Status DC Erythromycin (Ilotycin) 1 CM RIBBON TID OD ; Start 12/06/18 at 18:45; Status UNV Fluticasone Propionate (Flonase 0.05% Nasal [place]) 2 spray DAILY NARES Last administered on 12/14/18at 08:22; Start 12/13/18 at 12:45 Fluticasone Propionate (Flonase 0.05% Nasal [place]) 2 spray DAILY NARES Last adm inistered on 12/12/18at 08:11; Start 12/01/18 at 09:00; Stop 12/13/18 at 12:47; Status DC Gabapentin (Neurontin) 100 mg Q8H PO Last administered on 12/05/18at 05:42; Start 11/30/18 at 22:00; Stop 12/05/18 at 14:13; Status DC Glucagon (Glucagon) 1 mg ASDIRECTED PRN SC SEE LABEL COMMENTS; Start 11/30/18 at 15:45 Glucose (Glucose) 16 GM ASDIRECTED PRN PO SEE LABEL COMMENTS; Start 11/30/18 at 15:45 Home Med (Med Rec Complete!) ASDIRECTED XX ; Start 11/30/18 at 16:00; Stop 11/30/18 at 16:19; Status DC Insulin Detemir (Levemir Insulin) 5 units QHS SC Last administered on 12/01/18at 21:47; Start 12/01/18 at 21:00; Stop 12/02/18 at 15:14; Status DC Insulin Detemir (Levemir Insulin) 10 units QHS SC Last administered on 12/03/18at 21:44; Start 12/02/18 at 21:00; Stop 12/04/18 at 11:29; Status DC Insulin Detemir (Levemir Insulin) 15 units QHS SC Last administered on 12/14/18at 20:17; Start 12/04/18 at 21:00 Insulin Human Lispro (HumaLOG INSULIN) 4 units AC SC Last administered on 12/04/18at 08:07; Start 12/02/18 at 17:30; Stop 12/04/18 at 10:26; Status DC Insulin Human Lispro (HumaLOG INSULIN) 6 units AC SC Last administered on 12/14/18at 17:37; Start 12/04/18 at 12:00 Insulin Human Lispro (HumaLOG INSULIN) SEE PROTOCOL TABLE AC SC Last administered on 12/13/18at 12:31; Start 11/30/18 at 17:30; Stop 12/13/18 at 12:45; Status DC Lisinopril (Prinivil) 40 mg DAILY PO Last administered on 12/04/18at 08:08; Start 12/01/18 at 09:00; Stop 12/05/18 at 22:21; Status DC Magnesium Hydroxide (Milk Of Magnesia) 30 ml DAILYPRN PRN PO CONSTIPATION; Start 11/30/18 at 16:00 Metformin HCl (Glucophage Xr) 1,000 mg DAILY@18 PO Last administered on 12/14/18at 17:37; Start 11/30/18 at 18:00 Metoprolol Succinate (TopROL XL) 12.5 mg DAILY PO Last administered on 12/14/18at 08:21; Start 12/14/18 at 09:00 Metoprolol Tartrate (Lopressor) 12.5 mg TID PO Last administered on 12/13/18at 07:53; Start 12/12/18 at 16:00; Stop 12/13/18 at 12:44; Status DC Metoprolol Tartrate (Lopressor) 25 mg TID PO Last administered on 12/11/18at 17:03; Start 12/06/18 at 09:00; Stop 12/12/18 at 11:04; Status DC Metoprolol Tartrate (Lopressor) 50 mg BID PO Last administered on 12/01/18at 08:38; Start 11/30/18 at 21:00; Stop 12/01/18 at 11:01; Status DC Metoprolol Tartrate (Lopressor) 75 mg BID PO Last administered on 12/05/18at 21:03; Start 12/01/18 at 21:00; Stop 12/05/18 at 22:23; Status DC Metoprolol Tartrate (Lopressor) 75 mg TID PO ; Start 12/06/18 at 09:00; Status Cancel Miscellaneous (Unresolved Clarification Entry) SEE LABEL COMMENTS DAILY XX ; Start 12/08/18 at 09:00; Stop 12/08/18 at 09:00; Status DC Nystatin (Mycostatin Powder, Nystop) 1 dose BID TOP Last administered on 12/14/18 20:18; Start 12/11/18 at 11:30 Pantoprazole Sodium (Protonix) 40 mg DAILY PO Last administered on 12/14/18 08:20; Start 12/01/18 at 09:00 Prednisolone Acetate (Predforte 1% Ophth Susp) 2 drop TID XX Last administered on 12/12/18 08:13; Start 12/01/18 at 16:00; Stop 12/12/18 at 12:37; Status DC Senna (Senokot) 1 tab QHS PO Last administered on 12/14/18 20:18; Start 11/30/18 at 21:00 Sodium Chloride ([place] Nasal [place]) 2 spray TID NA Last administered on 12/14/18 20:17; Start 12/13/18 at 12:45 Sodium Chloride ([place] Nasal [place]) 2 spray TID NA Last administered on 12/13/18at 07:55; Start 12/01/18 at 16:00; Stop 12/13/18 at 12:48; Status DC Tramadol/ Acetaminophen (Ultracet 37.5/ 325 Mg) 1 tab Q6HP PRN PO PAIN; Start 11/30/18 at 15:45; Stop 12/06/18 at 15:47; Status DC SILVA STEEN MD Dec 14, 2018 20:32
[2018-12-15 06:13] VITALS: BP 128/71
[2018-12-15] MEDS: SYMBICORT 160/4.5MCG INHALER 6GM INH SCH (08:10)
[2018-12-15 09:00] VITALS: BP 128/71
[2018-12-15] MEDS: FLUTICASONE PROP 0.05% NASAL SPRAY 16 GM (FLONASE) NARES SCH (09:00)
[2018-12-15] MEDS: NYSTATIN 100,000 UNITS/GM TOPICAL PWD 15 GM TOP SCH (09:00)
[2018-12-15] MEDS: METOPROLOL SUCC *XL* 12.5MG PER 1/2 TAB (TopROL *XL*) PO SCH (09:00)
[2018-12-15] MEDS: SODIUM CHLORIDE NASAL 0.65% SPRAY BTL (OCEAN) SCH (09:00)
[2018-12-15] MEDS: CARBAMIDE PEROXIDE 6.5% OTIC SOLN 15ML AD SCH (09:00)
[2018-12-15] MEDS: DOCUSATE SODIUM 100 MG CAP PO SCH (09:00)
[2018-12-15] MEDS: AZITHROMYCIN 250 MG TAB PO SCH (09:29)
[2018-12-15] MEDS: PANTOPRAZOLE 40MG TAB (PROTONIX) PO SCH (09:29)
[2018-12-15] MEDS: ATORVASTATIN 20 MG TAB PO SCH (09:29)
[2018-12-15] MEDS: APIXABAN 5 MG TAB (ELIQUIS) PO SCH (09:29)
[2018-12-15] MEDS: HumaLOG INSULIN (NovoLOG) PER UNIT SC SCH (09:31)
[2018-12-15] MEDS ORDERED: GLUCTAB PO (10:25)
[2018-12-15] MEDS ORDERED: PANT40TA3 PO (10:25)
[2018-12-15] MEDS ORDERED: ELIQ5TAB PO (10:25)
[2018-12-15] MEDS ORDERED: METO1TAB32 PO (10:25)
[2018-12-15] MEDS ORDERED: SYMB16INH INH (10:25)
[2018-12-15] MEDS ORDERED: INSUDET SC (10:25)
[2018-12-15] MEDS ORDERED: FLUTISP NARES (10:25)
[2018-12-15] MEDS ORDERED: OCEA0.654 (10:25)
[2018-12-15] MEDS ORDERED: ATOR1TAB21 PO (10:25)
[2018-12-15] MEDS ORDERED: AZIT-12 PO (10:25)
[2018-12-15] MEDS ORDERED: INSUHUMDS SC (10:25)
== END 2018-12-15 11:10 | disposition home or self-care (01) | DRG 57 ==
LOC: M PM&R 15:00
PROVIDERS: ADMIT Physical Medicine & Rehabilitation; ATTEND Physical Medicine & Rehabilitation
DX: I69.392 Facial weakness following cerebral infarction (principal); G61.0 Guillain-Barre syndrome; Q21.1 Atrial septal defect; I12.9 Hypertensive chronic kidney disease with stage 1 through stage 4 chronic kidney disease, or unspecified chronic kidney disease; E78.5 Hyperlipidemia, unspecified; G47.33 Obstructive sleep apnea (adult) (pediatric); H66.91 Otitis media, unspecified, right ear; G51.0 Bell's palsy; E11.21 Type 2 diabetes mellitus with diabetic nephropathy; E87.6 Hypokalemia; J44.9 Chronic obstructive pulmonary disease, unspecified; Z91.19 Patient's noncompliance with other medical treatment and regimen; Z79.01 Long term (current) use of anticoagulants; Z79.4 Long term (current) use of insulin; Z79.899 Other long term (current) drug therapy; Z88.0 Allergy status to penicillin; Z88.8 Allergy status to other drugs, medicaments and biological substances; Z85.46 Personal history of malignant neoplasm of prostate; Z92.3 Personal history of irradiation; Z95.5 Presence of coronary angioplasty implant and graft; Z90.49 Acquired absence of other specified parts of digestive tract; Z98.49 Cataract extraction status, unspecified eye

== ENCOUNTER → 2019-01-09 | Outpatient (REF) | payer MEDICARE, MEDICAID ==
[~2019-01-09] MED LIST changes: +ATOR1TAB21 PO; +ATOR80TA59 PO; +AZIT-12 PO; +ELIQ5TAB PO; +FLUTISP NARES; +GABA-843 PO; +GLUCTAB PO; +INSUDET SC; +METO1TAB32 PO; +OCEA0.654; +PANT40TA3 PO; +VITA100072 PO
[2019-01-09 16:19] LABS: BLOOD UREA NITROGEN 12 MG/DL (7-18); CALCIUM LEVEL 8.5 MG/DL (8.5-10.1); CARBON DIOXIDE LEVEL 29 MEQ/L (21-32); CHLORIDE LEVEL 103 MEQ/L (98-107); CREATININE FOR GFR 0.88 MG/DL (0.70-1.30); GLOMERULAR FILTRATION RATE > 60.0 (>56); GLUCOSE, FASTING 224 MG/DL (70-100); POTASSIUM SERUM 4.1 MEQ/L (3.5-5.1); SODIUM LEVEL 141 MEQ/L (136-145)
[2019-01-09 16:34] LABS: HEMOGLOBIN A1c 8.2 %
[2019-01-09 16:50] LABS: MALB URINE SIEMENS 30.4 MG/L; MAU/CREAT RATIO 23.3 MCG/MG (0.0-30.0)
== END ==
LOC: M SFHCPLAZ 14:00
PROVIDERS: ATTEND Family Medicine
DX: E11.65 Type 2 diabetes mellitus with hyperglycemia (principal); I10 Essential (primary) hypertension
CPT/HCPCS: 36415; 80048; 82043; 83036; G0463

== ENCOUNTER → 2019-01-18 | Outpatient (CLI) | payer MEDICARE, MEDICAID ==
--- NOTE | 2019-01-22 18:37 | SLEEPCENT ---
DATE OF PROCEDURE: 01/18/2019 ORDERED BY: Dr. Abernathy Nocturnal polysomnography was performed for the re-titration of pressure therapy in this patient with obstructive sleep apnea syndrome. For testing, a ResMed Quattro full face mask of medium size was used, 8 cm of water pressure were applied to the circuit and the lights were extinguished. 7 hours and 40 minutes of data were reviewed. They were 270 minutes of sleep identified. Sleep latency was quite prolonged at 121 minutes. The patient did not achieve rapid eye movement (REM) sleep. Sleep architecture was poor with a period of wake between 2:00 and 3:00 a.m. resulting in a reduced sleep efficiency of 59.3%. The patient's electrocardiogram showed a sinus rhythm with an average heart rate of 90 beats per minute. Rate ranged 80-100. EEG showed reasonably normal waveforms for awake and sleep. Some background coarsening is, however, noted. There were no focal events. Respiratory events were best palliated with continuous positive airway pressure (CPAP) at a pressure of +10. Some limb activity was noted but limb movement arousal index was only 4.2. IMPRESSION: Obstructive sleep apnea syndrome (G47.33). RECOMMENDATIONS: Nightly use of pressure therapy at 10 cm of water should be sufficient to address the patient's respiratory events. Close scrutiny to sleep hygiene may be helpful at improving the continuity of sleep.
== END ==
LOC: M SLEEP 18:37
PROVIDERS: ATTEND Internal Medicine Pulmonary Disease
DX: G47.33 Obstructive sleep apnea (adult) (pediatric) (principal)

== ENCOUNTER 2019-04-09 12:31 | Emergency (ER) | payer MEDICARE, MEDICAID ==
[~2019-04-09] VITALS: Ht 175.3 cm; Wt 110.9 kg
[~2019-04-09 12:31] MED LIST changes: -/CARBXR20T; -/IPRA3SP INH; -/PANT40TA; +ASPI-1 PO; -ASPI325T PO; +ATRO1SOL13 INH; -DULO30CA PO; +DULO30CA9 PO; +LISI40TA52 PO; -LISI40TAB PO; +METO1TAB63 PO; -METO25TAB PO; +PROT1TAB2; +TEGR1TAB; +VITA100018 PO; -VITA100072 PO
[2019-04-09] MEDS ORDERED: TRES1INJ SC (12:51)
[2019-04-09] MEDS ORDERED: VITA200015 PO (12:51)
[2019-04-09] MEDS ORDERED: LEVE1INJ5 SC (12:51)
[2019-04-09] MEDS ORDERED: METF500T4 PO (12:51)
[2019-04-09] MEDS ORDERED: TRUL0.5I SC (12:51)
[2019-04-09] MEDS ORDERED: NITROGLYCERIN 0.4 MG SUBL TABLET SL PRN (13:30)
[2019-04-09 13:41] LABS: BASO # 0.1 10^3/uL (0.0-0.2); BASO % 0.6 % (0.0-1.0); EOS # 0.1 10^3/uL (0.0-0.50); EOS % 0.9 % (0.0-3.0); HEMATOCRIT 46.2 % (42.0-52.0); HEMOGLOBIN 15.2 g/dl (13.5-17.5); LYMPH # 1.4 10^3/uL (1.5-4.5); LYMPH % 11.3 % (24.0-44.0); MEAN CORPUSCULAR HEMOGLOBIN 27.9 pg (27.0-33.0); MEAN CORPUSCULAR HGB CONC 32.9 g/dl (32.0-36.5); MEAN CORPUSCULAR VOLUME 84.8 fl (80.0-96.0); MONO # 1.2 10^3/uL (0.0-0.8); MONO % 9.4 % (0.0-5.0); NEUTROPHILS # 9.5 10^3/uL (1.8-7.7); PLATELET COUNT, AUTOMATED 312 10^3/uL (150-450); RED BLOOD COUNT 5.45 10^6/uL (4.30-6.10); WHITE BLOOD COUNT 12.3 10^3/uL (4.0-10.0)
[2019-04-09 13:53] LABS: INR 0.87; PROTHROMBIN TIME 11.9 SECONDS (12.1-14.4)
[2019-04-09 13:54] LABS: PARTIAL THROMBOPLASTIN TIME 26.2 SECONDS (25.4-37.6)
[2019-04-09 14:12] LABS: ALBUMIN 3.5 GM/DL (3.2-5.2); ALT/SGPT 18 U/L (12-78); BILIRUBIN,DIRECT < 0.1 MG/DL (0.0-0.2); BILIRUBIN,TOTAL 0.4 MG/DL (0.2-1.0); BLOOD UREA NITROGEN 14 MG/DL (7-18); CALCIUM LEVEL 8.7 MG/DL (8.8-10.2); CARBON DIOXIDE LEVEL 28 MEQ/L (21-32); CHLORIDE LEVEL 107 MEQ/L (98-107); CPK CREATINE PHOSPHOKINASE 86 U/L (39-308); CREATININE FOR GFR 1.05 MG/DL (0.70-1.30); GLOMERULAR FILTRATION RATE > 60.0 (>49); GLUCOSE, FASTING 126 MG/DL (70-100); LIPASE 149 U/L (73-393); MB/CK RELATIVE INDEX 2.67 (< OR =4); POTASSIUM SERUM 4.3 MEQ/L (3.5-5.1); SODIUM LEVEL 139 MEQ/L (136-145); TOTAL PROTEIN 6.5 GM/DL (6.4-8.2); TROPONIN I < 0.02 NG/ML (< 0.10)
--- NOTE | 2019-04-09 14:24 | REP ---
Chest two views HISTORY: chest pain Comparison: 11/03/2018 The lungs are clear. The heart is upper limits of normal in size. The pulmonary vasculature is normal in appearance. The bony structure is intact. IMPRESSION: No acute disease. Electronically Signed by Jose Piedra MD 04/09/2019 02:16 P
[2019-04-09] MEDS ORDERED: ISOVUE-370 76% 100ML VIAL (Q9967) As Ordered ONE (14:50)
--- NOTE | 2019-04-09 15:31 | REP ---
CT pulmonary angiogram: With IV contrast. History: Chest pain and shortness of breath. Comparison studies: September 22, 2016 Contrast dose: 75 ML of Isovue [address] technique: Helical scanning is acquired and overlapping 1.5 mm and contiguous 3 mm axial images are reformatted. In addition, maximum intensity projection and multiplanar re-formation images are generated in sagittal and coronal imaging projections. CT pulmonary angiographic findings: A prominent pericardial fat pad is again noted unchanged. There is good opacification in the pulmonary arterial tree. No filling defect or vessel cutoff is seen. There is no evidence to suggest pulmonary embolus. No aneurysm or dissection is seen in the thoracic aorta. No pleural or pericardial effusion is appreciated. No adrenal lesion is seen. The visualized upper abdominal structures are unremarkable. Clips are noted in the gallbladder fossa. No mediastinal mass or adenopathy is observed. There is no evidence of infiltrate or significant atelectasis in the lung noble. No pulmonary nodule or mass lesion is seen. Impression: No CT evidence of pulmonary embolism. Prominent epicardial fat pad. Otherwise no acute disease. Electronically Signed by Tim Chacon MD 04/09/2019 03:22 P
[2019-04-09 19:30] VITALS: BP 128/87
[2019-04-09 19:32] LABS: CPK CREATINE PHOSPHOKINASE 70 U/L (39-308); MB/CK RELATIVE INDEX 1.43 (< OR =4); TROPONIN I < 0.02 NG/ML (< 0.10)
--- NOTE | 2019-04-10 07:18 | ECGEPIP ---
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
--- NOTE | 2019-04-10 07:22 | ECGEPIP ---
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
== END 2019-04-09 19:52 | disposition home or self-care (01) ==
LOC: M ED 12:31 → EDBD 12:31 → M ED 19:52
DX: R07.9 Chest pain, unspecified (principal); R06.02 Shortness of breath; I10 Essential (primary) hypertension; E11.9 Type 2 diabetes mellitus without complications; E78.5 Hyperlipidemia, unspecified; G47.33 Obstructive sleep apnea (adult) (pediatric); Z86.73 Personal history of transient ischemic attack (TIA), and cerebral infarction without residual deficits; Z88.0 Allergy status to penicillin; Z88.4 Allergy status to anesthetic agent; Z79.899 Other long term (current) drug therapy; Z79.01 Long term (current) use of anticoagulants; Z79.4 Long term (current) use of insulin
CPT/HCPCS: 71046; 71275; 80048; 80076; 82550; 82553; 83690; 84439; 84443; 84484; 85025; 85610; 85730; 93005; 93041; 94760; 99285; Q9967

== ENCOUNTER → 2019-04-10 | Outpatient (REF) | payer MEDICARE, MEDICAID ==
[~2019-04-10] MED LIST changes: +LEVE1INJ5 SC; +TRES1INJ SC; +TRUL0.5I SC; +VITA200015 PO
[2019-04-10 16:23] LABS: HEMOGLOBIN A1c 7.3 %
== END ==
LOC: M SFHCPLAZ 13:09
PROVIDERS: ATTEND Student in an Organized Health Care Education/Training Program
DX: E11.65 Type 2 diabetes mellitus with hyperglycemia (principal)

== ENCOUNTER 2019-05-14 15:57 | Observation (INO) | payer MEDICARE, MEDICAID ==
[~2019-05-14] VITALS: Ht 175.3 cm; Wt 110.5 kg
[~2019-05-14 15:57] MED LIST changes: -DULO1CAP3 PO; +DULO1CAP6 PO; -OMEP20CA3 PO; +OMEP20CA4 PO
[2019-05-14 16:32] LABS: BASO # 0.1 10^3/uL (0.0-0.2); BASO % 0.7 % (0.0-1.0); EOS # 0.1 10^3/uL (0.0-0.50); EOS % 0.5 % (0.0-3.0); HEMATOCRIT 49.8 % (42.0-52.0); LYMPH # 1.8 10^3/uL (1.5-4.5); LYMPH % 16.3 % (24.0-44.0); MEAN CORPUSCULAR HEMOGLOBIN 27.3 pg (27.0-33.0); MEAN CORPUSCULAR HGB CONC 34.1 g/dl (32.0-36.5); MEAN CORPUSCULAR VOLUME 80.1 fl (80.0-96.0); MONO # 1.3 10^3/uL (0.0-0.8); MONO % 11.5 % (0.0-5.0); NEUTROPHILS # 7.6 10^3/uL (1.8-7.7); PLATELET COUNT, AUTOMATED 388 10^3/uL (150-450); RED BLOOD COUNT 6.22 10^6/uL (4.30-6.10); WHITE BLOOD COUNT 10.8 10^3/uL (4.0-10.0)
[2019-05-14 17:14] LABS: ALBUMIN 3.8 GM/DL (3.2-5.2); ALT/SGPT 46 U/L (12-78); BILIRUBIN,DIRECT 0.2 MG/DL (0.0-0.2); BILIRUBIN,TOTAL 0.8 MG/DL (0.2-1.0); BLOOD UREA NITROGEN 23 MG/DL (7-18); CALCIUM LEVEL 9.5 MG/DL (8.8-10.2); CARBON DIOXIDE LEVEL 27 MEQ/L (21-32); CHLORIDE LEVEL 103 MEQ/L (98-107); CK-MB VALUE MASS < 1.0 NG/ML (<3.6); CPK CREATINE PHOSPHOKINASE 96 U/L (39-308); CREATININE FOR GFR 1.81 MG/DL (0.70-1.30); GLOMERULAR FILTRATION RATE 40.9 (>49); GLUCOSE, FASTING 216 MG/DL (70-100); LIPASE 240 U/L (73-393); MB/CK RELATIVE INDEX 1.04 (< OR =4); NT-PRO BNP 135 PG/ML (<125); POTASSIUM SERUM 3.8 MEQ/L (3.5-5.1); SODIUM LEVEL 139 MEQ/L (136-145); TOTAL PROTEIN 7.6 GM/DL (6.4-8.2); TROPONIN I < 0.02 NG/ML (< 0.10)
[2019-05-14] MEDS ORDERED: ATOR80TA59 PO (17:16)
[2019-05-14] MEDS ORDERED: ELIQ5TAB PO (17:16)
[2019-05-14] MEDS ORDERED: FLUT50SP21 NARES (17:16)
[2019-05-14] MEDS ORDERED: PANT40TA3 PO (17:16)
[2019-05-14] MEDS ORDERED: METO100T5 PO (17:16)
[2019-05-14] MEDS ORDERED: LISI40TA PO (17:22)
[2019-05-14] MEDS ORDERED: TRAM50TA2 PO (17:22)
[2019-05-14] MEDS ORDERED: ISOS30TA4 PO (17:22)
[2019-05-14] MEDS ORDERED: SENN1TAB38 PO (17:22)
[2019-05-14] MEDS ORDERED: ASPI81CH44 PO (17:22)
[2019-05-14] MEDS ORDERED: SELE25SHA TOP (17:22)
[2019-05-14] MEDS ORDERED: AMLO25TA PO (17:22)
[2019-05-14] MEDS ORDERED: MOME50SP NARES (17:22)
[2019-05-14] MEDS ORDERED: ADV500INH INH (17:22)
[2019-05-14] MEDS ORDERED: MYRB25TA PO (17:22)
[2019-05-14] MEDS ORDERED: CHLO25TA PO (17:28)
[2019-05-14] MEDS ORDERED: DULO30CA9 PO (17:28)
[2019-05-14] MEDS ORDERED: MECL1CHW PO (17:28)
[2019-05-14] MEDS ORDERED: ONDA4TAB6 PO (17:28)
[2019-05-14] MEDS ORDERED: OMEP-218 PO (17:28)
[2019-05-14] MEDS ORDERED: GABA-843 PO (17:28)
[2019-05-14] MEDS ORDERED: NS 500 ML IV ONE ×2 (17:30→18:00)
[2019-05-14] MEDS ORDERED: ZOLPIDEM TARTRATE (17:55)
[2019-05-14] MEDS ORDERED: NS 1,000 ML IV ONE (18:45)
--- NOTE | 2019-05-14 19:12 | REP ---
Portable chest x-ray: Single view. History: Chest pain. Comparison chest x-ray April 09, 2019. Findings: Oxygen delivery tubing and EKG monitoring electrodes overlie the chest. There is a loop recorder projecting on the left. Heart is not enlarged. Lungs are well inflated and clear. The pleural angles are sharp. Pulmonary vasculature is not increased. Impression: No active disease. Electronically Signed by Tim Chacon MD 05/15/2019 08:33 A
[2019-05-14] MEDS ORDERED: AMBI10TA PO (20:20)
[2019-05-14] MEDS ORDERED: PHARMACY COMMENT (20:20)
[2019-05-14] MEDS ORDERED: ACETAMINOPHEN TAB 650MG DOSE (2X325MG) PO ONE (21:15)
[2019-05-14] MEDS ORDERED: MORPHINE 30 MG SA TAB PO ONE (22:15)
[2019-05-14 22:53] LABS: BLOOD UREA NITROGEN 28 MG/DL (7-18); CALCIUM LEVEL 7.8 MG/DL (8.8-10.2); CARBON DIOXIDE LEVEL 28 MEQ/L (21-32); CHLORIDE LEVEL 108 MEQ/L (98-107); CK-MB VALUE MASS < 1.0 NG/ML (<3.6); CPK CREATINE PHOSPHOKINASE 79 U/L (39-308); CREATININE FOR GFR 1.89 MG/DL (0.70-1.30); GLOMERULAR FILTRATION RATE 38.9 (>49); GLUCOSE, FASTING 163 MG/DL (70-100); MB/CK RELATIVE INDEX 1.27 (< OR =4); POTASSIUM SERUM 3.7 MEQ/L (3.5-5.1); SODIUM LEVEL 141 MEQ/L (136-145); TROPONIN I < 0.02 NG/ML (< 0.10)
--- NOTE | 2019-05-15 01:59 | REPVR ---
EXAM: CT Abdomen and Pelvis Without Contrast EXAM DATE/TIME: 05/15/2019 12:23 AM CLINICAL HISTORY: 59 years old, male; Abdominal pain; Flank; Left; Additional info: Hematuria, left sided pain TECHNIQUE: Imaging protocol: Axial computed tomography images of the abdomen and pelvis without contrast. Coronal and sagittal reformatted images were created and reviewed. Radiation optimization: All CT scans at this facility use at least one of these dose optimization techniques: automated exposure control; mA and/or kV adjustment per patient size (includes targeted exams where dose is matched to clinical indication); or iterative reconstruction. COMPARISON: CT ABD/PEL W/IV CONTRAST ONLY 04/04/2018 12:47 AM Study limitations: Evaluation for mass, inflammatory change, including bowel wall/fold thickening, viscera, and vasculature, is suboptimal without contrast. FINDINGS: LUNG BASES: No infiltrate or effusion. VASCULAR: No abdominal aortic aneurysm or retroperitoneal hematoma. There is mild calcific atherosclerosis. PERITONEAL : No free air or free fluid. GI: No hiatal hernia. The stomach contains some fluid and gas. The stomach is not sufficiently distended to evaluate wall thickening or exclude fold thickening by this exam. No perigastric or periduodenal inflammatory stranding seen. Nonspecific fluid and gas-filled loops of small bowel. No asymmetric small bowel dilation to suggest obstruction. There is no focal mesenteric inflammatory stranding. No mesenteric lymphadenopathy by size criteria. Scattered fecal material and gas within portions of the colon and rectum. There is diverticulosis but no evidence of acute diverticulitis. Postoperative changes are noted at the sigmoid colon. The appendix does not appear inflamed. HEPATOBILIARY, PANCREAS, SPLEEN: Sagittal hepatic length is 17.3 cm. Hepatic attenuation is consistent with fatty infiltration. The gallbladder has been removed. No calcific choledocholithiasis seen. No pancreatic inflammation. Spleen not enlarged. ADRENALS, KIDNEYS, BLADDER, RETROPERITONEAL: Adrenals within normal limits. No hydronephrosis. Nonspecific bilateral perinephric stranding. No renal calculi. No ureteral calculi. No calculi within the urinary bladder. Evaluation of renal parenchyma is limited without contrast. The urinary bladder appears slightly thickwalled but this may be artifact secondary to incomplete distention. There is no perivesical stranding. Mild prostate enlargement impressing along the base of the bladder. This is similar to the prior exam. Clinical followup is advised. Prostate calcifications noted. MUSCULOSKELETAL: Postoperative changes of the anterior abdominal wall are noted. Mild degenerative changes of the spine and within the pelvis. No acute fracture or suspicious bone lesion. IMPRESSION: No hydronephrosis or genitourinary calculi. Given the clinical information of hematuria, consider further evaluation with contrast. Other genitourinary findings discussed above. No free air, free fluid or focal mesenteric inflammation. Nonspecific gastrointestinal findings. Other incidental and non-emergent findings discussed above. Electronically signed by: Ramirez Juarez On 05/15/2019 01:59:07 AM
[2019-05-15] MEDS: NS 1,000 ML IV SCH ×3 (02:00→13:50)
--- NOTE | 2019-05-15 06:05 | ECGEPIP ---
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
[2019-05-15] MEDS: HumaLOG INSULIN (NovoLOG) PER UNIT SC SCH ×3 (07:30→18:18)
[2019-05-15] MEDS ORDERED: GLUCOSE 4 GM CHEW TABLET PO PRN (07:45)
[2019-05-15] MEDS ORDERED: IPRATROPIUM 0.5MG/ALBUTEROL 2.5MG INH SOL UD 3ML (DUONEB)(J7620) NEB PRN (07:45)
[2019-05-15] MEDS ORDERED: GLUCAGON FOR INJ 1 MG VIAL (J1610) SC PRN (07:45)
[2019-05-15] MEDS ORDERED: ONDANSETRON 4 MG ORAL DISINTEGRATING TAB (Q0162 PER 1MG) PO PRN (07:45)
[2019-05-15] MEDS ORDERED: DEXTROSE 50% 50 ML SYRINGE IV PRN (07:45)
[2019-05-15] MEDS ORDERED: NITROGLYCERIN 0.4 MG SUBL TABLET SL PRN (07:45)
[2019-05-15] MEDS ORDERED: PANTOPRAZOLE 40MG TAB (PROTONIX) PO SCH (09:00)
[2019-05-15] MEDS: LISINOPRIL 40 MG TAB PO SCH (09:00)
[2019-05-15] MEDS ORDERED: FLUTICASONE PROP 0.05% NASAL SPRAY 16 GM (FLONASE) NARES SCH (09:00)
[2019-05-15] MEDS: METOPROLOL TARTRATE 100 MG TAB PO SCH ×2 (09:29→20:24)
[2019-05-15] MEDS: VITAMIN D 1,000 INTERNATIONAL UNITS TABLET PO SCH (09:29)
[2019-05-15] MEDS: ATORVASTATIN 20 MG TAB PO SCH (09:29)
[2019-05-15] MEDS: traMADol 50 MG TAB PO PRN ×2 (09:30→19:32)
[2019-05-15] MEDS: APIXABAN 5 MG TAB (ELIQUIS) PO SCH ×2 (09:30→20:24)
[2019-05-15] MEDS: ISOSORBIDE MON. (IMDUR) 30 MG XR TAB PO SCH (09:30)
[2019-05-15 10:54] LABS: BASO # 0.1 10^3/uL (0.0-0.2); BASO % 0.9 % (0.0-1.0); EOS # 0.1 10^3/uL (0.0-0.50); HEMATOCRIT 39.6 % (42.0-52.0); HEMOGLOBIN 13.2 g/dl (13.5-17.5); LYMPH # 1.4 10^3/uL (1.5-4.5); MEAN CORPUSCULAR HEMOGLOBIN 27.7 pg (27.0-33.0); MEAN CORPUSCULAR HGB CONC 33.3 g/dl (32.0-36.5); MEAN CORPUSCULAR VOLUME 83.2 fl (80.0-96.0); MONO # 0.7 10^3/uL (0.0-0.8); MONO % 11.4 % (0.0-5.0); NEUTROPHILS # 4.1 10^3/uL (1.8-7.7); NEUTROPHILS % 62.6 % (36.0-66.0); PLATELET COUNT, AUTOMATED 264 10^3/uL (150-450); RED BLOOD COUNT 4.76 10^6/uL (4.30-6.10); WHITE BLOOD COUNT 6.5 10^3/uL (4.0-10.0)
[2019-05-15 11:20] LABS: BLOOD UREA NITROGEN 25 MG/DL (7-18); CARBON DIOXIDE LEVEL 28 MEQ/L (21-32); CHLORIDE LEVEL 108 MEQ/L (98-107); CREATININE FOR GFR 1.28 MG/DL (0.70-1.30); GLOMERULAR FILTRATION RATE > 60.0 (>49); GLUCOSE, FASTING 157 MG/DL (70-100); POTASSIUM SERUM 3.8 MEQ/L (3.5-5.1); SODIUM LEVEL 140 MEQ/L (136-145)
[2019-05-15] MEDS: ADVAIR HFA 230/21MCG INHALER INH SCH ×2 (11:53→23:10)
[2019-05-15 12:09] LABS: CK-MB VALUE MASS < 1.0 NG/ML (<3.6); CPK CREATINE PHOSPHOKINASE 79 U/L (39-308); MB/CK RELATIVE INDEX 1.27 (< OR =4); TROPONIN I < 0.02 NG/ML (< 0.10)
[2019-05-15 12:43] LABS: BLOOD UREA NITROGEN 26 MG/DL (7-18); CALCIUM LEVEL 8.1 MG/DL (8.8-10.2); CARBON DIOXIDE LEVEL 28 MEQ/L (21-32); CHLORIDE LEVEL 109 MEQ/L (98-107); CREATININE FOR GFR 1.25 MG/DL (0.70-1.30); GLOMERULAR FILTRATION RATE > 60.0 (>49); GLUCOSE, FASTING 153 MG/DL (70-100); MAGNESIUM LEVEL 1.9 MG/DL (1.8-2.4); SODIUM LEVEL 141 MEQ/L (136-145)
[2019-05-15 12:46] VITALS: BP 96/64
[2019-05-15 16:00] VITALS: BP 106/66
--- NOTE | 2019-05-15 17:35 | HPEPDOC ---
General Date of Admission May 15, 2019 at 08:59 Date of Service: May 15, 2019 Chief Complaint The patient is a 59-year-old male who presented to the ER with complaints of palpitations and chest discomfort History of Present Illness Patient is a 59-year-old male with a PMHx of HTN, CAD s/p stent (2013), CHF s/p AICD, DLP, IDDM2, HUMBLE on CPAP, CKD3, Hx of Multiple TIA, Left thalamic stroke (2017) 2/2 Embolic etiology (on Eliquis), Hx of Hemorrhoids, Bipolar disorder who presented to the ER with complaints of palpitations associate with chest discomfort. Patient reported that he was visiting his primary provider around 3 PM when he began to experience symptoms. He was then advised to call to the emergency room for further evaluation. Patient reported that his chest pain was a 9/10, knife-like pain, patient reported that the pain occurs with central/left chest. Non-radiating. It was continuous in nature. No alleviating or aggravating factors. Patient did report associated nausea without vomiting. Did report associated sweating but denied any dizziness. He denies diarrhea still reports occasional constipation. Denies urinary discomfort. Denies fevers or chills. Does report mild headache. Patient has reported weight gain of 20 pounds since January. Patient does report h is appetite is normal. Home Medications Scheduled Amlodipine Besylate (Amlodipine Besylate) 2.5 Mg Tablet, 2.5 MG PO DAILY, (Reported) Apixaban (Eliquis) 5 Mg Tablet, 5 MG PO BID, (Reported) Aspirin (Aspirin) 81 Mg Tab.chew, 162 MG PO DAILY, (Reported) Atorvastatin Calcium (Atorvastatin Calcium) 80 Mg Tablet, 80 MG PO DAILY, (Reported) Chlorthalidone (Chlorthalidone) 25 Mg Tablet, 25 MG PO DAILY, (Reported) Cholecalciferol (Vitamin D3) (Vitamin D3) 2,000 Unit Tablet, 2,000 UNITS PO DAILY, (Reported) Dulaglutide (Trulicity) 1.5 Mg/0.5 Ml Pen.injctr, 1.5 MG SC QWEEK, (Reported) TUESDAYS Duloxetine Hcl (Duloxetine HCl) 30 Mg Capsule.dr, 30 MG PO BID, (Reported) Fluticasone Propionate (Fluticasone Propionate) 15.8 Ml [place]otte.susp, 2 SPRAY NARES DAILY, (Reported) Gabapentin (Gabapentin) 300 Mg Capsule, 600 MG PO QHS, (Reported) Insulin Degludec (Tresiba Flextouch U-200) 200 Unit/1 Ml Insuln.pen, 100 UNITS SC BID, (Reported) Isosorbide Mononitrate (Isosorbide Mononitrate ER) 30 Mg Tab.er.24h, 30 MG PO DAILY, (Reported) PATIENT DOES NOT REMEMBER IF HE STARTED THIS. IT WAS FILLED ON 05/10/19 AT THE PHARMACY. Lisinopril (Lisinopril) 40 Mg Tablet, 40 MG PO DAILY, (Reported) Meclizine Hcl (Meclizine HCl) 25 Mg Tab.chew, 25 MG PO DAILY, (Reported) Metformin HCl (Metformin HCl ER) 500 Mg Tab.er.24h, 1,000 MG PO BID, (Reported) Metoprolol Tartrate (Metoprolol Tartrate) 100 Mg Tablet, 100 MG PO BID, (Reported) Mirabegron (Myrbetriq) 25 Mg Tab.er.24h, 25 MG PO DAILY, (Reported) LAST FILL AT [facility] ON 09/25/18. PATIENT STATES HE IS NOT SURE IF HE TAKES THIS BUT HIS HEALTH CLINIC VISIT FROM 05/14/19 STATES HE IS STILL ON IT. Mometasone Furoate Monohydrate (Nasonex) 17 Gm Demotte.pump, 1 SPRAY NARES DAILY, (Reported) Omeprazole (Omeprazole) 20 Mg Capsule.dr, 40 MG PO DAILY, (Reported) PATIENT STATES HE TAKES ONE 40MG PANTOPRAZOLE AND TWO 20MG OMEPRAZOLE. Pantoprazole Sodium (Pantoprazole Sodium) 40 Mg Tablet.dr, 40 MG PO DAILY, (Reported) PATIENT STATES THAT HE TAKES ONE 40MG PANTOPRAZOLE WITH TWO 20MG OMEPRAZOLE Salmeterol/Fluticasone (Advair 500-50 Diskus) 1 Each Blst.w.dev, 1 PUFF INH BID, (Reported) Selenium Sulfide (Selenium Sulfide 2.5%) 118 Ml Lotion, 1 APLCT TOP BID, (Reported) APPLIES TO NECK Scheduled PRN Albuterol Sulf (Albuterol Sulfate) 2.5 Mg/3 Ml Nebu, 2.5 MG INH QID PRN for SOB/WHEEZING, (Reported) Nitroglycerin (Nitrostat) 0.4 Mg Subl, 0.4 MG SL NITRO PRN for CHEST PAIN, (Reported) Ondansetron (Ondansetron Odt) 4 Mg Tab.rapdis, 4 MG PO Q6H PRN for NAUSEA OR VOMITING, (Reported) Sennosides/Docusate Sodium (Senexon-S Tablet) 1 Each Tablet, 2 TAB PO DAILY PRN for CONSTIPATION, (Reported) Tramadol HCl (Tramadol HCl) 50 Mg Tablet, 50 MG PO Q6H PRN for PAIN, (Reported) Zolpidem Tartrate (Ambien) 10 Mg Tablet, 10 MG PO QHS PRN for SLEEP, (Reported) Miscellaneous Medications [Pharmacy Comment] , (Reported) [facility] Allergies Coded Allergies: Penicillins (Verified Allergy, Unknown, childhood allergy, 05/14/19) procaine (Verified Allergy, Unknown, 04/09/19) Past Medical History Medical History HTN, CAD s/p stent (2013), CHF s/p AICD, DLP, IDDM2, HUMBLE on CPAP, CKD3, Hx of Multiple TIA, Left thalamic stroke (2017) 2/2 Embolic etiology (on Eliquis), Hx of Hemorrhoids, Bipolar disorder Surgical History Right-sided lumpectomy Plantar fasciitis repair Family History - Mother is alive at age 82 - Father is in his 60s Social History - Denies the use of alcohol, tobacco or illicit drugs - Denies recent travel or sick contacts - Lives with girlfriend wanted to - 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; 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 Review of Systems Other systems 10 point review of systems complete, all negative otherwise stated in HPI Vital Signs - Vitals: BP 106/66, HR 68, RR 18, Sat 95%RA, Temp 98.0F - General: Lying in bed, No acute distress, Speaking in full sentences, AAOx3 - HEENT: NC, AT, PERRLA, EOMI - CVS: RRR, +S1S2, tenderness on palpation of chest wall - Lungs: Fair air entry bilaterally, Clear to auscultation, No wheezing / rales / rhonchi - Abdomen: Soft, Non-distended, Non-tender - Extremities: No lower extremity edema, No calf tenderness - Neuro: No focal motor or sensory deficit - Skin: No visible rashes Laboratory Data Labs 24H Laboratory Tests 2 05/14/19 17:45: Lactic Acid Level 2.1*H 05/14/19 22:13: Urine Color FATIMAH, Urine Appearance CLOUDYH, Urine pH 5.0, Urine Specific [place] 1.025, Urine Protein 2+H, Urine Glucose (UA) 1+H, Urine Ketones TRACEH, Urine Blood NEGATIVE, Urine Nitrite NEGATIVE, Urine Bilirubin NEGATIVE, Urine Urobilinogen 2.0H, Urine Leukocyte Esterase NEGATIVE, Urine WBC (Auto) 4H, Urine RBC (Auto) 5H, Urine Hyaline Casts (Auto) 8, Urine Bacteria (Auto) NEGATIVE, Urine Squamous Epithelial Cells 1, Urine Mucus (Auto) SMALL, Urine Sperm (Auto) , Urine Random Osmolality 613, Anion Gap 5L, Glomerular Filtration Rate 38.9L, Osmolality 302H, Blood Urea Nitrogen 28H, Creatinine 1.89H, Sodium Level 141, Potassium Level 3.7, Chloride Level 108H, Carbon Dioxide Level 28, Calcium Level 7.8#L, Total Creatine Kinase 79, Creatine Kinase MB < 1.0, Creatine Kinase MB Relative Index 1.27, Troponin I < 0.02 05/14/19 22:14: Urine Random Creatinine 465.0 05/15/19 10:37: Anion Gap 4L, Glomerular Filtration Rate > 60.0, Blood Urea Nitrogen 25H, Creatinine 1.28, Sodium Level 140, Potassium Level 3.8, Chloride Level 108H, Carbon Dioxide Level 28, Calcium Level 8.0L, Total Creatine Kinase 79, Creatine Kinase MB < 1.0, Creatine Kinase MB Relative Index 1.27, Troponin I < 0.02, Immature Granulocyte % (Auto) 1.1, White Blood Count 6.5, Red Blood Count 4.76, Hemoglobin 13.2#L, Hematocrit 39.6L, Mean Corpuscular Volume 83.2, Mean Corpuscular Hemoglobin 27.7, Mean Corpuscular Hemoglobin Concent 33.3, Red Cell Distribution Width 13.9, Platelet Count 264#, Neutrophils (%) (Auto) 62.6, Lymphocytes (%) (Auto) 22.0L, Monocytes (%) (Auto) 11.4H, Eosinophils (%) (Auto) 2.0, Basophils (%) (Auto) 0.9, Neutrophils # (Auto) 4.1, Lymphocytes # (Auto) 1.4L, Monocytes # (Auto) 0.7, Eosinophils # (Auto) 0.1, Basophils # (Auto) 0.1, Nucleated Red Blood Cells % (auto) 0.0, Magnesium Level 2.0 05/15/19 12:17: Anion Gap 4L, Glomerular Filtration Rate > 60.0, Blood Urea Nitrogen 26H, Creatinine 1.25, Sodium Level 141, Potassium Level 4.0, Chloride Level 109H, Carbon Dioxide Level 28, Calcium Level 8.1L, Magnesium Level 1.9 05/15/19 12:36: Bedside Glucose (Misc Panel) 137H CBC/BMP Laboratory Tests 05/14/19 22:13 Calcium Level 7.8 #L, Total Creatine Kinase 79 05/15/19 10:37 Calcium Level 8.0 L, Total Creatine Kinase 79, Red Blood Count 4.76, Mean Corpuscular Volume 83.2, Mean Corpuscular Hemoglobin 27.7, Mean Corpuscular Hemoglobin Concent 33.3, Red Cell Distribution Width 13.9, Neutrophils (%) (Auto) 62.6, Lymphocytes (%) (Auto) 22.0 L, Monocytes (%) (Auto) 11.4 H, Eosinophils (%) (Auto) 2.0, Basophils (%) (Auto) 0.9, Neutrophils # (Auto) 4.1, Lymphocytes # (Auto) 1.4 L, Monocytes # (Auto) 0.7, Eosinophils # (Auto) 0.1, Basophils # (Auto) 0.1 05/15/19 12:17 Calcium Level 8.1 L Microbiology Microbiology 05/14/19 Blood Culture - Preliminary, Resulted No growth after 24 hours . All specim... 05/14/19 Blood Culture - Preliminary, Resulted No growth after 24 hours . All specim... Plan / VTE VTE Prophylaxis Ordered?: Yes Plan Plan Chest pain - likely 2/2 musculoskeletal etiology, less likely 2/2 cardiac etiology, - Currently, patient describes atypical chest pain - Physical does reveal tenderness upon palpation, which is reproducible chest pain - EKG has been reviewed and does not reveal any ischemic changes; no seasonality deviations or T-wave inversions are noted - Cardiac markers 3 sets have been negative - Will order 2-D echocardiogram - Continue with Tramadol for pain control Acute kidney injury on CKD3 - likely 2/2 pre-renal etiology - Upon arrival to emergency room, patients creatinine was 1.8; baseline appears to run between 1.01 1.1 - Patient received IV fluid hydration emergency room - Upon admission, patients creatinine had continued to improve - Will hold nephrotoxic medications and hold diuretics - c/w IV fluid hydration Hemoconcentration - Patient baseline hemoglobin runs at approximately 14-15 - c/w IV fluid hydration HTN - BP appears well controlled - c/w Amlodipine, Isosorbide mononitrate, Lisinopril and Metoprolol CAD s/p stent (2013) - c/w Eliquis, Atorvastatin, Metoprolol CHF s/p AICD - No evidence of fluid overload - Will hold diuretic therapy at this time DLP - c/w Atorvastatin IDDM2 - Will adjust long acting insulin; will reduce from 100 BID to 50 BID - Will start ISS HUMBLE on CPAP - May allow home CPAP use while inpatient Hx of Multiple TIA / Left thalamic stroke (2017) 2/2 Embolic etiology - c/w Eliquis Hx of Hemorrhoids Bipolar disorder - c/w Duloxetine GERD - c/w Omeprazole DVT prophylaxis - c/w full anticoagulation with GURMEET Ga MD May 15, 2019 17:35
[2019-05-15 19:55] VITALS: BP 120/71
[2019-05-15] MEDS: DULoxetine 30 MG CAP (CYMBALTA) PO SCH (20:24)
[2019-05-15] MEDS: LEVEMIR (INSULIN DETEMIR) 1 UNITS/0.01ML SC SCH (20:25)
[2019-05-15] MEDS ORDERED: HumaLOG INSULIN (NovoLOG) PER UNIT SC SCH (21:00)
[2019-05-15] MEDS ORDERED: MECLIZINE 25 MG TABLET PO SCH (21:00)
[2019-05-15] MEDS ORDERED: GABAPENTIN 300 MG CAP PO SCH (21:00)
[2019-05-16 00:19] VITALS: BP 146/88
[2019-05-16] MEDS ORDERED: oxyCODONE 5MG TAB PO ONE (00:30)
[2019-05-16 04:22] VITALS: BP 122/73
[2019-05-16 07:09] LABS: BASO % 0.8 % (0.0-1.0); EOS # 0.3 10^3/uL (0.0-0.50); HEMOGLOBIN 12.7 g/dl (13.5-17.5); LYMPH # 1.7 10^3/uL (1.5-4.5); LYMPH % 31.6 % (24.0-44.0); MEAN CORPUSCULAR HEMOGLOBIN 27.5 pg (27.0-33.0); MEAN CORPUSCULAR HGB CONC 33.4 g/dl (32.0-36.5); MEAN CORPUSCULAR VOLUME 82.3 fl (80.0-96.0); MONO # 0.5 10^3/uL (0.0-0.8); MONO % 10.2 % (0.0-5.0); NEUTROPHILS # 2.7 10^3/uL (1.8-7.7); NEUTROPHILS % 51.4 % (36.0-66.0); PLATELET COUNT, AUTOMATED 253 10^3/uL (150-450); RED BLOOD COUNT 4.62 10^6/uL (4.30-6.10); WHITE BLOOD COUNT 5.2 10^3/uL (4.0-10.0)
[2019-05-16 07:28] LABS: BLOOD UREA NITROGEN 19 MG/DL (7-18); CALCIUM LEVEL 8.2 MG/DL (8.8-10.2); CARBON DIOXIDE LEVEL 27 MEQ/L (21-32); CHLORIDE LEVEL 108 MEQ/L (98-107); CREATININE FOR GFR 1.16 MG/DL (0.70-1.30); GLOMERULAR FILTRATION RATE > 60.0 (>49); GLUCOSE, FASTING 197 MG/DL (70-100); MAGNESIUM LEVEL 1.8 MG/DL (1.8-2.4); POTASSIUM SERUM 3.5 MEQ/L (3.5-5.1); SODIUM LEVEL 141 MEQ/L (136-145)
[2019-05-16 08:07] VITALS: BP 127/69
[2019-05-16] MEDS ORDERED: OMEPRAZOLE 20 MG CAP PO SCH (09:00)
[2019-05-16] MEDS: LEVEMIR (INSULIN DETEMIR) 1 UNITS/0.01ML SC SCH (09:12)
[2019-05-16] MEDS: HumaLOG INSULIN (NovoLOG) PER UNIT SC SCH ×2 (09:13→11:41)
[2019-05-16] MEDS: VITAMIN D 1,000 INTERNATIONAL UNITS TABLET PO SCH (09:13)
[2019-05-16] MEDS: APIXABAN 5 MG TAB (ELIQUIS) PO SCH (09:14)
[2019-05-16] MEDS: ATORVASTATIN 20 MG TAB PO SCH (09:14)
[2019-05-16] MEDS: DULoxetine 30 MG CAP (CYMBALTA) PO SCH (09:14)
[2019-05-16 09:15] VITALS: BP 128/77
[2019-05-16] MEDS: METOPROLOL TARTRATE 100 MG TAB PO SCH (09:15)
[2019-05-16] MEDS: ISOSORBIDE MON. (IMDUR) 30 MG XR TAB PO SCH (09:16)
[2019-05-16 09:21] VITALS: BP 128/77
[2019-05-16] MEDS: LISINOPRIL 40 MG TAB PO SCH (09:21)
--- NOTE | 2019-05-16 12:00 | DS.PDOC ---
Discharge Summary General Date of Admission May 15, 2019 at 08:59 Date of Discharge 05/16/2019 Discharge Summary PROCEDURES PERFORMED DURING STAY: [None]. ADMITTING DIAGNOSES / DISCHARGE DIAGNOSES: Chest pain - likely 2/2 musculoskeletal etiology, less likely 2/2 cardiac etiology s/p Acute kidney injury on CKD3 - likely 2/2 pre-renal etiology s/p Hemoconcentration HTN CAD s/p stent (2013) CHF s/p AICD DLP IDDM2 HUMBLE on CPAP Hx of Multiple TIA / Left thalamic stroke (2017) 2/2 Embolic etiology Hx of Hemorrhoids Bipolar disorder GERD DVT prophylaxis COMPLICATIONS/CHIEF COMPLAINT: Presented to ER with chest pain; was found to have Elevated Cr HISTORY OF PRESENT ILLNESS: Patient is a 59-year-old male with a PMHx of HTN, CAD s/p stent (2013), CHF s/p AICD, DLP, IDDM2, HUMBLE on CPAP, CKD3, Hx of Multiple TIA, Left thalamic stroke (2017) 2/2 Embolic etiology (on Eliquis), Hx of Hemorrhoids, Bipolar disorder who presented to the ER with complaints of palpitations associate with chest discomfort. Patient reported that he was visiting his primary provider around 3 PM when he began to experience symptoms. He was then advised to call to the emergency room for further evaluation. Patient reported that his chest pain was a 9/10, knife-like pain, patient reported that the pain occurs with central/left chest. Non-radiating. It was continuous in nature. No alleviating or aggravating factors. Patient did report associated nausea without vomiting. Did report associated sweating but denied any dizziness. Was admitted to hospital service for further evaluation and treatment HOSPITAL COURSE: Chest pain - likely 2/2 musculoskeletal etiology, less likely 2/2 cardiac etiology, - Currently, patient describes atypical chest pain - Physical with reproducible chest pain - EKG has been reviewed and does not reveal any ischemic changes; no seasonality deviations or T-wave inversions are noted - Cardiac markers 3 sets have been negative - Will order 2-D echocardiogram - Continue with Tramadol for pain control; will have outpatient referral to pain management - Follow up with PCP within 7 days s/p Acute kidney injury on CKD3 - likely 2/2 pre-renal etiology - Upon arrival to emergency room, patients creatinine was 1.8; baseline appears to run between 1.01 1.1 - Patient received IV fluid hydration emergency room - Upon admission, patients creatinine had continued to improve - Will hold nephrotoxic medications and hold diuretics - will resume diuretics on discharge - s/p IV fluid hydration s/p Hemoconcentration - Patient baseline hemoglobin runs at approximately 14-15 - s/p IV fluid hydration HTN - BP appears well controlled - c/w Amlodipine, Isosorbide mononitrate, Lisinopril and Metoprolol CAD s/p stent (2013) - c/w Eliquis, Atorvastatin, Metoprolol CHF s/p AICD - No evidence of fluid overload - Will resume diuretic therapy on discharge DLP - c/w Atorvastatin IDDM2 - c/w long acting insulin at adjusted dose; will discharge back to home medications - c/w ISS while inpatient HUMBLE on CPAP - May allow home CPAP use while inpatient Hx of Multiple TIA / Left thalamic stroke (2017) 2/2 Embolic etiology - c/w Eliquis Hx of Hemorrhoids Bipolar disorder - c/w Duloxetine GERD - c/w Omeprazole DVT prophylaxis - c/w full anticoagulation with Eliquis DISCHARGE MEDICATIONS: Please see below. ALLERGIES: Please see below. PHYSICAL EXAMINATION ON DISCHARGE: Vitals (See below) General: Lying in bed, no acute distress, comfortable, AAOx3 HEENT: NC, AT CVS: +S1S2, +Chest tenderness on palpation Lungs: Fair air entry b/l, -w/r/r Abdomen: Soft, non-distended, non-tender Extremities: - Edema, - Calf tenderness LABORATORY DATA: Please see below. ACTIVITY: [As tolerated]. DISCHARGE PLAN: Follow up with Dr. Amadou Ramirez within 7 days Remain compliant with treatment plan and medications Return to the ER if you experience any problems DISPOSITION: Home DISCHARGE CONDITION: [Stable]. TIME SPENT ON DISCHARGE: 35 minutes Vital Signs/I&Os Vital Signs Date Time Temp Pulse Resp B/P (MAP) Pulse Ox O2 Delivery O2 Flow Rate FiO2 05/16/19 09:21 73 128/77 05/16/19 09:15 97.9 20 96 05/15/19 08:06 Room Air 05/14/19 16:57 2.0 I&O- Last 24 Hours up to 6 AM 05/16/19 06:00 Intake Total 2000 ml Output Total 1225 ml Balance 775 ml Laboratory Data Labs 24H Laboratory Tests 2 05/15/19 12:17: Anion Gap 4L, Glomerular Filtration Rate > 60.0, Blood Urea Nitrogen 26H, Creatinine 1.25, Sodium Level 141, Potassium Level 4.0, Chloride Level 109H, Carbon Dioxide Level 28, Calcium Level 8.1L, Magnesium Level 1.9 05/15/19 12:36: Bedside Glucose (Misc Panel) 137H 05/15/19 17:54: Bedside Glucose (Misc Panel) 165H 05/15/19 19:37: Bedside Glucose (Misc Panel) 203H 05/16/19 06:50: Immature Granulocyte % (Auto) 1.0, White Blood Count 5.2, Red Blood Count 4.62, Hemoglobin 12.7L, Hematocrit 38.0L, Mean Corpuscular Volume 82.3, Mean Corpuscular Hemoglobin 27.5, Mean Corpuscular Hemoglobin Concent 33.4, Red Cell Distribution Width 13.5, Platelet Count 253, Neutrophils (%) (Auto) 51.4, Lymphocytes (%) (Auto) 31.6, Monocytes (%) (Auto) 10.2H, Eosinophils (%) (Auto) 5.0H, Basophils (%) (Auto) 0.8, Neutrophils # (Auto) 2.7, Lymphocytes # (Auto) 1.7, Monocytes # (Auto) 0.5, Eosinophils # (Auto) 0.3, Basophils # (Auto) 0.0, Nucleated Red Blood Cells % (auto) 0.0, Anion Gap 6L, Glomerular Filtration Rate > 60.0, Blood Urea Nitrogen 19H, Creatinine 1.16, Sodium Level 141, Potassium Level 3.5, Chloride Level 108H, Carbon Dioxide Level 27, Calcium Level 8.2L, Magnesium Level 1.8 05/16/19 11:35: Bedside Glucose (Misc Panel) 137H CBC/BMP Laboratory Tests 05/15/19 12:17 Calcium Level 8.1 L 05/16/19 06:50 Calcium Level 8.2 L, Red Blood Count 4.62, Mean Corpuscular Volume 82.3, Mean Corpuscular Hemoglobin 27.5, Mean Corpuscular Hemoglobin Concent 33.4, Red Cell Distribution Width 13.5, Neutrophils (%) (Auto) 51.4, Lymphocytes (%) (Auto) 31.6, Monocytes (%) (Auto) 10.2 H, Eosinophils (%) (Auto) 5.0 H, Basophils (%) (Auto) 0.8, Neutrophils # (Auto) 2.7, Lymphocytes # (Auto) 1.7, Monocytes # (Auto) 0.5, Eosinophils # (Auto) 0.3, Basophils # (Auto) 0.0 FSBS Laboratory Tests Test 05/15/19 12:36 05/15/19 17:54 05/15/19 19:37 05/16/19 11:35 Range/Units Bedside Glucose (Misc Panel) 137 165 203 137 80-115 MG/DL Microbiology Microbiology 05/14/19 Blood Culture - Preliminary, Resulted No growth after 24 hours . All specim... 05/14/19 Blood Culture - Preliminary, Resulted No growth after 24 hours . All specim... Discharge Medications Scheduled Amlodipine Besylate (Amlodipine Besylate) 2.5 Mg Tablet, 2.5 MG PO DAILY, (Reported) Apixaban (Eliquis) 5 Mg Tablet, 5 MG PO BID, (Reported) Aspirin (Aspirin) 81 Mg Tab.chew, 162 MG PO DAILY, (Reported) Atorvastatin Calcium (Atorvastatin Calcium) 80 Mg Tablet, 80 MG PO DAILY, (Reported) Chlorthalidone (Chlorthalidone) 25 Mg Tablet, 25 MG PO DAILY, (Reported) Cholecalciferol (Vitamin D3) (Vitamin D3) 2,000 Unit Tablet, 2,000 UNITS PO DAILY, (Reported) Dulaglutide (Trulicity) 1.5 Mg/0.5 Ml Pen.injctr, 1.5 MG SC QWEEK, (Reported) TUESDAYS Duloxetine Hcl (Duloxetine HCl) 30 Mg Capsule.dr, 30 MG PO BID, (Reported) Fluticasone Propionate (Fluticasone Propionate) 15.8 Ml [place].susp, 2 SPRAY DEBRA ES DAILY, (Reported) Gabapentin (Gabapentin) 300 Mg Capsule, 600 MG PO QHS, (Reported) Insulin Degludec (Tresiba Flextouch U-200) 200 Unit/1 Ml Insuln.pen, 100 UNITS SC BID, (Reported) Isosorbide Mononitrate (Isosorbide Mononitrate ER) 30 Mg Tab.er.24h, 30 MG PO DAILY, (Reported) PATIENT DOES NOT REMEMBER IF HE STARTED THIS. IT WAS FILLED ON 05/10/19 AT THE PHARMACY. Lisinopril (Lisinopril) 40 Mg Tablet, 40 MG PO DAILY, (Reported) Meclizine Hcl (Meclizine HCl) 25 Mg Tab.chew, 25 MG PO DAILY, (Reported) Metformin HCl (Metformin HCl ER) 500 Mg Tab.er.24h, 1,000 MG PO BID, (Reported) Metoprolol Tartrate (Metoprolol Tartrate) 100 Mg Tablet, 100 MG PO BID, (R eported) Mirabegron (Myrbetriq) 25 Mg Tab.er.24h, 25 MG PO DAILY, (Reported) LAST FILL AT [facility] ON 09/25/18. PATIENT STATES HE IS NOT SURE IF HE TAKES THIS BUT HIS HEALTH CLINIC VISIT FROM 05/14/19 STATES HE IS STILL ON IT. Mometasone Furoate Monohydrate (Nasonex) 17 Gm [place].pump, 1 SPRAY NARES DAILY, (Reported) Omeprazole (Omeprazole) 20 Mg Capsule.dr, 40 MG PO DAILY, (Reported) PATIENT STATES HE TAKES ONE 40MG PANTOPRAZOLE AND TWO 20MG OMEPRAZOLE. Pantoprazole Sodium (Pantoprazole Sodium) 40 Mg Tablet.dr, 40 MG PO DAILY, (Reported) PATIENT STATES THAT HE TAKES ONE 40MG PANTOPRAZOLE WITH TWO 20MG OMEPRAZOLE Salmeterol/Fluticasone (Advair 500-50 Diskus) 1 Each Blst.w.dev, 1 PUFF INH BID, (Reported) Selenium Sulfide (Selenium Sulfide 2.5%) 118 Ml Lotion, 1 APLCT TOP BID, (Reported) APPLIES TO NECK Scheduled PRN Albuterol Sulf (Albuterol Sulfate) 2.5 Mg/3 Ml Nebu, 2.5 MG INH QID PRN for SOB/WHEEZING, (Reported) Nitroglycerin (Nitrostat) 0.4 Mg Subl, 0.4 MG SL NITRO PRN for CHEST PAIN, (Reported) Ondansetron (Ondansetron Odt) 4 Mg Tab.rapdis, 4 MG PO Q6H PRN for NAUSEA OR VOMITING, (Reported) Sennosides/Docusate Sodium (Senexon-S Tablet) 1 Each Tablet, 2 TAB PO DAILY PRN for CONSTIPATION, (Reported) Tramadol HCl (Tramadol HCl) 50 Mg Tablet, 50 MG PO Q6H PRN for PAIN, (Reported) Zolpidem Tartrate (Ambien) 10 Mg Tablet, 10 MG PO QHS PRN for SLEEP, (Reported) Miscellaneous Medications [Pharmacy Comment] , (Reported) [facility] Allergies Coded Allergies: Penicillins (Verified Allergy, Unknown, childhood allergy, 05/14/19) procaine (Verified Allergy, Unknown, 04/09/19) GURMEET PEREZ MD May 16, 2019 12:00
--- NOTE | 2019-05-17 06:19 | ECHO ---
DATE OF PROCEDURE: 05/16/2019 DATE OF : 1960 AGE: 59 REFERRING PROVIDER: Dr. Joselo Cruz PATIENT LOCATION: Room 3205 REASON FOR ECHOCARDIOGRAM: Chest pain. 2-D MEASUREMENTS: IVS: 1.3 cm LV: 4.9 cm LVPW: 1. 3 cm LA: 4.1 cm Aorta: 3.6 cm IVC: 2.1 cm DOPPLER MEASUREMENTS: Peak velocity across the aortic valve: 1.1 m/s Peak velocity across the LVOT: 0.78 m/s Mitral E: 0.85 Mitral A: 0.79 Ratio: 1.1 Maximum tricuspid valve velocity: 2.5 m/s 2-D COMMENTS: 1. Normal left ventricular size, wall thickness, and normal global left ventricular systolic function. The estimated left ventricular systolic ejection fraction is 60-65%. 2. Mildly enlarged left atrium. Normal right atrium and right ventricle. 3. The atrial septum appeared to be normal without evidence of defect or shunt. 4. Normal aortic root. 5. Trace to small pericardial effusion noted, no evidence of cardiac tamponade. 6. Mildly calcified aortic valve with normal leaflet excursion. Mildly calcified mitral annulus with normal anterior mitral valve leaflet motion. Normal tricuspid valve and pulmonic valve. The proximal pulmonary artery branches were not well visualized. 7. The inferior vena cava was mildly enlarged, central venous pressure might be elevated. DOPPLER: Detects trace mitral regurgitation and mild tricuspid regurgitation. The calculated pulmonary artery systolic pressure varies between 30-40 mmHg. Assessment of the left ventricular diastolic function appeared to be normal. IMPRESSION: 1. Normal global left ventricular systolic function with mild concentric left ventricular hypertrophy. 2. Assessment of the ventricular diastolic function appeared to be normal. 3. Mildly dilated left atrium with trace mitral regurgitation and mitral annulus calcification. 4. Mild tricuspid regurgitation with mild pulmonary hypertension. 5. Trace to small pericardial effusion noted, no evidence of cardiac tamponade. 6. The inferior vena cava/IVC was mildly enlarged, central venous pressure might be elevated. MTDD
== END 2019-05-16 12:55 | disposition home or self-care (01) ==
LOC: M ED 15:57 → EDBD 15:57 → M ED INP 16:00 → UNDOADMOB 05-15 08:59 → M ED INP 05-15 08:59 → M ICU 05-15 09:00 → M ED INP 05-16 07:40 → M ICU 05-16 07:40 → UNDODISOB 05-16 12:55
PROVIDERS: ADMIT Internal Medicine; ATTEND Internal Medicine
DX: R07.89 Other chest pain (principal); N17.9 Acute kidney failure, unspecified; N18.3 Chronic kidney disease, stage 3 (moderate); I12.9 Hypertensive chronic kidney disease with stage 1 through stage 4 chronic kidney disease, or unspecified chronic kidney disease; I25.10 Atherosclerotic heart disease of native coronary artery without angina pectoris; E78.49 Other hyperlipidemia; E11.9 Type 2 diabetes mellitus without complications; R79.89 Other specified abnormal findings of blood chemistry; G47.33 Obstructive sleep apnea (adult) (pediatric); Z86.73 Personal history of transient ischemic attack (TIA), and cerebral infarction without residual deficits; I50.9 Heart failure, unspecified; K21.9 Gastro-esophageal reflux disease without esophagitis; F31.9 Bipolar disorder, unspecified; Z79.01 Long term (current) use of anticoagulants; Z79.82 Long term (current) use of aspirin; Z79.4 Long term (current) use of insulin; Z88.0 Allergy status to penicillin; Z79.899 Other long term (current) drug therapy
CPT/HCPCS: 36415; 71045; 74176; 80048; 80076; 81001; 82550; 82553; 82570; 83605; 83690; 83735; 83880; 83930; 83935; 84443; 84484; 85025; 85379; 87040; 93005; 93041; 93306; 94640; 94760; 96360; 96361; 99285; G0378; G0463

== ENCOUNTER 2019-05-18 17:41 | Emergency (ER) | payer MEDICARE, MEDICAID ==
[~2019-05-18] VITALS: Ht 175.3 cm; Wt 112.8 kg
[~2019-05-18 17:41] MED LIST changes: +ADV500INH INH; +AMLO25TA PO; +ASPI81CH44 PO; +DULO1CAP3 PO; -DULO1CAP6 PO; +FLUT50SP21 NARES; +ISOS30TA4 PO; +MECL1CHW PO; +METO100T5 PO; +MOME50SP NARES; +OMEP-218 PO; +OMEP20CA3 PO; -OMEP20CA4 PO; +ONDA4TAB6 PO; +PHARMACY COMMENT; +SENN1TAB38 PO; +ZOLPIDEM TARTRATE
[2019-05-18 20:09] LABS: BASO # 0.1 10^3/uL (0.0-0.2); BASO % 0.8 % (0.0-1.0); EOS # 0.2 10^3/uL (0.0-0.50); EOS % 2.5 % (0.0-3.0); HEMOGLOBIN 14.2 g/dl (13.5-17.5); LYMPH # 1.5 10^3/uL (1.5-4.5); MEAN CORPUSCULAR HEMOGLOBIN 27.7 pg (27.0-33.0); MEAN CORPUSCULAR HGB CONC 33.8 g/dl (32.0-36.5); MEAN CORPUSCULAR VOLUME 81.9 fl (80.0-96.0); MONO # 0.7 10^3/uL (0.0-0.8); NEUTROPHILS # 4.7 10^3/uL (1.8-7.7); PLATELET COUNT, AUTOMATED 289 10^3/uL (150-450); RED BLOOD COUNT 5.13 10^6/uL (4.30-6.10); WHITE BLOOD COUNT 7.3 10^3/uL (4.0-10.0)
[2019-05-18 20:14] LABS: APPEARANCE, URINE CLEAR (CLEAR); BACTERIA, URINE AUTO NEGATIVE (NEGATIVE); BILIRUBIN, URINE AUTO NEGATIVE (NEGATIVE); BLOOD, URINE BLOOD NEGATIVE (NEGATIVE); COLOR, URINE YELLOW (YELLOW); GLUCOSE, URINE (UA) AUTO 3+ mg/dL (NEGATIVE); KETONE, URINE AUTO NEGATIVE (NEGATIVE); LEUKOCYTE ESTERASE, URINE AUTO NEGATIVE (NEGATIVE); MUCUS, URINE SMALL (NEGATIVE); NITRITE, URINE AUTO NEGATIVE (NEGATIVE); PROTEIN, URINE AUTO NEGATIVE (NEGATIVE); RBC, URINE AUTO 2 /HPF (0-3); SPECIFIC GRAVITY URINE AUTO 1.021 (1.002-1.035); SQUAMOUS EPITHELIAL CELL UR AU 0 /HPF (0-6); UROBILINOGEN, URINE AUTO 0.2 mg/dL (0.0-2.0); WBC, URINE AUTO 1 /HPF (0-3)
[2019-05-18 20:16] LABS: BLOOD UREA NITROGEN 14 MG/DL (7-18); CALCIUM LEVEL 8.6 MG/DL (8.8-10.2); CARBON DIOXIDE LEVEL 29 MEQ/L (21-32); CHLORIDE LEVEL 104 MEQ/L (98-107); CREATININE FOR GFR 1.16 MG/DL (0.70-1.30); GLOMERULAR FILTRATION RATE > 60.0 (>49); GLUCOSE, FASTING 239 MG/DL (70-100); POTASSIUM SERUM 4.1 MEQ/L (3.5-5.1); SODIUM LEVEL 141 MEQ/L (136-145)
[2019-05-18 22:38] VITALS: BP 172/94
== END 2019-05-18 22:40 | disposition home or self-care (01) ==
LOC: M ED 17:41
DX: E11.649 Type 2 diabetes mellitus with hypoglycemia without coma (principal); R39.11 Hesitancy of micturition; I11.9 Hypertensive heart disease without heart failure; I25.10 Atherosclerotic heart disease of native coronary artery without angina pectoris; E78.5 Hyperlipidemia, unspecified; K21.9 Gastro-esophageal reflux disease without esophagitis; Z86.73 Personal history of transient ischemic attack (TIA), and cerebral infarction without residual deficits; Z95.5 Presence of coronary angioplasty implant and graft; Z85.46 Personal history of malignant neoplasm of prostate; Z88.0 Allergy status to penicillin; Z88.4 Allergy status to anesthetic agent; Z79.899 Other long term (current) drug therapy; Z79.4 Long term (current) use of insulin; Z79.01 Long term (current) use of anticoagulants; Z79.82 Long term (current) use of aspirin

== ENCOUNTER → 2019-06-06 | Outpatient (CLI) | payer MEDICARE, MEDICAID ==
[~2019-06-06] MED LIST changes: -DULO1CAP3 PO; +DULO1CAP6 PO; -OMEP20CA3 PO; +OMEP20CA4 PO; +ZOFR4TAB16 PO
[2019-06-06 17:44] LABS: HEMATOCRIT 44.4 % (42.0-52.0); HEMOGLOBIN 14.8 g/dl (13.5-17.5); MEAN CORPUSCULAR HEMOGLOBIN 27.7 pg (27.0-33.0); MEAN CORPUSCULAR HGB CONC 33.3 g/dl (32.0-36.5); PLATELET COUNT, AUTOMATED 332 10^3/uL (150-450); RED BLOOD COUNT 5.35 10^6/uL (4.30-6.10); WHITE BLOOD COUNT 7.9 10^3/uL (4.0-10.0)
[2019-06-06 17:50] LABS: CALCIUM LEVEL 9.4 MG/DL (8.8-10.2); CREATININE FOR GFR 1.36 MG/DL (0.70-1.30); GLOMERULAR FILTRATION RATE 56.9 (>49); POTASSIUM SERUM 4.6 MEQ/L (3.5-5.1); PROSTATIC SPECIFIC AG MONITOR 0.16 NG/ML (< 4.00)
== END ==
LOC: M SMT 13:10
PROVIDERS: ATTEND Nurse Practitioner Family
DX: R34 Anuria and oliguria (principal); Z85.46 Personal history of malignant neoplasm of prostate
CPT/HCPCS: 36415; 51701; 51798; 80048; 84153; 85027; G0463

== ENCOUNTER 2019-06-15 12:51 | Emergency (ER) | payer MEDICARE, MEDICAID ==
[~2019-06-15] VITALS: Ht 172.7 cm; Wt 110.0 kg
[~2019-06-15 12:51] MED LIST changes: -ZOFR4TAB16 PO
[2019-06-15 13:40] LABS: BASO # 0.1 10^3/uL (0.0-0.2); BASO % 0.5 % (0.0-1.0); EOS # 0.1 10^3/uL (0.0-0.50); EOS % 0.6 % (0.0-3.0); HEMATOCRIT 45.9 % (42.0-52.0); HEMOGLOBIN 15.7 g/dl (13.5-17.5); LYMPH # 1.6 10^3/uL (1.5-4.5); LYMPH % 15.1 % (24.0-44.0); MEAN CORPUSCULAR HEMOGLOBIN 28.4 pg (27.0-33.0); MEAN CORPUSCULAR HGB CONC 34.2 g/dl (32.0-36.5); MEAN CORPUSCULAR VOLUME 83.2 fl (80.0-96.0); MONO # 0.9 10^3/uL (0.0-0.8); MONO % 8.4 % (0.0-5.0); NEUTROPHILS % 74.8 % (36.0-66.0); PLATELET COUNT, AUTOMATED 296 10^3/uL (150-450); RED BLOOD COUNT 5.52 10^6/uL (4.30-6.10); WHITE BLOOD COUNT 10.7 10^3/uL (4.0-10.0)
[2019-06-15 14:19] LABS: ALBUMIN 3.9 GM/DL (3.2-5.2); BILIRUBIN,DIRECT 0.2 MG/DL (0.0-0.2); BILIRUBIN,TOTAL 0.8 MG/DL (0.2-1.0); CREATININE FOR GFR 1.4 MG/DL (0.70-1.30); POTASSIUM SERUM 3.8 MEQ/L (3.5-5.1); TOTAL PROTEIN 7.7 GM/DL (6.4-8.2)
[2019-06-15] MEDS ORDERED: ZOFR4TAB16 PO (15:10)
[2019-06-15 15:15] VITALS: BP 145/87
[2019-06-15] MEDS ORDERED: ONDANSETRON 4 MG ORAL DISINTEGRATING TAB (Q0162 PER 1MG) PO ONE (15:15)
== END 2019-06-15 15:18 | disposition home or self-care (01) ==
LOC: M ED 12:51
DX: E11.9 Type 2 diabetes mellitus without complications (principal); N18.3 Chronic kidney disease, stage 3 (moderate); A08.4 Viral intestinal infection, unspecified; S80.212A Abrasion, left knee, initial encounter; X58.XXXA Exposure to other specified factors, initial encounter; Y92.89 Other specified places as the place of occurrence of the external cause; I50.9 Heart failure, unspecified; I11.0 Hypertensive heart disease with heart failure; E78.9 Disorder of lipoprotein metabolism, unspecified; I25.10 Atherosclerotic heart disease of native coronary artery without angina pectoris; Z95.5 Presence of coronary angioplasty implant and graft; Z79.899 Other long term (current) drug therapy; Z79.84 Long term (current) use of oral hypoglycemic drugs; Z79.82 Long term (current) use of aspirin; Z79.01 Long term (current) use of anticoagulants; Z88.0 Allergy status to penicillin; Z88.4 Allergy status to anesthetic agent
CPT/HCPCS: 36415; 80048; 80076; 81001; 83690; 85025; 99284; Q0162

== ENCOUNTER 2019-06-26 00:35 | Emergency (ER) | payer MEDICARE, MEDICAID ==
[~2019-06-26] VITALS: Ht 175.3 cm; Wt 110.9 kg
[~2019-06-26 00:35] MED LIST changes: +ZOFR4TAB16 PO
[2019-06-26 01:27] LABS: BASO # 0.1 10^3/uL (0.0-0.2); BASO % 0.4 % (0.0-1.0); EOS # 0.1 10^3/uL (0.0-0.50); EOS % 0.5 % (0.0-3.0); HEMATOCRIT 35.3 % (42.0-52.0); HEMOGLOBIN 11.9 g/dl (13.5-17.5); LYMPH # 1.3 10^3/uL (1.5-4.5); LYMPH % 11.4 % (24.0-44.0); MEAN CORPUSCULAR HEMOGLOBIN 28.4 pg (27.0-33.0); MEAN CORPUSCULAR HGB CONC 33.7 g/dl (32.0-36.5); MEAN CORPUSCULAR VOLUME 84.2 fl (80.0-96.0); MONO # 1.2 10^3/uL (0.0-0.8); NEUTROPHILS # 8.6 10^3/uL (1.8-7.7); NEUTROPHILS % 76.1 % (36.0-66.0); PLATELET COUNT, AUTOMATED 261 10^3/uL (150-450); RED BLOOD COUNT 4.19 10^6/uL (4.30-6.10); WHITE BLOOD COUNT 11.3 10^3/uL (4.0-10.0)
[2019-06-26 01:42] LABS: BLOOD UREA NITROGEN 15 MG/DL (7-18); CALCIUM LEVEL 8.1 MG/DL (8.8-10.2); CARBON DIOXIDE LEVEL 23 MEQ/L (21-32); CHLORIDE LEVEL 112 MEQ/L (98-107); CK-MB VALUE MASS 1.2 NG/ML (<3.6); CPK CREATINE PHOSPHOKINASE 102 U/L (39-308); CREATININE FOR GFR 2.19 MG/DL (0.70-1.30); GLOMERULAR FILTRATION RATE 32.8 (>49); GLUCOSE, FASTING 79 MG/DL (70-100); MB/CK RELATIVE INDEX 1.18 (< OR =4); POTASSIUM SERUM 3.4 MEQ/L (3.5-5.1); SODIUM LEVEL 144 MEQ/L (136-145); TROPONIN I < 0.02 NG/ML (< 0.10)
[2019-06-26] MEDS ORDERED: NS 1,000 ML IV ONE (03:00)
[2019-06-26 05:41] VITALS: BP 99/58
--- NOTE | 2019-06-26 07:08 | ECGEPIP ---
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
--- NOTE | 2019-06-26 07:54 | REP ---
Clinical: Chest pain. Comparison: 05/14/2019. Findings: Cardiomegaly is again appreciated along with suspected pericardial fat pad along the right cardiac margin. Lung noble demonstrate stable chronic changes. No acute consolidation, effusion, or pneumothorax. Impression: 1. Cardiomegaly and stable pericardial fat pad. 2. No acute process. Electronically Signed by Greg Blackwood MD 06/26/2019 07:46 A
== END 2019-06-26 05:59 | disposition home or self-care (01) ==
LOC: M ED 00:35
DX: I95.89 Other hypotension (principal); I11.9 Hypertensive heart disease without heart failure; I25.10 Atherosclerotic heart disease of native coronary artery without angina pectoris; F31.9 Bipolar disorder, unspecified; N28.9 Disorder of kidney and ureter, unspecified; Z95.5 Presence of coronary angioplasty implant and graft; Z88.0 Allergy status to penicillin; Z88.4 Allergy status to anesthetic agent; Z79.899 Other long term (current) drug therapy; Z79.4 Long term (current) use of insulin; Z79.01 Long term (current) use of anticoagulants; Z79.82 Long term (current) use of aspirin

== ENCOUNTER → 2019-06-28 | Outpatient (CLI) | payer MEDICARE, MEDICAID ==
--- NOTE | 2019-06-28 10:54 | REP ---
Clinical: Chronic medical renal disease stage III Technique: Real time louis scale and color evaluation using curved array transducer. Findings: The kidneys are normal in reniform shape with increased central sinus fat and partially calcified renovascular changes consistent with chronic medical renal disease. No hydronephrosis, nephrolithiasis, or renal mass lesion appreciated. Right kidney measures 10.8 x 5.1 x 5.1 cm and includes 1.5 cm complex lower pole cyst with mural nodule. Left kidney measures 12.3 x 4.1 x 4.9 cm. The bladder is unremarkable. Impression: 1. 1.5 cm right lower pole renal cyst appears minimally complex with small mural nodule but essentially unchanged when compared through CT dated 10/25/2016. 2. Chronic medical renal disease. No hydronephrosis. Electronically Signed by Greg Blackwood MD 06/28/2019 10:46 A
== END ==
LOC: M RAD 09:50
PROVIDERS: ATTEND Student in an Organized Health Care Education/Training Program
DX: N18.3 Chronic kidney disease, stage 3 (moderate) (principal)

== ENCOUNTER 2019-07-18 22:18 | Emergency (ER) | payer MEDICARE, MEDICAID ==
[~2019-07-18 22:18] MED LIST changes: +FLUT15.820 NARES; -FLUT50SP21 NARES; +METF-791 PO; -METF500T4 PO
[2019-07-18 23:31] LABS: HEMATOCRIT 41.5 % (42.0-52.0); HEMOGLOBIN 14.1 g/dl (13.5-17.5); MEAN CORPUSCULAR VOLUME 82.5 fl (80.0-96.0); PLATELET COUNT, AUTOMATED 310 10^3/uL (150-450); RED BLOOD COUNT 5.03 10^6/uL (4.30-6.10); WHITE BLOOD COUNT 7.1 10^3/uL (4.0-10.0)
[2019-07-18 23:59] LABS: AMPHETAMINES LEVEL URINE NEGATIVE (NEGATIVE); BARBITURATES URINE NEGATIVE (NEGATIVE); BENZODIAZEPINES URINE NEGATIVE (NEGATIVE); CANNABINOIDS URINE NEGATIVE (NEGATIVE); COCAINE METABOLITE URINE NEGATIVE (NEGATIVE); METHADONE URINE NEGATIVE (NEGATIVE); OPIATES URINE NEGATIVE (NEGATIVE); PHENCYCLIDINE URINE NEGATIVE (NEGATIVE)
[2019-07-19 00:11] LABS: ACETAMINOPHEN LEVEL < 2.0 UG/ML (10.0-30.0); ALBUMIN 3.5 GM/DL (3.2-5.2); ALT/SGPT 19 U/L (12-78); BILIRUBIN,DIRECT < 0.1 MG/DL (0.0-0.2); BILIRUBIN,TOTAL 0.2 MG/DL (0.2-1.0); BLOOD UREA NITROGEN 11 MG/DL (7-18); CALCIUM LEVEL 8.8 MG/DL (8.8-10.2); CARBON DIOXIDE LEVEL 27 MEQ/L (21-32); CHLORIDE LEVEL 111 MEQ/L (98-107); ETHYL ALCOHOL (ETHANOL) < 0.003 % (0.000-0.010); GLOMERULAR FILTRATION RATE > 60.0 (>49); GLUCOSE, FASTING 132 MG/DL (70-100); POTASSIUM SERUM 3.4 MEQ/L (3.5-5.1); SALICYLATE LEVEL < 1.7 MG/DL (5.0-30.0); SODIUM LEVEL 145 MEQ/L (136-145); TOTAL PROTEIN 6.9 GM/DL (6.4-8.2)
[2019-07-19 01:30] VITALS: BP 168/104
== END 2019-07-19 01:36 | disposition home or self-care (01) ==
LOC: M ED 22:18
DX: S81.812A Laceration without foreign body, left lower leg, initial encounter (principal); X58.XXXA Exposure to other specified factors, initial encounter; Y92.9 Unspecified place or not applicable; Y93.9 Activity, unspecified; Y99.9 Unspecified external cause status; Z91.5 Personal history of self-harm; F32.9 Major depressive disorder, single episode, unspecified; Z87.820 Personal history of traumatic brain injury; N18.3 Chronic kidney disease, stage 3 (moderate); Z79.01 Long term (current) use of anticoagulants; Z79.4 Long term (current) use of insulin; Z79.899 Other long term (current) drug therapy; Z88.0 Allergy status to penicillin; Z88.8 Allergy status to other drugs, medicaments and biological substances
CPT/HCPCS: 80048; 80076; 80307; 84443; 85027; 99284; G0480

== ENCOUNTER → 2019-08-03 | Outpatient (REF) | payer MEDICARE ==
[~2019-08-03] MED LIST changes: +ASMA220A INH; +BREO1INH3 INH; +BRIN10TA4 PO; +D200CAP2 PO; +KETO0.02 OP; -OMEP40CA2 PO; +OMEP40CA97 PO
[2019-08-03 14:22] LABS: HEMOGLOBIN A1c 7.4 %
[2019-08-03 14:23] LABS: CHOLESTEROL RISK RATIO 3.19 (<5)
== END ==
LOC: M SFHCPLAZ 11:30
PROVIDERS: ATTEND Family Medicine
DX: E78.5 Hyperlipidemia, unspecified (principal); E11.29 Type 2 diabetes mellitus with other diabetic kidney complication
CPT/HCPCS: 36415; 80061; 83036; G0463

== ENCOUNTER → 2019-08-13 | Outpatient (REF) | payer MEDICARE ==
[~2019-08-13] MED LIST changes: +ASPI1CHW3 PO; -ASPI81CH44 PO; -MECL-68 PO; +MECL1TAB31 PO; +OMEP1CAP73 PO; -OMEP20CA4 PO
[2019-08-13 17:27] LABS: FREE T4 0.97 NG/DL (0.76-1.46); THYROID STIMULATING HORMONE 1.73 uIU/ML (0.358-3.740)
== END ==
LOC: M SFHCPLAZ 12:54
PROVIDERS: ATTEND Family Medicine
DX: R79.89 Other specified abnormal findings of blood chemistry (principal); I10 Essential (primary) hypertension

== ENCOUNTER 2019-08-17 11:53 | Emergency (ER) | payer MEDICARE ==
[~2019-08-17] VITALS: Ht 175.3 cm; Wt 115.0 kg
[~2019-08-17 11:53] MED LIST changes: -ASMA220A INH; -ASPI1CHW3 PO; +ASPI81CH44 PO; -BREO1INH3 INH; -BRIN10TA4 PO; -D200CAP2 PO; -KETO0.02 OP; +MECL-68 PO; -MECL1TAB31 PO; -OMEP1CAP73 PO; +OMEP20CA4 PO
[2019-08-17 12:33] LABS: BASO % 0.5 % (0.0-1.0); EOS % 0.3 % (0.0-3.0); HEMOGLOBIN 13.9 g/dl (13.5-17.5); LYMPH % 13.4 % (24.0-44.0); MEAN CORPUSCULAR HGB CONC 33.9 g/dl (32.0-36.5); MEAN CORPUSCULAR VOLUME 82.7 fl (80.0-96.0); MONO # 0.5 10^3/uL (0.0-0.8); MONO % 6.4 % (0.0-5.0); NEUTROPHILS # 6.1 10^3/uL (1.5-8.5); NEUTROPHILS % 78.8 % (36.0-66.0); PLATELET COUNT, AUTOMATED 287 10^3/uL (150-450); RED BLOOD COUNT 4.96 10^6/uL (4.30-6.10); WHITE BLOOD COUNT 7.8 10^3/uL (4.0-10.0)
[2019-08-17] MEDS ORDERED: D200CAP2 PO (12:33)
[2019-08-17] MEDS ORDERED: TROS20TA3 PO (12:33)
[2019-08-17] MEDS ORDERED: AMBI10TA PO (12:33)
[2019-08-17] MEDS ORDERED: KETO0.02 OP (12:33)
[2019-08-17] MEDS ORDERED: ASMA220A INH (12:33)
[2019-08-17] MEDS ORDERED: TRUL0.5I SC (12:33)
[2019-08-17] MEDS ORDERED: BRIN10TA4 PO (12:33)
[2019-08-17] MEDS ORDERED: BREO1INH3 INH (12:33)
--- NOTE | 2019-08-17 12:56 | REP ---
CHEST, SINGLE VIEW: Single view of the chest is performed. No acute infiltrate is seen. Prominent right cardiophrenic fat pad is again noted unchanged. Mediastinal silhouette is unchanged. IMPRESSION: No acute infiltrate. Electronically Signed by Jaziel George MD 08/17/2019 06:49 P
[2019-08-17 13:29] LABS: ALBUMIN 3.3 GM/DL (3.2-5.2); ALT/SGPT 18 U/L (12-78); BILIRUBIN,DIRECT 0.1 MG/DL (0.0-0.2); BILIRUBIN,TOTAL 0.5 MG/DL (0.2-1.0); CK-MB VALUE MASS 1.1 NG/ML (<3.6); CPK CREATINE PHOSPHOKINASE 66 U/L (39-308); LIPASE 134 U/L (73-393); MB/CK RELATIVE INDEX 1.67 (< OR =4); TOTAL PROTEIN 6.2 GM/DL (6.4-8.2); TROPONIN I < 0.02 NG/ML (< 0.10)
[2019-08-17 13:45] VITALS: BP 150/91
[2019-08-17] MEDS ORDERED: METOPROLOL SUCC *XL* 25MG TAB (TopROL *XL*) PO ONE (14:00)
--- NOTE | 2019-08-17 19:11 | ECGEPIP ---
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
== END 2019-08-17 14:17 | disposition home or self-care (01) ==
LOC: M ED 11:53 → EDBD 11:53 → M ED 14:17
DX: I12.9 Hypertensive chronic kidney disease with stage 1 through stage 4 chronic kidney disease, or unspecified chronic kidney disease (principal); E11.9 Type 2 diabetes mellitus without complications; E78.5 Hyperlipidemia, unspecified; N18.3 Chronic kidney disease, stage 3 (moderate); N40.0 Benign prostatic hyperplasia without lower urinary tract symptoms; Z79.899 Other long term (current) drug therapy; Z79.82 Long term (current) use of aspirin; Z79.4 Long term (current) use of insulin; Z79.01 Long term (current) use of anticoagulants; Z88.0 Allergy status to penicillin; Z88.4 Allergy status to anesthetic agent
CPT/HCPCS: 36415; 71045; 80047; 80076; 82550; 82553; 83690; 84484; 85025; 93005; 93041; 94760; 99285; G0463

== ENCOUNTER → 2019-09-03 | Outpatient (CLI) | payer MEDICARE ==
[~2019-09-03] MED LIST changes: +ASMA220A INH; +BREO1INH3 INH; +BRIN10TA4 PO; +D200CAP2 PO; +KETO0.02 OP; +OMEP40CA2 PO; -OMEP40CA97 PO
--- NOTE | 2019-09-05 10:19 | SLEEPCENT ---
DATE OF STUDY: 09/03/2019 ORDERED BY: Malena Abernathy MD Nocturnal polysomnography was performed for evaluation of sleep physiology in this patient with a prior history of obstructive sleep apnea syndrome. 7 hours and 23 minutes of data were reviewed. There were 292 minutes of sleep identified. Sleep latency was prolonged at 44.5 minutes. Rapid eye movement (REM) latency was normal at 71 minutes. Sleep architecture was fair with 2 REM cycles. Overall sleep efficiency was 66.7%. The patient's electrocardiogram showed a sinus rhythm with an average heart rate of 68 beats per minute. Electroencephalogram (EEG) showed fairly normal waveforms for awake and sleep stages. There were 80 respiratory events identified of 10 seconds in duration or greater for an apnea-hypopnea index of 16.4. The events were obstructive not exclusive to sleep stage more frequent in the supine posture. Arousals from respiratory events occurred 3.1 times per hour and oxygen desaturations were seen into the low 80s. Snoring was noted over the course of the study and remaining measures of sleep physiology were normal. IMPRESSION: Obstructive sleep apnea syndrome (G47.33). Apnea-hypopnea index 16.4. RECOMMENDATIONS: The patient should be encouraged to undergo continuous positive airway pressure (CPAP) titration. In the interim, alcohol and sedative avoidance should be practiced and caution exercised during operation of motor vehicles.
== END ==
LOC: M SLEEP 19:08
PROVIDERS: ATTEND Internal Medicine Pulmonary Disease
DX: G47.33 Obstructive sleep apnea (adult) (pediatric) (principal)

== ENCOUNTER → 2019-09-24 | Outpatient (CLI) | payer MEDICAID, MEDICARE ==
[~2019-09-24] MED LIST changes: -OMEP40CA2 PO; +OMEP40CA97 PO
--- NOTE | 2019-09-25 17:10 | SLEEPCENT ---
DATE OF PROCEDURE: 09/24/2019 ORDERED BY: Malena Abernathy MD Nocturnal polysomnography was performed for re-titration of pressure therapy in this patient with obstructive sleep apnea syndrome. Apnea-hypopnea index of 16.4. For testing a Reelation full face mask of medium size was used, 5 cm of water pressure were applied to the circuit and the lights were extinguished. 7 hours and 39 minutes of data were reviewed. There were 394 minutes of sleep identified. Sleep latency was mildly prolonged at 17 minutes. Rapid eye movement (REM) latency was prolonged 67.5 minutes. Sleep architecture was good with three REM cycles. Overall sleep efficiency 86.6%. The patient's electrocardiogram showed a sinus rhythm with an average heart rate of 62 beats per minute. EEG showed normal waveforms for awake and sleep stages. Respiratory events were fully palliated with continuous positive airway pressure (CPAP) at a pressure of +8. There was some minor limb activity. IMPRESSION: Obstructive sleep apnea syndrome (G47.33). RECOMMENDATIONS: Nightly use of pressure therapy 8 cm of water.
== END ==
LOC: M SLEEP 18:49
PROVIDERS: ATTEND Internal Medicine Pulmonary Disease
DX: G47.33 Obstructive sleep apnea (adult) (pediatric) (principal)

== ENCOUNTER 2019-09-25 07:17 | Outpatient (RCR) | payer MEDICAID, MEDICARE | END 2019-09-27 | LOC: M PT 07:17 | PROVIDERS: ATTEND Obstetrics & Gynecology | DX: M54.41 Lumbago with sciatica, right side (principal) ==

== ENCOUNTER 2019-10-23 09:14 | Outpatient (RCR) | payer MEDICARE | END 2019-10-27 | LOC: M PT 09:14 | PROVIDERS: ATTEND Obstetrics & Gynecology | DX: Z47.89 Encounter for other orthopedic aftercare (principal) ==

== ENCOUNTER → 2019-11-16 | Outpatient (CLI) | payer MEDICARE ==
[~2019-11-16] MED LIST changes: +OMEP-172 PO; -OMEP20CA4 PO
[2019-11-16 13:32] LABS: HEMOGLOBIN A1c 6.9 %
== END ==
LOC: M LAB 11:44
PROVIDERS: ATTEND Student in an Organized Health Care Education/Training Program
DX: E11.43 Type 2 diabetes mellitus with diabetic autonomic (poly)neuropathy (principal)

== ENCOUNTER 2020-01-20 15:51 | Emergency (ER) | payer OTHER, MEDICAID ==
[~2020-01-20] VITALS: Ht 175.3 cm; Wt 114.1 kg
[~2020-01-20 15:51] MED LIST changes: +ASPI1CHW3 PO; -ASPI81CH44 PO; -MECL-68 PO; +MECL1TAB31 PO; -OMEP-172 PO; +OMEP1CAP73 PO
[2020-01-20] MEDS ORDERED: melatonin (16:12)
[2020-01-20 16:30] VITALS: BP 143/85
--- NOTE | 2020-01-20 17:13 | REP ---
Right tibia-fibula four views : There is no fracture or dislocation. Mineralization and joint spaces are normal. There are no calcifications or foreign bodies. There is an accessory ossicle at the tip of the fibula. Impression: Negative right tibia-fibula . Electronically Signed by Jaziel Cheney MD 01/20/2020 05:04 P
--- NOTE | 2020-01-20 17:14 | REP ---
Right ankle four views: There is no fracture or dislocation. Mineralization and joint spaces are normal. There are no calcifications or foreign bodies. Line there is an accessory ossicle at the tip of the fibula. Impression: Negative right ankle . Electronically Signed by Jaziel Cheney MD 01/20/2020 05:06 P
--- NOTE | 2020-01-20 17:16 | REP ---
Right foot four views: I suspect circumferential soft tissue edema of the forefoot. This should be confirmed clinically. There is no fracture or dislocation. Mineralization and joint spaces are unremarkable. There are no calcifications or foreign bodies. Impression: Probable circumferential soft tissue edema of the forefoot. This should be confirmed clinically. No fracture or dislocation. Electronically Signed by Jaziel Cheney MD 01/20/2020 05:07 P
[2020-01-20] MEDS: ACETAMINOPHEN TAB 650MG DOSE (2X325MG) PO ONE (17:28)
== END 2020-01-20 18:09 | disposition home or self-care (01) ==
LOC: EDBD 15:51 → M ED 15:51
DX: S93.401A Sprain of unspecified ligament of right ankle, initial encounter (principal); X50.9XXA Other and unspecified overexertion or strenuous movements or postures, initial encounter; Y92.828 Other wilderness area as the place of occurrence of the external cause; Y93.02 Activity, running; Y99.8 Other external cause status; I25.10 Atherosclerotic heart disease of native coronary artery without angina pectoris; E11.9 Type 2 diabetes mellitus without complications; G47.30 Sleep apnea, unspecified; J44.9 Chronic obstructive pulmonary disease, unspecified; I10 Essential (primary) hypertension; F31.9 Bipolar disorder, unspecified; F60.3 Borderline personality disorder; Z79.4 Long term (current) use of insulin; Z79.82 Long term (current) use of aspirin; Z79.899 Other long term (current) drug therapy; Z79.51 Long term (current) use of inhaled steroids; Z88.0 Allergy status to penicillin; Z88.4 Allergy status to anesthetic agent; Z86.79 Personal history of other diseases of the circulatory system

== ENCOUNTER → 2020-04-03 | Outpatient (CLI) | payer MEDICAID, MEDICARE ==
[~2020-04-03] MED LIST changes: +AMLO1TAB24 PO; +ASPI-161 PO; -ASPI81TA85 PO; +ASPI81TA86 PO; +BRIN1TAB3 PO; +BUSP5TA PO; -CLIN150C14 PO; +CLIN150C15 PO; +CYAN100050 PO; +CYCL-707 PO; -CYCL10TA PO; +D31000TA2 PO; +EQ A1CRE3 TOP; +GABA-282 PO; -GABA-843 PO; +GABA800T4 PO; +ISOS1TAB35 PO; -ISOS30TA4 PO; -LISI40TA PO; +LISI40TA4 PO; -METF-699 PO; -METF-791 PO; +METF-817 PO; +METF-838 PO; +PANT40TA29 PO; -PANT40TA3 PO; +PEG1POW PO; +PERCOCET PO; -TERB1CRE12 TOP; +melatonin
== END ==
LOC: M LABSMTC 10:14
PROVIDERS: ATTEND Family Medicine
DX: Z11.59 Encounter for screening for other viral diseases (principal); Z20.828 Contact with and (suspected) exposure to other viral communicable diseases

== ENCOUNTER → 2020-05-02 | Outpatient (REF) | payer MEDICARE ==
[~2020-05-02] MED LIST changes: -AMLO1TAB24 PO; -ASPI-161 PO; +ASPI81TA85 PO; -ASPI81TA86 PO; -BRIN1TAB3 PO; -BUSP5TA PO; +CLIN150C14 PO; -CLIN150C15 PO; -CYAN100050 PO; -D31000TA2 PO; -GABA-282 PO; +GABA-843 PO; -GABA800T4 PO; -ISOS1TAB35 PO; +ISOS30TA4 PO; +LISI40TA PO; -LISI40TA4 PO; +METF-699 PO; -METF-817 PO; -PANT40TA29 PO; +PANT40TA3 PO; -PEG1POW PO; -PERCOCET PO
[2020-05-02 17:31] LABS: HEMATOCRIT 45.9 % (42.0-52.0); HEMOGLOBIN 14.5 g/dl (13.5-17.5); MEAN CORPUSCULAR HEMOGLOBIN 26.8 pg (27.0-33.0); MEAN CORPUSCULAR HGB CONC 31.6 g/dl (32.0-36.5); MEAN CORPUSCULAR VOLUME 84.8 fl (80.0-96.0); PLATELET COUNT, AUTOMATED 280 10^3/uL (150-450); RED BLOOD COUNT 5.41 10^6/uL (4.30-6.10); WHITE BLOOD COUNT 7.5 10^3/uL (4.0-10.0)
[2020-05-02 18:06] LABS: ALBUMIN 3.7 GM/DL (3.2-5.2); ALT/SGPT 23 U/L (12-78); BILIRUBIN,TOTAL 0.5 MG/DL (0.2-1.0); BLOOD UREA NITROGEN 10 MG/DL (7-18); CALCIUM LEVEL 8.9 MG/DL (8.8-10.2); CARBON DIOXIDE LEVEL 29 MEQ/L (21-32); CHLORIDE LEVEL 108 MEQ/L (98-107); CHOLESTEROL LEVEL 104 MG/DL (<200); CHOLESTEROL RISK RATIO 2.971 (<5); CREATININE FOR GFR 1.08 MG/DL (0.70-1.30); GLOMERULAR FILTRATION RATE > 60.0 (>49); GLUCOSE, FASTING 114 MG/DL (70-100); HDL CHOLESTEROL 35 MG/DL (>40); LDL CHOLESTEROL 52 MG/DL (<100); NON-HDL-C 69 MG/DL; POTASSIUM SERUM 4.1 MEQ/L (3.5-5.1); SODIUM LEVEL 144 MEQ/L (136-145); TOTAL PROTEIN 6.9 GM/DL (6.4-8.2); TRIGLYCERIDES LEVEL 84 MG/DL (<150)
[2020-05-02 18:12] LABS: VITAMIN B12 LEVEL 198 PG/ML (247-911)
== END ==
LOC: M SFHCPLAZ 14:54
DX: E11.43 Type 2 diabetes mellitus with diabetic autonomic (poly)neuropathy (principal); I12.9 Hypertensive chronic kidney disease with stage 1 through stage 4 chronic kidney disease, or unspecified chronic kidney disease; N18.3 Chronic kidney disease, stage 3 (moderate); E78.5 Hyperlipidemia, unspecified

== ENCOUNTER 2020-07-11 14:30 | Inpatient (IN) | payer MEDICARE, MEDICAID ==
[~2020-07-11] VITALS: Ht 175.3 cm; Wt 113.0 kg
[~2020-07-11 14:30] MED LIST changes: -ASPI81TA85 PO; +ASPI81TA86 PO; -METF-699 PO; +METF-817 PO; +PANT40TA29 PO; -PANT40TA3 PO
[2020-07-11] MEDS ORDERED: KETOROLAC 60MG 2ML VIAL As Ordered ONE (17:14)
[2020-07-11] MEDS ORDERED: MORPHINE 4 MG/ML 1ML VIAL/SYRINGE (J2270) As Ordered ONE (18:15)
[2020-07-11] MEDS ORDERED: lisinopriL 10 MG TAB As Ordered ONE (22:33)
[2020-07-11] MEDS ORDERED: LABETALOL 100MG/20ML VIAL As Ordered ONE (22:33)
[2020-07-12] MEDS ORDERED: SPIRONOLACTONE 25 MG TAB As Ordered ONE (01:56)
[2020-07-12] MEDS ORDERED: POTASSIUM CHLORIDE 10 MEQ SR TABLET As Ordered ONE ×2 (01:56→12:50)
[2020-07-12] MEDS ORDERED: METOPROLOL SUCC *XL* 25MG TAB (TopROL *XL*) As Ordered ONE ×2 (01:56→10:11)
[2020-07-12] MEDS ORDERED: GABAPENTIN 300 MG CAP As Ordered ONE ×3 (01:56→20:22)
[2020-07-12] MEDS ORDERED: PERCOCET 5MG/325MG TAB As Ordered ONE ×4 (01:57→17:56)
[2020-07-12] MEDS ORDERED: ASPIRIN 81 MG CHEW TABLET As Ordered ONE (10:07)
[2020-07-12] MEDS ORDERED: ATORVASTATIN 20 MG TAB As Ordered ONE (10:07)
[2020-07-12] MEDS ORDERED: CYANOCOBALAMIN 500 MCG TAB As Ordered ONE (10:07)
[2020-07-12] MEDS ORDERED: MULTIVITAMINS/MINERALS THERAP 1 TAB As Ordered ONE (10:08)
[2020-07-12] MEDS ORDERED: HumaLOG INSULIN (NovoLOG) PER UNIT As Ordered ONE ×3 (10:08→17:56)
[2020-07-12] MEDS ORDERED: OMEPRAZOLE 20 MG CAP As Ordered ONE (10:09)
[2020-07-12] MEDS ORDERED: VITAMIN D 1,000 INTERNATIONAL UNITS TABLET As Ordered ONE (10:09)
[2020-07-12] MEDS ORDERED: TAMSULOSIN 0.4 MG CAP As Ordered ONE (10:10)
[2020-07-12] MEDS ORDERED: amLODIPine 5 MG TAB As Ordered ONE (10:10)
[2020-07-12] MEDS ORDERED: APIXABAN 5 MG TAB (ELIQUIS) As Ordered ONE ×2 (10:10→20:22)
[2020-07-12] MEDS ORDERED: MIRALAX *UNIT DOSE* 17GM PACKET As Ordered ONE (10:10)
[2020-07-12] MEDS ORDERED: lisinopriL 40 MG TAB As Ordered ONE (10:11)
[2020-07-12] MEDS ORDERED: DOCUSATE SOD LIQ 100MG/10ML UDC As Ordered ONE (10:11)
[2020-07-12] MEDS ORDERED: LORATADINE 10 MG TAB As Ordered ONE (10:11)
[2020-07-12] MEDS ORDERED: FUROSEMIDE 40 MG TAB As Ordered ONE (10:12)
[2020-07-12] MEDS ORDERED: busPIRone 10 MG TAB As Ordered ONE ×2 (10:12→20:22)
[2020-07-12] MEDS ORDERED: LEVEMIR (INSULIN DETEMIR) 1 UNITS/0.01ML As Ordered ONE ×2 (10:13→20:25)
[2020-07-12] MEDS ORDERED: DOCUSATE SODIUM 100 MG CAP As Ordered ONE ×2 (10:50→20:21)
[2020-07-12] MEDS ORDERED: METOPROLOL TART 25 MG TABLET As Ordered ONE ×2 (10:51→20:22)
[2020-07-13] MEDS ORDERED: PERCOCET 5MG/325MG TAB As Ordered ONE ×4 (05:19→18:29)
[2020-07-13] MEDS ORDERED: ATORVASTATIN 20 MG TAB As Ordered ONE (09:21)
[2020-07-13] MEDS ORDERED: ASPIRIN 81 MG CHEW TABLET As Ordered ONE (09:21)
[2020-07-13] MEDS ORDERED: CYANOCOBALAMIN 500 MCG TAB As Ordered ONE (09:21)
[2020-07-13] MEDS ORDERED: MULTIVITAMINS/MINERALS THERAP 1 TAB As Ordered ONE (09:22)
[2020-07-13] MEDS ORDERED: OMEPRAZOLE 20 MG CAP As Ordered ONE (09:22)
[2020-07-13] MEDS ORDERED: VITAMIN D 1,000 INTERNATIONAL UNITS TABLET As Ordered ONE (09:22)
[2020-07-13] MEDS ORDERED: MIRALAX *UNIT DOSE* 17GM PACKET As Ordered ONE (09:22)
[2020-07-13] MEDS ORDERED: GABAPENTIN 300 MG CAP As Ordered ONE (09:22)
[2020-07-13] MEDS ORDERED: DOCUSATE SODIUM 100 MG CAP As Ordered ONE ×2 (09:22→20:19)
[2020-07-13] MEDS ORDERED: amLODIPine 5 MG TAB As Ordered ONE (09:23)
[2020-07-13] MEDS ORDERED: APIXABAN 5 MG TAB (ELIQUIS) As Ordered ONE ×2 (09:23→20:20)
[2020-07-13] MEDS ORDERED: METOPROLOL TART 25 MG TABLET As Ordered ONE ×2 (09:23→20:20)
[2020-07-13] MEDS ORDERED: TAMSULOSIN 0.4 MG CAP As Ordered ONE (09:23)
[2020-07-13] MEDS ORDERED: LORATADINE 10 MG TAB As Ordered ONE (09:24)
[2020-07-13] MEDS ORDERED: FUROSEMIDE 40 MG TAB As Ordered ONE (09:24)
[2020-07-13] MEDS ORDERED: busPIRone 10 MG TAB As Ordered ONE ×2 (09:24→20:20)
[2020-07-13] MEDS ORDERED: HumaLOG INSULIN (NovoLOG) PER UNIT As Ordered ONE ×2 (13:10→18:04)
[2020-07-13] MEDS ORDERED: POTASSIUM CHLORIDE 10% LIQ 20 MEQ/15 ML UDC As Ordered ONE (20:19)
[2020-07-14] MEDS ORDERED: PERCOCET 5MG/325MG TAB As Ordered ONE ×5 (01:58→22:09)
[2020-07-14] MEDS ORDERED: ASPIRIN 81 MG CHEW TABLET As Ordered ONE (08:01)
[2020-07-14] MEDS ORDERED: CYANOCOBALAMIN 500 MCG TAB As Ordered ONE (08:02)
[2020-07-14] MEDS ORDERED: DOCUSATE SODIUM 100 MG CAP As Ordered ONE ×2 (08:02→22:04)
[2020-07-14] MEDS ORDERED: ATORVASTATIN 20 MG TAB As Ordered ONE (08:02)
[2020-07-14] MEDS ORDERED: MULTIVITAMINS/MINERALS THERAP 1 TAB As Ordered ONE (08:04)
[2020-07-14] MEDS ORDERED: HumaLOG INSULIN (NovoLOG) PER UNIT As Ordered ONE ×3 (08:04→17:19)
[2020-07-14] MEDS ORDERED: GABAPENTIN 300 MG CAP As Ordered ONE ×2 (08:04→22:04)
[2020-07-14] MEDS ORDERED: VITAMIN D 1,000 INTERNATIONAL UNITS TABLET As Ordered ONE ×2 (08:05→08:13)
[2020-07-14] MEDS ORDERED: APIXABAN 5 MG TAB (ELIQUIS) As Ordered ONE ×2 (08:05→22:04)
[2020-07-14] MEDS ORDERED: OMEPRAZOLE 20 MG CAP As Ordered ONE (08:05)
[2020-07-14] MEDS ORDERED: MIRALAX *UNIT DOSE* 17GM PACKET As Ordered ONE (08:05)
[2020-07-14] MEDS ORDERED: busPIRone 10 MG TAB As Ordered ONE ×2 (08:06→22:05)
[2020-07-14] MEDS ORDERED: amLODIPine 5 MG TAB As Ordered ONE (08:06)
[2020-07-14] MEDS ORDERED: METOPROLOL TART 25 MG TABLET As Ordered ONE ×2 (08:06→22:05)
[2020-07-14] MEDS ORDERED: lisinopriL 40 MG TAB As Ordered ONE (08:06)
[2020-07-14] MEDS ORDERED: TAMSULOSIN 0.4 MG CAP As Ordered ONE (08:06)
[2020-07-14] MEDS ORDERED: LORATADINE 10 MG TAB As Ordered ONE (08:06)
[2020-07-14] MEDS ORDERED: FUROSEMIDE 40 MG TAB As Ordered ONE (08:07)
[2020-07-14] MEDS ORDERED: ADVAIR HFA 230/21MCG INHALER ONE (10:00)
[2020-07-15] MEDS ORDERED: ASPIRIN 81 MG CHEW TABLET As Ordered ONE (09:32)
[2020-07-15] MEDS ORDERED: CYANOCOBALAMIN 500 MCG TAB As Ordered ONE (09:33)
[2020-07-15] MEDS ORDERED: DOCUSATE SODIUM 100 MG CAP As Ordered ONE (09:33)
[2020-07-15] MEDS ORDERED: ATORVASTATIN 20 MG TAB As Ordered ONE (09:33)
[2020-07-15] MEDS ORDERED: VITAMIN D 1,000 INTERNATIONAL UNITS TABLET As Ordered ONE (09:34)
[2020-07-15] MEDS ORDERED: HumaLOG INSULIN (NovoLOG) PER UNIT As Ordered ONE ×3 (09:34→18:28)
[2020-07-15] MEDS ORDERED: OMEPRAZOLE 20 MG CAP As Ordered ONE (09:34)
[2020-07-15] MEDS ORDERED: MULTIVITAMINS/MINERALS THERAP 1 TAB As Ordered ONE (09:34)
[2020-07-15] MEDS ORDERED: GABAPENTIN 300 MG CAP As Ordered ONE (09:34)
[2020-07-15] MEDS ORDERED: MIRALAX *UNIT DOSE* 17GM PACKET As Ordered ONE (09:34)
[2020-07-15] MEDS ORDERED: amLODIPine 5 MG TAB As Ordered ONE (09:35)
[2020-07-15] MEDS ORDERED: METOPROLOL TART 25 MG TABLET As Ordered ONE (09:35)
[2020-07-15] MEDS ORDERED: LORATADINE 10 MG TAB As Ordered ONE (09:35)
[2020-07-15] MEDS ORDERED: APIXABAN 5 MG TAB (ELIQUIS) As Ordered ONE (09:35)
[2020-07-15] MEDS ORDERED: TAMSULOSIN 0.4 MG CAP As Ordered ONE (09:35)
[2020-07-15] MEDS ORDERED: lisinopriL 40 MG TAB As Ordered ONE (09:35)
[2020-07-15] MEDS ORDERED: busPIRone 10 MG TAB As Ordered ONE (09:36)
[2020-07-15] MEDS ORDERED: FUROSEMIDE 40 MG TAB As Ordered ONE (09:36)
[2020-07-15] MEDS ORDERED: PERCOCET 5MG/325MG TAB As Ordered ONE ×2 (09:36→18:28)
[2020-07-15] MEDS ORDERED: ADVAIR HFA 230/21MCG INHALER ONE (10:00)
[2020-07-15] MEDS ORDERED: BRIN1TAB3 PO (13:07)
[2020-07-15] MEDS ORDERED: AMLO1TAB24 PO (13:07)
[2020-07-15] MEDS ORDERED: ASPI-161 PO (13:07)
[2020-07-15] MEDS ORDERED: FLOM0.4C39 PO (13:12)
[2020-07-15] MEDS ORDERED: BREO1INH3 INH (13:12)
[2020-07-15] MEDS ORDERED: CYAN100050 PO (13:12)
[2020-07-15] MEDS ORDERED: GABA800T4 PO (13:12)
[2020-07-15] MEDS ORDERED: D31000TA2 PO (13:12)
[2020-07-15] MEDS ORDERED: BISACODYL 5 MG TAB PO PRN (13:15)
[2020-07-15] MEDS ORDERED: FLUTICASONE PROP 0.05% NASAL SPRAY 16 GM (FLONASE) NARES PRN (13:15)
[2020-07-15] MEDS ORDERED: DEXTROSE 50% 50 ML SYRINGE IV PRN (13:15)
[2020-07-15] MEDS ORDERED: GLUCOSE 4GM CHEW TABLET PO PRN (13:15)
[2020-07-15] MEDS ORDERED: GLUCAGON INJ 1MG VIAL SC PRN (13:15)
[2020-07-15] MEDS ORDERED: ACETAMINOPHEN TAB 650MG DOSE (2X325MG) PO PRN (13:15)
[2020-07-15] MEDS ORDERED: ONDANSETRON 4 MG TAB PO PRN (13:15)
[2020-07-15] MEDS ORDERED: SENNA 8.6 MG TAB (SENOKOT) PO PRN (20:45)
[2020-07-15] MEDS: HumaLOG INSULIN (NovoLOG) PER UNIT SC SCH (21:00)
[2020-07-15 21:25] LABS: HEMATOCRIT 42.8 % (42.0-52.0); HEMOGLOBIN 14.4 g/dl (13.5-17.5); MEAN CORPUSCULAR HEMOGLOBIN 28.1 pg (27.0-33.0); MEAN CORPUSCULAR HGB CONC 33.6 g/dl (32.0-36.5); MEAN CORPUSCULAR VOLUME 83.4 fl (80.0-96.0); PLATELET COUNT, AUTOMATED 271 10^3/uL (150-450); RED BLOOD COUNT 5.13 10^6/uL (4.30-6.10); WHITE BLOOD COUNT 7.5 10^3/uL (4.0-10.0)
[2020-07-15] MEDS: GABAPENTIN 300 MG CAP PO SCH (21:40)
[2020-07-15] MEDS: busPIRone 10 MG TAB PO SCH (21:40)
[2020-07-15] MEDS: METOPROLOL TART 25 MG TABLET PO SCH (21:40)
[2020-07-15] MEDS: DOCUSATE SODIUM 100 MG CAP PO SCH (21:40)
[2020-07-15] MEDS: APIXABAN 5 MG TAB (ELIQUIS) PO SCH (21:40)
[2020-07-15 22:00] VITALS: BP 130/65
[2020-07-15] MEDS ORDERED: MORPHINE 2 MG/ML 1ML VIAL (J2270) ONE (22:05)
[2020-07-15] MEDS: MORPHINE 2 MG/ML 1ML VIAL (J2270) IV PRN (22:08)
[2020-07-16 06:00] VITALS: BP 120/80
[2020-07-16] MEDS: MORPHINE 2 MG/ML 1ML VIAL (J2270) IV PRN ×2 (06:24→09:59)
[2020-07-16 07:26] LABS: BLOOD UREA NITROGEN 21 MG/DL (7-18); CALCIUM LEVEL 8.9 MG/DL (8.8-10.2); CARBON DIOXIDE LEVEL 30 MEQ/L (21-32); CHLORIDE LEVEL 105 MEQ/L (98-107); CREATININE FOR GFR 1.04 MG/DL (0.70-1.30); GLOMERULAR FILTRATION RATE > 60.0 (>49); GLUCOSE, FASTING 168 MG/DL (70-100); POTASSIUM SERUM 3.8 MEQ/L (3.5-5.1); SODIUM LEVEL 140 MEQ/L (136-145)
[2020-07-16] MEDS: ADVAIR HFA 230/21MCG INHALER INH SCH ×2 (08:13→19:57)
[2020-07-16] MEDS: ASPIRIN 81 MG CHEW TABLET PO SCH (08:29)
[2020-07-16] MEDS: lisinopriL 40 MG TAB PO SCH (08:29)
[2020-07-16] MEDS: busPIRone 10 MG TAB PO SCH ×2 (08:29→20:35)
[2020-07-16] MEDS: HumaLOG INSULIN (NovoLOG) PER UNIT SC SCH ×4 (08:29→21:00)
[2020-07-16] MEDS: TAMSULOSIN 0.4 MG CAP PO SCH (08:29)
[2020-07-16] MEDS: GABAPENTIN 300 MG CAP PO SCH ×2 (08:30→20:36)
[2020-07-16] MEDS: amLODIPine 5 MG TAB PO SCH (08:30)
[2020-07-16] MEDS: MULTIVITAMINS/MINERALS THERAP 1 TAB PO SCH (08:30)
[2020-07-16] MEDS: APIXABAN 5 MG TAB (ELIQUIS) PO SCH ×2 (08:30→20:35)
[2020-07-16] MEDS: DOCUSATE SODIUM 100 MG CAP PO SCH ×2 (08:31→20:36)
[2020-07-16] MEDS: CYANOCOBALAMIN 500 MCG TAB PO SCH (08:32)
[2020-07-16] MEDS: VITAMIN D 1,000 INTERNATIONAL UNITS TABLET PO SCH (08:32)
[2020-07-16] MEDS: METOPROLOL TART 25 MG TABLET PO SCH ×2 (08:32→20:36)
[2020-07-16] MEDS: OMEPRAZOLE 20 MG CAP PO SCH (08:33)
[2020-07-16] MEDS: LORATADINE 10 MG TAB PO SCH (08:33)
[2020-07-16] MEDS: ATORVASTATIN 20 MG TAB PO SCH (08:33)
[2020-07-16] MEDS: FUROSEMIDE 40 MG TAB PO SCH (08:33)
[2020-07-16] MEDS ORDERED: MIRALAX *UNIT DOSE* 17GM PACKET PO SCH (09:00)
[2020-07-16] MEDS: PERCOCET 5MG/325MG TAB PO PRN ×2 (14:01→18:04)
[2020-07-16 14:30] VITALS: BP 118/80
--- NOTE | 2020-07-16 20:28 | IPNPDOC ---
Date Seen The patient was seen on 07/16/20. Progress Note SUBJECTIVE: Patient is a 60-year-old male with obesity and L4 compression fracture. He was seen by orthopedics on admission and was recommended back brace and physical therapy. No events overnight. Today he denies fever/chills, chest pain, shortness of breath, or dysuria. He has constipation and low back pain. OBJECTIVE PHYSICAL EXAMINATION: VITAL SIGNS: Please see below. GENERAL: Comfortable HEENT: Head normocephalic, atraumatic, EOMI, Sclera clear CARDIOVASCULAR: Regular rate and rhythm RESPIRATORY: Lungs clear to auscultation bilaterally ABDOMINAL: Soft, decreased bowel sounds EXTREMITIES: No pitting edema NEUROLOGICAL: CN3-12 grossly intact PSYCHOLOGICAL: Normal mood and affect LABORATORY DATA, IMAGING STUDIES, MICROBIOLOGY: Please see below. DVT prophylaxis ordered?: Y ASSESSMENT AND PLAN: This is a 60-year-old male with obesity here with L4 fracture. Orthopedics has seen patient. Plan for non-surgical management. Recommending back brace and physical therapy. Plan for home with home joe. PROBLEMS: 1. L4 compression fracture - Seen by orthopedics, recommend non-surgical management 2. Hypokalemia - Improved. Continue to monitor 3. CVA and history of atrial fibrillation - Continue Eliquis 4. HTN - Lisinopril, metoprolol, amlodipine, and spironolactone 5. CHF - Lasix, spironolactone - Appears compensated 6. DM - Levemir and sliding scale insulin 7. DVT ppx - On Eliquis DISPOSITION: Continue on floor VS, I&O, 24H, Fishbone Vital Signs/I&O Vital Signs Date Time Temp Pulse Resp B/P (MAP) Pulse Ox O2 Delivery O2 Flow Rate FiO2 07/16/20 18:34 18 07/16/20 14:30 98.2 96 118/80 (93) 94 Room Air I&O- Last 24 Hours up to 6 AM 07/16/20 06:00 Intake Total 355 ml Output Total 390 ml Balance -35 ml Laboratory Data 24H LABS Laboratory Tests 2 07/16/20 06:36: Anion Gap 5L, Glomerular Filtration Rate > 60.0, Calcium Level 8.9 CBC/BMP Laboratory Tests 07/16/20 06:36 LANIE HUDSON DO Jul 16, 2020 20:28
[2020-07-16] MEDS: oxyCODONE 5MG TAB PO PRN (20:35)
[2020-07-16] MEDS: MIRALAX *UNIT DOSE* 17GM PACKET PO SCH (20:36)
[2020-07-16 22:00] VITALS: BP 130/80
[2020-07-16 23:32] VITALS: O2SAT 95
[2020-07-17] MEDS: PERCOCET 5MG/325MG TAB PO PRN (03:29)
[2020-07-17 06:00] VITALS: BP 136/86
[2020-07-17 07:41] LABS: BLOOD UREA NITROGEN 21 MG/DL (7-18); CALCIUM LEVEL 8.6 MG/DL (8.8-10.2); CARBON DIOXIDE LEVEL 31 MEQ/L (21-32); CHLORIDE LEVEL 105 MEQ/L (98-107); CREATININE FOR GFR 1.05 MG/DL (0.70-1.30); GLOMERULAR FILTRATION RATE > 60.0 (>49); GLUCOSE, FASTING 189 MG/DL (70-100); MAGNESIUM LEVEL 2.2 MG/DL (1.8-2.4); POTASSIUM SERUM 4.1 MEQ/L (3.5-5.1); SODIUM LEVEL 137 MEQ/L (136-145)
[2020-07-17] MEDS: ADVAIR HFA 230/21MCG INHALER INH SCH ×2 (08:15→18:15)
[2020-07-17] MEDS: MIRALAX *UNIT DOSE* 17GM PACKET PO SCH ×2 (09:56→21:11)
[2020-07-17] MEDS: HumaLOG INSULIN (NovoLOG) PER UNIT SC SCH ×4 (09:56→21:11)
[2020-07-17] MEDS: VITAMIN D 1,000 INTERNATIONAL UNITS TABLET PO SCH (09:57)
[2020-07-17] MEDS: LORATADINE 10 MG TAB PO SCH (09:57)
[2020-07-17] MEDS: OMEPRAZOLE 20 MG CAP PO SCH (10:00)
[2020-07-17] MEDS: MULTIVITAMINS/MINERALS THERAP 1 TAB PO SCH (10:00)
[2020-07-17] MEDS: APIXABAN 5 MG TAB (ELIQUIS) PO SCH ×2 (10:00→21:12)
[2020-07-17] MEDS: amLODIPine 5 MG TAB PO SCH (10:01)
[2020-07-17] MEDS: METOPROLOL TART 25 MG TABLET PO SCH ×2 (10:01→21:12)
[2020-07-17] MEDS: lisinopriL 40 MG TAB PO SCH (10:01)
[2020-07-17] MEDS: GABAPENTIN 300 MG CAP PO SCH ×2 (10:02→21:12)
[2020-07-17] MEDS: CYANOCOBALAMIN 500 MCG TAB PO SCH (10:02)
[2020-07-17] MEDS: TAMSULOSIN 0.4 MG CAP PO SCH (10:02)
[2020-07-17] MEDS: ASPIRIN 81 MG CHEW TABLET PO SCH (10:02)
[2020-07-17] MEDS: DOCUSATE SODIUM 100 MG CAP PO SCH ×2 (10:02→21:12)
[2020-07-17] MEDS: busPIRone 10 MG TAB PO SCH ×2 (10:02→21:11)
[2020-07-17] MEDS: ATORVASTATIN 20 MG TAB PO SCH (10:03)
[2020-07-17] MEDS: FUROSEMIDE 40 MG TAB PO SCH (10:03)
[2020-07-17 12:06] LABS: HEMATOCRIT 43.7 % (42.0-52.0); HEMOGLOBIN 14.4 g/dl (13.5-17.5); MEAN CORPUSCULAR HEMOGLOBIN 27.7 pg (27.0-33.0); PLATELET COUNT, AUTOMATED 283 10^3/uL (150-450); WHITE BLOOD COUNT 7.3 10^3/uL (4.0-10.0)
[2020-07-17] MEDS: oxyCODONE 5MG TAB PO PRN ×2 (12:48→21:13)
[2020-07-17 14:00] VITALS: BP 156/82
--- NOTE | 2020-07-17 18:02 | IPNPDOC ---
Text Note Date of Service The patient was seen on 07/17/20. NOTE SUBJECTIVE: Pain better controlled. Participating with PT. Concerned with going home as he has 22 steps; will continue PT. OBJECTIVE PHYSICAL EXAMINATION: VITAL SIGNS: Please see below. GENERAL: Comfortable HEENT: Head normocephalic, atraumatic, EOMI, Sclera clear CARDIOVASCULAR: Regular rate and rhythm RESPIRATORY: Lungs clear to auscultation bilaterally ABDOMINAL: Soft, decreased bowel sounds EXTREMITIES: No pitting edema. Strength 5/5 BUE, BLE. NEUROLOGICAL: CN3-12 grossly intact PSYCHOLOGICAL: Normal mood and affect LABORATORY DATA, IMAGING STUDIES, MICROBIOLOGY: Please see below. DVT prophylaxis ordered?: Y ASSESSMENT AND PLAN: This is a 60-year-old male with obesity here with L4 fracture. Orthopedics has seen patient. Plan for non-surgical management. Re commending back brace and physical therapy. Plan for home with home joe. PROBLEMS: 1. L4 compression fracture - Seen by orthopedics, recommend non-surgical management - Cont PT 2. Hypokalemia - Improved. Continue to monitor 3. CVA and history of atrial fibrillation - Continue Eliquis 4. HTN - Lisinopril, metoprolol, amlodipine, and spironolactone 5. CHF - Lasix, spironolactone - Appears compensated 6. DM - Levemir and sliding scale insulin 7. DVT ppx - On Eliquis VS,Fishbone, I+O VS, Fishbone, I+O Laboratory Tests 07/17/20 06:57 Vital Signs Date Time Temp Pulse Resp B/P (MAP) Pulse Ox O2 Delivery O2 Flow Rate FiO2 07/17/20 14:00 99.3 94 18 156/82 (106) 91 Room Air I&O- Last 24 Hours up to 6 AM 07/17/20 06:00 Intake Total 600 ml Output Total 700 ml Balance -100 ml KOMAL CHAPMAN MD Jul 17, 2020 18:02
[2020-07-17 20:00] VITALS: BP 144/80
[2020-07-18] MEDS: PERCOCET 5MG/325MG TAB PO PRN ×2 (03:04→11:52)
[2020-07-18 06:00] VITALS: BP 150/82
[2020-07-18] MEDS: ADVAIR HFA 230/21MCG INHALER INH SCH (07:58)
[2020-07-18] MEDS: HumaLOG INSULIN (NovoLOG) PER UNIT SC SCH ×2 (08:12→12:36)
[2020-07-18] MEDS: METOPROLOL TART 25 MG TABLET PO SCH (08:13)
[2020-07-18] MEDS: busPIRone 10 MG TAB PO SCH (08:14)
[2020-07-18] MEDS: DOCUSATE SODIUM 100 MG CAP PO SCH (08:14)
[2020-07-18] MEDS: TAMSULOSIN 0.4 MG CAP PO SCH (08:14)
[2020-07-18] MEDS: GABAPENTIN 300 MG CAP PO SCH (08:14)
[2020-07-18] MEDS: MULTIVITAMINS/MINERALS THERAP 1 TAB PO SCH (08:14)
[2020-07-18] MEDS: FUROSEMIDE 40 MG TAB PO SCH (08:15)
[2020-07-18 08:16] VITALS: BP 150/82
[2020-07-18] MEDS: CYANOCOBALAMIN 500 MCG TAB PO SCH (08:16)
[2020-07-18] MEDS: amLODIPine 5 MG TAB PO SCH (08:16)
[2020-07-18] MEDS: VITAMIN D 1,000 INTERNATIONAL UNITS TABLET PO SCH (08:17)
[2020-07-18] MEDS: lisinopriL 40 MG TAB PO SCH (08:17)
[2020-07-18] MEDS: APIXABAN 5 MG TAB (ELIQUIS) PO SCH (08:17)
[2020-07-18] MEDS: OMEPRAZOLE 20 MG CAP PO SCH (08:17)
[2020-07-18] MEDS: ATORVASTATIN 20 MG TAB PO SCH (08:18)
[2020-07-18] MEDS: ASPIRIN 81 MG CHEW TABLET PO SCH (08:18)
[2020-07-18] MEDS: MIRALAX *UNIT DOSE* 17GM PACKET PO SCH (08:46)
[2020-07-18] MEDS ORDERED: LISI40TA PO (10:15)
[2020-07-18] MEDS ORDERED: PEG1POW PO (10:15)
[2020-07-18] MEDS ORDERED: PERCOCET PO (10:15)
--- NOTE | 2020-07-18 10:38 | DS.PDOC ---
Discharge Summary General Date of Admission Jul 11, 2020 at 23:40 Date of Discharge 07/18/20 Attending Physician: KOMAL CHAPMAN MD Discharge Summary ADMITTING/DISCHARGE DIAGNOSES: 1. L4 compression fx 2. AF 3. H/o cva 4. HTN 5. H/o CHF compensated 6. DM COMPLICATIONS/CHIEF COMPLAINT: Back pain HISTORY OF PRESENT ILLNESS/HOSPITAL COURSE: 60 y/o M with pMHx DM, HTN CAD, AF, CVA who presents with back pain. Was helping someone with their scooter wheelchair when he fell on his back. Has been having pain since. Presented to the ED and was found to have L4 compression fx. Pt has been seen by ortho w/ recc TLSO brace and conservative management. Pt has been seen by PT/OT and cleared for d/c. Pt advised to return to ED if symptoms worsen or if falls/weakness occur. 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 Pt is hemodynamically stable, pain controlled, and will be d/c home. DISCHARGE MEDICATIONS: Please see below. ALLERGIES: Please see below. PHYSICAL EXAMINATION ON DISCHARGE: Vitals: (see below) General: No acute distress, laying comfortably in bed. HEENT: Moist mucous membranes. Neck: No JVD or lymphadenopathy Cardiac: RRR, No murmurs Pulm: Clear to auscultation b/l. No wheezing, rhonchi Abd: NT/ND + BS Ext: No edema or cyanosis. Strength 5/5 BLE. Distal pulses intact. LABORATORY DATA: Please see below. PROGNOSIS: Good ACTIVITY: As tolerated. DIET: Low Na DISCHARGE PLAN/DISPOSITION: Home DISCHARGE INSTRUCTIONS: 1. F/u with PCP and ortho in 1week. Return to ED if symptoms worsen. Use TLSO brace as recommended by ortho. DISCHARGE CONDITION: Stable. TIME SPENT ON DISCHARGE: 36 minutes. Vital Signs/I&Os Vital Signs Date Time Temp Pulse Resp B/P (MAP) Pulse Ox O2 Delivery O2 Flow Rate FiO2 07/18/20 08:16 79 150/82 07/18/20 06:00 98.6 18 97 Room Air I&O- Last 24 Hours up to 6 AM 07/18/20 06:00 Intake Total 1950 ml Output Total 1600 ml Balance 350 ml Discharge Medications Scheduled Amlodipine Besylate (Amlodipine Besylate) 5 Mg Tablet, 5 MG PO DAILY, (Reported) Apixaban (Eliquis) 5 Mg Tablet, 5 MG PO BID, (Reported) Aspirin (Aspirin EC) 81 Mg Tablet.dr, 162 MG PO DAILY, (Reported) Chlorthalidone (Chlorthalidone) 25 Mg Tablet, 25 MG PO DAILY, (Reported) Cholecalciferol (Vitamin D3) (Vitamin D3) 1,000 Unit Tablet, 2,000 UNITS PO DAILY, (Reported) Cyanocobalamin (Vitamin B-12) (Vitamin B-12) 1,000 Mcg Tablet, 1,000 MCG PO DAILY, (Reported) Fluticasone/Vilanterol (Breo Ellipta 200-25 Mcg INH) 1 Each Blst.w.dev, 1 PUFF INH DAILY, (Reported) Gabapentin (Gabapentin) 800 Mg Tablet, 800 MG PO TID, (Reported) Lisinopril (Lisinopril) 40 Mg Tablet, 40 MG PO DAILY Tamsulosin HCl (Flomax) 0.4 Mg Capsule, 0.4 MG PO DAILY, (Reported) Trospium Chloride (Trospium Chloride) 20 Mg Tablet, 20 MG PO BID, (Reported) Vortioxetine Hydrobromide (Trintellix) 20 Mg Tablet, 20 MG PO DAILY, (Reported) Scheduled PRN Oxycodone/Acetaminophen (Oxycodone-Acetaminophen 5-325) 1 Each Tablet, 1 TAB PO Q4H PRN for MODERATE PAIN (PS 5-7) Polyethylene Glycol 3350 (Polyethylene Glycol 3350) 17 Gm Powd.pack, 1 PKT PO BID PRN for CONSTIPATION Allergies Coded Allergies: Penicillins (Verified Allergy, Unknown, childhood allergy, 01/20/20) procaine (Verified Allergy, Unknown, 01/20/20) KOMAL CHAPMAN MD Jul 18, 2020 10:38
[2020-07-18] MEDS: LORATADINE 10 MG TAB PO SCH (11:52)
[2020-07-19 23:11] LABS: BLOOD UREA NITROGEN 17 MG/DL (7-18); CALCIUM LEVEL 8.7 MG/DL (8.8-10.2); CARBON DIOXIDE LEVEL 30 MEQ/L (21-32); CHLORIDE LEVEL 104 MEQ/L (98-107); CREATININE FOR GFR 0.82 MG/DL (0.70-1.30); GLOMERULAR FILTRATION RATE > 60.0 (>49); GLUCOSE, FASTING 138 MG/DL (70-100); POTASSIUM SERUM 3.9 MEQ/L (3.5-5.1); SODIUM LEVEL 138 MEQ/L (136-145)
[2020-08-25 12:17] LABS: BASO # 0.1 10^3/uL (0.0-0.2); BASO % 0.6 % (0.0-1.0); EOS % 0.4 % (0.0-3.0); HEMATOCRIT 41.4 % (42.0-52.0); LYMPH # 0.9 10^3/uL (1.5-5.0); LYMPH % 12.2 % (24.0-44.0); MEAN CORPUSCULAR HEMOGLOBIN 28.1 pg (27.0-33.0); MEAN CORPUSCULAR HGB CONC 33.8 g/dl (32.0-36.5); MONO # 0.7 10^3/uL (0.0-0.8); MONO % 8.9 % (0.0-5.0); NEUTROPHILS % 77.4 % (36.0-66.0); PLATELET COUNT, AUTOMATED 265 10^3/uL (150-450); RED BLOOD COUNT 4.99 10^6/uL (4.30-6.10); WHITE BLOOD COUNT 7.7 10^3/uL (4.0-10.0)
[2020-08-25 13:37] LABS: INR 0.97; PROTHROMBIN TIME 13.1 SECONDS (12.5-14.3)
[2020-08-25 13:38] LABS: PARTIAL THROMBOPLASTIN TIME 25.1 SECONDS (24.2-38.5)
[2020-09-07 18:14] LABS: BASO # 0.1 10^3/uL (0.0-0.2); BASO % 0.9 % (0.0-1.0); EOS # 0.2 10^3/uL (0.0-0.5); EOS % 2.7 % (0.0-3.0); HEMATOCRIT 42.6 % (42.0-52.0); LYMPH # 1.4 10^3/uL (1.5-5.0); LYMPH % 21.2 % (24.0-44.0); MEAN CORPUSCULAR HEMOGLOBIN 27.5 pg (27.0-33.0); MEAN CORPUSCULAR HGB CONC 32.9 g/dl (32.0-36.5); MEAN CORPUSCULAR VOLUME 83.7 fl (80.0-96.0); MONO # 0.6 10^3/uL (0.0-0.8); MONO % 9.4 % (0.0-5.0); NEUTROPHILS # 4.3 10^3/uL (1.5-8.5); PLATELET COUNT, AUTOMATED 274 10^3/uL (150-450); RED BLOOD COUNT 5.09 10^6/uL (4.30-6.10); WHITE BLOOD COUNT 6.6 10^3/uL (4.0-10.0)
[2020-09-22 15:19] LABS: HEMATOCRIT 40.4 % (42.0-52.0); HEMOGLOBIN 13.3 g/dl (13.5-17.5); MEAN CORPUSCULAR HEMOGLOBIN 27.7 pg (27.0-33.0); MEAN CORPUSCULAR HGB CONC 32.9 g/dl (32.0-36.5); PLATELET COUNT, AUTOMATED 271 10^3/uL (150-450); RED BLOOD COUNT 4.81 10^6/uL (4.30-6.10); WHITE BLOOD COUNT 7.5 10^3/uL (4.0-10.0)
[2020-09-28 07:48] LABS: BLOOD UREA NITROGEN 15 MG/DL (7-18); CALCIUM LEVEL 8.4 MG/DL (8.8-10.2); CARBON DIOXIDE LEVEL 30 MEQ/L (21-32); CHLORIDE LEVEL 109 MEQ/L (98-107); CREATININE FOR GFR 0.98 MG/DL (0.70-1.30); GLOMERULAR FILTRATION RATE > 60.0 (>49); GLUCOSE, FASTING 79 MG/DL (70-100); POTASSIUM SERUM 3.5 MEQ/L (3.5-5.1); SODIUM LEVEL 144 MEQ/L (136-145)
[2020-10-03 13:29] LABS: ALBUMIN 3.4 GM/DL (3.2-5.2); ALT/SGPT 19 U/L (12-78); BILIRUBIN,TOTAL 0.6 MG/DL (0.2-1.0); BLOOD UREA NITROGEN 14 MG/DL (7-18); CALCIUM LEVEL 8.5 MG/DL (8.8-10.2); CARBON DIOXIDE LEVEL 26 MEQ/L (21-32); CHLORIDE LEVEL 109 MEQ/L (98-107); CREATININE FOR GFR 1.09 MG/DL (0.70-1.30); GLOMERULAR FILTRATION RATE > 60.0 (>49); GLUCOSE, FASTING 172 MG/DL (70-100); NT-PRO BNP 263 PG/ML (<125); POTASSIUM SERUM 3.2 MEQ/L (3.5-5.1); SODIUM LEVEL 141 MEQ/L (136-145); TOTAL PROTEIN 6.7 GM/DL (6.4-8.2)
[2020-10-05 11:11] LABS: BLOOD UREA NITROGEN 13 MG/DL (7-18); CALCIUM LEVEL 8.6 MG/DL (8.8-10.2); CARBON DIOXIDE LEVEL 28 MEQ/L (21-32); CHLORIDE LEVEL 109 MEQ/L (98-107); CREATININE FOR GFR 0.86 MG/DL (0.70-1.30); GLOMERULAR FILTRATION RATE > 60.0 (>49); GLUCOSE, FASTING 133 MG/DL (70-100); POTASSIUM SERUM 3.3 MEQ/L (3.5-5.1); SODIUM LEVEL 142 MEQ/L (136-145)
[2020-10-05 13:02] LABS: BLOOD UREA NITROGEN 13 MG/DL (7-18); CALCIUM LEVEL 8.3 MG/DL (8.8-10.2); CARBON DIOXIDE LEVEL 30 MEQ/L (21-32); CHLORIDE LEVEL 108 MEQ/L (98-107); CREATININE FOR GFR 0.95 MG/DL (0.70-1.30); GLOMERULAR FILTRATION RATE > 60.0 (>49); GLUCOSE, FASTING 150 MG/DL (70-100); SODIUM LEVEL 141 MEQ/L (136-145)
== END 2020-07-18 13:00 | disposition home health service (06) | DRG 552 ==
LOC: M ED 14:30 → M MS5PR 23:40
PROVIDERS: ADMIT Internal Medicine; ATTEND Internal Medicine
DX: S32.048A Other fracture of fourth lumbar vertebra, initial encounter for closed fracture (principal); I11.0 Hypertensive heart disease with heart failure; I50.9 Heart failure, unspecified; I48.91 Unspecified atrial fibrillation; E11.9 Type 2 diabetes mellitus without complications; Z86.73 Personal history of transient ischemic attack (TIA), and cerebral infarction without residual deficits; I25.10 Atherosclerotic heart disease of native coronary artery without angina pectoris; Z79.82 Long term (current) use of aspirin; Z79.899 Other long term (current) drug therapy; Z88.0 Allergy status to penicillin; Z88.8 Allergy status to other drugs, medicaments and biological substances; E87.6 Hypokalemia; Z79.01 Long term (current) use of anticoagulants; W18.30XA Fall on same level, unspecified, initial encounter; Y92.9 Unspecified place or not applicable

== ENCOUNTER 2020-07-28 12:32 | Emergency (ER) | payer OTHER, MEDICARE, MEDICAID ==
[~2020-07-28] VITALS: Ht 175.3 cm; Wt 109.1 kg
[~2020-07-28 12:32] MED LIST changes: +AMLO1TAB24 PO; +ASPI-161 PO; +BRIN1TAB3 PO; +CYAN100050 PO; +D31000TA2 PO; +GABA800T4 PO; +PEG1POW PO; +PERCOCET PO
[2020-07-28] MEDS ORDERED: TRAM50TA2 PO (12:54)
[2020-07-28] MEDS ORDERED: BUSP5TA PO (12:54)
[2020-07-28] MEDS ORDERED: KETOROLAC 60MG 2ML VIAL IM ONE (13:45)
[2020-07-28] MEDS ORDERED: diazePAM 5 MG TAB PO ONE (13:45)
[2020-07-28] MEDS ORDERED: CYCL-707 PO (13:52)
[2020-07-28 14:30] VITALS: BP 140/90
== END 2020-07-28 15:19 | disposition home or self-care (01) ==
LOC: M ED 12:32 → EDBD 12:32 → M ED 15:19
DX: M54.5 Low back pain (principal); I10 Essential (primary) hypertension; Z79.899 Other long term (current) drug therapy; Z79.82 Long term (current) use of aspirin; Z79.01 Long term (current) use of anticoagulants; Z88.0 Allergy status to penicillin; Z88.8 Allergy status to other drugs, medicaments and biological substances
CPT/HCPCS: 96372; 99284; J1885

== ENCOUNTER → 2020-10-10 | Outpatient (CLI) | payer MEDICAID, MEDICARE ==
[~2020-10-10] MED LIST changes: +BUSP5TA PO
--- NOTE | 2020-10-10 12:53 | REP ---
INDICATION: HISTORY OF PROSTATE CANCER. COMPARISON: Comparison MRI lumbar spine July 11, 2020. Comparison CT lumbar spine July 11 2020. Recent compression fracture deformity L4.. TECHNIQUE/RADIOTRACER AND DOSE: 21.4 mCi of Technetium-99m MDP was injected and standard whole-body bone scanning is acquired. FINDINGS: There is a normal distribution of skeletal tracer with uptake in bilateral kidneys and in the urinary bladder. There is no evidence to suggest skeletal metastatic disease. There is a horizontal bandlike area of increased uptake along the inferior endplate of the L4 vertebral body consistent with recent compression fracture deformity seen on an MR and CT imaging. There is arthritic uptake in the left knee and in the right midfoot and hindfoot. No other abnormal uptake is seen. IMPRESSION: Area of increased uptake across the lower portion of L4 consistent with the recently identified fracture of L4. Arthritic uptake in the right hindfoot and midfoot and in the left knee. No evidence to suggest skeletal metastatic disease.. <Electronically signed by Amaury Chacon > 10/10/20 [id number]
== END ==
LOC: M RAD 08:01
PROVIDERS: ATTEND Student in an Organized Health Care Education/Training Program
DX: Z85.46 Personal history of malignant neoplasm of prostate (principal); M17.12 Unilateral primary osteoarthritis, left knee; M19.071 Primary osteoarthritis, right ankle and foot
CPT/HCPCS: 78306; A9503

== ENCOUNTER → 2020-10-13 | Outpatient (REF) | payer MEDICARE | LOC: M SFHCPLAZ 13:23 | DX: E11.43 Type 2 diabetes mellitus with diabetic autonomic (poly)neuropathy (principal); Z85.46 Personal history of malignant neoplasm of prostate ==

== ENCOUNTER → 2021-01-21 | Outpatient (REF) | payer MEDICARE ==
[~2021-01-21] MED LIST changes: -CLIN150C14 PO; +CLIN150C15 PO; +GABA-282 PO; -GABA-843 PO; +ISOS1TAB35 PO; -ISOS30TA4 PO; -LISI40TA PO; +LISI40TA4 PO
[2021-01-21 11:19] LABS: BLOOD UREA NITROGEN 6 MG/DL (7-18); CALCIUM LEVEL 9.3 MG/DL (8.8-10.2); CARBON DIOXIDE LEVEL 30 MEQ/L (21-32); CHLORIDE LEVEL 107 MEQ/L (98-107); CREATININE FOR GFR 0.89 MG/DL (0.70-1.30); GLOMERULAR FILTRATION RATE > 60.0 (>49); GLUCOSE, FASTING 77 MG/DL (70-100); POTASSIUM SERUM 4.6 MEQ/L (3.5-5.1); SODIUM LEVEL 143 MEQ/L (136-145)
[2021-01-21 11:40] LABS: HEMOGLOBIN A1c 6.1 %
== END ==
LOC: M SFHCPLAZ 08:42
PROVIDERS: ATTEND Family Medicine
DX: E11.65 Type 2 diabetes mellitus with hyperglycemia (principal); I10 Essential (primary) hypertension

== ENCOUNTER → 2021-02-17 | Outpatient (CLI) | payer MEDICARE ==
[~2021-02-17] MED LIST changes: +DEXT4TAB2 PO; -GLUC4CHW19 PO; -PEG1POW PO; +POLY17PO18 PO
--- NOTE | 2021-02-19 00:45 | ECWPNPC ---
PATIENT NAME: JOLLY SMITH : 1960 GENDER: MALE VISIT DATE: 02/17/2021 DISCHARGE DATE: 02/17/21928 VISIT LOCKED DATE TIME: PHYSICIAN: LINDSAY WEBER PHYSICIAN PAGER NO: ACTIVE RESOURCE: LINDSAY WEBER REASON FOR APPOINTMENT 1. LOW BACK/SCIATA HISTORY OF PRESENT ILLNESS DEPRESSION SCREENING: PHQ-9 LITTLE INTEREST OR PLEASURE IN DOING THINGSNOT AT ALL FEELING DOWN, DEPRESSED, OR HOPELESSSEVERAL DAYS TROUBLE FALLING OR STAYING ASLEEP, OR SLEEPING TOO MUCHSEVERAL DAYS FEELING TIRED OR HAVING LITTLE ENERGYSEVERAL DAYS POOR APPETITE OR OVEREATING NOT AT ALL FEELING BAD ABOUT YOURSELF-OR THAT YOU ARE A FAILURE OR HAVE LET YOURSELF OR YOUR FAMILY DOWN NOT AT ALL TROUBLE CONCENTRATING ON THINGS, SUCH READING THE NEWSPAPER OR WATCHING TELEVISION NOT AT ALL MOVING OR SPEAKING SO SLOWLY THAT OTHER PEOPLE COULD HAVE NOTICED. OR THE OPPOSITE- BEING SO FIDGETY OR RESTLESS THAT YOU HAVE BEEN MOVING AROUND A LOT MORE THAN USUALNOT AT ALL THOUGHTS THAT YOU WOULD BE BETTER OFF , OR OF HURTING YOURSELF IN SOME WAY?NOT AT ALL TOTAL SCORE:3 INTERPRETATIONMINIMAL DEPRESSION PHQ-2 (2015 EDITION) LITTLE INTEREST OR PLEASURE IN DOING THINGS?NOT AT ALL FEELING DOWN, DEPRESSED, OR HOPELESS?NEARLY EVERY DAY TOTAL SCORE3 61-YEAR-OLD MALE IN FOR INITIAL PAIN CONSULT REGARDING LOW BACK PAIN AND SCIATICA. PATIENT ADMITS TO A HISTORY OF TRAUMA APPROXIMATELY 8 MONTHS AGO WHERE HE WAS TRYING TO HELP A WOMAN WITH A MOTORIZED GROCERY CART AND THE CART PUSHED HIM BACKWARDS. SINCE THAT TIME HE HAS EXPERIENCED LOW BACK PAIN. PATIENT IS CURRENTLY ON TRAMADOL TO HELP WITH HIS SYMPTOMS ALTHOUGH HE ADMITS TO TAKING IT ONLY ONCE DAILY. HE RATES HIS PAIN CURRENTLY AT A 9 OUT OF 10 AND DESCRIBES IT CONTINUOUS AND BURNING. GENERAL: - - - -. FALL RISK SCREENING: SCREENING 3 MONTHS AGO IN A STORE , : NO FALLS REPORTED IN THE LAST YEAR. PAIN SCREENING: PATIENT HAS A COMPLAINT OF ACUTE OR CHRONIC PAIN :YES LOCATION OF PAIN:LOW BACK INTENSITY OF PAIN (SCALE OF 1 TO 10):9 WHAT DOES YOUR PAIN FEEL LIKE:CONTINOUS, BURNING PAIN IS INCREASED BY:PROLONGED STANDING PAIN IS DECREASED BY:SITTING NURSING NOTE: - - - -. PAIN CENTER INTAKE QUESTIONS: DO YOU HAVE A HISTORY OF MRSA? :NO DO YOU TAKE A BLOOD THINNERS? :YES ELAQUIS SINCE 2019 DO YOU HAVE ANY BLEEDING DISORDERS? :NO ANY NEW NUMBNESS OR WEAKNESS IN YOUR LEGS OR ARMS? :NO MORE ON THE RIGHT SIDE FROM THE STROKE ANY PACEMAKER,DEFIBRILLATOR, OR DORSAL COLUMN STIMULATOR? :NO DO YOU HAVE ANY RASHES OR OPEN SORES? :NO ARE YOU ALLERGIC TO IV DYE? :NO ARE YOU DIABETIC? :YES ANY NEW PROBLEMS WITH YOUR MEDICATIONS? :NO HAVE YOU RECEIVED A VACCINE IN THE PAST 30 DAYS? :NO DO YOU PLAN TO RECEIVE A VACCINE IN THE NEXT 21 DAYS? :NO HAS HAD BOTH DOSES OF COVID VACINE 02/14 2ND DOSE DO YOU NEED ANY PRESCRIPTION? :NO DO YOU TAKE ANY IMMUNOSUPPRESSIVE MEDICATIONS? :NO CURRENT MEDICATIONS TAKING SELENIUM SULFIDE 2.5 % LOTION 1 APPLICATION TO AFFECTED AREA EXTERNALLY TWICE A DAY ON NECK TAKING MECLIZINE HCL 25 MG TABLET CHEWABLE 1 TABLET NEEDED ORALLY ONCE A DAY TAKING EPIPEN 2-PARTH 0.3 MG/0.3ML SOLUTION AUTO-INJECTOR 1 INJECTION INTRAMUSCULAR IN THIGH NEEDED FOR BEE STING REACTION; DX: T63.441A TAKING KETOTIFEN FUMARATE 0.025 % SOLUTION 1 DROP INTO AFFECTED EYE OPHTHALMIC TWICE A DAY TAKING PANTOPRAZOLE SODIUM 40 MG TABLET DELAYED RELEASE 1 TABLET ORALLY ONCE A DAY TAKING ONETOUCH VERIO - STRIP DIRECTED IN VITRO USE 1 STRIP BEFORE BREAKFAST IN THE AM AND 1 STRIP 2 HOURS AFTER DINNER IN THE PM DAILY TAKING INSULIN SYRINGE/NEEDLE 27G X 1/2 MISCELLANEOUS TAKING E-Z SPACER 1 ORALLY; ICD10: J45.20 PRN FOR SOB/WHEEZING FOR PRN ALBUTEROL INHALER TAKING ONETOUCH VERIO W/DEVICE KIT DIRECTED _ BID TAKING ONETOUCH ULTRASOFT LANCETS - MISCELLANEOUS DIRECTED SUBCUTANEOUSLY USE 1 LANCET BEFORE BREAKFAST IN THE AM AND 1 LANCET 2 HOURS AFTER DINNER IN THE PM DAILY TAKING MAGNESIUM CHLORIDE-CALCIUM 64-112 MG TABLET DIRECTED ORALLY DAILY TAKING MELATONIN 3 MG TABLET 1 TABLET AT BEDTIME NEEDED ORALLY ONCE A DAY TAKING TAMSULOSIN HCL 0.4 MG CAPSULE TAKE 1 CAPSULE BY MOUTH EVERY DAY TAKING ALBUTEROL SULFATE (2.5 MG/3ML) 0.083% NEBULIZATION SOLUTION 3 ML INHALATION FOUR TIMES A DAY J44.9 TAKING ASPIRIN 81 MG TABLET DELAYED RELEASE 1 TABLET ORALLY ONCE A DAY TAKING NITROGLYCERIN 0.4 MG TABLET SUBLINGUAL 1 TAB SUBLINGUAL Q 5 MIN X 3 FOR CHEST PAIN, NOTES: EVERY OTHER DAY TAKING ATORVASTATIN CALCIUM 80 MG TABLET 1 TABLET ORALLY ONCE A DAY TAKING APIXABAN 5 MG TABLET 1 TAB ORALLY TWICE DAILY TAKING VORTIOXETINE HBR 5 MG TABLET 1 TABLET ORALLY ONCE A DAY TAKING BUSPIRONE HCL 5 MG TABLET 1 TABLET ORALLY BID TAKING VITAMIN B12 500 MCG TABLET 1 TABLET ORALLY ONCE A DAY TAKING VITAMIN D3 2000 UNIT CAPSULE 1 TABLET WITH A FATTY MEAL (FOR BETTER ABSORPTION) ORALLY ONCE A DAY TAKING TYLENOL WITH CODEINE #3 300-30 MG TABLET 1 TABLET NEEDED ORALLY EVERY 6 HRS TAKING BREO ELLIPTA 100-25 MCG/INH AEROSOL POWDER BREATH ACTIVATED 1 PUFF INHALATION ONCE A DAY TAKING AMLODIPINE BESYLATE 5 MG TABLET 1 TABLET ORALLY ONCE A DAY TAKING METFORMIN HCL ER 500 MG TABLET EXTENDED RELEASE 24 HOUR TAKE 2 TABLETS BY MOUTH EVERY DAY WITH BREAKFAST AND 2 TABLETS WITH DINNER TAKING TRULICITY 1.5 MG/0.5ML SOLUTION PEN-INJECTOR DIRECTED SUBCUTANEOUS WEEKLY ON TUESDAY TAKING TOUJEO SOLOSTAR 300 UNIT/ML SOLUTION PEN-INJECTOR DIRECTED SUBCUTANEOUS 80 UNITS IN THE AM AND 80 UNITS IN THE PM TAKING TRAMADOL HCL 50 MG TABLET 1 TABLET NEEDED ORALLY EVERY 6 HRS; MDD: 4, NOTES: ONLY TAKING ONE A NIGHT. TAKING GABAPENTIN 600 MG TABLET 1 TABLET ORALLY TID TAKING CHLORTHALIDONE 25 MG TABLET 1 TABLET IN THE MORNING WITH FOOD ORALLY ONCE A DAY TAKING LISINOPRIL 40 MG TABLET 1 TABLET ORALLY ONCE A DAY TAKING METOPROLOL TARTRATE 100 MG TABLET 1 TABLET WITH FOOD ORALLY TWICE A DAY TAKING CYCLOBENZAPRINE HCL 10 MG TABLET 1 TABLET NEEDED ORALLY EVERY 8 HOURS NEEDED FOR PAIN NOT-TAKING SENNA-DOCUSATE SODIUM 8.6-50 MG TABLET 2 TABLETS DAILY IF CONSTIPATED ORALLY ONCE A DAY PRN CONSTIPATION NOT-TAKING ALBUTEROL SULFATE HFA 108 (90 BASE) MCG/ACT AEROSOL SOLUTION 2 PUFFS NEEDED INHALATION EVERY 4 HRS NOT-TAKING ADVAIR DISKUS 500-50 MCG/DOSE AEROSOL POWDER BREATH ACTIVATED INL 1 PUFF PO BID INHALATION MEDICATION LIST REVIEWED AND RECONCILED WITH THE PATIENT PAST MEDICAL HISTORY BIPOLAR 1 DISORDER DEPRESSION COPD (CHRONIC OBSTRUCTIVE PULMONARY DISEASE) ASTHMA PROSTATE CANCER S/P RADIATION 2013 CAD S/P STENTING 2012 HUMBLE, HAS CPAP CHF LUTS ED T2DM IR WITH NEUROPATHY/NEPHROPATHY. GOAL HG A1C< 7.0 MULTIPLE EMBOLIC STROKES, LIKELY DUE TO ATRIAL FIBRILLATION, HAS IMPLANTABLE LOOP RECORDER, ON ANTICOAGULATION WITH ELIQUIS HTN GOAL BP < 140/90 ALLERGIES PENICILLIN (FOR ALLERGIES USE ONLY): HIVES - ALLERGY SURGICAL HISTORY T & A CHOLECYSTECTOMY DIVERTICULITIS 2004 CATARACT 1998 & 2008 HERNIA REPAIR 1998 CARDIAC STENT 09/2013 HEEL SURGERY COLONOSCOPY 12/2016 CYSTOSCOPY 06/13/2019 FAMILY HISTORY FATHER: , [place], [place] MOTHER: ALIVE, TYPE II DIABETES SON(S): ALIVE DAUGHTER(S): ALIVE 1 SON(S) , 1 DAUGHTER(S) - HEALTHY. DENIE FAMILY HISTORY OF UROLOGICAL DX. SOCIAL HISTORY GENERAL: TOBACCO USE ARE YOU A:NONSMOKER NEVER SMOKER LATEX QUESTIONNAIRE LATEX ALLERGY : HAVE YOU EVER DEVELOPED ANY TYPE OF REACTION AFTER HANDLING LATEX PRODUCTS SUCH RUBBER GLOVES, CONDOMS, DIAPHRAGMS, BALLOONS, SOCKS, OR UNDERWEAR?NO LATEX ALLERGY : HAVE YOU EVER DEVELOPED ANY TYPE OF REACTION DURING OR AFTER DENTAL APPOINTMENT, VAGINAL/RECTAL EXAMINATION, SURGICAL PROCEDURE, OR ANY OTHER EXPOSURE?YES - PLEASE INDICATE :DENTAL PROCEDURE DATE ASKED : 12/25/2019 LATEX RISK : HAVE YOU EVER HAD ANY DIFFICULTY BREATHING OR HIVES AFTER EATING OR HANDLING ANY FRUITS, OR VEGETABLES; SUCH KIWI, BANANAS, STONE FRUITS, OR CHESTNUTSNO LATEX RISK : DO YOU HAVE A PREVIOUS PERSONAL HISTORY OF MORE THAN NINE SURGERIES, SPINA BIFIDA, OR REPEATED CATHERIZATIONS? NO LATEX RISK : ARE YOU FREQUENTLY EXPOSED TO LATEX PRODUCTS IN YOUR OCCUPATION?NO BMI CARE GOAL FOLLOW-UP ABOVE NORMAL BMI FOLLOW-UPDIETARY MANAGEMENT EDUCATION, GUIDANCE, AND COUNSELING ALCOHOL SCREENING DID YOU HAVE A DRINK CONTAINING ALCOHOL IN THE PAST YEAR?NO POINTS0 INTERPRETATIONNEGATIVE RECREATIONAL DRUG USE DENIES. CAFFEINE CAFFEINE USE?YES SODA = 2 2LITER PER DAY COFFEE = 1-2 TIMES PER WEEK 1-2 CUPS SEXUAL HX HAD SEX IN THE LAST 12 MONTHS (VAGINAL, ORAL, OR ANAL)?YES WITHWOMEN ONLY USE PROTECTION?YES HAVE YOU EVER HAD AN STD?NO HIV / HEP-C SCREENING HIV TEST OFFERED TO PATIENT:YES DATE OFFERED:02/28/2017 TEST ACCEPTED:NO HEP-C TEST OFFERED TO PATIENT:YES DATE OFFERED:02/28/2017 REASON:PATIENT DECLINED TEST ACCEPTED:NO REASON:PATIENT DECLINED MUSLIM [id number] TENRIISM NO EPISCOPALIAN BELIEFS THAT WOULD IMPACT HEALTH CARE. LANGUAGE NEPALI. EDUCATION LEVEL OF EDUCATION:FINISHED HIGH SCHOOL LEARNING BARRIERS / SPECIAL NEEDS CHANGE FROM LAST VISIT?NO BARRIERS TO LEARNING?NO HEARING IMPAIRED?NO VISION IMPAIRED?YES COGNITIVELY IMPAIRED?NO :CORRECTIVE LENSES READINESS TO LEARN?YES LEARNING PREFERENCES?NO LEARNING CAPABILITIES PRESENT?YES EMOTIONAL BARRIERS?NO SPECIAL DEVICES?NO LICENSING OFFICER NEEDED?NO DOMESTIC VIOLENCE NONE. 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 DIET: REGULAR. EXERCISE: NO REGULAR EXERCISE. MARITAL STATUS: .. OTHERS AT HOME: GIRLFRIEND, STEP CHILD, FRIEND, BROTHER IN LAW. HOUSING: RENTS APARTMENT. HOSPITALIZATION/MAJOR DIAGNOSTIC PROCEDURE DIVERTICULITIS 2004 CARDIAC 09/2013 HTN 07/17/17-07/18/17 [facility]- TOOTH INFECTION 06/2018 STROKES 11/30/2018-12/16/2018 URINARY RETENTION 04/2019 BROKEN L4 06/2020 REVIEW OF SYSTEMS CONSTITUTIONAL: ANY RECENT FEVER NO . CHILLS NO . WEIGHT CHANGE OF UNKNOWN REASONS NO . MUSCULOSKELETAL: ANY UNUSUAL JOINT PAIN OR SWELLING NOT MENTIONED NO . SYSTEMIC LUPUS NO . ANY NEUROMUSCULAR DISORDER NOT MENTIONED NO . LYME DISEASE NO . GASTROENTEROLOGY: ANY NEW CHANGE IN BOWEL CONTROL? NO . HISTORY OF LIVER DISORDER NOT MENTIONED NO . HISTORY OF UNUSUAL ABDOMINAL PAIN OR CRAMPING NOT MENTIONED NO . NO CONSTIPATION. GENITOURINARY: ANY NEW CHANGE IN BLADDER CONTROL? NO . ANY RENAL/KIDNEY CONDITON NOT MENTIONED NO . NEUROLOGY: HISTORY OF TBI NOT MENTIONED NO . OTHER NEW NUMBNESS OR PAIN PATTERNS NOT MENTIONED NO . NEW ONSET DIZZINESS OR NEUROLOGICAL CHANGES NOT MENTIONED NO . HISTORY OF SEVERE HEADACHES NOT MENTIONED NO . HISTORY OF STROKE OR NEUROLOGICAL DISORDER NOT MENTIONED YES 2018 . CARDIOLOGY: HEART SURGERY NO . CONGESTIVE HEART FAILURE/FLUID OVERLOAD NOT MENTIONED NO . HISTORY OF CHEST PAIN,IRREGULAR HEART BEAT NOT MENTIONED NO . RESPIRATORY: SHORTNESS OF BREATH ON EXERTION, WHEEZES, UNUSUAL COUGH NOT MENTIONED NO . ENDOCRINOLOGY: ADRENAL GLAND OR THYROID DISORDERS NOT MENTIONED NO . UNUSUAL URINATION, DIZZINESS OR LETHARGY NOT MENTIONED NO . VITAL SIGNS WT 250 LBS, HT 69 IN, BMI 36.91 INDEX, BP 145/65 MM HG, HR 105 /MIN, RR 20 /MIN, TEMP 99.5 F, OXYGEN SAT % 96, SAFE IN ENV? (Y/N) Y, REVIEWED BY: KG. EXAMINATION GENERAL EXAMINATION: GENERALNO ACUTE DISTRESS, WELL NOURISHED AND HYDRATED. PSYCHAPPROPRIATE MOOD AND AFFECT . LUNGS:CLEAR TO AUSCULTATION BILATERALLY, NO WHEEZES, RHONCHI, RALES. HEART:NO MURMURS, REGULAR RATE AND RHYTHM. BACK:POINT TENDER BILATERAL LOW BACK, SURROUNDING SKIN SHOWS NO ERYTHEMA, ECCHYMOSIS, INCREASED WARMTH, AND/OR SKIN ERUPTIONS NOTED. BANDS OF RESTRICTIVE TISSUE NOTED OVER TRIGGER POINTS . ASSESSMENTS RIGHT-SIDED LOW BACK PAIN WITH RIGHT-SIDED SCIATICA, UNSPECIFIED CHRONICITY - M54.41 (PRIMARY) MYALGIA, OTHER SITE - M79.18 TREATMENT RIGHT-SIDED LOW BACK PAIN WITH RIGHT-SIDED SCIATICA, UNSPECIFIED CHRONICITY NOTES: 61-YEAR-OLD MALE IN FOR INITIAL PAIN CONSULT. GIVEN PRESENTING SYMPTOMS AND RESULTS OF PHYSICAL EXAMINATION RECOMMENDED BILATERAL LOW BACK TRIGGER POINT INJECTIONS WITH POSTPROCEDURAL FOLLOW-UP. PATIENT WAS ALSO ENCOURAGED TAKE HIS TRAMADOL AT LEAST TWICE A DAY TO SEE IF IT HELPS ALLEVIATE SOME OF HIS PAIN. PATIENT HAS EXPRESSED UNDERSTANDING OF AND WAS IN AGREEMENT WITH TREATMENT PLAN. GIVEN TIME TO ASK QUESTIONS AND EXPRESS CONCERNS. PROCEDURE CODES FA211 ESTABILISHED PATIENT [facility] CHARGE DISPOSITION & COMMUNICATION FOLLOW UP POSTPROCEDURE (REASON: TRIGGER POINT INJECTIONS LOW BACK NEED HOLD ORDER FOR GERALDINE ) ELECTRONICALLY SIGNED BY RADHA JOY ON 02/18/2021 AT 12:42 PM EDT DISCLAIMER : THIS IS A VISIT SUMMARY EXTRACTED FROM THE [employer] CHART. IT IS NOT A COPY OF THE [employer] PROGRESS NOTE. YOHAN
== END ==
LOC: M PAIN 08:30
PROVIDERS: ATTEND Family Medicine
DX: M54.41 Lumbago with sciatica, right side (principal); M79.18 Myalgia, other site; F31.9 Bipolar disorder, unspecified; J44.9 Chronic obstructive pulmonary disease, unspecified; J45.909 Unspecified asthma, uncomplicated; I25.10 Atherosclerotic heart disease of native coronary artery without angina pectoris; G47.33 Obstructive sleep apnea (adult) (pediatric); I50.9 Heart failure, unspecified; N52.9 Male erectile dysfunction, unspecified; E11.40 Type 2 diabetes mellitus with diabetic neuropathy, unspecified; E11.41 Type 2 diabetes mellitus with diabetic mononeuropathy; I11.0 Hypertensive heart disease with heart failure; Z86.73 Personal history of transient ischemic attack (TIA), and cerebral infarction without residual deficits; Z79.01 Long term (current) use of anticoagulants; Z79.4 Long term (current) use of insulin; Z79.82 Long term (current) use of aspirin; Z79.899 Other long term (current) drug therapy; Z88.0 Allergy status to penicillin

== ENCOUNTER → 2021-03-04 | Outpatient (CLI) | payer MEDICARE | LOC: M LABSMTC 09:32 | PROVIDERS: ATTEND Anesthesiology | DX: Z11.52 Encounter for screening for COVID-19 (principal) ==

== ENCOUNTER → 2021-03-09 | Outpatient (CLI) | payer MEDICARE ==
[~2021-03-09] MED LIST changes: +BUPIVACAINE HCL 0.25% 10ML VIAL As Ordered ONE; +BUPIVACAINE HCL 0.25% 30ML VIAL As Ordered ONE; -DEXT4TAB2 PO; +SFHGLU4TA PO; +TRIAMCINOLONE ACETONIDE SUSP 40 MG/ML VIAL (J3301) As Ordered ONE
--- NOTE | 2021-03-12 00:43 | ECWPNPC ---
PATIENT NAME: JOLLY SMITH : 1960 GENDER: MALE VISIT DATE: 03/09/2021 DISCHARGE DATE: 03/09/21 1006 VISIT LOCKED DATE TIME: PHYSICIAN: AARON VANESSA MD PHYSICIAN PAGER NO: ACTIVE RESOURCE: AARON VANESSA MD REASON FOR APPOINTMENT 1. TRIGGER POINT INJECTIONS BILATERAL LOW BACK HISTORY OF PRESENT ILLNESS GENERAL: -. FALL RISK SCREENING: SCREENING : MANY FALLS REPORTED IN THE LAST YEAR WITH INJURY. PAIN SCREENING: PATIENT HAS A COMPLAINT OF ACUTE OR CHRONIC PAIN :YES LOCATION OF PAIN:LOW BACK INTENSITY OF PAIN (SCALE OF 1 TO 10):9 WHAT DOES YOUR PAIN FEEL LIKE:SHARP, STABBING DURATION:CONTINOUS, CONSTANT PAIN IS INCREASED BY:ACTIVITIES PAIN IS DECREASED BY: NOTHING NURSING NOTE: -. PAIN CENTER INTAKE QUESTIONS: DO YOU HAVE A HISTORY OF MRSA? :NO DO YOU TAKE A BLOOD THINNERS? :YES ELIQUIS FOR MANY MINI STROKES DO YOU HAVE ANY BLEEDING DISORDERS? :NO ANY NEW NUMBNESS OR WEAKNESS IN YOUR LEGS OR ARMS? :NO ANY PACEMAKER,DEFIBRILLATOR, OR DORSAL COLUMN STIMULATOR? :YES LOOP RECORDER DO YOU HAVE ANY RASHES OR OPEN SORES? :NO ARE YOU ALLERGIC TO IV DYE? :NO ARE YOU DIABETIC? :YES ANY NEW PROBLEMS WITH YOUR MEDICATIONS? :NO HAVE YOU RECEIVED A VACCINE IN THE PAST 30 DAYS? :YES 02/14/21 COVID #2 DO YOU PLAN TO RECEIVE A VACCINE IN THE NEXT 21 DAYS? :NO DO YOU TAKE ANY IMMUNOSUPPRESSIVE MEDICATIONS? :NO ANY HISTORY OF SEIZURES? :NO ANY HISTORY OF CARDIAC ISSUES OR EVENTS? :YES RAPHAEL STROKES 2017 DO YOU HAVE ANY KIDNEY OR LIVER DISEASE? :YES KIDNEY FAILURE STAGE 2 DO YOU HAVE SLEEP APNEA? :YES DO YOU WEAR A CPAP?YES ANY RECENT HEAD INJURY? :NO DO YOU HAVE ANY NEW INFECTIONS? :NO IS THERE A CHANCE YOU COULD BE ? :N/A ARE YOU BREAST FEEDING? :N/A WHEN DID YOU LAST EAT? : 03/08/211699 WHEN DID YOU LAST DRINK? : 03/09/211699 WHAT DID YOU LAST DRINK? : WATER NAME OF PERSON DRIVING YOU HOME? : FRIEND YANNA DO YOU HAVE ANY OTHER QUESTIONS OR CONCERNS? : NO CURRENT MEDICATIONS TAKING SELENIUM SULFIDE 2.5 % LOTION 1 APPLICATION TO AFFECTED AREA EXTERNALLY TWICE A DAY ON NECK TAKING MECLIZINE HCL 25 MG TABLET CHEWABLE 1 TABLET NEEDED ORALLY ONCE A DAY TAKING EPIPEN 2-PARTH 0.3 MG/0.3ML SOLUTION AUTO-INJECTOR 1 INJECTION INTRAMUSCULAR IN THIGH NEEDED FOR BEE STING REACTION; DX: T63.441A, NOTES: NOT RECENTLY TAKING KETOTIFEN FUMARATE 0.025 % SOLUTION 1 DROP INTO AFFECTED EYE OPHTHALMIC TWICE A DAY TAKING PANTOPRAZOLE SODIUM 40 MG TABLET DELAYED RELEASE 1 TABLET ORALLY ONCE A DAY TAKING ONETOUCH VERIO - STRIP DIRECTED IN VITRO USE 1 STRIP BEFORE BREAKFAST IN THE AM AND 1 STRIP 2 HOURS AFTER DINNER IN THE PM DAILY TAKING INSULIN SYRINGE/NEEDLE 27G X 1/2 MISCELLANEOUS TAKING E-Z SPACER 1 ORALLY; ICD10: J45.20 PRN FOR SOB/WHEEZING FOR PRN ALBUTEROL INHALER TAKING ONETOUCH VERIO W/DEVICE KIT DIRECTED _ BID TAKING ONETOUCH ULTRASOFT LANCETS - MISCELLANEOUS DIRECTED SUBCUTANEOUSLY USE 1 LANCET BEFORE BREAKFAST IN THE AM AND 1 LANCET 2 HOURS AFTER DINNER IN THE PM DAILY TAKING MAGNESIUM CHLORIDE-CALCIUM 64-112 MG TABLET DIRECTED ORALLY DAILY TAKING MELATONIN 3 MG TABLET 1 TABLET AT BEDTIME NEEDED ORALLY ONCE A DAY TAKING TAMSULOSIN HCL 0.4 MG CAPSULE TAKE 1 CAPSULE BY MOUTH EVERY DAY TAKING ALBUTEROL SULFATE (2.5 MG/3ML) 0.083% NEBULIZATION SOLUTION 3 ML INHALATION FOUR TIMES A DAY J44.9 TAKING ASPIRIN 81 MG TABLET DELAYED RELEASE 1 TABLET ORALLY ONCE A DAY TAKING NITROGLYCERIN 0.4 MG TABLET SUBLINGUAL 1 TAB SUBLINGUAL Q 5 MIN X 3 FOR CHEST PAIN, NOTES: EVERY OTHER DAY TAKING ATORVASTATIN CALCIUM 80 MG TABLET 1 TABLET ORALLY ONCE A DAY TAKING APIXABAN 5 MG TABLET 1 TAB ORALLY TWICE DAILY, NOTES: 03/08/21 1500 TAKING VORTIOXETINE HBR 5 MG TABLET 1 TABLET ORALLY ONCE A DAY TAKING BUSPIRONE HCL 5 MG TABLET 1 TABLET ORALLY BID TAKING VITAMIN B12 500 MCG TABLET 1 TABLET ORALLY ONCE A DAY TAKING VITAMIN D3 2000 UNIT CAPSULE 1 TABLET WITH A FATTY MEAL (FOR BETTER ABSORPTION) ORALLY ONCE A DAY TAKING TYLENOL WITH CODEINE #3 300-30 MG TABLET 1 TABLET NEEDED ORALLY EVERY 6 HRS, NOTES: 03/07/21 TAKING BREO ELLIPTA 100-25 MCG/INH AEROSOL POWDER BREATH ACTIVATED 1 PUFF INHALATION ONCE A DAY TAKING AMLODIPINE BESYLATE 5 MG TABLET 1 TABLET ORALLY ONCE A DAY TAKING METFORMIN HCL ER 500 MG TABLET EXTENDED RELEASE 24 HOUR TAKE 2 TABLETS BY MOUTH EVERY DAY WITH BREAKFAST AND 2 TABLETS WITH DINNER , NOTES: 03/07/21 TAKING TOUJEO SOLOSTAR 300 UNIT/ML SOLUTION PEN-INJECTOR DIRECTED SUBCUTANEOUS 80 UNITS IN THE AM AND 80 UNITS IN THE PM, NOTES: 80UNITS BID, 03/07/21 TAKING GABAPENTIN 600 MG TABLET 1 TABLET ORALLY TID, NOTES: 03/07/21 TAKING CHLORTHALIDONE 25 MG TABLET 1 TABLET IN THE MORNING WITH FOOD ORALLY ONCE A DAY TAKING LISINOPRIL 40 MG TABLET 1 TABLET ORALLY ONCE A DAY, NOTES: 03/07/21 TAKING METOPROLOL TARTRATE 100 MG TABLET 1 TABLET WITH FOOD ORALLY TWICE A DAY, NOTES: 03/07/21 TAKING CYCLOBENZAPRINE HCL 10 MG TABLET 1 TABLET NEEDED ORALLY EVERY 8 HOURS NEEDED FOR PAIN, NOTES: 03/07/21 TAKING TRAMADOL HCL 50 MG TABLET 1 TABLET NEEDED ORALLY EVERY 6 HRS; MDD: 4, NOTES: ONLY TAKING ONE A NIGHT. TAKING LIDOCAINE 5 % PATCH 1 PATCH REMOVE AFTER 12 HOURS EXTERNALLY ONCE A DAY, NOTES: NOT RECENTLY NOT-TAKING TRULICITY 1.5 MG/0.5ML SOLUTION PEN-INJECTOR DIRECTED SUBCUTANEOUS WEEKLY ON TUESDAY NOT-TAKING SENNA-DOCUSATE SODIUM 8.6-50 MG TABLET 2 TABLETS DAILY IF CONSTIPATED ORALLY ONCE A DAY PRN CONSTIPATION NOT-TAKING ALBUTEROL SULFATE HFA 108 (90 BASE) MCG/ACT AEROSOL SOLUTION 2 PUFFS NEEDED INHALATION EVERY 4 HRS NOT-TAKING ADVAIR DISKUS 500-50 MCG/DOSE AEROSOL POWDER BREATH ACTIVATED INL 1 PUFF PO BID INHALATION MEDICATION LIST REVIEWED AND RECONCILED WITH THE PATIENT PAST MEDICAL HISTORY BIPOLAR 1 DISORDER DEPRESSION COPD (CHRONIC OBSTRUCTIVE PULMONARY DISEASE) ASTHMA PROSTATE CANCER S/P RADIATION 2013 CAD S/P STENTING 2012 [facility], HAS CPAP CHF LUTS ED T2DM IR WITH NEUROPATHY/NEPHROPATHY. GOAL HG A1C< 7.0 MULTIPLE EMBOLIC STROKES, LIKELY DUE TO ATRIAL FIBRILLATION, HAS IMPLANTABLE LOOP RECORDER, ON ANTICOAGULATION WITH ELIQUIS HTN GOAL BP < 140/90 ALLERGIES PENICILLIN (FOR ALLERGIES USE ONLY): HIVES - ALLERGY BEE VENOM: ANAPHYLAXIS - ALLERGY SOCIAL HISTORY GENERAL: TOBACCO USE ARE YOU A:NONSMOKER NEVER SMOKER LATEX QUESTIONNAIRE LATEX ALLERGY : HAVE YOU EVER DEVELOPED ANY TYPE OF REACTION AFTER HANDLING LATEX PRODUCTS SUCH RUBBER GLOVES, CONDOMS, DIAPHRAGMS, BALLOONS, SOCKS, OR UNDERWEAR?NO LATEX ALLERGY : HAVE YOU EVER DEVELOPED ANY TYPE OF REACTION DURING OR AFTER DENTAL APPOINTMENT, VAGINAL/RECTAL EXAMINATION, SURGICAL PROCEDURE, OR ANY OTHER EXPOSURE?YES - PLEASE INDICATE :DENTAL PROCEDURE DATE ASKED : 12/25/2019 LATEX RISK : HAVE YOU EVER HAD ANY DIFFICULTY BREATHING OR HIVES AFTER EATING OR HANDLING ANY FRUITS, OR VEGETABLES; SUCH KIWI, BANANAS, STONE FRUITS, OR CHESTNUTSNO LATEX RISK : DO YOU HAVE A PREVIOUS PERSONAL HISTORY OF MORE THAN NINE SURGERIES, SPINA BIFIDA, OR REPEATED CATHERIZATIONS? NO LATEX RISK : ARE YOU FREQUENTLY EXPOSED TO LATEX PRODUCTS IN YOUR OCCUPATION?NO BMI CARE GOAL FOLLOW-UP ABOVE NORMAL BMI FOLLOW-UPDIETARY MANAGEMENT EDUCATION, GUIDANCE, AND COUNSELING ALCOHOL SCREENING DID YOU HAVE A DRINK CONTAINING ALCOHOL IN THE PAST YEAR?NO POINTS0 INTERPRETATIONNEGATIVE RECREATIONAL DRUG USE DENIES. CAFFEINE CAFFEINE USE?YES SODA = 2 2LITER PER DAY COFFEE = 1-2 TIMES PER WEEK 1-2 CUPS SEXUAL HX HAD SEX IN THE LAST 12 MONTHS (VAGINAL, ORAL, OR ANAL)?YES WITHWOMEN ONLY USE PROTECTION?YES HAVE YOU EVER HAD AN STD?NO HIV / HEP-C SCREENING HIV TEST OFFERED TO PATIENT:YES DATE OFFERED:02/28/2017 TEST ACCEPTED:NO HEP-C TEST OFFERED TO PATIENT:YES DATE OFFERED:02/28/2017 REASON:PATIENT DECLINED TEST ACCEPTED:NO REASON:PATIENT DECLINED CAODAISM [id number] BAPTIST NO ROMAN CATHOLIC BELIEFS THAT WOULD IMPACT HEALTH CARE. LANGUAGE BANGLADESHI. EDUCATION LEVEL OF EDUCATION:FINISHED HIGH SCHOOL LEARNING BARRIERS / SPECIAL NEEDS CHANGE FROM LAST VISIT?NO BARRIERS TO LEARNING?NO HEARING IMPAIRED?NO VISION IMPAIRED?YES COGNITIVELY IMPAIRED?NO :CORRECTIVE LENSES READINESS TO LEARN?YES LEARNING PREFERENCES?NO LEARNING CAPABILITIES PRESENT?YES EMOTIONAL BARRIERS?NO SPECIAL DEVICES?NO GALVANIZER NEEDED?NO DOMESTIC VIOLENCE NONE. 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 DIET: REGULAR. EXERCISE: NO REGULAR EXERCISE. MARITAL STATUS: .. OTHERS AT HOME: GIRLFRIEND, STEP CHILD, FRIEND, BROTHER IN LAW. HOUSING: RENTS APARTMENT. VITAL SIGNS WT 248.6 LBS, HT 69 IN, BMI 36.71 INDEX, BP 180/106 MM HG, REPEAT BP 177/88 MM HG, HR 101 /MIN, RR 18 /MIN, TEMP 98.2 F, OXYGEN SAT % 96%, BLOOD GLUCOSE LEVEL DID NOT ASSESS, SAFE IN ENV? (Y/N) YES, NA INITIALS SC 08:32, REVIEWED BY: Carly HOWARD RN BSNWILL RECHECK BP. EXAMINATION GENERAL EXAMINATION: A HISTORY AND PHYSICAL EXAM ON THE PATIENT WAS DONE ON 02/17/2021 (DATE OF ORIGINAL ASSESSMENT) IN PREPARATION OF SURGERY/PROCEDURE. I HAVE NOW REASSESSED THIS PATIENT'S HEALTH STATUS AND PERFORMED AN UPDATED EXAM TODAY. ALL CHANGES IN THE PATIENT'S HISTORY, PHYSICAL EXAM, PRE-EXISTING CONDITONS, AND INDICATIONS/CONTRAINDICATIONS TO THE PLANNED PROCEDURE AND ANESTHESIA ARE DOCUMENTED AND EVALUATED BELOW. I ATTEST TO THE ADEQUACY AND APPROPRIATENESS OF MY ASSESSMENT, AND CONFIRM THE NECESSITY FOR THE PLANNED PROCEDURE. THE PATIENT IS ALERT, ORIENTED TIMES THREE AND COOPERATIVE. LUNGS ARE CLEAR TO AUSCULTATION. HEART SHOWS REGULAR RHYTHM, NO MURMURS AND NO GALLOPS. ASSESSMENTS MYALGIA, OTHER SITE - M79.18 (PRIMARY) TREATMENT MYALGIA, OTHER SITE COMPLETION OF PROCEDURAL VISIT WHEN MEETS CRITERIA OTHERS NOTES: PAT DONE 03/06/21 Matt MCWILLIAMS RN BSN. PROCEDURES PAIN NURSING RECORD PROCEDURE IN ROOM 0811 UPON ARRIVAL TO CLINIC, PHYSICIAN IN ROOM 0940, START 0943, FINISH 0946, PHYSICIAN OUT OF ROOM 0947, OUT OF ROOM 1004, ECG N/A, PATIENT SHIELDED N/A, SAFETY STRAP N/A, PREP ALCOHOL DR. VANESSA, DRESSING MELY HOWARD RN LOC: YANY HOWARD 03/09/2021 9:10:43 AM > 1. ALERT, ORIENTED LOC REMAINED AT BASELINE THROUGHOUT THE PROCEDURE RESP: YANY HOWARD 03/09/2021 9:10:50 AM > 1. REGULAR, NO DYSPNEA COLOR: YANY HOWARD 03/09/2021 9:10:55 AM > 1. PINK SKIN: YANY HOWARD 03/09/2021 9:11:01 AM > 1. WARM, DRY POSITION: YANY HOWARD 03/09/2021 9:11:08 AM > 5. SITTING VITALS: YANY HOWARD 03/09/2021 9:59:20 AM > POST PROCEDURE 180/90, 97% RA, 96, 18. NOTES YANY HOWARD 03/09/2021 9:18:25 AM > PATIENT REPORTS HE DOESN'T LIKE TAKING MEDICATIONS. PATIENT EDUCATED ON IMPORTANCE OF TAKING MEDICATIONS ON A REGULAR BASIS, SPECIFICALLY BLOOD PRESSURE MEDICATIONS TO AVOID REBOUND HYPERTENSION. COMPLETION OF PROCEDURE APPOINTMENT: POST PAIN 07/07, "SORE" AT INJECTION SITE., DRESSING SITE DRY AND INTACT, IV N/A, GAIT STEADY 4 QUAD CANE AT BASELINE, TEACHING COMPLETED, PATIENT ACKNOWLEDGES UNDERSTANDING YES PATIENT PROVIDED POST PROCEDURE PAIN DIARY, COVID HANDOUT AND POST PROCEDURE INSTRUCTIONS, HANDOUTS REVIEWED WITH PATIENT; PATIENT VERBALIZES UNDERSTANDING, NO QUESTIONS OR CONCERNS AT THIS TIME., PROCEDURE APPOINTMENT COMPLETED AT 1004 BY: Carly HOWARD RN PN TRIGGER POINT INJECTION WITH STEROIDS PRE PROCEDURE DIAGNOSIS 1. MYALGIA 2. PAIN AT BILATERAL LOW BACK AREA POST PROCEDURE DIAGNOSIS 1. MYALGIA 2. PAIN AT BILATERAL LOW BACK AREA PROCEDURE TRIGGER POINT INJECTION AT BILATERAL LOW BACK AREA SURGEON DR. 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 I EVALUATED THE PATIENT AND REVIEWED THE CHART. THERE IS EVIDENCE OF BANDS OF TISSUE WITH RESTRICTION OF MOVEMENT AND PRESENCE OF TRIGGER POINT AT THE RIGHT AND LEFT LOW BACK AREA. I WENT OVER THE RISKS, ALTERNATIVES, AND BENEFITS ASSOCIATED WITH THIS PROCEDURE. THE PATIENT WOULD LIKE TO PROCEED AND GIVE CONSENT TO PERFORMED THE PROCEDURE. THE PATIENT DENIES UNEXPLAINABLE WEIGHT LOSS, FEVER, CHILLS, OR NEW CHANGES IN URINARY OR BOWEL CONTROL. THE PATIENT IS COVID-19 NEGATIVE DESCRIPTION OF PROCEDURE THE PATIENT WAS BROUGHT TO THE PROCEDURE ROOM AND PLACED IN THE SITTING POSITION. THE AREA WAS CLEANED WITH ALCOHOL. THE PROCEDURE WAS DONE USING ASEPTIC STERILE TECHNIQUE. A TIMEOUT WAS PERFORMED WHERE THE CONSENTED SITE WAS VERIFIED WITH EVERYONE IN THE ROOM. USING A 25-GAUGE NEEDLE, TRIGGER POINTS WERE INJECTED AT THE RIGHT AND LEFT LOW BACK AREA WITH A TOTAL OF 40 ML OF BUPIVACAINE 0.25% AND KENALOG 40 MG. THE MEDICATIONS WERE VERIFIED WITH THE NURSE. THERE WAS NO EVIDENCE OF BLOOD OR PARESTHESIA DURING THE PROCEDURE. THE PATIENT WAS SENT TO THE RECOVERY ROOM. THE PATIENT WAS MOVING THE EXTREMITIES AND DOING WELL. THERE WERE NO COMPLICATIONS DURING THE PROCEDURE. ESTIMATED BLOOD LOSS WAS LESS THAN 5 ML POST PROCEDURE NOTE TODAY I WILL PERFORM THE TRIGGER POINT INJECTION. IF THE PATIENT DOES NOT GET LONG LASTING RELIEF, CONSIDER ORDERING AN MRI. DEPENDING ON THE RESULTS, CONSIDER DOING A LEFT SACROILIAC JOINT BLOCK. THE PROCEDURE DONE WAS DISCUSSED WITH THE PATIENT. THE PATIENT WILL BE SEEN IN A FOLLOW UP IN THE NEXT FEW WEEKS. I AM LOOKING FOR LONG LASTING PAIN RELIEF FOR THE PATIENT WITH THIS INTERVENTION. INSTRUCTIONS WERE GIVEN, QUESTIONS WERE ANSWERED, AND THE PATIENT EXPRESSED UNDERSTANDING AND AGREES WITH THE PLAN. I, KENAN MAS, DOCUMENTED THE ABOVE INFORMATION ACTING A SCRIBE FOR DR. VANESSA. I HAVE REVIEWED THE ABOVE DOCUMENT, WRITTEN BY KENAN MAS, PEN RIDER, AND I VERIFY THAT IT IS ACCURATE PROCEDURE CODES 60852 INJECT TRIGGER POINT, 1 OR 2 DISPOSITION & COMMUNICATION FOLLOW UP FOLLOW UP WITH LEARNING ENGINEER (REASON: POST TRIGGER POINT INJECTION BILATERAL LOW BACK) ELECTRONICALLY SIGNED BY AARON VANESSA MD, MD ON 03/11/2021 AT 03:19 PM EDT DISCLAIMER : THIS IS A VISIT SUMMARY EXTRACTED FROM THE [employer] CHART. IT IS NOT A COPY OF THE [employer] PROGRESS NOTE. YOHAN
== END ==
LOC: M PAIN 08:30
PROVIDERS: ATTEND Anesthesiology
DX: M79.18 Myalgia, other site (principal); F31.9 Bipolar disorder, unspecified; J44.9 Chronic obstructive pulmonary disease, unspecified; Z85.46 Personal history of malignant neoplasm of prostate; Z92.3 Personal history of irradiation; I25.10 Atherosclerotic heart disease of native coronary artery without angina pectoris; Z95.5 Presence of coronary angioplasty implant and graft; G47.33 Obstructive sleep apnea (adult) (pediatric); I50.9 Heart failure, unspecified; N52.9 Male erectile dysfunction, unspecified; E11.40 Type 2 diabetes mellitus with diabetic neuropathy, unspecified; E11.21 Type 2 diabetes mellitus with diabetic nephropathy; Z86.73 Personal history of transient ischemic attack (TIA), and cerebral infarction without residual deficits; I11.0 Hypertensive heart disease with heart failure; Z79.4 Long term (current) use of insulin; Z79.891 Long term (current) use of opiate analgesic; Z79.899 Other long term (current) drug therapy; Z88.0 Allergy status to penicillin; Z91.030 Bee allergy status
CPT/HCPCS: 20552; J3301

== ENCOUNTER → 2021-03-23 | Outpatient (CLI) | payer MEDICARE ==
[~2021-03-23] MED LIST changes: -BUPIVACAINE HCL 0.25% 10ML VIAL As Ordered ONE; -BUPIVACAINE HCL 0.25% 30ML VIAL As Ordered ONE; -TRIAMCINOLONE ACETONIDE SUSP 40 MG/ML VIAL (J3301) As Ordered ONE
--- NOTE | 2021-03-25 03:26 | ECWPNPC ---
PATIENT NAME: JOLLY SMITH : 1960 GENDER: MALE VISIT DATE: 03/23/2021 DISCHARGE DATE: 03/23/21 1043 VISIT LOCKED DATE TIME: PHYSICIAN: LINDSAY WEBER PHYSICIAN PAGER NO: ACTIVE RESOURCE: LINDSAY WEBER REASON FOR APPOINTMENT 1. POST TRIGGER POINT INJECTIONS LOW BACK HISTORY OF PRESENT ILLNESS GENERAL: 61-YEAR-OLD MALE IN FOR POST TRIGGER POINT INJECTION FOLLOW-UP. HE FEELS THE PROCEDURE WAS UNSUCCESSFUL. HE RATES PAIN CURRENTLY AT A 10 OUT OF 10 AND DESCRIBES IT CONTINUOUS, SHARP, AND STABBING. HE FEELS MEDICATIONS ARE NOT HELPING TO CONTROL HIS PAIN SYMPTOMS. FALL RISK SCREENING: SCREENING 12 FALLS REPORTED IN THE LAST YEAR WITH INJURY. PATIENT DID NOT SEEK IMMEDIATE MEDICAL TREATMENT FOR ANY OF THE FALLS.. PAIN SCREENING: PATIENT HAS A COMPLAINT OF ACUTE OR CHRONIC PAIN :YES LOCATION OF PAIN:LOW BACK, LEFT HIP, RIGHT HIP, LEG(S) INTENSITY OF PAIN (SCALE OF 1 TO 10):10 WHAT DOES YOUR PAIN FEEL LIKE:CONTINOUS, SHARP, STABBING DURATION:CONTINOUS, CONSTANT PAIN IS INCREASED BY:ACTIVITIES, PROLONGED STANDING PAIN IS DECREASED BY:OTHERS PATIENT STATES"PAIN MEDS DO NOT HELP AT ALL." NURSING NOTE: -. PAIN CENTER INTAKE QUESTIONS: DO YOU HAVE A HISTORY OF MRSA? :NO DO YOU TAKE A BLOOD THINNERS? :YES ELAQUIS SINCE 2018 DO YOU HAVE ANY BLEEDING DISORDERS? :NO ANY NEW NUMBNESS OR WEAKNESS IN YOUR LEGS OR ARMS? :NO MORE ON THE RIGHT SIDE FROM THE STROKE ANY PACEMAKER,DEFIBRILLATOR, OR DORSAL COLUMN STIMULATOR? :NO DO YOU HAVE ANY RASHES OR OPEN SORES? :NO ARE YOU ALLERGIC TO IV DYE? :NO ARE YOU DIABETIC? :YES ANY NEW PROBLEMS WITH YOUR MEDICATIONS? :NO HAVE YOU RECEIVED A VACCINE IN THE PAST 30 DAYS? :NO DO YOU PLAN TO RECEIVE A VACCINE IN THE NEXT 21 DAYS? :NO HAS HAD BOTH DOSES OF COVID VACINE 02/14 2ND DOSE DO YOU NEED ANY PRESCRIPTION? :NO DO YOU TAKE ANY IMMUNOSUPPRESSIVE MEDICATIONS? :NO CURRENT MEDICATIONS TAKING SELENIUM SULFIDE 2.5 % LOTION 1 APPLICATION TO AFFECTED AREA EXTERNALLY TWICE A DAY ON NECK TAKING MECLIZINE HCL 25 MG TABLET CHEWABLE 1 TABLET NEEDED ORALLY ONCE A DAY TAKING EPIPEN 2-PARTH 0.3 MG/0.3ML SOLUTION AUTO-INJECTOR 1 INJECTION INTRAMUSCULAR IN THIGH NEEDED FOR BEE STING REACTION; DX: [id number], NOTES: NOT RECENTLY TAKING KETOTIFEN FUMARATE 0.025 % SOLUTION 1 DROP INTO AFFECTED EYE OPHTHALMIC TWICE A DAY TAKING PANTOPRAZOLE SODIUM 40 MG TABLET DELAYED RELEASE 1 TABLET ORALLY ONCE A DAY TAKING ONETOUCH VERIO - STRIP DIRECTED IN VITRO USE 1 STRIP BEFORE BREAKFAST IN THE AM AND 1 STRIP 2 HOURS AFTER DINNER IN THE PM DAILY TAKING INSULIN SYRINGE/NEEDLE 27G X 1/2 MISCELLANEOUS TAKING E-Z SPACER 1 ORALLY; ICD10: J45.20 PRN FOR SOB/WHEEZING FOR PRN ALBUTEROL INHALER TAKING ONETOUCH VERIO W/DEVICE KIT DIRECTED _ BID TAKING ONETOUCH ULTRASOFT LANCETS - MISCELLANEOUS DIRECTED SUBCUTANEOUSLY USE 1 LANCET BEFORE BREAKFAST IN THE AM AND 1 LANCET 2 HOURS AFTER DINNER IN THE PM DAILY TAKING MAGNESIUM CHLORIDE-CALCIUM 64-112 MG TABLET DIRECTED ORALLY DAILY TAKING MELATONIN 3 MG TABLET 1 TABLET AT BEDTIME NEEDED ORALLY ONCE A DAY TAKING TAMSULOSIN HCL 0.4 MG CAPSULE TAKE 1 CAPSULE BY MOUTH EVERY DAY TAKING ALBUTEROL SULFATE (2.5 MG/3ML) 0.083% NEBULIZATION SOLUTION 3 ML INHALATION FOUR TIMES A DAY J44.9 TAKING ASPIRIN 81 MG TABLET DELAYED RELEASE 1 TABLET ORALLY ONCE A DAY TAKING NITROGLYCERIN 0.4 MG TABLET SUBLINGUAL 1 TAB SUBLINGUAL Q 5 MIN X 3 FOR CHEST PAIN, NOTES: EVERY OTHER DAY TAKING ATORVASTATIN CALCIUM 80 MG TABLET 1 TABLET ORALLY ONCE A DAY TAKING APIXABAN 5 MG TABLET 1 TAB ORALLY TWICE DAILY, NOTES: 03/08/21 1500 TAKING VORTIOXETINE HBR 5 MG TABLET 1 TABLET ORALLY ONCE A DAY TAKING BUSPIRONE HCL 5 MG TABLET 1 TABLET ORALLY BID TAKING VITAMIN B12 500 MCG TABLET 1 TABLET ORALLY ONCE A DAY TAKING VITAMIN D3 2000 UNIT CAPSULE 1 TABLET WITH A FATTY MEAL (FOR BETTER ABSORPTION) ORALLY ONCE A DAY TAKING BREO ELLIPTA 100-25 MCG/INH AEROSOL POWDER BREATH ACTIVATED 1 PUFF INHALATION ONCE A DAY TAKING METFORMIN HCL ER 500 MG TABLET EXTENDED RELEASE 24 HOUR TAKE 2 TABLETS BY MOUTH EVERY DAY WITH BREAKFAST AND 2 TABLETS WITH DINNER , NOTES: 03/07/21 TAKING TOUJEO SOLOSTAR 300 UNIT/ML SOLUTION PEN-INJECTOR DIRECTED SUBCUTANEOUS 80 UNITS IN THE AM AND 80 UNITS IN THE PM, NOTES: 80UNITS BID, 03/07/21 TAKING GABAPENTIN 600 MG TABLET 1 TABLET ORALLY TID, NOTES: 03/07/21 TAKING CHLORTHALIDONE 25 MG TABLET 1 TABLET IN THE MORNING WITH FOOD ORALLY ONCE A DAY TAKING LISINOPRIL 40 MG TABLET 1 TABLET ORALLY ONCE A DAY, NOTES: 03/07/21 TAKING METOPROLOL TARTRATE 100 MG TABLET 1 TABLET WITH FOOD ORALLY TWICE A DAY, NOTES: 03/07/21 TAKING CYCLOBENZAPRINE HCL 10 MG TABLET 1 TABLET NEEDED ORALLY EVERY 8 HOURS NEEDED FOR PAIN, NOTES: 03/07/21 TAKING TRAMADOL HCL 50 MG TABLET 1 TABLET NEEDED ORALLY EVERY 6 HRS; MDD: 4, NOTES: ONLY TAKING ONE A NIGHT. TAKING LIDOCAINE 5 % PATCH 1 PATCH REMOVE AFTER 12 HOURS EXTERNALLY ONCE A DAY, NOTES: NOT RECENTLY NOT-TAKING AMLODIPINE BESYLATE 5 MG TABLET 1 TABLET ORALLY ONCE A DAY NOT-TAKING TYLENOL WITH CODEINE #3 300-30 MG TABLET 1 TABLET NEEDED ORALLY EVERY 6 HRS MDD 4, NOTES: 03/07/21 UNKNOWN TRULICITY 1.5 MG/0.5ML SOLUTION PEN-INJECTOR DIRECTED SUBCUTANEOUS WEEKLY ON TUESDAY UNKNOWN SENNA-DOCUSATE SODIUM 8.6-50 MG TABLET 2 TABLETS DAILY IF CONSTIPATED ORALLY ONCE A DAY PRN CONSTIPATION UNKNOWN ALBUTEROL SULFATE HFA 108 (90 BASE) MCG/ACT AEROSOL SOLUTION 2 PUFFS NEEDED INHALATION EVERY 4 HRS UNKNOWN ADVAIR DISKUS 500-50 MCG/DOSE AEROSOL POWDER BREATH ACTIVATED INL 1 PUFF PO BID INHALATION MEDICATION LIST REVIEWED AND RECONCILED WITH THE PATIENT PAST MEDICAL HISTORY BIPOLAR 1 DISORDER DEPRESSION COPD (CHRONIC OBSTRUCTIVE PULMONARY DISEASE) ASTHMA PROSTATE CANCER S/P RADIATION 2013 CAD S/P STENTING 2012 [facility], HAS CPAP CHF LUTS ED T2DM IR WITH NEUROPATHY/NEPHROPATHY. GOAL HG A1C< 7.0 MULTIPLE EMBOLIC STROKES, LIKELY DUE TO ATRIAL FIBRILLATION, HAS IMPLANTABLE LOOP RECORDER, ON ANTICOAGULATION WITH ELIQUIS HTN GOAL BP < 140/90 ALLERGIES PENICILLIN (FOR ALLERGIES USE ONLY): HIVES - ALLERGY BEE VENOM: ANAPHYLAXIS - ALLERGY SOCIAL HISTORY GENERAL: TOBACCO USE ARE YOU A:NONSMOKER NEVER SMOKER LATEX QUESTIONNAIRE LATEX ALLERGY : HAVE YOU EVER DEVELOPED ANY TYPE OF REACTION AFTER HANDLING LATEX PRODUCTS SUCH RUBBER GLOVES, CONDOMS, DIAPHRAGMS, BALLOONS, SOCKS, OR UNDERWEAR?NO LATEX ALLERGY : HAVE YOU EVER DEVELOPED ANY TYPE OF REACTION DURING OR AFTER DENTAL APPOINTMENT, VAGINAL/RECTAL EXAMINATION, SURGICAL PROCEDURE, OR ANY OTHER EXPOSURE?YES - PLEASE INDICATE :DENTAL PROCEDURE LATEX RISK : HAVE YOU EVER HAD ANY DIFFICULTY BREATHING OR HIVES AFTER EATING OR HANDLING ANY FRUITS, OR VEGETABLES; SUCH KIWI, BANANAS, STONE FRUITS, OR CHESTNUTSNO LATEX RISK : DO YOU HAVE A PREVIOUS PERSONAL HISTORY OF MORE THAN NINE SURGERIES, SPINA BIFIDA, OR REPEATED CATHERIZATIONS? NO LATEX RISK : ARE YOU FREQUENTLY EXPOSED TO LATEX PRODUCTS IN YOUR OCCUPATION?NO DATE ASKED : 03/23/2021 ALCOHOL USE: NO. BMI CARE GOAL FOLLOW-UP ABOVE NORMAL BMI FOLLOW-UPDIETARY MANAGEMENT EDUCATION, GUIDANCE, AND COUNSELING ALCOHOL SCREENING DID YOU HAVE A DRINK CONTAINING ALCOHOL IN THE PAST YEAR?NO POINTS0 INTERPRETATIONNEGATIVE RECREATIONAL DRUG USE DRUG USE?NO CAFFEINE CAFFEINE USE?YES SODA = 2 2LITER PER DAY COFFEE = 1-2 TIMES PER WEEK 1-2 CUPS SEXUAL HX HAD SEX IN THE LAST 12 MONTHS (VAGINAL, ORAL, OR ANAL)?YES WITHWOMEN ONLY USE PROTECTION?YES HAVE YOU EVER HAD AN STD?NO HIV / HEP-C SCREENING HIV TEST OFFERED TO PATIENT:YES DATE OFFERED:02/28/2017 TEST ACCEPTED:NO HEP-C TEST OFFERED TO PATIENT:YES DATE OFFERED:02/28/2017 REASON:PATIENT DECLINED TEST ACCEPTED:NO REASON:PATIENT DECLINED DRUZE [id number] LATTER DAY NO MU-ISM BELIEFS THAT WOULD IMPACT HEALTH CARE. LANGUAGE MAORI. EDUCATION LEVEL OF EDUCATION:FINISHED HIGH SCHOOL LEARNING BARRIERS / SPECIAL NEEDS CHANGE FROM LAST VISIT?NO BARRIERS TO LEARNING?NO HEARING IMPAIRED?NO VISION IMPAIRED?YES :CORRECTIVE LENSES COGNITIVELY IMPAIRED?NO READINESS TO LEARN?YES LEARNING PREFERENCES?NO LEARNING CAPABILITIES PRESENT?YES EMOTIONAL BARRIERS?NO SPECIAL DEVICES?YES :CANE, WALKER, BRACE KNEE BRACES MANAGER OF QUALITY NEEDED?NO DOMESTIC VIOLENCE NONE. 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 DIET: REGULAR. EXERCISE: NO REGULAR EXERCISE. MARITAL STATUS: .. OTHERS AT HOME: GIRLFRIEND, STEP CHILD, FRIEND, BROTHER IN LAW. HOUSING: RENTS APARTMENT. REVIEW OF SYSTEMS CONSTITUTIONAL: ANY RECENT FEVER NO . CHILLS NO . WEIGHT CHANGE OF UNKNOWN REASONS NO . GASTROENTEROLOGY: NEW UNEXPLAINABLE CHANGES IN BOWEL CONTROL NO . CONSTIPATION NO . GENITOURINARY: ANY NEW CHANGE IN BLADDER CONTROL? NO . NEUROLOGY: NEW ONSET DIZZINESS OR NEUROLOGICAL CHANGES NOT MENTIONED NO . NEW NUMBNESS OR PAIN PATTERNS NOT MENTIONED AND PERTINENT TO TODAY'S VISIT NO . CARDIOLOGY: NEW CHEST PRESSURE NO . PATIENT DENIES NO . RESPIRATORY: UNEXPLAINABLE COUGH NO . NEW SHORTNESS OF BREATH NO . VITAL SIGNS WT 251.0 LBS, HT 69 IN, BMI 37.06 INDEX, BP 160/91 MM HG, HR 88 /MIN, RR 18 /MIN, TEMP 97.8 F, OXYGEN SAT % 97%, SAFE IN ENV? (Y/N) YES, NA INITIALS AW 1010, REVIEWED BY: JUAN RAMON WILHELM MA. EXAMINATION GENERAL EXAMINATION: GENERALNO ACUTE DISTRESS, WELL NOURISHED AND HYDRATED. PSYCHAPPROPRIATE MOOD AND AFFECT . LUNGS:CLEAR TO AUSCULTATION BILATERALLY, NO WHEEZES, RHONCHI, RALES. HEART:NO MURMURS, REGULAR RATE AND RHYTHM. ASSESSMENTS OTHER CHRONIC PAIN - G89.29 (PRIMARY) TREATMENT OTHER CHRONIC PAIN START LYRICA CAPSULE, 75 MG, 1 CAPSULE, ORALLY, DAILY, 30 DAYS, 30 PAIN PROCEDURE LOGDATE OF PROCEDURE1PROCEDURE:TRIGGER POINT INJECTION LOW BACKAMOUNT OF PRE SEDATE0/0RESULT:UNSUCCESSFUL NOTES: 61-YEAR-OLD MALE IN FOR POST TRIGGER POINT INJECTION FOLLOW-UP. GIVEN PRESENTING SYMPTOMS RECOMMEND TAPERING OFF GABAPENTIN AND STARTING LYRICA. GABAPENTIN TAPER FOLLOWS 600 MG TWICE DAILY X1 WEEK THEN 600 MG DAILY X1 WEEK THEN 600 MG EVERY OTHER DAY THEN STOP. PATIENT HAS EXPRESSED UNDERSTANDING OF AND WAS IN AGREEMENT WITH TREATMENT PLAN. GIVEN TIME TO ASK QUESTIONS AND EXPRESS CONCERNS. PRINTED INFORMATION ON NEW MEDICATION AND TAPER OFF GABAOENTIN 600MG TWICE A DAY. JESSIKA PALMER. PROCEDURE CODES FA211 ESTABILISHED PATIENT [facility] CHARGE DISPOSITION & COMMUNICATION FOLLOW UP 4 WEEKS (REASON: NEW MEDICATION) ELECTRONICALLY SIGNED BY RADHA JOY ON 03/24/2021 AT 08:34 AM EDT DISCLAIMER : THIS IS A VISIT SUMMARY EXTRACTED FROM THE [employer] CHART. IT IS NOT A COPY OF THE [employer] PROGRESS NOTE. YOHAN
== END ==
LOC: M PAIN 10:15
PROVIDERS: ATTEND Family Medicine
DX: G89.29 Other chronic pain (principal); F31.9 Bipolar disorder, unspecified; J44.9 Chronic obstructive pulmonary disease, unspecified; J45.909 Unspecified asthma, uncomplicated; I25.10 Atherosclerotic heart disease of native coronary artery without angina pectoris; G47.33 Obstructive sleep apnea (adult) (pediatric); I50.9 Heart failure, unspecified; N52.9 Male erectile dysfunction, unspecified; E11.21 Type 2 diabetes mellitus with diabetic nephropathy; E11.41 Type 2 diabetes mellitus with diabetic mononeuropathy; Z86.73 Personal history of transient ischemic attack (TIA), and cerebral infarction without residual deficits; I11.0 Hypertensive heart disease with heart failure; Z85.46 Personal history of malignant neoplasm of prostate; Z95.5 Presence of coronary angioplasty implant and graft; Z92.3 Personal history of irradiation; Z79.4 Long term (current) use of insulin; Z79.01 Long term (current) use of anticoagulants; Z79.82 Long term (current) use of aspirin; Z79.899 Other long term (current) drug therapy; Z79.891 Long term (current) use of opiate analgesic; Z88.0 Allergy status to penicillin; Z91.030 Bee allergy status

== ENCOUNTER → 2021-04-09 | Outpatient (CLI) | payer MEDICARE ==
--- NOTE | 2021-04-10 23:30 | ECWPNPC ---
PATIENT NAME: JOLLY SMITH : 1960 GENDER: MALE VISIT DATE: 04/09/2021 DISCHARGE DATE: 04/09/21 1036 VISIT LOCKED DATE TIME: PHYSICIAN: LINDSAY WEBER PHYSICIAN PAGER NO: ACTIVE RESOURCE: LINDSAY WEBER REASON FOR APPOINTMENT 1. NBP-SHOULDER/KNEE CHRONIC PAIN DUE TO NEUROPATHY HISTORY OF PRESENT ILLNESS GENERAL: HPI 61-YEAR-OLD MALE IN FOR EVALUATION OF SHOULDER AND KNEE PAIN DUE TO NEUROPATHY. HE RATES HIS PAIN CURRENTLY AT A 9 OUT OF 10 AND DESCRIBES IT CONTINUOUS, SHARP, AND STABBING. WHEN ASKED PATIENT DOES ADMIT TO A FALL ON HIS BACK SUSTAINED LAST YEAR AND HE FEELS THE PAIN COULD BE A RESULT OF THAT FALL.. -. FALL RISK SCREENING: SCREENING : NO FALLS REPORTED IN THE LAST YEAR. PAIN SCREENING: PATIENT HAS A COMPLAINT OF ACUTE OR CHRONIC PAIN :YES LOCATION OF PAIN:NECK, BOTH SHOULDERS, KNEES INTENSITY OF PAIN (SCALE OF 1 TO 10):9 WHAT DOES YOUR PAIN FEEL LIKE:CONTINOUS, SHARP, STABBING DURATION:CONTINOUS, CONSTANT, AWAKENS FROM SLEEP PAIN IS INCREASED BY:ACTIVITIES, PROLONGED STANDING PAIN IS DECREASED BY:USE OF PAIN MEDICATIONS, SITTING NURSING NOTE: -. PAIN CENTER INTAKE QUESTIONS: DO YOU HAVE A HISTORY OF MRSA? :NO DO YOU TAKE A BLOOD THINNERS? :YES ELOQUIS SINCE 2019 DO YOU HAVE ANY BLEEDING DISORDERS? :NO ANY NEW NUMBNESS OR WEAKNESS IN YOUR LEGS OR ARMS? :NO ANY PACEMAKER,DEFIBRILLATOR, OR DORSAL COLUMN STIMULATOR? :NO DO YOU HAVE ANY RASHES OR OPEN SORES? :NO ARE YOU ALLERGIC TO IV DYE? :NO ARE YOU DIABETIC? :YES ANY NEW PROBLEMS WITH YOUR MEDICATIONS? :NO HAVE YOU RECEIVED A VACCINE IN THE PAST 30 DAYS? :NO SECOND COVID VACCINATION 02/14/2021 DO YOU PLAN TO RECEIVE A VACCINE IN THE NEXT 21 DAYS? :NO DO YOU NEED ANY PRESCRIPTION? :NO DO YOU TAKE ANY IMMUNOSUPPRESSIVE MEDICATIONS? :NO CURRENT MEDICATIONS TAKING SELENIUM SULFIDE 2.5 % LOTION 1 APPLICATION TO AFFECTED AREA EXTERNALLY TWICE A DAY ON NECK TAKING MECLIZINE HCL 25 MG TABLET CHEWABLE 1 TABLET NEEDED ORALLY ONCE A DAY TAKING EPIPEN 2-PARTH 0.3 MG/0.3ML SOLUTION AUTO-INJECTOR 1 INJECTION INTRAMUSCULAR IN THIGH NEEDED FOR BEE STING REACTION; DX: [id number], NOTES: NOT RECENTLY TAKING KETOTIFEN FUMARATE 0.025 % SOLUTION 1 DROP INTO AFFECTED EYE OPHTHALMIC TWICE A DAY TAKING PANTOPRAZOLE SODIUM 40 MG TABLET DELAYED RELEASE 1 TABLET ORALLY ONCE A DAY TAKING ONETOUCH VERIO - STRIP DIRECTED IN VITRO USE 1 STRIP BEFORE BREAKFAST IN THE AM AND 1 STRIP 2 HOURS AFTER DINNER IN THE PM DAILY TAKING INSULIN SYRINGE/NEEDLE 27G X 1/2 MISCELLANEOUS TAKING E-Z SPACER 1 ORALLY; ICD10: J45.20 PRN FOR SOB/WHEEZING FOR PRN ALBUTEROL INHALER TAKING ONETOUCH VERIO W/DEVICE KIT DIRECTED _ BID TAKING ONETOUCH ULTRASOFT LANCETS - MISCELLANEOUS DIRECTED SUBCUTANEOUSLY USE 1 LANCET BEFORE BREAKFAST IN THE AM AND 1 LANCET 2 HOURS AFTER DINNER IN THE PM DAILY TAKING MAGNESIUM CHLORIDE-CALCIUM 64-112 MG TABLET DIRECTED ORALLY DAILY TAKING MELATONIN 3 MG TABLET 1 TABLET AT BEDTIME NEEDED ORALLY ONCE A DAY TAKING TAMSULOSIN HCL 0.4 MG CAPSULE TAKE 1 CAPSULE BY MOUTH EVERY DAY TAKING ALBUTEROL SULFATE (2.5 MG/3ML) 0.083% NEBULIZATION SOLUTION 3 ML INHALATION FOUR TIMES A DAY J44.9 TAKING ASPIRIN 81 MG TABLET DELAYED RELEASE 1 TABLET ORALLY ONCE A DAY TAKING NITROGLYCERIN 0.4 MG TABLET SUBLINGUAL 1 TAB SUBLINGUAL Q 5 MIN X 3 FOR CHEST PAIN, NOTES: EVERY OTHER DAY TAKING ATORVASTATIN CALCIUM 80 MG TABLET 1 TABLET ORALLY ONCE A DAY TAKING APIXABAN 5 MG TABLET 1 TAB ORALLY TWICE DAILY, NOTES: 03/08/21 1500 TAKING VORTIOXETINE HBR 5 MG TABLET 1 TABLET ORALLY ONCE A DAY TAKING BUSPIRONE HCL 5 MG TABLET 1 TABLET ORALLY BID TAKING VITAMIN B12 500 MCG TABLET 1 TABLET ORALLY ONCE A DAY TAKING VITAMIN D3 2000 UNIT CAPSULE 1 TABLET WITH A FATTY MEAL (FOR BETTER ABSORPTION) ORALLY ONCE A DAY TAKING BREO ELLIPTA 100-25 MCG/INH AEROSOL POWDER BREATH ACTIVATED 1 PUFF INHALATION ONCE A DAY TAKING METFORMIN HCL ER 500 MG TABLET EXTENDED RELEASE 24 HOUR TAKE 2 TABLETS BY MOUTH EVERY DAY WITH BREAKFAST AND 2 TABLETS WITH DINNER , NOTES: 03/07/21 TAKING TOUJEO SOLOSTAR 300 UNIT/ML SOLUTION PEN-INJECTOR DIRECTED SUBCUTANEOUS 80 UNITS IN THE AM AND 80 UNITS IN THE PM, NOTES: 80UNITS BID, 03/07/21 TAKING GABAPENTIN 600 MG TABLET 1 TABLET ORALLY TID, NOTES: 03/07/21 TAKING CHLORTHALIDONE 25 MG TABLET 1 TABLET IN THE MORNING WITH FOOD ORALLY ONCE A DAY TAKING LISINOPRIL 40 MG TABLET 1 TABLET ORALLY ONCE A DAY, NOTES: 03/07/21 TAKING METOPROLOL TARTRATE 100 MG TABLET 1 TABLET WITH FOOD ORALLY TWICE A DAY, NOTES: 03/07/21 TAKING CYCLOBENZAPRINE HCL 10 MG TABLET 1 TABLET NEEDED ORALLY EVERY 8 HOURS NEEDED FOR PAIN, NOTES: 03/07/21 TAKING TRAMADOL HCL 50 MG TABLET 1 TABLET NEEDED ORALLY EVERY 6 HRS; MDD: 4, NOTES: ONLY TAKING ONE A NIGHT. TAKING LIDOCAINE 5 % PATCH 1 PATCH REMOVE AFTER 12 HOURS EXTERNALLY ONCE A DAY, NOTES: NOT RECENTLY TAKING LYRICA 75 MG CAPSULE 1 CAPSULE ORALLY DAILY NOT-TAKING AMLODIPINE BESYLATE 5 MG TABLET 1 TABLET ORALLY ONCE A DAY NOT-TAKING TYLENOL WITH CODEINE #3 300-30 MG TABLET 1 TABLET NEEDED ORALLY EVERY 6 HRS MDD 4, NOTES: 03/07/21 UNKNOWN TRULICITY 1.5 MG/0.5ML SOLUTION PEN-INJECTOR DIRECTED SUBCUTANEOUS WEEKLY ON TUESDAY UNKNOWN SENNA-DOCUSATE SODIUM 8.6-50 MG TABLET 2 TABLETS DAILY IF CONSTIPATED ORALLY ONCE A DAY PRN CONSTIPATION UNKNOWN ALBUTEROL SULFATE HFA 108 (90 BASE) MCG/ACT AEROSOL SOLUTION 2 PUFFS NEEDED INHALATION EVERY 4 HRS UNKNOWN ADVAIR DISKUS 500-50 MCG/DOSE AEROSOL POWDER BREATH ACTIVATED INL 1 PUFF PO BID INHALATION MEDICATION LIST REVIEWED AND RECONCILED WITH THE PATIENT PAST MEDICAL HISTORY BIPOLAR 1 DISORDER DEPRESSION COPD (CHRONIC OBSTRUCTIVE PULMONARY DISEASE) ASTHMA PROSTATE CANCER S/P RADIATION 2013 CAD S/P STENTING 2012 [facility], HAS CPAP CHF LUTS ED T2DM IR WITH NEUROPATHY/NEPHROPATHY. GOAL HG A1C< 7.0 MULTIPLE EMBOLIC STROKES, LIKELY DUE TO ATRIAL FIBRILLATION, HAS IMPLANTABLE LOOP RECORDER, ON ANTICOAGULATION WITH ELIQUIS HTN GOAL BP < 140/90 ALLERGIES PENICILLIN (FOR ALLERGIES USE ONLY): HIVES - ALLERGY BEE VENOM: ANAPHYLAXIS - ALLERGY SOCIAL HISTORY GENERAL: TOBACCO USE ARE YOU A:NONSMOKER NEVER SMOKER LATEX QUESTIONNAIRE LATEX ALLERGY : HAVE YOU EVER DEVELOPED ANY TYPE OF REACTION AFTER HANDLING LATEX PRODUCTS SUCH RUBBER GLOVES, CONDOMS, DIAPHRAGMS, BALLOONS, SOCKS, OR UNDERWEAR?NO LATEX ALLERGY : HAVE YOU EVER DEVELOPED ANY TYPE OF REACTION DURING OR AFTER DENTAL APPOINTMENT, VAGINAL/RECTAL EXAMINATION, SURGICAL PROCEDURE, OR ANY OTHER EXPOSURE?YES - PLEASE INDICATE :DENTAL PROCEDURE LATEX RISK : HAVE YOU EVER HAD ANY DIFFICULTY BREATHING OR HIVES AFTER EATING OR HANDLING ANY FRUITS, OR VEGETABLES; SUCH KIWI, BANANAS, STONE FRUITS, OR CHESTNUTSNO LATEX RISK : DO YOU HAVE A PREVIOUS PERSONAL HISTORY OF MORE THAN NINE SURGERIES, SPINA BIFIDA, OR REPEATED CATHERIZATIONS? NO LATEX RISK : ARE YOU FREQUENTLY EXPOSED TO LATEX PRODUCTS IN YOUR OCCUPATION?NO DATE ASKED : 04/09/2021 ALCOHOL USE: NO. BMI CARE GOAL FOLLOW-UP ABOVE NORMAL BMI FOLLOW-UPDIETARY MANAGEMENT EDUCATION, GUIDANCE, AND COUNSELING ALCOHOL SCREENING DID YOU HAVE A DRINK CONTAINING ALCOHOL IN THE PAST YEAR?NO POINTS0 INTERPRETATIONNEGATIVE RECREATIONAL DRUG USE DRUG USE?NO CAFFEINE CAFFEINE USE?YES SODA = 2 2LITER PER DAY COFFEE = 1-2 TIMES PER WEEK 1-2 CUPS SEXUAL HX HAD SEX IN THE LAST 12 MONTHS (VAGINAL, ORAL, OR ANAL)?YES WITHWOMEN ONLY USE PROTECTION?YES HAVE YOU EVER HAD AN STD?NO HIV / HEP-C SCREENING HIV TEST OFFERED TO PATIENT:YES DATE OFFERED:02/28/2017 TEST ACCEPTED:NO HEP-C TEST OFFERED TO PATIENT:YES DATE OFFERED:02/28/2017 REASON:PATIENT DECLINED TEST ACCEPTED:NO REASON:PATIENT DECLINED AMISH [id number] [employer]VENT[employer] NO EVANGELICAL BELIEFS THAT WOULD IMPACT HEALTH CARE. LANGUAGE SUDANESE. 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 DIET: REGULAR. EXERCISE: NO REGULAR EXERCISE. MARITAL STATUS: .. OTHERS AT HOME: GIRLFRIEND, STEP CHILD, FRIEND, BROTHER IN LAW. HOUSING: RENTS APARTMENT. REVIEW OF SYSTEMS CONSTITUTIONAL: ANY RECENT FEVER NO . CHILLS NO . WEIGHT CHANGE OF UNKNOWN REASONS NO . GASTROENTEROLOGY: NEW UNEXPLAINABLE CHANGES IN BOWEL CONTROL NO . CONSTIPATION NO . GENITOURINARY: ANY NEW CHANGE IN BLADDER CONTROL? NO . NEUROLOGY: NEW ONSET DIZZINESS OR NEUROLOGICAL CHANGES NOT MENTIONED NO . NEW NUMBNESS OR PAIN PATTERNS NOT MENTIONED AND PERTINENT TO TODAY'S VISIT NO . CARDIOLOGY: NEW CHEST PRESSURE NO . PATIENT DENIES NO . RESPIRATORY: UNEXPLAINABLE COUGH NO . NEW SHORTNESS OF BREATH NO . VITAL SIGNS WT 254.0 LBS, HT 69 IN, BMI 37.51 INDEX, BP 158/90 MM HG, HR 86 /MIN, RR 18 /MIN, TEMP 95.5 F, OXYGEN SAT % 97%, NA INITIALS AW 1002. EXAMINATION GENERAL EXAMINATION: GENERALNO ACUTE DISTRESS, WELL NOURISHED AND HYDRATED. PSYCHAPPROPRIATE MOOD AND AFFECT . LUNGS:CLEAR TO AUSCULTATION BILATERALLY, NO WHEEZES, RHONCHI, RALES. HEART:NO MURMURS, REGULAR RATE AND RHYTHM. ASSESSMENTS NEUROPATHIC PAIN - M79.2 (PRIMARY) TREATMENT NEUROPATHIC PAIN STOP GABAPENTIN TABLET, 600 MG, 1 TABLET, ORALLY, TID, NOTES: 03/07/21 REFILL LYRICA CAPSULE, 100 MG, 1 CAPSULE, ORALLY, DAILY, 30 DAYS, 30 CAPSULE, REFILLS 1 NOTES: 61-YEAR-OLD MALE IN FOR EVALUATION NEW BODY PART. GIVEN PRESENTING SYMPTOMS RECOMMENDED INCREASING LYRICA TO 100 MG WITH FOLLOW-UP IN 2 MONTHS TO DETERMINE EFFICACY OF TREATMENT. PATIENT HAS EXPRESSED UNDERSTANDING OF WAS IN AGREEMENT WITH TREATMENT PLAN. GIVEN TIME TO ASK QUESTIONS AND EXPRESS CONCERNS. PATIENT DID DISCUSS KNEE AND GROIN PAIN WITH THIS PROVIDER AND IT WAS RECOMMENDED THAT HE DISCUSS IT WITH HIS PRIMARY CARE PROVIDER FOR POSSIBLE REFERRAL TO ORTHOPEDICS AND POTENTIALLY A SCROTAL ULTRASOUND GIVEN PATIENT'S SCROTAL PAIN. , ISTOP REGISTRY REVIEWED AND DEMONSTRATES COMPLLIANCE. (REF #[id number] ) BRINGS IN MEDICATIONS WHICH IS APPROPRIATE FOR WHAT WAS DISPENSED. PROCEDURE CODES FA211 ESTABILISHED PATIENT [facility] CHARGE DISPOSITION & COMMUNICATION FOLLOW UP 2 MONTHS (REASON: NEUROPATHY ) ELECTRONICALLY SIGNED BY RADHA JOY ON 04/10/2021 AT 09:41 AM EDT DISCLAIMER : THIS IS A VISIT SUMMARY EXTRACTED FROM THE [employer] CHART. IT IS NOT A COPY OF THE [employer] PROGRESS NOTE. YOHAN
== END ==
LOC: M PAIN 09:45
PROVIDERS: ATTEND Family Medicine
DX: M79.2 Neuralgia and neuritis, unspecified (principal); E11.9 Type 2 diabetes mellitus without complications; J44.9 Chronic obstructive pulmonary disease, unspecified; G47.33 Obstructive sleep apnea (adult) (pediatric); Z86.59 Personal history of other mental and behavioral disorders; Z88.0 Allergy status to penicillin; Z91.030 Bee allergy status; Z79.4 Long term (current) use of insulin; Z79.51 Long term (current) use of inhaled steroids; Z79.82 Long term (current) use of aspirin; Z79.899 Other long term (current) drug therapy

== ENCOUNTER → 2021-04-21 | Outpatient (REF) | payer MEDICARE ==
[2021-04-21 17:41] LABS: HEMATOCRIT 46.5 % (42.0-52.0); MEAN CORPUSCULAR HEMOGLOBIN 27.3 pg (27.0-33.0); MEAN CORPUSCULAR HGB CONC 32.3 g/dl (32.0-36.5); MEAN CORPUSCULAR VOLUME 84.5 fl (80.0-96.0); PLATELET COUNT, AUTOMATED 344 10^3/uL (150-450); WHITE BLOOD COUNT 8.4 10^3/uL (4.0-10.0)
[2021-04-21 18:08] LABS: ALBUMIN 3.6 GM/DL (3.2-5.2); ALT/SGPT 21 U/L (12-78); BILIRUBIN,TOTAL 0.4 MG/DL (0.2-1.0); BLOOD UREA NITROGEN 9 MG/DL (7-18); CALCIUM LEVEL 9.7 MG/DL (8.8-10.2); CARBON DIOXIDE LEVEL 30 MEQ/L (21-32); CHLORIDE LEVEL 108 MEQ/L (98-107); CREATININE FOR GFR 0.89 MG/DL (0.70-1.30); GLOMERULAR FILTRATION RATE > 60.0 (>49); GLUCOSE, FASTING 95 MG/DL (70-100); POTASSIUM SERUM 4.3 MEQ/L (3.5-5.1); SODIUM LEVEL 142 MEQ/L (136-145)
[2021-04-21 18:30] LABS: VITAMIN B12 LEVEL 235 PG/ML (247-911)
[2021-04-21 19:35] LABS: HEMOGLOBIN A1c 6.4 %
== END ==
LOC: M SFHCPLAZ 14:48
PROVIDERS: ATTEND Family Medicine
DX: E11.43 Type 2 diabetes mellitus with diabetic autonomic (poly)neuropathy (principal); E53.8 Deficiency of other specified B group vitamins; I10 Essential (primary) hypertension

== ENCOUNTER → 2021-04-23 | Outpatient (CLI) | payer MEDICARE ==
--- NOTE | 2021-04-25 04:59 | ECWPNPC ---
PATIENT NAME: JOLLY SMITH : 1960 GENDER: MALE VISIT DATE: 04/23/2021 DISCHARGE DATE: 04/23/21 1026 VISIT LOCKED DATE TIME: PHYSICIAN: LINDSAY WEBER PHYSICIAN PAGER NO: ACTIVE RESOURCE: LINDSAY WEBER REASON FOR APPOINTMENT 1. BACK/NEW MED HISTORY OF PRESENT ILLNESS GENERAL: -61-YEAR-OLD MALE IN FOR CHRONIC PAIN FOLLOW-UP. HE RATES HIS PAIN CURRENTLY AT A 9 OUT OF 10 AND DESCRIBES IT ACHING, CONTINUOUS, AND STABBING. PATIENT WAS STARTED ON LYRICA AT LAST CLINIC VISIT AND HE ADMITS TODAY THAT THIS WAS NOT BENEFICIAL. FALL RISK SCREENING: SCREENING PATIENT REPORTED ABOUT 10 FALLS IN THE PAST YEAR WITH INJURY. PATIENT STATES HE SOUGHT IMMEDIATE MEDICAL TREATMENT FOR EVERY FALL.. PAIN SCREENING: PATIENT HAS A COMPLAINT OF ACUTE OR CHRONIC PAIN :YES LOCATION OF PAIN:LOW BACK INTENSITY OF PAIN (SCALE OF 1 TO 10):9 WHAT DOES YOUR PAIN FEEL LIKE:ACHING, CONTINOUS, STABBING, TENDER, THROBBING, SORE, SHOOTING DURATION:CONTINOUS PAIN IS INCREASED BY:ACTIVITIES, PROLONGED STANDING PAIN IS DECREASED BY:USE OF PAIN MEDICATIONS, SITTING NURSING NOTE: -. PAIN CENTER INTAKE QUESTIONS: DO YOU HAVE A HISTORY OF MRSA? :NO DO YOU TAKE A BLOOD THINNERS? :YES ELOQUIS SINCE 2019 DO YOU HAVE ANY BLEEDING DISORDERS? :NO ANY NEW NUMBNESS OR WEAKNESS IN YOUR LEGS OR ARMS? :NO ANY PACEMAKER,DEFIBRILLATOR, OR DORSAL COLUMN STIMULATOR? :NO DO YOU HAVE ANY RASHES OR OPEN SORES? :NO ARE YOU ALLERGIC TO IV DYE? :NO ARE YOU DIABETIC? :YES ANY NEW PROBLEMS WITH YOUR MEDICATIONS? :NO HAVE YOU RECEIVED A VACCINE IN THE PAST 30 DAYS? :NO SECOND COVID VACCINATION 02/14/2021 DO YOU PLAN TO RECEIVE A VACCINE IN THE NEXT 21 DAYS? :NO DO YOU NEED ANY PRESCRIPTION? :NO DO YOU TAKE ANY IMMUNOSUPPRESSIVE MEDICATIONS? :NO CURRENT MEDICATIONS TAKING SELENIUM SULFIDE 2.5 % LOTION 1 APPLICATION TO AFFECTED AREA EXTERNALLY TWICE A DAY ON NECK TAKING EPIPEN 2-PARTH 0.3 MG/0.3ML SOLUTION AUTO-INJECTOR 1 INJECTION INTRAMUSCULAR IN THIGH NEEDED FOR BEE STING REACTION; DX: [id number], NOTES: NOT RECENTLY TAKING ONETOUCH VERIO - STRIP DIRECTED IN VITRO USE 1 STRIP BEFORE BREAKFAST IN THE AM AND 1 STRIP 2 HOURS AFTER DINNER IN THE PM DAILY TAKING INSULIN SYRINGE/NEEDLE 27G X 1/2 MISCELLANEOUS TAKING E-Z SPACER 1 ORALLY; ICD10: J45.20 PRN FOR SOB/WHEEZING FOR PRN ALBUTEROL INHALER TAKING ONETOUCH VERIO W/DEVICE KIT DIRECTED _ BID TAKING ONETOUCH ULTRASOFT LANCETS - MISCELLANEOUS DIRECTED SUBCUTANEOUSLY USE 1 LANCET BEFORE BREAKFAST IN THE AM AND 1 LANCET 2 HOURS AFTER DINNER IN THE PM DAILY TAKING MAGNESIUM CHLORIDE-CALCIUM 64-112 MG TABLET DIRECTED ORALLY DAILY TAKING MELATONIN 3 MG TABLET 1 TABLET AT BEDTIME NEEDED ORALLY ONCE A DAY TAKING ALBUTEROL SULFATE (2.5 MG/3ML) 0.083% NEBULIZATION SOLUTION 3 ML INHALATION FOUR TIMES A DAY J44.9 TAKING ASPIRIN 81 MG TABLET DELAYED RELEASE 1 TABLET ORALLY ONCE A DAY TAKING NITROGLYCERIN 0.4 MG TABLET SUBLINGUAL 1 TAB SUBLINGUAL Q 5 MIN X 3 FOR CHEST PAIN, NOTES: EVERY OTHER DAY TAKING APIXABAN 5 MG TABLET 1 TAB ORALLY TWICE DAILY, NOTES: 03/08/21 1500 TAKING VORTIOXETINE HBR 5 MG TABLET 1 TABLET ORALLY ONCE A DAY TAKING BUSPIRONE HCL 5 MG TABLET 1 TABLET ORALLY BID TAKING VITAMIN D3 2000 UNIT CAPSULE 1 TABLET WITH A FATTY MEAL (FOR BETTER ABSORPTION) ORALLY ONCE A DAY TAKING METFORMIN HCL ER 500 MG TABLET EXTENDED RELEASE 24 HOUR TAKE 2 TABLETS BY MOUTH EVERY DAY WITH BREAKFAST AND 2 TABLETS WITH DINNER , NOTES: 03/07/21 TAKING TOUJEO SOLOSTAR 300 UNIT/ML SOLUTION PEN-INJECTOR DIRECTED SUBCUTANEOUS 80 UNITS IN THE AM AND 80 UNITS IN THE PM, NOTES: 80UNITS BID, 03/07/21 TAKING CHLORTHALIDONE 25 MG TABLET 1 TABLET IN THE MORNING WITH FOOD ORALLY ONCE A DAY TAKING LISINOPRIL 40 MG TABLET 1 TABLET ORALLY ONCE A DAY, NOTES: 03/07/21 TAKING METOPROLOL TARTRATE 100 MG TABLET 1 TABLET WITH FOOD ORALLY TWICE A DAY, NOTES: 03/07/21 TAKING CYCLOBENZAPRINE HCL 10 MG TABLET 1 TABLET NEEDED ORALLY EVERY 8 HOURS NEEDED FOR PAIN, NOTES: 03/07/21 TAKING TRAMADOL HCL 50 MG TABLET 1 TABLET NEEDED ORALLY EVERY 6 HRS; MDD: 4, NOTES: ONLY TAKING ONE A NIGHT. TAKING LIDOCAINE 5 % PATCH 1 PATCH REMOVE AFTER 12 HOURS EXTERNALLY ONCE A DAY, NOTES: NOT RECENTLY TAKING LYRICA 100 MG CAPSULE 1 CAPSULE ORALLY DAILY TAKING OMEPRAZOLE 20 MG CAPSULE DELAYED RELEASE 1 CAPSULE 30 MINUTES BEFORE MORNING MEAL ORALLY ONCE A DAY TAKING B12 FOLATE 800-800 MCG CAPSULE DIRECTED ORALLY NOT-TAKING TAMSULOSIN HCL 0.4 MG CAPSULE TAKE 1 CAPSULE BY MOUTH EVERY DAY NOT-TAKING VITAMIN B12 500 MCG TABLET 1 TABLET ORALLY ONCE A DAY NOT-TAKING MECLIZINE HCL 25 MG TABLET CHEWABLE 1 TABLET NEEDED ORALLY ONCE A DAY NOT-TAKING KETOTIFEN FUMARATE 0.025 % SOLUTION 1 DROP INTO AFFECTED EYE OPHTHALMIC TWICE A DAY NOT-TAKING PANTOPRAZOLE SODIUM 40 MG TABLET DELAYED RELEASE 1 TABLET ORALLY ONCE A DAY NOT-TAKING AMLODIPINE BESYLATE 5 MG TABLET 1 TABLET ORALLY ONCE A DAY NOT-TAKING TYLENOL WITH CODEINE #3 300-30 MG TABLET 1 TABLET NEEDED ORALLY EVERY 6 HRS MDD 4, NOTES: 03/07/21 UNKNOWN ATORVASTATIN CALCIUM 80 MG TABLET 1 TABLET ORALLY ONCE A DAY UNKNOWN BREO ELLIPTA 100-25 MCG/INH AEROSOL POWDER BREATH ACTIVATED 1 PUFF INHALATION ONCE A DAY UNKNOWN TRULICITY 1.5 MG/0.5ML SOLUTION PEN-INJECTOR DIRECTED SUBCUTANEOUS WEEKLY ON TUESDAY UNKNOWN SENNA-DOCUSATE SODIUM 8.6-50 MG TABLET 2 TABLETS DAILY IF CONSTIPATED ORALLY ONCE A DAY PRN CONSTIPATION UNKNOWN ALBUTEROL SULFATE HFA 108 (90 BASE) MCG/ACT AEROSOL SOLUTION 2 PUFFS NEEDED INHALATION EVERY 4 HRS UNKNOWN ADVAIR DISKUS 500-50 MCG/DOSE AEROSOL POWDER BREATH ACTIVATED INL 1 PUFF PO BID INHALATION MEDICATION LIST REVIEWED AND RECONCILED WITH THE PATIENT PAST MEDICAL HISTORY BIPOLAR 1 DISORDER DEPRESSION COPD (CHRONIC OBSTRUCTIVE PULMONARY DISEASE) ASTHMA PROSTATE CANCER S/P RADIATION 2013 CAD S/P STENTING 2012 [place], HAS CPAP CHF LUTS ED T2DM IR WITH NEUROPATHY/NEPHROPATHY. GOAL HG A1C< 7.0 MULTIPLE EMBOLIC STROKES, LIKELY DUE TO ATRIAL FIBRILLATION, HAS IMPLANTABLE LOOP RECORDER, ON ANTICOAGULATION WITH ELIQUIS HTN GOAL BP < 140/90 ALLERGIES PENICILLIN (FOR ALLERGIES USE ONLY): HIVES - ALLERGY BEE VENOM: ANAPHYLAXIS - ALLERGY SOCIAL HISTORY GENERAL: TOBACCO USE ARE YOU A:NONSMOKER NEVER SMOKER LATEX QUESTIONNAIRE LATEX ALLERGY : HAVE YOU EVER DEVELOPED ANY TYPE OF REACTION AFTER HANDLING LATEX PRODUCTS SUCH RUBBER GLOVES, CONDOMS, DIAPHRAGMS, BALLOONS, SOCKS, OR UNDERWEAR?NO LATEX ALLERGY : HAVE YOU EVER DEVELOPED ANY TYPE OF REACTION DURING OR AFTER DENTAL APPOINTMENT, VAGINAL/RECTAL EXAMINATION, SURGICAL PROCEDURE, OR ANY OTHER EXPOSURE?YES - PLEASE INDICATE :DENTAL PROCEDURE LATEX RISK : HAVE YOU EVER HAD ANY DIFFICULTY BREATHING OR HIVES AFTER EATING OR HANDLING ANY FRUITS, OR VEGETABLES; SUCH KIWI, BANANAS, STONE FRUITS, OR CHESTNUTSNO LATEX RISK : DO YOU HAVE A PREVIOUS PERSONAL HISTORY OF MORE THAN NINE SURGERIES, SPINA BIFIDA, OR REPEATED CATHERIZATIONS? NO LATEX RISK : ARE YOU FREQUENTLY EXPOSED TO LATEX PRODUCTS IN YOUR OCCUPATION?NO DATE ASKED : 04/23/2021 ALCOHOL USE: NO. BMI CARE GOAL FOLLOW-UP ABOVE NORMAL BMI FOLLOW-UPDIETARY MANAGEMENT EDUCATION, GUIDANCE, AND COUNSELING ALCOHOL SCREENING DID YOU HAVE A DRINK CONTAINING ALCOHOL IN THE PAST YEAR?NO POINTS0 INTERPRETATIONNEGATIVE RECREATIONAL DRUG USE DRUG USE?NO CAFFEINE CAFFEINE USE?YES SODA = 2 2LITER PER DAY COFFEE = 1-2 TIMES PER WEEK 1-2 CUPS SEXUAL HX HAD SEX IN THE LAST 12 MONTHS (VAGINAL, ORAL, OR ANAL)?YES WITHWOMEN ONLY USE PROTECTION?YES HAVE YOU EVER HAD AN STD?NO HIV / HEP-C SCREENING HIV TEST OFFERED TO PATIENT:YES DATE OFFERED:02/28/2017 TEST ACCEPTED:NO HEP-C TEST OFFERED TO PATIENT:YES DATE OFFERED:02/28/2017 REASON:PATIENT DECLINED TEST ACCEPTED:NO REASON:PATIENT DECLINED GNOSTICIST [id number] GNOSTICISM NO MU-ISM BELIEFS THAT WOULD IMPACT HEALTH CARE. LANGUAGE LAO. 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 DIET: REGULAR. EXERCISE: NO REGULAR EXERCISE. MARITAL STATUS: .. OTHERS AT HOME: GIRLFRIEND, STEP CHILD, FRIEND, BROTHER IN LAW. HOUSING: RENTS APARTMENT. REVIEW OF SYSTEMS CONSTITUTIONAL: ANY RECENT FEVER NO . CHILLS NO . WEIGHT CHANGE OF UNKNOWN REASONS NO . GASTROENTEROLOGY: NEW UNEXPLAINABLE CHANGES IN BOWEL CONTROL NO . CONSTIPATION NO . GENITOURINARY: ANY NEW CHANGE IN BLADDER CONTROL? NO . NEUROLOGY: NEW ONSET DIZZINESS OR NEUROLOGICAL CHANGES NOT MENTIONED NO . NEW NUMBNESS OR PAIN PATTERNS NOT MENTIONED AND PERTINENT TO TODAY'S VISIT NO . CARDIOLOGY: NEW CHEST PRESSURE NO . PATIENT DENIES NO . RESPIRATORY: UNEXPLAINABLE COUGH NO . NEW SHORTNESS OF BREATH NO . VITAL SIGNS WT 250.8 LBS, HT 69 IN, BMI 37.03 INDEX, BP 162/100 MM HG, REPEAT BP 152/98 MM HG, HR 91 /MIN, RR 18 /MIN, TEMP 99.7 F, OXYGEN SAT % 97%, SAFE IN ENV? (Y/N) YES, REVIEWED BY: ELEAZAR BP RETAKEN. 152/98 RIGHT ARM. AMIRA WILHELM MA. EXAMINATION GENERAL EXAMINATION: GENERALNO ACUTE DISTRESS, WELL NOURISHED AND HYDRATED. PSYCHAPPROPRIATE MOOD AND AFFECT . LUNGS:CLEAR TO AUSCULTATION BILATERALLY, NO WHEEZES, RHONCHI, RALES. HEART:NO MURMURS, REGULAR RATE AND RHYTHM. ASSESSMENTS NEUROPATHIC PAIN - M79.2 (PRIMARY) USE OF OPIATES FOR THERAPEUTIC PURPOSES - Z79.891 TREATMENT NEUROPATHIC PAIN START HYDROCODONE-ACETAMINOPHEN TABLET, 5-325 MG, 1 TABLET NEEDED, ORALLY, DAILY PRN, 30 DAY(S), 30 NOTES: 61-YEAR-OLD MALE IN FOR CHRONIC PAIN FOLLOW-UP. GIVEN PRESENTING SYMPTOMS RECOMMEND STARTING NORCO 5/325 MG 1 TABLET DAILY NEEDED FOR PAIN WITH FOLLOW-UP IN 4 WEEKS TO DETERMINE EFFICACY OF TREATMENT. PATIENT HAS EXPRESSED UNDERSTANDING OF AND WAS IN AGREEMENT TREATMENT PLAN. GIVEN TIME TO ASK QUESTIONS AND EXPRESS CONCERNS. , ISTOP REGISTRY REVIEWED AND DEMONSTRATES COMPLLIANCE. (REF # [id number] ). USE OF OPIATES FOR THERAPEUTIC PURPOSES LAB: URINE TEST GROUP AMIRA WILHELM 04/23/2021 10:14:50 AM > LAST DOSE: PREGABALIN 04/22/2021 AT 2:00PM OTHERS NOTES: HYDROCODONE COMBINATION PRODUCTS MATERIAL WAS PRINTED. PATIENT VERBALIZED AN UNDERSTANDING. AMIRA WILHELM MA. PROCEDURE CODES FA211 ESTABILISHED PATIENT [facility] CHARGE DISPOSITION & COMMUNICATION FOLLOW UP 2 MONTHS (REASON: NEUROPATHIC PAIN) ELECTRONICALLY SIGNED BY RADHA JOY ON 04/24/2021 AT 08:31 AM EDT DISCLAIMER : THIS IS A VISIT SUMMARY EXTRACTED FROM THE [employer] CHART. IT IS NOT A COPY OF THE [employer] PROGRESS NOTE. [facility]
== END ==
LOC: M PAIN 09:45
PROVIDERS: ATTEND Family Medicine
DX: M79.2 Neuralgia and neuritis, unspecified (principal); Z79.891 Long term (current) use of opiate analgesic; F31.9 Bipolar disorder, unspecified; J44.9 Chronic obstructive pulmonary disease, unspecified; J45.909 Unspecified asthma, uncomplicated; I25.10 Atherosclerotic heart disease of native coronary artery without angina pectoris; G47.33 Obstructive sleep apnea (adult) (pediatric); I50.9 Heart failure, unspecified; N52.9 Male erectile dysfunction, unspecified; E11.21 Type 2 diabetes mellitus with diabetic nephropathy; E11.40 Type 2 diabetes mellitus with diabetic neuropathy, unspecified; Z86.73 Personal history of transient ischemic attack (TIA), and cerebral infarction without residual deficits; I11.0 Hypertensive heart disease with heart failure; Z95.5 Presence of coronary angioplasty implant and graft; Z85.46 Personal history of malignant neoplasm of prostate; Z92.3 Personal history of irradiation; Z79.82 Long term (current) use of aspirin; Z79.01 Long term (current) use of anticoagulants; Z79.4 Long term (current) use of insulin; Z79.899 Other long term (current) drug therapy; Z88.0 Allergy status to penicillin; Z91.030 Bee allergy status

== ENCOUNTER → 2021-05-29 | Outpatient (CLI) | payer MEDICARE ==
[~2021-05-29] MED LIST changes: +OMEP40CA4 PO; -OMEP40CA97 PO
--- NOTE | 2021-06-03 01:56 | ECWPNPC ---
PATIENT NAME: JOLLY SMITH : 1960 GENDER: MALE VISIT DATE: 05/29/2021 DISCHARGE DATE: 05/29/21 1016 VISIT LOCKED DATE TIME: PHYSICIAN: LINDSAY WEBER PHYSICIAN PAGER NO: ACTIVE RESOURCE: LINDSAY WEBER REASON FOR APPOINTMENT 1. MED MANAGEMENT HISTORY OF PRESENT ILLNESS GENERAL: HPI 61-YEAR-OLD MALE IN FOR CHRONIC PAIN FOLLOW-UP. PATIENT STATES THE HYDROCODONE MAKES HIM DIZZY AND HIS MEDICATIONS ARE NOT HELPFUL AT THIS TIME. HE RATES HIS PAIN CURRENTLY AT A 9 OUT OF 10 AND DESCRIBES IT SHARP AND STABBING.. -. FALL RISK SCREENING: SCREENING THIRTEEN FALLS REPORTED IN THE LAST YEAR. A FEW FALLS REPORTED WITH INJURY. PATIENT DENIES SEEKING IMMEDIATE MEDIACAL TREATMENT.. PAIN SCREENING: PATIENT HAS A COMPLAINT OF ACUTE OR CHRONIC PAIN :YES LOCATION OF PAIN:LOW BACK INTENSITY OF PAIN (SCALE OF 1 TO 10):9 WHAT DOES YOUR PAIN FEEL LIKE:SHARP, STABBING, OTHER DULL DURATION:CONTINOUS, AWAKENS FROM SLEEP PAIN IS INCREASED BY:ACTIVITIES, PROLONGED STANDING PAIN IS DECREASED BY:OTHERS NOTHING HELPS WITH THE PAIN. NURSING NOTE: -. PAIN CENTER INTAKE QUESTIONS: DO YOU HAVE A HISTORY OF MRSA? :NO DO YOU TAKE A BLOOD THINNERS? :YES ELOQUIS SINCE 2019 DO YOU HAVE ANY BLEEDING DISORDERS? :NO ANY NEW NUMBNESS OR WEAKNESS IN YOUR LEGS OR ARMS? :NO ANY PACEMAKER,DEFIBRILLATOR, OR DORSAL COLUMN STIMULATOR? :NO DO YOU HAVE ANY RASHES OR OPEN SORES? :NO ARE YOU ALLERGIC TO IV DYE? :NO ARE YOU DIABETIC? :YES ANY NEW PROBLEMS WITH YOUR MEDICATIONS? :NO HAVE YOU RECEIVED A VACCINE IN THE PAST 30 DAYS? :NO SECOND COVID VACCINATION 02/14/2021 DO YOU PLAN TO RECEIVE A VACCINE IN THE NEXT 21 DAYS? :NO DO YOU NEED ANY PRESCRIPTION? :NO DO YOU TAKE ANY IMMUNOSUPPRESSIVE MEDICATIONS? :NO CURRENT MEDICATIONS TAKING SELENIUM SULFIDE 2.5 % LOTION 1 APPLICATION TO AFFECTED AREA EXTERNALLY TWICE A DAY ON NECK TAKING EPIPEN 2-PARTH 0.3 MG/0.3ML SOLUTION AUTO-INJECTOR 1 INJECTION INTRAMUSCULAR IN THIGH NEEDED FOR BEE STING REACTION; DX: [id number], NOTES: NOT RECENTLY TAKING ONETOUCH VERIO - STRIP DIRECTED IN VITRO USE 1 STRIP BEFORE BREAKFAST IN THE AM AND 1 STRIP 2 HOURS AFTER DINNER IN THE PM DAILY TAKING INSULIN SYRINGE/NEEDLE 27G X 1/2 MISCELLANEOUS TAKING E-Z SPACER 1 ORALLY; ICD10: J45.20 PRN FOR SOB/WHEEZING FOR PRN ALBUTEROL INHALER TAKING ONETOUCH VERIO W/DEVICE KIT DIRECTED _ BID TAKING ONETOUCH ULTRASOFT LANCETS - MISCELLANEOUS DIRECTED SUBCUTANEOUSLY USE 1 LANCET BEFORE BREAKFAST IN THE AM AND 1 LANCET 2 HOURS AFTER DINNER IN THE PM DAILY TAKING MAGNESIUM CHLORIDE-CALCIUM 64-112 MG TABLET DIRECTED ORALLY DAILY TAKING MELATONIN 3 MG TABLET 1 TABLET AT BEDTIME NEEDED ORALLY ONCE A DAY TAKING ALBUTEROL SULFATE (2.5 MG/3ML) 0.083% NEBULIZATION SOLUTION 3 ML INHALATION FOUR TIMES A DAY J44.9 TAKING ASPIRIN 81 MG TABLET DELAYED RELEASE 1 TABLET ORALLY ONCE A DAY TAKING NITROGLYCERIN 0.4 MG TABLET SUBLINGUAL 1 TAB SUBLINGUAL Q 5 MIN X 3 FOR CHEST PAIN, NOTES: EVERY OTHER DAY TAKING APIXABAN 5 MG TABLET 1 TAB ORALLY TWICE DAILY, NOTES: 03/08/21 1500 TAKING VORTIOXETINE HBR 5 MG TABLET 1 TABLET ORALLY ONCE A DAY TAKING BUSPIRONE HCL 5 MG TABLET 1 TABLET ORALLY BID TAKING VITAMIN D3 2000 UNIT CAPSULE 1 TABLET WITH A FATTY MEAL (FOR BETTER ABSORPTION) ORALLY ONCE A DAY TAKING METFORMIN HCL ER 500 MG TABLET EXTENDED RELEASE 24 HOUR TAKE 2 TABLETS BY MOUTH EVERY DAY WITH BREAKFAST AND 2 TABLETS WITH DINNER , NOTES: 03/07/21 TAKING TOUJEO SOLOSTAR 300 UNIT/ML SOLUTION PEN-INJECTOR DIRECTED SUBCUTANEOUS 80 UNITS IN THE AM AND 80 UNITS IN THE PM, NOTES: 80UNITS BID, 03/07/21 TAKING LISINOPRIL 40 MG TABLET 1 TABLET ORALLY ONCE A DAY, NOTES: 03/07/21 TAKING METOPROLOL TARTRATE 100 MG TABLET 1 TABLET WITH FOOD ORALLY TWICE A DAY, NOTES: 03/07/21 TAKING CYCLOBENZAPRINE HCL 10 MG TABLET 1 TABLET NEEDED ORALLY EVERY 8 HOURS NEEDED FOR PAIN, NOTES: 03/07/21 TAKING LIDOCAINE 5 % PATCH 1 PATCH REMOVE AFTER 12 HOURS EXTERNALLY ONCE A DAY, NOTES: NOT RECENTLY TAKING OMEPRAZOLE 20 MG CAPSULE DELAYED RELEASE 1 CAPSULE 30 MINUTES BEFORE MORNING MEAL ORALLY ONCE A DAY TAKING B12 FOLATE 800-800 MCG CAPSULE DIRECTED ORALLY TAKING HYDROCODONE-ACETAMINOPHEN 5-325 MG TABLET 1 TABLET NEEDED ORALLY DAILY PRN TAKING CHLORTHALIDONE 25 MG TABLET 1 TABLET IN THE MORNING WITH FOOD ORALLY ONCE A DAY NOT-TAKING TRAMADOL HCL 50 MG TABLET 1 TABLET NEEDED ORALLY EVERY 6 HRS; MDD: 4, NOTES: ONLY TAKING ONE A NIGHT. NOT-TAKING LYRICA 100 MG CAPSULE 1 CAPSULE ORALLY DAILY NOT-TAKING TAMSULOSIN HCL 0.4 MG CAPSULE TAKE 1 CAPSULE BY MOUTH EVERY DAY NOT-TAKING VITAMIN B12 500 MCG TABLET 1 TABLET ORALLY ONCE A DAY NOT-TAKING MECLIZINE HCL 25 MG TABLET CHEWABLE 1 TABLET NEEDED ORALLY ONCE A DAY NOT-TAKING KETOTIFEN FUMARATE 0.025 % SOLUTION 1 DROP INTO AFFECTED EYE OPHTHALMIC TWICE A DAY NOT-TAKING PANTOPRAZOLE SODIUM 40 MG TABLET DELAYED RELEASE 1 TABLET ORALLY ONCE A DAY NOT-TAKING AMLODIPINE BESYLATE 5 MG TABLET 1 TABLET ORALLY ONCE A DAY NOT-TAKING TYLENOL WITH CODEINE #3 300-30 MG TABLET 1 TABLET NEEDED ORALLY EVERY 6 HRS MDD 4, NOTES: 03/07/21 UNKNOWN ATORVASTATIN CALCIUM 80 MG TABLET 1 TABLET ORALLY ONCE A DAY UNKNOWN BREO ELLIPTA 100-25 MCG/INH AEROSOL POWDER BREATH ACTIVATED 1 PUFF INHALATION ONCE A DAY UNKNOWN TRULICITY 1.5 MG/0.5ML SOLUTION PEN-INJECTOR DIRECTED SUBCUTANEOUS WEEKLY ON TUESDAY UNKNOWN SENNA-DOCUSATE SODIUM 8.6-50 MG TABLET 2 TABLETS DAILY IF CONSTIPATED ORALLY ONCE A DAY PRN CONSTIPATION UNKNOWN ALBUTEROL SULFATE HFA 108 (90 BASE) MCG/ACT AEROSOL SOLUTION 2 PUFFS NEEDED INHALATION EVERY 4 HRS UNKNOWN ADVAIR DISKUS 500-50 MCG/DOSE AEROSOL POWDER BREATH ACTIVATED INL 1 PUFF PO BID INHALATION MEDICATION LIST REVIEWED AND RECONCILED WITH THE PATIENT PAST MEDICAL HISTORY BIPOLAR 1 DISORDER DEPRESSION COPD (CHRONIC OBSTRUCTIVE PULMONARY DISEASE) ASTHMA PROSTATE CANCER S/P RADIATION 2013 CAD S/P STENTING 2012 [place], HAS CPAP CHF LUTS ED T2DM IR WITH NEUROPATHY/NEPHROPATHY. GOAL HG A1C< 7.0 MULTIPLE EMBOLIC STROKES, LIKELY DUE TO ATRIAL FIBRILLATION, HAS IMPLANTABLE LOOP RECORDER, ON ANTICOAGULATION WITH ELIQUIS HTN GOAL BP < 140/90 ALLERGIES PENICILLIN (FOR ALLERGIES USE ONLY): HIVES - ALLERGY BEE VENOM: ANAPHYLAXIS - ALLERGY HYDROCODONE-ACETAMINOPHEN: DIZZINESS - SIDE EFFECTS SOCIAL HISTORY GENERAL: TOBACCO USE ARE YOU A:NONSMOKER NEVER SMOKER LATEX QUESTIONNAIRE LATEX ALLERGY : HAVE YOU EVER DEVELOPED ANY TYPE OF REACTION AFTER HANDLING LATEX PRODUCTS SUCH RUBBER GLOVES, CONDOMS, DIAPHRAGMS, BALLOONS, SOCKS, OR UNDERWEAR?NO LATEX ALLERGY : HAVE YOU EVER DEVELOPED ANY TYPE OF REACTION DURING OR AFTER DENTAL APPOINTMENT, VAGINAL/RECTAL EXAMINATION, SURGICAL PROCEDURE, OR ANY OTHER EXPOSURE?YES - PLEASE INDICATE :DENTAL PROCEDURE LATEX RISK : HAVE YOU EVER HAD ANY DIFFICULTY BREATHING OR HIVES AFTER EATING OR HANDLING ANY FRUITS, OR VEGETABLES; SUCH KIWI, BANANAS, STONE FRUITS, OR CHESTNUTSNO LATEX RISK : DO YOU HAVE A PREVIOUS PERSONAL HISTORY OF MORE THAN NINE SURGERIES, SPINA BIFIDA, OR REPEATED CATHERIZATIONS? NO LATEX RISK : ARE YOU FREQUENTLY EXPOSED TO LATEX PRODUCTS IN YOUR OCCUPATION?NO DATE ASKED : 05/29/2021 ALCOHOL USE: NO. BMI CARE GOAL FOLLOW-UP ABOVE NORMAL BMI FOLLOW-UPDIETARY MANAGEMENT EDUCATION, GUIDANCE, AND COUNSELING ALCOHOL SCREENING DID YOU HAVE A DRINK CONTAINING ALCOHOL IN THE PAST YEAR?NO POINTS0 INTERPRETATIONNEGATIVE RECREATIONAL DRUG USE DRUG USE?NO CAFFEINE CAFFEINE USE?YES SODA = 2 2LITER PER DAY COFFEE = 1-2 TIMES PER WEEK 1-2 CUPS SEXUAL HX HAD SEX IN THE LAST 12 MONTHS (VAGINAL, ORAL, OR ANAL)?YES WITHWOMEN ONLY USE PROTECTION?YES HAVE YOU EVER HAD AN STD?NO HIV / HEP-C SCREENING HIV TEST OFFERED TO PATIENT:YES DATE OFFERED:02/28/2017 TEST ACCEPTED:NO HEP-C TEST OFFERED TO PATIENT:YES DATE OFFERED:02/28/2017 REASON:PATIENT DECLINED TEST ACCEPTED:NO REASON:PATIENT DECLINED [facility] [id number] CHEONDOISM NO CAODAISM BELIEFS THAT WOULD IMPACT HEALTH CARE. LANGUAGE BOLIVIAN. EDUCATION LEVEL OF EDUCATION:FINISHED HIGH SCHOOL LEARNING BARRIERS / SPECIAL NEEDS CHANGE FROM LAST VISIT?NO BARRIERS TO LEARNING?NO HEARING IMPAIRED?NO VISION IMPAIRED?YES :CORRECTIVE LENSES COGNITIVELY IMPAIRED?NO READINESS TO LEARN?YES LEARNING PREFERENCES?NO LEARNING CAPABILITIES PRESENT?YES EMOTIONAL BARRIERS?NO SPECIAL DEVICES?YES :CANE, WALKER, BRACE KNEE BRACES CORN SHUCKER NEEDED?NO DOMESTIC VIOLENCE NONE. 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 DIET: REGULAR. EXERCISE: NO REGULAR EXERCISE. MARITAL STATUS: .. OTHERS AT HOME: GIRLFRIEND, STEP CHILD, FRIEND, BROTHER IN LAW. HOUSING: RENTS APARTMENT. REVIEW OF SYSTEMS CONSTITUTIONAL: ANY RECENT FEVER NO . CHILLS NO . WEIGHT CHANGE OF UNKNOWN REASONS NO . GASTROENTEROLOGY: NEW UNEXPLAINABLE CHANGES IN BOWEL CONTROL NO . CONSTIPATION NO . GENITOURINARY: ANY NEW CHANGE IN BLADDER CONTROL? NO . NEUROLOGY: NEW ONSET DIZZINESS OR NEUROLOGICAL CHANGES NOT MENTIONED NO . NEW NUMBNESS OR PAIN PATTERNS NOT MENTIONED AND PERTINENT TO TODAY'S VISIT NO . CARDIOLOGY: NEW CHEST PRESSURE NO . PATIENT DENIES NO . RESPIRATORY: UNEXPLAINABLE COUGH NO . NEW SHORTNESS OF BREATH NO . VITAL SIGNS WT 247.0 LBS, HT 69 IN, BMI 36.47 INDEX, BP 133/75 MM HG, HR 88 /MIN, RR 18 /MIN, TEMP 97.0 F, OXYGEN SAT % 97%, SAFE IN ENV? (Y/N) YES, NA INITIALS AW [id number], REVIEWED BY: JUAN RAMON WILHELM MA. EXAMINATION GENERAL EXAMINATION: GENERALNO ACUTE DISTRESS, WELL NOURISHED AND HYDRATED. PSYCHAPPROPRIATE MOOD AND AFFECT . LUNGS:CLEAR TO AUSCULTATION BILATERALLY, NO WHEEZES, RHONCHI, RALES. HEART:NO MURMURS, REGULAR RATE AND RHYTHM. ASSESSMENTS NEUROPATHIC PAIN - M79.2 (PRIMARY) TREATMENT NEUROPATHIC PAIN START BACLOFEN TABLET, 10 MG, 0.5 TABLETS TID X 5 DAYS THEN INCREASE TO 1 TABLET TID, ORALLY, THREE TIMES DAILY PRN, 30 DAYS, 90 NOTES: 61-YEAR-OLD MALE IN FOR CHRONIC PAIN FOLLOW-UP. GIVEN PRESENTING SYMPTOMS RECOMMEND STARTING BACLOFEN 5 MG 3 TIMES DAILY X5 DAYS THEN INCREASING TO 10 MG 3 TIMES DAILY THEREAFTER WITH FOLLOW-UP IN 1 MONTH TO DETERMINE EFFICACY OF TREATMENT. PATIENT HAS EXPRESSED UNDERSTANDING OF AND WAS IN AGREEMENT WITH TREATMENT PLAN. GIVEN TIME ASKED QUESTIONS AND EXPRESS CONCERNS. CLINICAL NOTES: BACLOFEN INFORMATION PRINTED AND PROVIDED TO PATIENT. PATIENT VERBALIZED AN UNDERSTANDING. AMIRA WILHELM MA. PROCEDURE CODES [id number] ESTABILISHED PATIENT [facility] CHARGE DISPOSITION & COMMUNICATION FOLLOW UP 4 WEEKS (REASON: NEW MED) ELECTRONICALLY SIGNED BY RADHA JOY ON 06/02/2021 AT 08:28 AM EDT DISCLAIMER : THIS IS A VISIT SUMMARY EXTRACTED FROM THE [employer] CHART. IT IS NOT A COPY OF THE [employer] PROGRESS NOTE. MTDD
== END ==
LOC: M PAIN 09:45
PROVIDERS: ATTEND Family Medicine
DX: M79.2 Neuralgia and neuritis, unspecified (principal); F31.9 Bipolar disorder, unspecified; J44.9 Chronic obstructive pulmonary disease, unspecified; J45.909 Unspecified asthma, uncomplicated; Z85.46 Personal history of malignant neoplasm of prostate; Z92.3 Personal history of irradiation; I25.10 Atherosclerotic heart disease of native coronary artery without angina pectoris; G47.33 Obstructive sleep apnea (adult) (pediatric); I50.9 Heart failure, unspecified; N52.9 Male erectile dysfunction, unspecified; E11.40 Type 2 diabetes mellitus with diabetic neuropathy, unspecified; E11.21 Type 2 diabetes mellitus with diabetic nephropathy; Z86.73 Personal history of transient ischemic attack (TIA), and cerebral infarction without residual deficits; I11.0 Hypertensive heart disease with heart failure; Z79.4 Long term (current) use of insulin; Z79.01 Long term (current) use of anticoagulants; Z79.891 Long term (current) use of opiate analgesic; Z88.0 Allergy status to penicillin; Z88.5 Allergy status to narcotic agent; Z91.030 Bee allergy status

== ENCOUNTER → 2021-08-06 | Outpatient (REF) | payer MEDICARE ==
[~2021-08-06] MED LIST changes: -CLIN150C15 PO; +CLIN150C17 PO
== END ==
LOC: M SFHCPLAZ 14:17
DX: E11.43 Type 2 diabetes mellitus with diabetic autonomic (poly)neuropathy (principal); I10 Essential (primary) hypertension; E78.5 Hyperlipidemia, unspecified; E55.9 Vitamin D deficiency, unspecified; F31.70 Bipolar disorder, currently in remission, most recent episode unspecified

== ENCOUNTER → 2021-08-07 | Outpatient (CLI) | payer MEDICARE ==
[2021-08-07 13:55] LABS: HEMOGLOBIN A1c 6.9 %
[2021-08-07 14:04] LABS: ALBUMIN 3.2 GM/DL (3.2-5.2); ALT/SGPT 29 U/L (12-78); BILIRUBIN,DIRECT < 0.1 MG/DL (0.0-0.2); BILIRUBIN,TOTAL 0.3 MG/DL (0.2-1.0); BLOOD UREA NITROGEN 18 MG/DL (7-18); CALCIUM LEVEL 8.8 MG/DL (8.8-10.2); CARBON DIOXIDE LEVEL 29 MEQ/L (21-32); CHLORIDE LEVEL 109 MEQ/L (98-107); CHOLESTEROL LEVEL 188 MG/DL (<200); CHOLESTEROL RISK RATIO 4.585 (<5); CREATININE FOR GFR 1.11 MG/DL (0.70-1.30); GLOMERULAR FILTRATION RATE > 60.0 (>49); GLUCOSE, FASTING 168 MG/DL (70-100); HDL CHOLESTEROL 41 MG/DL (>40); LDL CHOLESTEROL 117 MG/DL (<100); NON-HDL-C 147 MG/DL; POTASSIUM SERUM 3.7 MEQ/L (3.5-5.1); SODIUM LEVEL 143 MEQ/L (136-145); TOTAL PROTEIN 6.7 GM/DL (6.4-8.2); TRIGLYCERIDES LEVEL 151 MG/DL (<150)
[2021-08-07 14:13] LABS: TOTAL 25(OH) VITAMIN D 34.2 NG/ML (30.0-100.0); VITAMIN B12 LEVEL 262 PG/ML (247-911)
== END ==
LOC: M PLALAB 10:29
PROVIDERS: ATTEND Student in an Organized Health Care Education/Training Program
DX: E11.43 Type 2 diabetes mellitus with diabetic autonomic (poly)neuropathy (principal); E55.9 Vitamin D deficiency, unspecified; I10 Essential (primary) hypertension; E78.5 Hyperlipidemia, unspecified

== ENCOUNTER → 2021-09-22 | Outpatient (REF) | payer MEDICARE ==
[~2021-09-22] MED LIST changes: -CYMB60CA3 PO; +CYMB60CA4 PO
== END ==
LOC: M LAB REF 13:22
PROVIDERS: ATTEND Nurse Practitioner Family
DX: E83.42 Hypomagnesemia (principal)

== ENCOUNTER → 2021-10-05 | Outpatient (CLI) | payer MEDICARE ==
[2021-10-05 13:59] LABS: BLOOD UREA NITROGEN 11 MG/DL (7-18); CALCIUM LEVEL 8.8 MG/DL (8.8-10.2); CARBON DIOXIDE LEVEL 23 MEQ/L (21-32); CHLORIDE LEVEL 106 MEQ/L (98-107); CREATININE FOR GFR 1.09 MG/DL (0.70-1.30); GLOMERULAR FILTRATION RATE > 60.0 (>49); GLUCOSE, FASTING 319 MG/DL (70-100); POTASSIUM SERUM 3.6 MEQ/L (3.5-5.1); SODIUM LEVEL 139 MEQ/L (136-145)
== END ==
LOC: M PLALAB 09:48
PROVIDERS: ATTEND Student in an Organized Health Care Education/Training Program
DX: Z01.818 Encounter for other preprocedural examination (principal)

== ENCOUNTER → 2021-11-26 | Outpatient (REF) | payer MEDICARE ==
[~2021-11-26] MED LIST changes: -MOME50SP; -MOME50SP NARES; +NASO50SP3; +NASO50SP3 NARES; +OMEP-173 PO; -OMEP-218 PO
== END ==
LOC: M SFHCPLAZ 16:59
PROVIDERS: ATTEND Family Medicine
DX: D22.61 Melanocytic nevi of right upper limb, including shoulder (principal)
CPT/HCPCS: 11400; 11401; 88305; 88342; G0463

== ENCOUNTER → 2021-12-08 | Outpatient (CLI) | payer MEDICARE ==
[2021-12-08 10:57] LABS: BLOOD UREA NITROGEN 11 MG/DL (7-18); CARBON DIOXIDE LEVEL 28 MEQ/L (21-32); CHLORIDE LEVEL 104 MEQ/L (98-107); CREATININE FOR GFR 1.01 MG/DL (0.70-1.30); GLOMERULAR FILTRATION RATE > 60.0 (>49); GLUCOSE, FASTING 175 MG/DL (70-100); POTASSIUM SERUM 4.5 MEQ/L (3.5-5.1); SODIUM LEVEL 139 MEQ/L (136-145)
[2021-12-08 10:58] LABS: CALCIUM LEVEL 9.2 MG/DL (8.8-10.2)
== END ==
LOC: M PLALAB 09:23
PROVIDERS: ATTEND Student in an Organized Health Care Education/Training Program
DX: R25.2 Cramp and spasm (principal)

== ENCOUNTER → 2022-02-19 | Outpatient (REF) | payer MEDICARE ==
[~2022-02-19] MED LIST changes: -D31000TA2 PO; +HYDR2.5C TOP; +METF-877 PO; +METO1TAB33 PO; +SEMA1PEN2 SQ; +VITA100093 PO
== END ==
LOC: M SFHCPLAZ 13:42
PROVIDERS: ATTEND Family Medicine
DX: E11.65 Type 2 diabetes mellitus with hyperglycemia (principal)

== ENCOUNTER → 2022-02-19 | Outpatient (CLI) | payer MEDICARE ==
[2022-02-19 15:33] LABS: HEMOGLOBIN A1c 7.6 %
[2022-02-19 15:37] LABS: BLOOD UREA NITROGEN 7 MG/DL (7-18); CALCIUM LEVEL 9.3 MG/DL (8.8-10.2); CARBON DIOXIDE LEVEL 31 MEQ/L (21-32); CHLORIDE LEVEL 106 MEQ/L (98-107); CREATININE FOR GFR 0.96 MG/DL (0.70-1.30); GLOMERULAR FILTRATION RATE > 60.0 (>49); GLUCOSE, FASTING 136 MG/DL (70-100); POTASSIUM SERUM 4.2 MEQ/L (3.5-5.1); SODIUM LEVEL 141 MEQ/L (136-145)
== END ==
LOC: M PLALAB 14:00
PROVIDERS: ATTEND Student in an Organized Health Care Education/Training Program
DX: E11.65 Type 2 diabetes mellitus with hyperglycemia (principal)

== ENCOUNTER → 2022-02-23 | Outpatient (CLI) | payer MEDICARE ==
[2022-02-23 15:51] LABS: FOLATE 3.3 NG/ML
== END ==
LOC: M PLALAB 13:01
PROVIDERS: ATTEND Psychiatry & Neurology Neurology
DX: E53.8 Deficiency of other specified B group vitamins (principal)

== ENCOUNTER → 2022-05-19 | Outpatient (CLI) | payer MEDICARE ==
[~2022-05-19] MED LIST changes: +ALBU2.5V10 INH; -ALBU83IN INH
[2022-05-19 16:04] LABS: HEMOGLOBIN A1c 7.1 %
[2022-05-19 16:07] LABS: BLOOD UREA NITROGEN 13 MG/DL (7-18); CALCIUM LEVEL 9.3 MG/DL (8.8-10.2); CARBON DIOXIDE LEVEL 30 MEQ/L (21-32); CHLORIDE LEVEL 107 MEQ/L (98-107); CREATININE FOR GFR 1.16 MG/DL (0.70-1.30); GLOMERULAR FILTRATION RATE > 60.0 (>49); GLUCOSE, FASTING 199 MG/DL (70-100); POTASSIUM SERUM 4.4 MEQ/L (3.5-5.1); SODIUM LEVEL 141 MEQ/L (136-145)
== END ==
LOC: M PLALAB 12:31
PROVIDERS: ATTEND Student in an Organized Health Care Education/Training Program
DX: E11.43 Type 2 diabetes mellitus with diabetic autonomic (poly)neuropathy (principal)

== ENCOUNTER 2022-06-05 14:26 | Inpatient (IN) | payer MEDICARE ==
[~2022-06-05] VITALS: Ht 175.3 cm; Wt 120.4 kg
[~2022-06-05 14:26] MED LIST changes: -ASMA220A INH; +MOME220A INH
[2022-06-05] MEDS ORDERED: MORPHINE 4 MG/ML 1ML VIAL/SYRINGE IV ONE (14:40)
[2022-06-05] MEDS ORDERED: ONDANSETRON 4MG 2ML VIAL IV ONE (14:40)
[2022-06-05 15:15] LABS: BASO % 0.4 % (0.0-1.0); EOS % 0.4 % (0.0-3.0); HEMATOCRIT 41.9 % (42.0-52.0); LYMPH % 10.6 % (24.0-44.0); MEAN CORPUSCULAR HEMOGLOBIN 27.6 pg (27.0-33.0); MEAN CORPUSCULAR HGB CONC 33.4 g/dl (32.0-36.5); MEAN CORPUSCULAR VOLUME 82.5 fl (80.0-96.0); MONO # 0.7 10^3/uL (0.0-0.8); MONO % 7.8 % (2.0-8.0); NEUTROPHILS # 7.2 10^3/uL (1.5-8.5); NEUTROPHILS % 80.2 % (36.0-66.0); PLATELET COUNT, AUTOMATED 256 10^3/uL (150-450); RED BLOOD COUNT 5.08 10^6/uL (4.30-6.10)
[2022-06-05 15:25] LABS: INR 0.85
[2022-06-05 15:26] LABS: PARTIAL THROMBOPLASTIN TIME 25.8 SECONDS (25.9-37.0)
[2022-06-05 15:44] LABS: BLOOD UREA NITROGEN 11 MG/DL (7-18); CALCIUM LEVEL 8.5 MG/DL (8.8-10.2); CARBON DIOXIDE LEVEL 27 MEQ/L (21-32); CHLORIDE LEVEL 107 MEQ/L (98-107); CREATININE FOR GFR 1.11 MG/DL (0.70-1.30); GLOMERULAR FILTRATION RATE > 60.0 (>49); GLUCOSE, FASTING 252 MG/DL (70-100); POTASSIUM SERUM 3.5 MEQ/L (3.5-5.1); SODIUM LEVEL 138 MEQ/L (136-145)
[2022-06-05 15:47] LABS: RSV AMPLIFICATION NEGATIVE (NEGATIVE)
[2022-06-05] MEDS: MORPHINE 4 MG/ML 1ML VIAL/SYRINGE IV PRN ×2 (16:34→17:30)
[2022-06-05] MEDS ORDERED: propofoL 200 MG/20 ML VIAL As Ordered ONE (18:23)
[2022-06-05] MEDS ORDERED: ROCURONIUM BROMIDE 50 MG/5 ML VIAL As Ordered ONE (18:23)
[2022-06-05] MEDS ORDERED: LIDOCAINE 2% INJ 100 MG/5 ML SYRINGE As Ordered ONE (18:23)
[2022-06-05] MEDS ORDERED: MIDAZOLAM INJ 2MG/2ML VIAL (J2250 PER 1MG) As Ordered ONE (18:23)
[2022-06-05] MEDS ORDERED: fentaNYL 250 MCG/5 ML INJECTION As Ordered ONE (18:23)
[2022-06-05] MEDS ORDERED: SUCCINYLCHOLINE 100 MG/5 ML SYRINGE (J0330) As Ordered ONE (18:23)
[2022-06-05] MEDS ORDERED: DEXTROSE 50% 50 ML SYRINGE IV PRN (18:30)
[2022-06-05] MEDS ORDERED: GLUCOSE 4GM CHEW TABLET PO PRN (18:30)
[2022-06-05] MEDS ORDERED: GLUCAGON INJ 1MG VIAL SC PRN (18:30)
[2022-06-05] MEDS ORDERED: MELA3TAB29 PO (19:00)
[2022-06-05] MEDS ORDERED: OMEP1CAP73 PO (19:00)
[2022-06-05] MEDS ORDERED: LISI40TA4 PO (19:00)
[2022-06-05] MEDS ORDERED: AMLO1TAB24 PO (19:00)
[2022-06-05] MEDS ORDERED: TOUJ300I2 SC (19:00)
[2022-06-05] MEDS ORDERED: ATOR80TA59 PO (19:00)
[2022-06-05] MEDS ORDERED: METF-838 PO (19:00)
[2022-06-05] MEDS ORDERED: OXYC1TAB23 PO (19:00)
[2022-06-05] MEDS ORDERED: METO1TAB33 PO (19:00)
[2022-06-05] MEDS ORDERED: VITA100093 PO (19:00)
[2022-06-05] MEDS ORDERED: HOME MED LIST COMPLETE! XX SCH (19:05)
[2022-06-05] MEDS ORDERED: ceFAZolin 2 GM/D5W 50 ML IV BAG (J0690 PER 500MG) As Ordered ONE (20:12)
[2022-06-05] MEDS ORDERED: ONDANSETRON 4MG 2ML VIAL As Ordered ONE (20:47)
[2022-06-05] MEDS ORDERED: ACETAMINOPHEN 1000MG 100ML IV BTL (OFIRMEV) (J0131 PER 10MG) As Ordered ONE (20:47)
[2022-06-05] MEDS ORDERED: KETOROLAC 60MG 2ML VIAL As Ordered ONE (20:47)
[2022-06-05] MEDS ORDERED: METOCLOPRAMIDE INJ 10MG/2ML VIAL (J2765 PER 1) As Ordered ONE (20:47)
[2022-06-05] MEDS ORDERED: SUGAMMADEX SODIUM 500 MG/5 ML VIAL (BRIDION) As Ordered ONE (20:47)
[2022-06-05] MEDS ORDERED: BUPIVACAINE HCL 0.25% 30ML VIAL As Ordered ONE (20:53)
[2022-06-05] MEDS ORDERED: fentaNYL 100 MCG/2 ML INJECTION As Ordered ONE (21:23)
[2022-06-05] MEDS ORDERED: LR 1,000 ML IV SCH (22:00)
[2022-06-05] MEDS ORDERED: ONDANSETRON 4MG 2ML VIAL IV PRN (22:00)
[2022-06-05] MEDS ORDERED: fentaNYL 100 MCG/2 ML INJECTION IV PRN (22:00)
[2022-06-05] MEDS: MORPHINE 2 MG/ML 1ML VIAL IV PRN ×2 (22:33→23:08)
[2022-06-05] MEDS: oxyCODONE 5MG TAB PO PRN ×2 (22:33→23:09)
[2022-06-05] MEDS: INSULIN LISPRO (NovoLOG) PER UNIT SC SCH (23:00)
[2022-06-05] MEDS: SYMBICORT 160/4.5MCG INHALER 6GM INH SCH (23:38)
[2022-06-05 23:45] VITALS: BP 163/97
[2022-06-05] MEDS: GABAPENTIN 400MG CAP PO SCH (23:47)
[2022-06-06] MEDS ORDERED: MORPHINE 2 MG/ML 1ML VIAL IV PRN (00:55)
[2022-06-06 04:00] VITALS: BP 141/91
[2022-06-06] MEDS: SYMBICORT 160/4.5MCG INHALER 6GM INH SCH ×2 (07:10→20:12)
[2022-06-06 07:28] VITALS: BP 168/98
[2022-06-06 07:28] LABS: ALBUMIN 2.6 GM/DL (3.2-5.2); ALT/SGPT 49 U/L (12-78); BILIRUBIN,TOTAL 0.7 MG/DL (0.2-1.0); BLOOD UREA NITROGEN 9 MG/DL (7-18); CALCIUM LEVEL 8.3 MG/DL (8.8-10.2); CARBON DIOXIDE LEVEL 29 MEQ/L (21-32); CHLORIDE LEVEL 107 MEQ/L (98-107); CREATININE FOR GFR 0.93 MG/DL (0.70-1.30); GLOMERULAR FILTRATION RATE > 60.0 (>49); GLUCOSE, FASTING 204 MG/DL (70-100); SODIUM LEVEL 139 MEQ/L (136-145); TOTAL PROTEIN 5.6 GM/DL (6.4-8.2)
[2022-06-06 07:29] LABS: POTASSIUM SERUM 2.9 MEQ/L (3.5-5.1)
[2022-06-06] MEDS ORDERED: POTASSIUM CHLORIDE 10MEQ SR TABLET PO ONE ×2 (07:35→12:00)
[2022-06-06] MEDS ORDERED: ALBUTEROL SULFATE 2.5 MG/0.5 ML INH NEB SOLN NEB PRN (07:40)
[2022-06-06] MEDS: METOPROLOL SUCC (TopROL XL) 100MG *XL* TAB PO SCH (07:51)
[2022-06-06] MEDS: INSULIN LISPRO (NovoLOG) PER UNIT SC SCH ×4 (07:51→20:06)
[2022-06-06] MEDS: GABAPENTIN 400MG CAP PO SCH ×3 (07:51→20:20)
[2022-06-06] MEDS: busPIRone 5 MG TAB PO SCH ×2 (07:52→20:21)
[2022-06-06] MEDS ORDERED: POTASSIUM CHLORIDE 10MEQ SR TABLET PO SCH (09:00)
[2022-06-06] MEDS: OMEPRAZOLE 20MG CAP PO SCH ×2 (09:00→20:21)
[2022-06-06] MEDS: APIXABAN 5 MG TAB (ELIQUIS) PO SCH ×2 (11:51→20:20)
[2022-06-06] MEDS: amLODIPine 5 MG TAB PO SCH (11:51)
[2022-06-06] MEDS: LEVEMIR (INSULIN DETEMIR) 1 UNITS/0.01ML SC SCH ×2 (11:52→20:21)
[2022-06-06] MEDS: PERCOCET 5MG/325MG TAB PO PRN ×2 (11:57→20:22)
[2022-06-06 15:54] LABS: BLOOD UREA NITROGEN 9 MG/DL (7-18); CALCIUM LEVEL 8.3 MG/DL (8.8-10.2); CARBON DIOXIDE LEVEL 29 MEQ/L (21-32); CHLORIDE LEVEL 107 MEQ/L (98-107); CREATININE FOR GFR 0.97 MG/DL (0.70-1.30); GLOMERULAR FILTRATION RATE > 60.0 (>49); GLUCOSE, FASTING 179 MG/DL (70-100); POTASSIUM SERUM 3.5 MEQ/L (3.5-5.1); SODIUM LEVEL 138 MEQ/L (136-145)
[2022-06-06 16:00] VITALS: BP 140/80
[2022-06-06 20:13] VITALS: BP 150/92
[2022-06-06] MEDS: ASPIRIN 81 MG CHEW TABLET PO SCH (20:20)
[2022-06-06] MEDS: POTASSIUM CHLORIDE 10MEQ SR TABLET PO SCH (20:20)
[2022-06-06] MEDS ORDERED: KETOROLAC 30 MG/ML 1ML VIAL IV ONE (21:35)
[2022-06-07 04:35] VITALS: BP 138/72
[2022-06-07 05:30] LABS: BASO # 0.1 10^3/uL (0.0-0.2); BASO % 0.8 % (0.0-1.0); EOS # 0.2 10^3/uL (0.0-0.5); EOS % 2.8 % (0.0-3.0); HEMOGLOBIN 12.9 g/dl (13.5-17.5); LYMPH # 1.4 10^3/uL (1.5-5.0); LYMPH % 18.3 % (24.0-44.0); MEAN CORPUSCULAR HEMOGLOBIN 27.2 pg (27.0-33.0); MEAN CORPUSCULAR HGB CONC 32.3 g/dl (32.0-36.5); MEAN CORPUSCULAR VOLUME 84.4 fl (80.0-96.0); MONO # 0.9 10^3/uL (0.0-0.8); MONO % 12.3 % (2.0-8.0); NEUTROPHILS # 4.9 10^3/uL (1.5-8.5); NEUTROPHILS % 65.3 % (36.0-66.0); PLATELET COUNT, AUTOMATED 220 10^3/uL (150-450); RED BLOOD COUNT 4.74 10^6/uL (4.30-6.10); WHITE BLOOD COUNT 7.6 10^3/uL (4.0-10.0)
[2022-06-07 05:49] LABS: BLOOD UREA NITROGEN 9 MG/DL (7-18); CALCIUM LEVEL 8.2 MG/DL (8.8-10.2); CARBON DIOXIDE LEVEL 21 MEQ/L (21-32); CHLORIDE LEVEL 113 MEQ/L (98-107); CREATININE FOR GFR 0.86 MG/DL (0.70-1.30); GLOMERULAR FILTRATION RATE > 60.0 (>49); GLUCOSE, FASTING 169 MG/DL (70-100); POTASSIUM SERUM 3.9 MEQ/L (3.5-5.1); SODIUM LEVEL 139 MEQ/L (136-145)
[2022-06-07 08:00] VITALS: BP 147/97
[2022-06-07] MEDS: SYMBICORT 160/4.5MCG INHALER 6GM INH SCH ×2 (08:05→19:25)
[2022-06-07] MEDS: INSULIN LISPRO (NovoLOG) PER UNIT SC SCH ×4 (08:17→20:04)
[2022-06-07] MEDS: amLODIPine 5 MG TAB PO SCH (08:18)
[2022-06-07] MEDS: LEVEMIR (INSULIN DETEMIR) 1 UNITS/0.01ML SC SCH ×2 (08:18→20:20)
[2022-06-07] MEDS: GABAPENTIN 400MG CAP PO SCH ×3 (08:18→20:18)
[2022-06-07] MEDS: busPIRone 5 MG TAB PO SCH ×2 (08:18→20:19)
[2022-06-07] MEDS: APIXABAN 5 MG TAB (ELIQUIS) PO SCH ×2 (08:18→20:19)
[2022-06-07] MEDS: POTASSIUM CHLORIDE 10MEQ SR TABLET PO SCH ×2 (08:18→20:18)
[2022-06-07] MEDS: OMEPRAZOLE 20MG CAP PO SCH ×2 (08:18→20:19)
[2022-06-07] MEDS: METOPROLOL SUCC (TopROL XL) 100MG *XL* TAB PO SCH (08:24)
[2022-06-07] MEDS: PERCOCET 5MG/325MG TAB PO PRN ×2 (10:42→20:20)
[2022-06-07] MEDS ORDERED: ISOVUE-370 76% 100ML VIAL As Ordered ONE (12:37)
[2022-06-07 13:40] VITALS: BP 117/65
[2022-06-07 19:15] VITALS: BP 129/66
[2022-06-07] MEDS: ASPIRIN 81 MG CHEW TABLET PO SCH (20:19)
[2022-06-08] MEDS: PERCOCET 5MG/325MG TAB PO PRN ×2 (02:40→16:57)
[2022-06-08 03:26] VITALS: BP 142/76
[2022-06-08 05:43] LABS: BASO # 0.1 10^3/uL (0.0-0.2); BASO % 0.6 % (0.0-1.0); EOS # 0.3 10^3/uL (0.0-0.5); EOS % 3.4 % (0.0-3.0); HEMATOCRIT 39.7 % (42.0-52.0); HEMOGLOBIN 12.7 g/dl (13.5-17.5); LYMPH # 1.6 10^3/uL (1.5-5.0); LYMPH % 19.8 % (24.0-44.0); MEAN CORPUSCULAR VOLUME 84.5 fl (80.0-96.0); MONO # 0.9 10^3/uL (0.0-0.8); MONO % 11.5 % (2.0-8.0); NEUTROPHILS # 5.1 10^3/uL (1.5-8.5); NEUTROPHILS % 64.1 % (36.0-66.0); PLATELET COUNT, AUTOMATED 224 10^3/uL (150-450)
[2022-06-08 06:16] LABS: BLOOD UREA NITROGEN 14 MG/DL (7-18); CALCIUM LEVEL 8.4 MG/DL (8.8-10.2); CARBON DIOXIDE LEVEL 27 MEQ/L (21-32); CHLORIDE LEVEL 108 MEQ/L (98-107); GLOMERULAR FILTRATION RATE > 60.0 (>49); GLUCOSE, FASTING 205 MG/DL (70-100); POTASSIUM SERUM 3.7 MEQ/L (3.5-5.1); SODIUM LEVEL 137 MEQ/L (136-145)
[2022-06-08 07:28] VITALS: BP 146/76
[2022-06-08] MEDS: SYMBICORT 160/4.5MCG INHALER 6GM INH SCH ×2 (08:15→20:31)
[2022-06-08] MEDS: LEVEMIR (INSULIN DETEMIR) 1 UNITS/0.01ML SC SCH ×2 (08:49→21:35)
[2022-06-08] MEDS: OMEPRAZOLE 20MG CAP PO SCH ×2 (08:50→21:33)
[2022-06-08] MEDS: INSULIN LISPRO (NovoLOG) PER UNIT SC SCH ×4 (08:50→21:00)
[2022-06-08] MEDS: POTASSIUM CHLORIDE 10MEQ SR TABLET PO SCH ×2 (08:51→21:34)
[2022-06-08] MEDS: GABAPENTIN 400MG CAP PO SCH ×3 (08:52→21:33)
[2022-06-08] MEDS: APIXABAN 5 MG TAB (ELIQUIS) PO SCH ×2 (08:52→21:33)
[2022-06-08] MEDS: busPIRone 5 MG TAB PO SCH ×2 (08:52→21:34)
[2022-06-08] MEDS: METOPROLOL SUCC (TopROL XL) 100MG *XL* TAB PO SCH (10:45)
[2022-06-08] MEDS: amLODIPine 5 MG TAB PO SCH (10:45)
[2022-06-08 16:00] VITALS: BP 151/82
[2022-06-08] MEDS ORDERED: MOM 30ML SUSPENSION UDC PO ONE (17:00)
[2022-06-08] MEDS ORDERED: MOM 30ML SUSPENSION UDC PO PRN (17:00)
[2022-06-08 20:00] VITALS: BP 166/89
[2022-06-08] MEDS: ASPIRIN 81 MG CHEW TABLET PO SCH (21:33)
[2022-06-08] MEDS: ATORVASTATIN 20 MG TAB PO SCH (21:34)
[2022-06-08] MEDS: SENOKOT S TAB PO SCH (21:34)
[2022-06-08] MEDS ORDERED: KETOROLAC 30 MG/ML 1ML VIAL IV ONE (23:00)
[2022-06-09 04:00] VITALS: BP 136/77
[2022-06-09 05:58] LABS: BASO % 0.6 % (0.0-1.0); EOS # 0.2 10^3/uL (0.0-0.5); EOS % 3.4 % (0.0-3.0); HEMATOCRIT 40.7 % (42.0-52.0); HEMOGLOBIN 13.1 g/dl (13.5-17.5); LYMPH # 1.5 10^3/uL (1.5-5.0); LYMPH % 21.5 % (24.0-44.0); MEAN CORPUSCULAR HEMOGLOBIN 27.2 pg (27.0-33.0); MEAN CORPUSCULAR HGB CONC 32.2 g/dl (32.0-36.5); MEAN CORPUSCULAR VOLUME 84.4 fl (80.0-96.0); MONO # 0.7 10^3/uL (0.0-0.8); MONO % 10.1 % (2.0-8.0); NEUTROPHILS # 4.3 10^3/uL (1.5-8.5); NEUTROPHILS % 63.7 % (36.0-66.0); PLATELET COUNT, AUTOMATED 247 10^3/uL (150-450); RED BLOOD COUNT 4.82 10^6/uL (4.30-6.10); WHITE BLOOD COUNT 6.8 10^3/uL (4.0-10.0)
[2022-06-09 06:21] LABS: BLOOD UREA NITROGEN 18 MG/DL (7-18); CALCIUM LEVEL 8.7 MG/DL (8.8-10.2); CARBON DIOXIDE LEVEL 31 MEQ/L (21-32); CHLORIDE LEVEL 107 MEQ/L (98-107); CREATININE FOR GFR 1.02 MG/DL (0.70-1.30); GLOMERULAR FILTRATION RATE > 60.0 (>49); GLUCOSE, FASTING 185 MG/DL (70-100); POTASSIUM SERUM 4.2 MEQ/L (3.5-5.1); SODIUM LEVEL 139 MEQ/L (136-145)
[2022-06-09] MEDS ORDERED: PERCOCET 5MG/325MG TAB PO PRN (06:55)
[2022-06-09 07:21] VITALS: BP 141/73
[2022-06-09] MEDS: SYMBICORT 160/4.5MCG INHALER 6GM INH SCH ×2 (07:37→19:52)
[2022-06-09] MEDS: PERCOCET 5MG/325MG TAB PO PRN ×2 (09:07→18:06)
[2022-06-09] MEDS: LEVEMIR (INSULIN DETEMIR) 1 UNITS/0.01ML SC SCH ×2 (09:08→20:43)
[2022-06-09] MEDS: OMEPRAZOLE 20MG CAP PO SCH ×2 (09:09→20:43)
[2022-06-09] MEDS: INSULIN LISPRO (NovoLOG) PER UNIT SC SCH ×4 (09:09→20:19)
[2022-06-09] MEDS: amLODIPine 5 MG TAB PO SCH (09:10)
[2022-06-09] MEDS: APIXABAN 5 MG TAB (ELIQUIS) PO SCH ×2 (09:10→20:44)
[2022-06-09] MEDS: SENOKOT S TAB PO SCH ×2 (09:10→20:44)
[2022-06-09] MEDS: METOPROLOL SUCC (TopROL XL) 50MG **XL** TAB PO SCH (09:11)
[2022-06-09] MEDS: busPIRone 5 MG TAB PO SCH ×2 (09:11→20:44)
[2022-06-09] MEDS: GABAPENTIN 400MG CAP PO SCH ×3 (09:11→20:43)
[2022-06-09] MEDS: POTASSIUM CHLORIDE 10MEQ SR TABLET PO SCH ×2 (09:11→20:44)
[2022-06-09 19:45] VITALS: BP 132/75
[2022-06-09] MEDS: ASPIRIN 81 MG CHEW TABLET PO SCH (20:44)
[2022-06-09] MEDS: ATORVASTATIN 20 MG TAB PO SCH (20:44)
[2022-06-10] MEDS: SYMBICORT 160/4.5MCG INHALER 6GM INH SCH ×2 (07:28→19:47)
[2022-06-10 08:00] VITALS: BP 138/80
[2022-06-10] MEDS: INSULIN LISPRO (NovoLOG) PER UNIT SC SCH ×4 (09:02→21:00)
[2022-06-10] MEDS: PERCOCET 5MG/325MG TAB PO PRN ×2 (09:04→21:54)
[2022-06-10] MEDS: amLODIPine 5 MG TAB PO SCH (09:05)
[2022-06-10] MEDS: APIXABAN 5 MG TAB (ELIQUIS) PO SCH ×2 (09:06→21:52)
[2022-06-10] MEDS: OMEPRAZOLE 20MG CAP PO SCH ×2 (09:06→21:52)
[2022-06-10] MEDS: busPIRone 5 MG TAB PO SCH ×2 (09:07→21:52)
[2022-06-10] MEDS: SENOKOT S TAB PO SCH ×2 (09:07→21:52)
[2022-06-10] MEDS: GABAPENTIN 400MG CAP PO SCH ×3 (09:08→21:52)
[2022-06-10] MEDS: POTASSIUM CHLORIDE 10MEQ SR TABLET PO SCH ×2 (09:09→21:52)
[2022-06-10] MEDS: METOPROLOL SUCC (TopROL XL) 50MG **XL** TAB PO SCH (09:10)
[2022-06-10] MEDS: LEVEMIR (INSULIN DETEMIR) 1 UNITS/0.01ML SC SCH ×2 (09:10→21:53)
[2022-06-10 16:00] VITALS: BP 131/77
[2022-06-10] MEDS: ATORVASTATIN 20 MG TAB PO SCH (21:52)
[2022-06-10] MEDS: ASPIRIN 81 MG CHEW TABLET PO SCH (21:53)
[2022-06-11 06:00] VITALS: BP 107/72
[2022-06-11] MEDS: SYMBICORT 160/4.5MCG INHALER 6GM INH SCH ×2 (07:35→19:45)
[2022-06-11] MEDS: LEVEMIR (INSULIN DETEMIR) 1 UNITS/0.01ML SC SCH ×2 (08:07→20:48)
[2022-06-11] MEDS: PERCOCET 5MG/325MG TAB PO PRN ×3 (08:08→21:57)
[2022-06-11] MEDS: INSULIN LISPRO (NovoLOG) PER UNIT SC SCH ×4 (08:08→20:51)
[2022-06-11] MEDS: APIXABAN 5 MG TAB (ELIQUIS) PO SCH ×2 (08:08→20:51)
[2022-06-11] MEDS: busPIRone 5 MG TAB PO SCH ×2 (08:09→20:51)
[2022-06-11] MEDS: GABAPENTIN 400MG CAP PO SCH ×3 (08:09→20:49)
[2022-06-11] MEDS: SENOKOT S TAB PO SCH ×2 (08:09→20:48)
[2022-06-11] MEDS: POTASSIUM CHLORIDE 10MEQ SR TABLET PO SCH ×2 (08:09→20:49)
[2022-06-11] MEDS: OMEPRAZOLE 20MG CAP PO SCH ×2 (08:09→20:51)
[2022-06-11] MEDS: amLODIPine 5 MG TAB PO SCH (08:41)
[2022-06-11] MEDS: METOPROLOL SUCC (TopROL XL) 50MG **XL** TAB PO SCH (09:13)
[2022-06-11] MEDS: ATORVASTATIN 20 MG TAB PO SCH (20:51)
[2022-06-11] MEDS: ASPIRIN 81 MG CHEW TABLET PO SCH (20:51)
[2022-06-12 06:49] VITALS: BP 119/68
[2022-06-12] MEDS: SYMBICORT 160/4.5MCG INHALER 6GM INH SCH ×2 (07:29→19:34)
[2022-06-12] MEDS: OMEPRAZOLE 20MG CAP PO SCH ×2 (08:48→20:25)
[2022-06-12] MEDS: busPIRone 5 MG TAB PO SCH ×2 (08:48→20:24)
[2022-06-12] MEDS: GABAPENTIN 400MG CAP PO SCH ×3 (08:48→20:24)
[2022-06-12] MEDS: SENOKOT S TAB PO SCH ×2 (08:48→20:25)
[2022-06-12] MEDS: APIXABAN 5 MG TAB (ELIQUIS) PO SCH ×2 (08:48→20:24)
[2022-06-12] MEDS: METOPROLOL SUCC (TopROL XL) 50MG **XL** TAB PO SCH (08:50)
[2022-06-12] MEDS: POTASSIUM CHLORIDE 10MEQ SR TABLET PO SCH ×2 (08:50→20:24)
[2022-06-12] MEDS: INSULIN LISPRO (NovoLOG) PER UNIT SC SCH ×4 (08:51→20:28)
[2022-06-12] MEDS: LEVEMIR (INSULIN DETEMIR) 1 UNITS/0.01ML SC SCH ×2 (08:51→20:25)
[2022-06-12] MEDS: PERCOCET 5MG/325MG TAB PO PRN ×2 (08:55→14:49)
[2022-06-12] MEDS: ASPIRIN 81 MG CHEW TABLET PO SCH (20:24)
[2022-06-12] MEDS: ATORVASTATIN 20 MG TAB PO SCH (20:24)
[2022-06-13 06:27] VITALS: BP 124/77
[2022-06-13] MEDS: SYMBICORT 160/4.5MCG INHALER 6GM INH SCH ×2 (07:30→19:40)
[2022-06-13] MEDS: POTASSIUM CHLORIDE 10MEQ SR TABLET PO SCH ×2 (08:15→21:40)
[2022-06-13] MEDS: busPIRone 5 MG TAB PO SCH ×2 (08:15→21:41)
[2022-06-13] MEDS: APIXABAN 5 MG TAB (ELIQUIS) PO SCH ×2 (08:15→21:41)
[2022-06-13] MEDS: OMEPRAZOLE 20MG CAP PO SCH ×2 (08:16→21:41)
[2022-06-13] MEDS: SENOKOT S TAB PO SCH ×2 (08:16→21:40)
[2022-06-13] MEDS: GABAPENTIN 400MG CAP PO SCH ×3 (08:16→21:40)
[2022-06-13] MEDS: METOPROLOL SUCC (TopROL XL) 50MG **XL** TAB PO SCH (08:17)
[2022-06-13] MEDS: LEVEMIR (INSULIN DETEMIR) 1 UNITS/0.01ML SC SCH ×2 (08:17→21:42)
[2022-06-13] MEDS: INSULIN LISPRO (NovoLOG) PER UNIT SC SCH ×4 (08:18→21:00)
[2022-06-13] MEDS: PERCOCET 5MG/325MG TAB PO PRN ×2 (08:24→21:42)
[2022-06-13] MEDS: ATORVASTATIN 20 MG TAB PO SCH (21:40)
[2022-06-13] MEDS: ASPIRIN 81 MG CHEW TABLET PO SCH (21:42)
[2022-06-14 06:00] VITALS: BP 129/75
[2022-06-14] MEDS: SYMBICORT 160/4.5MCG INHALER 6GM INH SCH ×2 (07:58→19:26)
[2022-06-14] MEDS: INSULIN LISPRO (NovoLOG) PER UNIT SC SCH ×4 (08:48→20:23)
[2022-06-14] MEDS: busPIRone 5 MG TAB PO SCH ×2 (08:49→20:20)
[2022-06-14] MEDS: POTASSIUM CHLORIDE 10MEQ SR TABLET PO SCH ×2 (08:49→20:20)
[2022-06-14] MEDS: OMEPRAZOLE 20MG CAP PO SCH ×2 (08:49→20:20)
[2022-06-14] MEDS: APIXABAN 5 MG TAB (ELIQUIS) PO SCH ×2 (08:49→20:20)
[2022-06-14] MEDS: GABAPENTIN 400MG CAP PO SCH ×3 (08:49→20:20)
[2022-06-14] MEDS: LEVEMIR (INSULIN DETEMIR) 1 UNITS/0.01ML SC SCH ×2 (08:49→20:28)
[2022-06-14] MEDS: SENOKOT S TAB PO SCH ×2 (08:50→20:19)
[2022-06-14] MEDS: METOPROLOL SUCC (TopROL XL) 50MG **XL** TAB PO SCH (08:50)
[2022-06-14] MEDS: PERCOCET 5MG/325MG TAB PO PRN (17:51)
[2022-06-14] MEDS: ATORVASTATIN 20 MG TAB PO SCH (20:19)
[2022-06-14] MEDS: ASPIRIN 81 MG CHEW TABLET PO SCH (20:20)
[2022-06-15 06:00] VITALS: BP 143/78
[2022-06-15 06:16] LABS: BASO # 0.1 10^3/uL (0.0-0.2); BASO % 0.7 % (0.0-1.0); EOS # 0.2 10^3/uL (0.0-0.5); EOS % 2.6 % (0.0-3.0); HEMATOCRIT 40.4 % (42.0-52.0); HEMOGLOBIN 13.3 g/dl (13.5-17.5); LYMPH # 1.2 10^3/uL (1.5-5.0); LYMPH % 15.2 % (24.0-44.0); MEAN CORPUSCULAR HEMOGLOBIN 27.3 pg (27.0-33.0); MEAN CORPUSCULAR HGB CONC 32.9 g/dl (32.0-36.5); MONO # 0.9 10^3/uL (0.0-0.8); NEUTROPHILS # 5.6 10^3/uL (1.5-8.5); NEUTROPHILS % 69.4 % (36.0-66.0); PLATELET COUNT, AUTOMATED 296 10^3/uL (150-450); RED BLOOD COUNT 4.87 10^6/uL (4.30-6.10)
[2022-06-15 06:36] LABS: BLOOD UREA NITROGEN 17 MG/DL (7-18); CALCIUM LEVEL 8.9 MG/DL (8.8-10.2); CARBON DIOXIDE LEVEL 25 MEQ/L (21-32); CHLORIDE LEVEL 108 MEQ/L (98-107); CREATININE FOR GFR 0.81 MG/DL (0.70-1.30); GLOMERULAR FILTRATION RATE > 60.0 (>49); GLUCOSE, FASTING 135 MG/DL (70-100); POTASSIUM SERUM 4.2 MEQ/L (3.5-5.1); SODIUM LEVEL 140 MEQ/L (136-145)
[2022-06-15] MEDS: SYMBICORT 160/4.5MCG INHALER 6GM INH SCH ×2 (07:21→19:30)
[2022-06-15] MEDS: busPIRone 5 MG TAB PO SCH ×2 (08:32→21:51)
[2022-06-15] MEDS: OMEPRAZOLE 20MG CAP PO SCH ×2 (08:32→21:53)
[2022-06-15] MEDS: SENOKOT S TAB PO SCH ×2 (08:32→21:00)
[2022-06-15] MEDS: GABAPENTIN 400MG CAP PO SCH ×3 (08:32→21:49)
[2022-06-15] MEDS: POTASSIUM CHLORIDE 10MEQ SR TABLET PO SCH ×2 (08:33→21:49)
[2022-06-15] MEDS: METOPROLOL SUCC (TopROL XL) 50MG **XL** TAB PO SCH (08:33)
[2022-06-15] MEDS: APIXABAN 5 MG TAB (ELIQUIS) PO SCH ×2 (08:33→21:51)
[2022-06-15] MEDS: INSULIN LISPRO (NovoLOG) PER UNIT SC SCH ×4 (08:34→21:52)
[2022-06-15] MEDS: LEVEMIR (INSULIN DETEMIR) 1 UNITS/0.01ML SC SCH ×2 (08:34→21:52)
[2022-06-15] MEDS: PERCOCET 5MG/325MG TAB PO PRN ×2 (12:21→21:50)
[2022-06-15] MEDS: ASPIRIN 81 MG CHEW TABLET PO SCH (21:47)
[2022-06-15] MEDS: ATORVASTATIN 20 MG TAB PO SCH (21:51)
[2022-06-16 06:00] VITALS: BP 107/66
[2022-06-16] MEDS: SYMBICORT 160/4.5MCG INHALER 6GM INH SCH ×2 (07:41→19:35)
[2022-06-16] MEDS: INSULIN LISPRO (NovoLOG) PER UNIT SC SCH ×4 (08:44→21:00)
[2022-06-16] MEDS: LEVEMIR (INSULIN DETEMIR) 1 UNITS/0.01ML SC SCH ×2 (08:45→21:25)
[2022-06-16] MEDS: PERCOCET 5MG/325MG TAB PO PRN ×2 (08:46→22:41)
[2022-06-16] MEDS: POTASSIUM CHLORIDE 10MEQ SR TABLET PO SCH ×2 (08:46→21:28)
[2022-06-16] MEDS: GABAPENTIN 400MG CAP PO SCH ×3 (08:47→21:25)
[2022-06-16] MEDS: OMEPRAZOLE 20MG CAP PO SCH ×2 (08:47→21:29)
[2022-06-16] MEDS: busPIRone 5 MG TAB PO SCH ×2 (08:47→21:28)
[2022-06-16] MEDS: METOPROLOL SUCC (TopROL XL) 50MG **XL** TAB PO SCH (08:47)
[2022-06-16] MEDS: SENOKOT S TAB PO SCH ×2 (08:47→21:28)
[2022-06-16] MEDS: APIXABAN 5 MG TAB (ELIQUIS) PO SCH ×2 (08:47→21:25)
[2022-06-16] MEDS: ATORVASTATIN 20 MG TAB PO SCH (21:25)
[2022-06-16] MEDS: ASPIRIN 81 MG CHEW TABLET PO SCH (21:28)
[2022-06-16] MEDS ORDERED: POLYVINYL ALCOHOL OPHTH SOLN 15 ML(LIQUITEARS) OU PRN (21:35)
[2022-06-17 05:47] VITALS: BP 126/76
[2022-06-17] MEDS: INSULIN LISPRO (NovoLOG) PER UNIT SC SCH ×3 (07:30→17:07)
[2022-06-17] MEDS: SYMBICORT 160/4.5MCG INHALER 6GM INH SCH ×2 (07:43→19:43)
[2022-06-17] MEDS: busPIRone 5 MG TAB PO SCH (08:17)
[2022-06-17] MEDS: POTASSIUM CHLORIDE 10MEQ SR TABLET PO SCH (08:17)
[2022-06-17] MEDS: GABAPENTIN 400MG CAP PO SCH ×2 (08:17→14:56)
[2022-06-17] MEDS: OMEPRAZOLE 20MG CAP PO SCH (08:17)
[2022-06-17] MEDS: SENOKOT S TAB PO SCH (08:17)
[2022-06-17] MEDS: PERCOCET 5MG/325MG TAB PO PRN (08:24)
[2022-06-17] MEDS: METOPROLOL SUCC (TopROL XL) 50MG **XL** TAB PO SCH (08:25)
[2022-06-17] MEDS ORDERED: KCL 10MEQ IN D5/0.45NS 1000ML 1,000 ML IV SCH (09:15)
[2022-06-17 14:00] VITALS: BP 112/71
[2022-06-17] MEDS ORDERED: CLINDAMYCIN 900MG/50ML PREMIX BAG As Ordered ONE (18:02)
[2022-06-17] MEDS ORDERED: BUPIVACAINE LIPOSOME/PF 1.3% 20ML VIAL (13.3MG/ML)(EXPAREL) As Ordered ONE (18:36)
[2022-06-17] MEDS ORDERED: TRANEXAMIC ACID 100 MG/ML 10ML VIAL As Ordered ONE ×2 (18:36→22:52)
[2022-06-17] MEDS ORDERED: BUPIVACAINE HCL 0.25% 10ML VIAL As Ordered ONE (18:36)
[2022-06-17] MEDS ORDERED: ceFAZolin 2 GM/D5W 50 ML IV BAG (J0690 PER 500MG) As Ordered ONE (18:36)
[2022-06-17] MEDS ORDERED: MIDAZOLAM INJ 2MG/2ML VIAL (J2250 PER 1MG) As Ordered ONE (19:20)
[2022-06-17] MEDS ORDERED: fentaNYL 250 MCG/5 ML INJECTION As Ordered ONE (19:21)
[2022-06-17] MEDS ORDERED: propofoL 200 MG/20 ML VIAL As Ordered ONE (19:21)
[2022-06-17] MEDS ORDERED: LIDOCAINE 2% 100MG/5ML SDV (FOR ANES.) As Ordered ONE (19:21)
[2022-06-17] MEDS ORDERED: ROCURONIUM BROMIDE 50 MG/5 ML VIAL As Ordered ONE ×2 (19:21→20:25)
[2022-06-17] MEDS ORDERED: dexameTHASONE 4 MG/ML 1ML VIAL (J1100 PER 1MG) As Ordered ONE (19:54)
[2022-06-17] MEDS ORDERED: ONDANSETRON 4MG 2ML VIAL As Ordered ONE (19:54)
[2022-06-17] MEDS ORDERED: METOCLOPRAMIDE INJ 10MG/2ML VIAL (J2765 PER 1) As Ordered ONE (19:54)
[2022-06-17] MEDS ORDERED: ACETAMINOPHEN 1000MG 100ML IV BTL (OFIRMEV) (J0131 PER 10MG) As Ordered ONE (19:55)
[2022-06-17] MEDS ORDERED: SUGAMMADEX SODIUM 500 MG/5 ML VIAL (BRIDION) As Ordered ONE (20:07)
[2022-06-17] MEDS ORDERED: LABETALOL 100MG/20ML VIAL As Ordered ONE (20:33)
[2022-06-17] MEDS ORDERED: HYDROmorphone HCL 2MG/ML 1ML VIAL As Ordered ONE ×2 (20:44→23:19)
[2022-06-17] MEDS ORDERED: VANCOMYCIN 1000MG/20ML VIAL As Ordered ONE (22:52)
[2022-06-18] VITALS (12 sets, daily range): BP systolic 110–144; BP diastolic 74–93; O2SAT 94
[2022-06-18] MEDS ORDERED: METOCLOPRAMIDE INJ 10MG/2ML VIAL (J2765 PER 1) IV PRN (00:30)
[2022-06-18] MEDS ORDERED: fentaNYL 100 MCG/2 ML INJECTION IV PRN (00:30)
[2022-06-18] MEDS ORDERED: oxyCODONE 5MG TAB PO PRN (00:30)
[2022-06-18] MEDS ORDERED: ONDANSETRON 4MG 2ML VIAL IV PRN (00:30)
[2022-06-18] MEDS ORDERED: LR 1,000 ML IV SCH (00:30)
[2022-06-18] MEDS: INSULIN LISPRO (NovoLOG) PER UNIT SC SCH ×5 (01:37→21:00)
[2022-06-18] MEDS ORDERED: NS 1,000 ML IV ONE (02:10)
[2022-06-18] MEDS: ASPIRIN 81 MG CHEW TABLET PO SCH ×2 (02:19→21:21)
[2022-06-18] MEDS: PERCOCET 5MG/325MG TAB PO PRN ×2 (02:26→07:51)
[2022-06-18] MEDS: busPIRone 5 MG TAB PO SCH ×3 (02:26→21:23)
[2022-06-18] MEDS: GABAPENTIN 400MG CAP PO SCH ×4 (02:27→21:23)
[2022-06-18] MEDS: ATORVASTATIN 20 MG TAB PO SCH ×2 (02:27→21:24)
[2022-06-18] MEDS: OMEPRAZOLE 20MG CAP PO SCH ×3 (02:27→21:23)
[2022-06-18] MEDS: SENOKOT S TAB PO SCH ×3 (02:27→21:22)
[2022-06-18] MEDS: POTASSIUM CHLORIDE 10MEQ SR TABLET PO SCH ×3 (02:28→21:22)
[2022-06-18] MEDS ORDERED: HYDROMORPHONE HCL 0.5 MG/ 0.5 ML SYRINGE (J1170 PER 1) IV ONE (04:35)
[2022-06-18] MEDS: SYMBICORT 160/4.5MCG INHALER 6GM INH SCH ×2 (07:29→20:00)
[2022-06-18] MEDS: METOPROLOL SUCC (TopROL XL) 50MG **XL** TAB PO SCH (07:52)
[2022-06-18] MEDS ORDERED: ANEXSIA, NORCO 7.5MG/325MG TABLET(HYDROCODONE/APAP) PO ONE (08:40)
[2022-06-18] MEDS ORDERED: KETOROLAC 30 MG/ML 1ML VIAL IV ONE (08:40)
[2022-06-18] MEDS: ANEXSIA, NORCO 7.5MG/325MG TABLET(HYDROCODONE/APAP) PO PRN ×2 (12:08→16:28)
[2022-06-18] MEDS: APIXABAN 5 MG TAB (ELIQUIS) PO SCH ×2 (14:10→21:23)
[2022-06-18] MEDS ORDERED: KETOROLAC 30 MG/ML 1ML VIAL IV PRN (15:00)
[2022-06-18] MEDS: LEVEMIR (INSULIN DETEMIR) 1 UNITS/0.01ML SC SCH (21:24)
[2022-06-19] MEDS: ANEXSIA, NORCO 7.5MG/325MG TABLET(HYDROCODONE/APAP) PO PRN ×3 (01:18→21:44)
[2022-06-19 02:00] VITALS: BP 129/75
[2022-06-19 06:00] VITALS: BP 125/73
[2022-06-19] MEDS: SYMBICORT 160/4.5MCG INHALER 6GM INH SCH ×2 (07:52→20:00)
[2022-06-19 07:53] VITALS: O2SAT 94
[2022-06-19] MEDS ORDERED: KETOROLAC 30 MG/ML 1ML VIAL IV ONE ×2 (08:30)
[2022-06-19] MEDS: INSULIN LISPRO (NovoLOG) PER UNIT SC SCH ×4 (08:57→21:00)
[2022-06-19] MEDS: OMEPRAZOLE 20MG CAP PO SCH ×2 (08:58→21:41)
[2022-06-19] MEDS: METOPROLOL SUCC (TopROL XL) 50MG **XL** TAB PO SCH (08:58)
[2022-06-19] MEDS: GABAPENTIN 400MG CAP PO SCH ×3 (08:59→21:41)
[2022-06-19] MEDS ORDERED: ANEXSIA, NORCO 7.5MG/325MG TABLET(HYDROCODONE/APAP) PO ONE (09:00)
[2022-06-19] MEDS: POTASSIUM CHLORIDE 10MEQ SR TABLET PO SCH ×2 (09:00→21:40)
[2022-06-19] MEDS: APIXABAN 5 MG TAB (ELIQUIS) PO SCH ×2 (09:00→21:40)
[2022-06-19] MEDS: SENOKOT S TAB PO SCH ×2 (09:00→21:42)
[2022-06-19] MEDS: busPIRone 5 MG TAB PO SCH ×2 (09:01→21:41)
[2022-06-19 10:00] VITALS: BP 117/69
[2022-06-19 10:24] LABS: HEMATOCRIT 34.5 % (42.0-52.0); HEMOGLOBIN 11.1 g/dl (13.5-17.5); MEAN CORPUSCULAR HEMOGLOBIN 27.4 pg (27.0-33.0); MEAN CORPUSCULAR HGB CONC 32.2 g/dl (32.0-36.5); MEAN CORPUSCULAR VOLUME 85.2 fl (80.0-96.0); PLATELET COUNT, AUTOMATED 294 10^3/uL (150-450); RED BLOOD COUNT 4.05 10^6/uL (4.30-6.10); WHITE BLOOD COUNT 8.7 10^3/uL (4.0-10.0)
[2022-06-19 10:50] LABS: BLOOD UREA NITROGEN 19 MG/DL (7-18); CALCIUM LEVEL 8.5 MG/DL (8.8-10.2); CARBON DIOXIDE LEVEL 26 MEQ/L (21-32); CHLORIDE LEVEL 108 MEQ/L (98-107); CREATININE FOR GFR 1.11 MG/DL (0.70-1.30); GLOMERULAR FILTRATION RATE > 60.0 (>49); GLUCOSE, FASTING 204 MG/DL (70-100); POTASSIUM SERUM 4.4 MEQ/L (3.5-5.1); SODIUM LEVEL 141 MEQ/L (136-145)
[2022-06-19] MEDS: SUCRALFATE 1 GM TAB PO SCH ×2 (12:05→17:12)
[2022-06-19] MEDS: IBUPROFEN 200MG TAB PO SCH (17:11)
[2022-06-19] MEDS: ATORVASTATIN 20 MG TAB PO SCH (21:41)
[2022-06-19] MEDS: ASPIRIN 81 MG CHEW TABLET PO SCH (21:41)
[2022-06-19] MEDS: LEVEMIR (INSULIN DETEMIR) 1 UNITS/0.01ML SC SCH (21:42)
[2022-06-20 06:00] VITALS: BP 125/69
[2022-06-20] MEDS: ANEXSIA, NORCO 7.5MG/325MG TABLET(HYDROCODONE/APAP) PO PRN ×2 (06:52→21:31)
[2022-06-20 07:37] VITALS: O2SAT 92
[2022-06-20] MEDS: SYMBICORT 160/4.5MCG INHALER 6GM INH SCH ×2 (07:37→19:27)
[2022-06-20] MEDS: INSULIN LISPRO (NovoLOG) PER UNIT SC SCH ×4 (08:56→21:00)
[2022-06-20] MEDS: IBUPROFEN 200MG TAB PO SCH ×3 (08:57→17:42)
[2022-06-20] MEDS: APIXABAN 5 MG TAB (ELIQUIS) PO SCH ×2 (08:57→21:26)
[2022-06-20] MEDS: SUCRALFATE 1 GM TAB PO SCH ×3 (08:57→17:42)
[2022-06-20] MEDS: SENOKOT S TAB PO SCH ×2 (08:57→21:27)
[2022-06-20] MEDS: OMEPRAZOLE 20MG CAP PO SCH ×2 (08:58→21:26)
[2022-06-20] MEDS: GABAPENTIN 400MG CAP PO SCH ×3 (08:58→21:26)
[2022-06-20] MEDS: METOPROLOL SUCC (TopROL XL) 50MG **XL** TAB PO SCH (08:58)
[2022-06-20] MEDS: busPIRone 5 MG TAB PO SCH ×2 (08:58→21:25)
[2022-06-20] MEDS: POTASSIUM CHLORIDE 10MEQ SR TABLET PO SCH (08:59)
[2022-06-20] MEDS: ASPIRIN 81 MG CHEW TABLET PO SCH (21:25)
[2022-06-20] MEDS: LEVEMIR (INSULIN DETEMIR) 1 UNITS/0.01ML SC SCH (21:26)
[2022-06-20] MEDS: ATORVASTATIN 20 MG TAB PO SCH (21:26)
[2022-06-21 05:45] VITALS: BP 131/75
[2022-06-21] MEDS: SYMBICORT 160/4.5MCG INHALER 6GM INH SCH ×2 (07:55→19:38)
[2022-06-21] MEDS: INSULIN LISPRO (NovoLOG) PER UNIT SC SCH ×4 (08:48→20:34)
[2022-06-21] MEDS: busPIRone 5 MG TAB PO SCH ×2 (08:48→20:32)
[2022-06-21] MEDS: IBUPROFEN 200MG TAB PO SCH ×3 (08:49→17:19)
[2022-06-21] MEDS: SUCRALFATE 1 GM TAB PO SCH ×3 (08:49→17:19)
[2022-06-21] MEDS: GABAPENTIN 400MG CAP PO SCH ×3 (08:49→20:33)
[2022-06-21] MEDS: METOPROLOL SUCC (TopROL XL) 50MG **XL** TAB PO SCH (08:50)
[2022-06-21] MEDS: OMEPRAZOLE 20MG CAP PO SCH ×2 (08:50→20:33)
[2022-06-21] MEDS: APIXABAN 5 MG TAB (ELIQUIS) PO SCH ×2 (08:50→20:33)
[2022-06-21] MEDS: SENOKOT S TAB PO SCH ×2 (08:50→20:33)
[2022-06-21] MEDS: ANEXSIA, NORCO 7.5MG/325MG TABLET(HYDROCODONE/APAP) PO PRN ×2 (15:20→23:11)
[2022-06-21] MEDS: ASPIRIN 81 MG CHEW TABLET PO SCH (20:33)
[2022-06-21] MEDS: ATORVASTATIN 20 MG TAB PO SCH (20:33)
[2022-06-21] MEDS: LEVEMIR (INSULIN DETEMIR) 1 UNITS/0.01ML SC SCH (20:34)
[2022-06-22 04:24] VITALS: BP 105/70
[2022-06-22] MEDS: SYMBICORT 160/4.5MCG INHALER 6GM INH SCH ×2 (07:22→20:00)
[2022-06-22] MEDS: SUCRALFATE 1 GM TAB PO SCH ×3 (08:19→17:50)
[2022-06-22] MEDS: busPIRone 5 MG TAB PO SCH ×2 (08:19→20:36)
[2022-06-22] MEDS: GABAPENTIN 400MG CAP PO SCH ×3 (08:19→20:36)
[2022-06-22] MEDS: OMEPRAZOLE 20MG CAP PO SCH ×2 (08:19→20:36)
[2022-06-22] MEDS: SENOKOT S TAB PO SCH ×2 (08:19→20:36)
[2022-06-22] MEDS: APIXABAN 5 MG TAB (ELIQUIS) PO SCH ×2 (08:19→20:36)
[2022-06-22] MEDS: INSULIN LISPRO (NovoLOG) PER UNIT SC SCH ×4 (08:20→21:00)
[2022-06-22] MEDS: IBUPROFEN 200MG TAB PO SCH ×3 (08:20→17:51)
[2022-06-22] MEDS: METOPROLOL SUCC (TopROL XL) 50MG **XL** TAB PO SCH (08:21)
[2022-06-22] MEDS: LEVEMIR (INSULIN DETEMIR) 1 UNITS/0.01ML SC SCH (20:35)
[2022-06-22] MEDS: ASPIRIN 81 MG CHEW TABLET PO SCH (20:36)
[2022-06-22] MEDS: ATORVASTATIN 20 MG TAB PO SCH (20:36)
[2022-06-22] MEDS: ANEXSIA, NORCO 7.5MG/325MG TABLET(HYDROCODONE/APAP) PO PRN (20:39)
[2022-06-23 05:26] VITALS: BP 123/66
[2022-06-23] MEDS: SYMBICORT 160/4.5MCG INHALER 6GM INH SCH ×2 (07:20→19:26)
[2022-06-23] MEDS: ANEXSIA, NORCO 7.5MG/325MG TABLET(HYDROCODONE/APAP) PO PRN ×2 (09:21→20:35)
[2022-06-23] MEDS: IBUPROFEN 200MG TAB PO SCH ×3 (09:22→17:58)
[2022-06-23] MEDS: OMEPRAZOLE 20MG CAP PO SCH ×2 (09:22→20:34)
[2022-06-23] MEDS: GABAPENTIN 400MG CAP PO SCH ×3 (09:22→20:34)
[2022-06-23] MEDS: busPIRone 5 MG TAB PO SCH ×2 (09:22→20:34)
[2022-06-23] MEDS: SENOKOT S TAB PO SCH ×2 (09:22→20:34)
[2022-06-23] MEDS: INSULIN LISPRO (NovoLOG) PER UNIT SC SCH ×4 (09:23→20:38)
[2022-06-23] MEDS: APIXABAN 5 MG TAB (ELIQUIS) PO SCH ×2 (09:23→20:34)
[2022-06-23] MEDS: SUCRALFATE 1 GM TAB PO SCH ×3 (09:23→17:58)
[2022-06-23] MEDS: METOPROLOL SUCC (TopROL XL) 50MG **XL** TAB PO SCH (09:24)
[2022-06-23] MEDS: ATORVASTATIN 20 MG TAB PO SCH (20:34)
[2022-06-23] MEDS: ASPIRIN 81 MG CHEW TABLET PO SCH (20:34)
[2022-06-23] MEDS: LEVEMIR (INSULIN DETEMIR) 1 UNITS/0.01ML SC SCH (20:37)
[2022-06-24 06:00] VITALS: BP 128/73
[2022-06-24] MEDS: SYMBICORT 160/4.5MCG INHALER 6GM INH SCH ×2 (07:29→19:23)
[2022-06-24] MEDS: INSULIN LISPRO (NovoLOG) PER UNIT SC SCH ×4 (07:39→21:00)
[2022-06-24] MEDS: OMEPRAZOLE 20MG CAP PO SCH ×2 (07:39→21:04)
[2022-06-24] MEDS: GABAPENTIN 400MG CAP PO SCH ×3 (07:39→21:04)
[2022-06-24] MEDS: busPIRone 5 MG TAB PO SCH ×2 (07:39→21:05)
[2022-06-24] MEDS: SENOKOT S TAB PO SCH ×2 (07:39→21:04)
[2022-06-24] MEDS: SUCRALFATE 1 GM TAB PO SCH ×3 (07:39→16:58)
[2022-06-24] MEDS: APIXABAN 5 MG TAB (ELIQUIS) PO SCH ×2 (07:39→21:04)
[2022-06-24] MEDS: IBUPROFEN 200MG TAB PO SCH ×3 (07:40→16:58)
[2022-06-24] MEDS: METOPROLOL SUCC (TopROL XL) 50MG **XL** TAB PO SCH (07:42)
[2022-06-24] MEDS: ANEXSIA, NORCO 7.5MG/325MG TABLET(HYDROCODONE/APAP) PO PRN (09:39)
[2022-06-24] MEDS: ASPIRIN 81 MG CHEW TABLET PO SCH (21:04)
[2022-06-24] MEDS: ATORVASTATIN 20 MG TAB PO SCH (21:04)
[2022-06-24] MEDS: LEVEMIR (INSULIN DETEMIR) 1 UNITS/0.01ML SC SCH (21:05)
[2022-06-25 06:00] VITALS: BP 106/68
[2022-06-25] MEDS: INSULIN LISPRO (NovoLOG) PER UNIT SC SCH ×4 (07:09→20:16)
[2022-06-25] MEDS: SYMBICORT 160/4.5MCG INHALER 6GM INH SCH ×2 (07:14→19:48)
[2022-06-25] MEDS: IBUPROFEN 200MG TAB PO SCH ×3 (08:48→17:07)
[2022-06-25] MEDS: METOPROLOL SUCC (TopROL XL) 50MG **XL** TAB PO SCH (08:49)
[2022-06-25] MEDS: SUCRALFATE 1 GM TAB PO SCH ×3 (08:49→17:07)
[2022-06-25] MEDS: GABAPENTIN 400MG CAP PO SCH ×3 (08:50→22:38)
[2022-06-25] MEDS: SENOKOT S TAB PO SCH ×2 (08:50→22:41)
[2022-06-25] MEDS: OMEPRAZOLE 20MG CAP PO SCH ×2 (08:50→22:39)
[2022-06-25] MEDS: APIXABAN 5 MG TAB (ELIQUIS) PO SCH ×2 (08:50→22:39)
[2022-06-25] MEDS: busPIRone 5 MG TAB PO SCH ×2 (08:50→22:39)
[2022-06-25] MEDS: ANEXSIA, NORCO 7.5MG/325MG TABLET(HYDROCODONE/APAP) PO PRN ×2 (13:03→22:40)
[2022-06-25] MEDS: ASPIRIN 81 MG CHEW TABLET PO SCH (22:38)
[2022-06-25] MEDS: LEVEMIR (INSULIN DETEMIR) 1 UNITS/0.01ML SC SCH (22:38)
[2022-06-25] MEDS: ATORVASTATIN 20 MG TAB PO SCH (22:39)
[2022-06-26 06:00] VITALS: BP 106/66
[2022-06-26] MEDS: SYMBICORT 160/4.5MCG INHALER 6GM INH SCH ×2 (07:35→19:32)
[2022-06-26] MEDS: APIXABAN 5 MG TAB (ELIQUIS) PO SCH ×2 (07:59→22:38)
[2022-06-26] MEDS: GABAPENTIN 400MG CAP PO SCH ×3 (07:59→22:38)
[2022-06-26] MEDS: busPIRone 5 MG TAB PO SCH ×2 (07:59→22:38)
[2022-06-26] MEDS: IBUPROFEN 200MG TAB PO SCH ×3 (08:00→16:44)
[2022-06-26] MEDS: OMEPRAZOLE 20MG CAP PO SCH ×2 (08:00→22:38)
[2022-06-26] MEDS: SUCRALFATE 1 GM TAB PO SCH ×3 (08:00→16:44)
[2022-06-26] MEDS: INSULIN LISPRO (NovoLOG) PER UNIT SC SCH ×4 (08:01→20:12)
[2022-06-26] MEDS: SENOKOT S TAB PO SCH ×2 (08:01→22:37)
[2022-06-26] MEDS: METOPROLOL SUCC (TopROL XL) 50MG **XL** TAB PO SCH (08:02)
[2022-06-26] MEDS: ANEXSIA, NORCO 7.5MG/325MG TABLET(HYDROCODONE/APAP) PO PRN ×2 (09:07→22:45)
[2022-06-26] MEDS: ATORVASTATIN 20 MG TAB PO SCH (22:38)
[2022-06-26] MEDS: ASPIRIN 81 MG CHEW TABLET PO SCH (22:38)
[2022-06-26] MEDS: LEVEMIR (INSULIN DETEMIR) 1 UNITS/0.01ML SC SCH (22:41)
[2022-06-27 06:00] VITALS: BP 118/64
[2022-06-27] MEDS: SYMBICORT 160/4.5MCG INHALER 6GM INH SCH ×2 (07:20→19:24)
[2022-06-27] MEDS: GABAPENTIN 400MG CAP PO SCH ×3 (07:51→22:01)
[2022-06-27] MEDS: OMEPRAZOLE 20MG CAP PO SCH ×2 (07:51→22:00)
[2022-06-27] MEDS: SENOKOT S TAB PO SCH ×2 (07:52→21:59)
[2022-06-27] MEDS: APIXABAN 5 MG TAB (ELIQUIS) PO SCH ×2 (07:52→22:01)
[2022-06-27] MEDS: busPIRone 5 MG TAB PO SCH ×2 (07:52→22:01)
[2022-06-27] MEDS: SUCRALFATE 1 GM TAB PO SCH ×3 (07:52→16:52)
[2022-06-27] MEDS: METOPROLOL SUCC (TopROL XL) 50MG **XL** TAB PO SCH (07:53)
[2022-06-27] MEDS: INSULIN LISPRO (NovoLOG) PER UNIT SC SCH ×4 (07:54→21:00)
[2022-06-27] MEDS: IBUPROFEN 200MG TAB PO SCH ×3 (07:54→16:53)
[2022-06-27] MEDS: ANEXSIA, NORCO 7.5MG/325MG TABLET(HYDROCODONE/APAP) PO PRN ×3 (07:56→22:03)
[2022-06-27] MEDS: LEVEMIR (INSULIN DETEMIR) 1 UNITS/0.01ML SC SCH (21:00)
[2022-06-27] MEDS: ATORVASTATIN 20 MG TAB PO SCH (22:00)
[2022-06-27] MEDS: ASPIRIN 81 MG CHEW TABLET PO SCH (22:01)
[2022-06-28 06:00] VITALS: BP 101/54
[2022-06-28] MEDS: SYMBICORT 160/4.5MCG INHALER 6GM INH SCH (07:44)
[2022-06-28] MEDS: busPIRone 5 MG TAB PO SCH (08:36)
[2022-06-28] MEDS: GABAPENTIN 400MG CAP PO SCH (08:36)
[2022-06-28] MEDS: SENOKOT S TAB PO SCH (08:36)
[2022-06-28] MEDS: SUCRALFATE 1 GM TAB PO SCH ×2 (08:36→12:01)
[2022-06-28] MEDS: APIXABAN 5 MG TAB (ELIQUIS) PO SCH (08:36)
[2022-06-28] MEDS: INSULIN LISPRO (NovoLOG) PER UNIT SC SCH ×2 (08:36→12:02)
[2022-06-28] MEDS: OMEPRAZOLE 20MG CAP PO SCH (08:36)
[2022-06-28 08:37] VITALS: BP 115/71
[2022-06-28] MEDS: IBUPROFEN 200MG TAB PO SCH ×2 (08:37→12:01)
[2022-06-28] MEDS: METOPROLOL SUCC (TopROL XL) 50MG **XL** TAB PO SCH (08:37)
[2022-06-28] MEDS ORDERED: METO1TAB7 PO (10:40)
[2022-06-28] MEDS ORDERED: INSUDET SC (10:40)
[2022-06-28] MEDS ORDERED: LISI10TA22 PO (10:40)
[2022-06-28] MEDS ORDERED: SUCR1TA PO (10:41)
== END 2022-06-28 12:14 | DRG 492 ==
LOC: M ED 14:26 → EDBD 14:26 → M ED 18:29 → M PCU 23:19 → M MSPAV 06-10 15:50
PROVIDERS: ADMIT Internal Medicine Nephrology; ATTEND Family Medicine
PROC: 0QSL35Z Reposition Right Tarsal with External Fixation Device, Percutaneous Approach (ICD-10-PCS; 2022-06-05)
PROC: 0QSG04Z Reposition Right Tibia with Internal Fixation Device, Open Approach (ICD-10-PCS; 2022-06-17)
PROC: 0QSJ04Z Reposition Right Fibula with Internal Fixation Device, Open Approach (ICD-10-PCS; principal; 2022-06-17 17:00)
DX: S82.851A Displaced trimalleolar fracture of right lower leg, initial encounter for closed fracture (principal); I63.9 Cerebral infarction, unspecified; E11.40 Type 2 diabetes mellitus with diabetic neuropathy, unspecified; E11.21 Type 2 diabetes mellitus with diabetic nephropathy; I11.0 Hypertensive heart disease with heart failure; G47.33 Obstructive sleep apnea (adult) (pediatric); E66.01 Morbid (severe) obesity due to excess calories; W18.09XA Striking against other object with subsequent fall, initial encounter; Y92.018 Other place in single-family (private) house as the place of occurrence of the external cause; Y93.89 Activity, other specified; Y99.8 Other external cause status; J44.9 Chronic obstructive pulmonary disease, unspecified; J45.909 Unspecified asthma, uncomplicated; I25.10 Atherosclerotic heart disease of native coronary artery without angina pectoris; R13.10 Dysphagia, unspecified; I50.9 Heart failure, unspecified; F31.9 Bipolar disorder, unspecified; N52.9 Male erectile dysfunction, unspecified; K76.0 Fatty (change of) liver, not elsewhere classified; K21.9 Gastro-esophageal reflux disease without esophagitis; Z79.01 Long term (current) use of anticoagulants; Z98.41 Cataract extraction status, right eye; Z98.42 Cataract extraction status, left eye; Z79.899 Other long term (current) drug therapy; Z79.4 Long term (current) use of insulin; Z95.5 Presence of coronary angioplasty implant and graft; Z86.73 Personal history of transient ischemic attack (TIA), and cerebral infarction without residual deficits; Z90.49 Acquired absence of other specified parts of digestive tract; Z68.37 Body mass index [BMI] 37.0-37.9, adult; Z88.0 Allergy status to penicillin; Z88.8 Allergy status to other drugs, medicaments and biological substances

== ENCOUNTER → 2022-07-21 | Outpatient (CLI) | payer MEDICARE ==
[~2022-07-21] MED LIST changes: +LISI10TA22 PO; +MELA3TAB29 PO; +METO1TAB7 PO; +OXYC1TAB23 PO; +SUCR1TA PO; +TOUJ300I2 SC
== END ==
LOC: M SOG 15:20
PROVIDERS: ATTEND Orthopaedic Surgery
DX: M25.571 Pain in right ankle and joints of right foot (principal)

== ENCOUNTER → 2022-08-10 | Outpatient (CLI) | payer MEDICARE ==
[2022-08-10 13:26] LABS: APPEARANCE, URINE MANUAL HAZY (CLEAR); COLOR, URINE MANUAL YELLOW (YELLOW)
[2022-08-10 13:28] LABS: BILIRUBIN, URINE MANUAL NEGATIVE (NEGATIVE); GLUCOSE, URINE (UA) MANUAL 4+(1000 MG/DL) mg/dL (NEGATIVE); KETONE, URINE MANUAL NEGATIVE (NEGATIVE); NITRITE, URINE MANUAL NEGATIVE (NEGATIVE); PROTEIN, URINE MANUAL NEGATIVE (NEGATIVE); SPECIFIC GRAVITY,URINE MANUAL 1.025 (1.002-1.035); UROBILINOGEN, URINE MANUAL NORMAL (NORMAL)
[2022-08-10 13:29] LABS: BLOOD URINE MANUAL NEGATIVE (NEGATIVE); LEUKOCYTE ESTERASE, URINE MAN NEGATIVE (NEGATIVE)
[2022-08-10 13:54] LABS: BASO # 0.1 10^3/uL (0.0-0.2); BASO % 0.9 % (0.0-1.0); EOS # 0.2 10^3/uL (0.0-0.5); EOS % 2.6 % (0.0-3.0); LYMPH % 17.3 % (24.0-44.0); MEAN CORPUSCULAR HEMOGLOBIN 26.5 pg (27.0-33.0); MEAN CORPUSCULAR HGB CONC 31.7 g/dl (32.0-36.5); MEAN CORPUSCULAR VOLUME 83.7 fl (80.0-96.0); MONO # 0.7 10^3/uL (0.0-0.8); MONO % 11.1 % (2.0-8.0); NEUTROPHILS % 67.2 % (36.0-66.0); PLATELET COUNT, AUTOMATED 244 10^3/uL (150-450); WHITE BLOOD COUNT 5.9 10^3/uL (4.0-10.0)
[2022-08-10 14:37] LABS: ALBUMIN 3.2 GM/DL (3.2-5.2); ALT/SGPT 12 U/L (12-78); BILIRUBIN,TOTAL 0.4 MG/DL (0.2-1.0); BLOOD UREA NITROGEN 12 MG/DL (7-18); CALCIUM LEVEL 8.5 MG/DL (8.8-10.2); CARBON DIOXIDE LEVEL 27 MEQ/L (21-32); CHLORIDE LEVEL 106 MEQ/L (98-107); CREATININE FOR GFR 0.88 MG/DL (0.70-1.30); GLOMERULAR FILTRATION RATE > 60.0 (>49); GLUCOSE, FASTING 167 MG/DL (70-100); SODIUM LEVEL 139 MEQ/L (136-145); TOTAL PROTEIN 6.5 GM/DL (6.4-8.2)
[2022-08-10 22:09] LABS: RBC, URINE NONE SEEN /hpf (0-3); WBC, URINE 0-1 /hpf (0-3)
[2022-08-10 22:10] LABS: AMORPHOUS SEDIMENT, URINE LARGE AMOUNT (NEGATIVE); BACTERIA, URINE NONE SEEN; CALCIUM OXALATE CRYSTALS,URINE SMALL AMOUNT /hpf; HYALINE CAST, URINE NONE SEEN /lpf (0-1); SQUAMOUS EPITHELIAL CELL URINE NONE SEEN /hpf (SMALL AMT)
== END ==
LOC: M PLALAB 10:13
PROVIDERS: ATTEND Physician Assistant
DX: R30.0 Dysuria (principal); Z85.46 Personal history of malignant neoplasm of prostate

== ENCOUNTER → 2022-08-26 | Outpatient (CLI) | payer MEDICAID, MEDICARE, SELFPAY ==
[~2022-08-26] MED LIST changes: +AMLO1TAB24; +CHLO125TA; +CYCL-707; +FURO20TA2; +NITR0.4S14; +TOUJ1.2I
[2022-08-26 17:24] LABS: BASO # 0.1 10^3/uL (0.0-0.2); BASO % 0.8 % (0.0-1.0); EOS # 0.1 10^3/uL (0.0-0.5); EOS % 2.2 % (0.0-3.0); HEMATOCRIT 43.8 % (42.0-52.0); HEMOGLOBIN 13.4 g/dl (13.5-17.5); LYMPH # 1.3 10^3/uL (1.5-5.0); LYMPH % 21.7 % (24.0-44.0); MEAN CORPUSCULAR HEMOGLOBIN 25.8 pg (27.0-33.0); MEAN CORPUSCULAR HGB CONC 30.6 g/dl (32.0-36.5); MEAN CORPUSCULAR VOLUME 84.2 fl (80.0-96.0); MONO # 0.6 10^3/uL (0.0-0.8); MONO % 9.6 % (2.0-8.0); NEUTROPHILS # 3.9 10^3/uL (1.5-8.5); NEUTROPHILS % 64.7 % (36.0-66.0); PLATELET COUNT, AUTOMATED 315 10^3/uL (150-450)
[2022-08-26 18:31] LABS: PERCENT SATURATION 22.2 % (19.7-50.0)
== END ==
LOC: M PLALAB 14:23
PROVIDERS: ATTEND Physician Assistant
DX: D64.9 Anemia, unspecified (principal)

== ENCOUNTER → 2022-08-26 | Outpatient (CLI) | payer MEDICARE ==
[~2022-08-26] MED LIST changes: -AMLO1TAB24; -CHLO125TA; -CYCL-707; -FURO20TA2; -NITR0.4S14; -TOUJ1.2I
== END ==
LOC: M SOG 08:41
PROVIDERS: ATTEND Orthopaedic Surgery
DX: Z47.89 Encounter for other orthopedic aftercare (principal); M77.31 Calcaneal spur, right foot

== ENCOUNTER → 2022-09-16 | Outpatient (CLI) | payer MEDICARE, MEDICAID | LOC: M SOG 08:40 | PROVIDERS: ATTEND Student in an Organized Health Care Education/Training Program | DX: S82.841D Displaced bimalleolar fracture of right lower leg, subsequent encounter for closed fracture with routine healing (principal) ==

== ENCOUNTER 2022-10-08 12:31 | Emergency (ER) | payer MEDICARE, MEDICAID ==
[~2022-10-08] VITALS: Ht 175.3 cm; Wt 109.1 kg
[2022-10-08 12:32] VITALS: BP 132/92
[2022-10-08] MEDS ORDERED: CHLO125TA (12:49)
[2022-10-08] MEDS ORDERED: NITR0.4S14 (12:49)
[2022-10-08] MEDS ORDERED: TOUJ1.2I (12:49)
[2022-10-08] MEDS ORDERED: FURO20TA2 (12:49)
[2022-10-08] MEDS ORDERED: CYCL-707 (12:49)
[2022-10-08] MEDS ORDERED: AMLO1TAB24 (12:49)
== END 2022-10-08 14:30 | disposition left against medical advice (07) ==
LOC: M ED 12:31
DX: Z53.21 Procedure and treatment not carried out due to patient leaving prior to being seen by health care provider (principal)

== ENCOUNTER 2022-10-08 15:26 | Emergency (ER) | payer MEDICARE, MEDICAID ==
[~2022-10-08] VITALS: Ht 172.7 cm; Wt 109.1 kg
[~2022-10-08 15:26] MED LIST changes: +AMLO1TAB24; +CHLO125TA; +CYCL-707; +FURO20TA2; +NITR0.4S14; +TOUJ1.2I
[2022-10-08 15:27] VITALS: BP 146/93
== END 2022-10-08 18:34 | disposition home or self-care (01) ==
LOC: M ED 15:26
DX: S93.401A Sprain of unspecified ligament of right ankle, initial encounter (principal); S80.211A Abrasion, right knee, initial encounter; S80.212A Abrasion, left knee, initial encounter; W19.XXXA Unspecified fall, initial encounter; Y92.009 Unspecified place in unspecified non-institutional (private) residence as the place of occurrence of the external cause; E11.9 Type 2 diabetes mellitus without complications; E78.5 Hyperlipidemia, unspecified; I10 Essential (primary) hypertension; Z88.0 Allergy status to penicillin; Z88.8 Allergy status to other drugs, medicaments and biological substances; Z79.01 Long term (current) use of anticoagulants; Z79.84 Long term (current) use of oral hypoglycemic drugs; Z79.82 Long term (current) use of aspirin; Z79.899 Other long term (current) drug therapy

== ENCOUNTER 2022-10-25 09:15 | Outpatient (RCR) | payer MEDICARE, MEDICAID | END 2022-10-27 | LOC: M PT 09:15 | PROVIDERS: ATTEND Student in an Organized Health Care Education/Training Program | DX: Z47.89 Encounter for other orthopedic aftercare (principal) ==

== ENCOUNTER 2022-11-25 13:30 | Outpatient (RCR) | payer MEDICARE, MEDICAID ==
[~2022-11-25 13:30] MED LIST changes: -ASMA1AER3 INH; +MOME13HF5 INH
== END 2022-11-27 ==
LOC: M PT 13:30
PROVIDERS: ATTEND Student in an Organized Health Care Education/Training Program
DX: Z47.89 Encounter for other orthopedic aftercare (principal); S82.851D Displaced trimalleolar fracture of right lower leg, subsequent encounter for closed fracture with routine healing

== ENCOUNTER 2022-12-08 12:45 | Outpatient (RCR) | payer MEDICARE, MEDICAID | END 2022-12-28 | LOC: M PT 12:45 | PROVIDERS: ATTEND Student in an Organized Health Care Education/Training Program | DX: Z47.89 Encounter for other orthopedic aftercare (principal); S82.851D Displaced trimalleolar fracture of right lower leg, subsequent encounter for closed fracture with routine healing ==

== ENCOUNTER → 2022-12-09 | Outpatient (CLI) | payer MEDICARE, MEDICAID | LOC: M SOG 09:40 | PROVIDERS: ATTEND Student in an Organized Health Care Education/Training Program | DX: Z47.89 Encounter for other orthopedic aftercare (principal); S82.841D Displaced bimalleolar fracture of right lower leg, subsequent encounter for closed fracture with routine healing ==

== ENCOUNTER → 2023-02-18 | Outpatient (CLI) | payer MEDICARE, MEDICAID ==
[~2023-02-18] MED LIST changes: +INSU100I6 SC; -LEVE1INJ5 SC
== END ==
LOC: M PLALAB 13:16
PROVIDERS: ATTEND Student in an Organized Health Care Education/Training Program
DX: R11.0 Nausea (principal)

== ENCOUNTER → 2023-04-01 | Outpatient (CLI) | payer MEDICARE, MEDICAID ==
[~2023-04-01] MED LIST changes: +ASPI-655 PO; -ASPI1CHW3 PO; +FLUT50SP17 NARES; -FLUTISP NARES; -KETO0.02 OP; -KETO0.02 OU; +KETO5DRO33 OP; +KETO5DRO33 OU; +POTA-298 PO; -POTA1TAB14 PO
[2023-04-01 17:10] LABS: APPEARANCE, URINE CLEAR (CLEAR); BACTERIA, URINE AUTO NEGATIVE (NEGATIVE); BILIRUBIN, URINE AUTO NEGATIVE (NEGATIVE); BLOOD, URINE BLOOD NEGATIVE (NEGATIVE); COLOR, URINE YELLOW (YELLOW); GLUCOSE, URINE (UA) AUTO 3+ mg/dL (NEGATIVE); KETONE, URINE AUTO NEGATIVE (NEGATIVE); LEUKOCYTE ESTERASE, URINE AUTO NEGATIVE (NEGATIVE); NITRITE, URINE AUTO NEGATIVE (NEGATIVE); PROTEIN, URINE AUTO NEGATIVE (NEGATIVE); RBC, URINE AUTO 0 /HPF (0-3); SPECIFIC GRAVITY URINE AUTO 1.028 (1.002-1.035); SQUAMOUS EPITHELIAL CELL UR AU 0 /HPF (0-6); UROBILINOGEN, URINE AUTO 0.2 mg/dL (0.0-2.0); WBC, URINE AUTO 0 /HPF (0-3)
== END ==
LOC: M PLAIMG 13:01
PROVIDERS: ATTEND Student in an Organized Health Care Education/Training Program
DX: K59.00 Constipation, unspecified (principal); Z90.49 Acquired absence of other specified parts of digestive tract

== ENCOUNTER → 2023-04-01 | Outpatient (REF) | payer MEDICARE | LOC: M SFHCPLAZ 17:56 | PROVIDERS: ATTEND Family Medicine | DX: R39.9 Unspecified symptoms and signs involving the genitourinary system (principal); Z85.46 Personal history of malignant neoplasm of prostate ==

== ENCOUNTER → 2023-04-01 | Outpatient (CLI) | payer MEDICARE, MEDICAID | LOC: M WHC 12:03 | PROVIDERS: ATTEND Student in an Organized Health Care Education/Training Program | DX: R39.9 Unspecified symptoms and signs involving the genitourinary system (principal) ==

== ENCOUNTER → 2023-05-05 | Outpatient (CLI) | payer MEDICARE ==
[~2023-05-05] MED LIST changes: +CYAN-1 PO; -CYAN100050 PO
[2023-05-05 18:15] LABS: THYROID STIMULATING HORMONE 1.563 uIU/ML (0.55-4.78)
[2023-05-05 18:24] LABS: ALBUMIN 3.6 G/DL (3.2-5.2); ALKALINE PHOSPHATASE 129 U/L (46-116); ALT/SGPT 31 U/L (7.0-40); AST/SGOT 20 U/L (<34); BILIRUBIN,TOTAL 0.4 MG/DL (0.3-1.2); BLOOD UREA NITROGEN 12 MG/DL (9-23); CALCIUM LEVEL 9.2 MG/DL (8.3-10.6); CARBON DIOXIDE LEVEL 27 MMOL/L (20-31); CHLORIDE LEVEL 99 MMOL/L (98-107); CHOLESTEROL LEVEL 138 MG/DL (<200); CREATININE FOR GFR 0.92 MG/DL (0.70-1.30); GLOMERULAR FILTRATION RATE > 60.0 (>49); GLUCOSE, FASTING 492 MG/DL (74-106); HDL CHOLESTEROL 33.6 MG/DL (>40); LDL CHOLESTEROL 64.8 MG/DL (<100); MAGNESIUM LEVEL 1.7 MG/DL (1.8-2.4); NON-HDL-C 104.4 MG/DL; POTASSIUM SERUM 4.1 MMOL/L (3.5-5.1); SODIUM LEVEL 133 MMOL/L (136-145); TOTAL PROTEIN 6.9 G/DL (5.7-8.2); TRIGLYCERIDES LEVEL 198 MG/DL (<150)
== END ==
LOC: M PLALAB 15:33
PROVIDERS: ATTEND Student in an Organized Health Care Education/Training Program
DX: I73.9 Peripheral vascular disease, unspecified (principal); E11.43 Type 2 diabetes mellitus with diabetic autonomic (poly)neuropathy

== ENCOUNTER → 2023-05-10 | Outpatient (REF) | payer MEDICARE ==
[~2023-05-10] MED LIST changes: -CYAN-1 PO; +CYAN100050 PO
== END ==
LOC: M SFHCPLAZ 15:50
PROVIDERS: ATTEND Student in an Organized Health Care Education/Training Program
DX: E11.65 Type 2 diabetes mellitus with hyperglycemia (principal)

== ENCOUNTER → 2023-08-30 | Outpatient (CLI) | payer MEDICARE ==
[~2023-08-30] MED LIST changes: +CYAN-1 PO; -CYAN100050 PO; +MECL-209 PO; -MECL1TAB31 PO
[2023-08-30 17:47] LABS: HEMOGLOBIN A1c 9.2 % (4.0-6.0)
== END ==
LOC: M PLALAB 16:07
PROVIDERS: ATTEND Student in an Organized Health Care Education/Training Program
DX: E11.43 Type 2 diabetes mellitus with diabetic autonomic (poly)neuropathy (principal)

== ENCOUNTER → 2023-09-19 | Outpatient (CLI) | payer MEDICARE | LOC: M RAD 09:29 | PROVIDERS: ATTEND Student in an Organized Health Care Education/Training Program | DX: M25.562 Pain in left knee (principal) ==

== ENCOUNTER → 2023-11-15 | Outpatient (CLI) | payer MEDICARE ==
[~2023-11-15] MED LIST changes: -FLUT50SP17 NARES; +FLUTISP NARES
[2023-11-17 17:10] LABS: HERPES ZOSTER, VARICELLA IgG >4000 index (Immune >165); RUBEOLA IgG ANTIBODY >300.0 AU/mL (Immune >16.4)
== END ==
LOC: M PLALAB 09:04
PROVIDERS: ATTEND Student in an Organized Health Care Education/Training Program
DX: Z00.00 Encounter for general adult medical examination without abnormal findings (principal); E11.43 Type 2 diabetes mellitus with diabetic autonomic (poly)neuropathy

== ENCOUNTER → 2023-11-18 | Outpatient (CLI) | payer MEDICARE | LOC: M PLALAB 13:25 | PROVIDERS: ATTEND Student in an Organized Health Care Education/Training Program | DX: Z11.1 Encounter for screening for respiratory tuberculosis (principal) ==

== ENCOUNTER → 2024-02-17 | Outpatient (CLI) | payer MEDICARE ==
[~2024-02-17] MED LIST changes: -ASPI-161 PO; +ASPI-615 PO
[2024-02-17 13:47] LABS: HEMOGLOBIN A1c 9.1 % (4.0-6.0)
[2024-02-17 13:55] LABS: CREATININE, URINE 85.4 MG/DL; MAU/CREAT RATIO 42.1 MCG/MG (0.0-30.0)
[2024-02-17 14:00] LABS: CHOLESTEROL RISK RATIO 5.28 (<5); LDL CHOLESTEROL 107.4 MG/DL (<100)
[2024-02-17 14:01] LABS: THYROID STIMULATING HORMONE 2.656 uIU/ML (0.55-4.78); TOTAL 25(OH) VITAMIN D 21.3 NG/ML (20.0-100.0)
== END ==
LOC: M PLALAB 09:06
PROVIDERS: ATTEND Student in an Organized Health Care Education/Training Program
DX: E11.43 Type 2 diabetes mellitus with diabetic autonomic (poly)neuropathy (principal); E78.5 Hyperlipidemia, unspecified; E11.65 Type 2 diabetes mellitus with hyperglycemia; E55.9 Vitamin D deficiency, unspecified

== ENCOUNTER → 2024-03-22 | Outpatient (REF) | payer MEDICARE, MEDICAID | LOC: M SFHCPLAZ 16:57 | PROVIDERS: ATTEND Student in an Organized Health Care Education/Training Program | DX: H44.001 Unspecified purulent endophthalmitis, right eye (principal) ==

== ENCOUNTER → 2024-04-05 | Outpatient (CLI) | payer MEDICARE, MEDICAID | LOC: M RAD 08:16 | PROVIDERS: ATTEND Student in an Organized Health Care Education/Training Program | DX: H53.8 Other visual disturbances (principal); Z98.41 Cataract extraction status, right eye; Z98.42 Cataract extraction status, left eye ==

== ENCOUNTER → 2024-06-11 | Outpatient (REF) | payer MEDICARE ==
[~2024-06-11] MED LIST changes: +ONDA-282 PO; -ONDA4TAB6 PO
== END ==
LOC: M SFHCPLAZ 09:48
PROVIDERS: ATTEND Student in an Organized Health Care Education/Training Program
DX: E11.43 Type 2 diabetes mellitus with diabetic autonomic (poly)neuropathy (principal); C61 Malignant neoplasm of prostate; E55.9 Vitamin D deficiency, unspecified

== ENCOUNTER → 2024-06-11 | Outpatient (CLI) | payer MEDICAID, MEDICARE ==
[2024-06-11 13:37] LABS: BASO % 0.5 % (0.0-1.0); EOS # 0.2 10^3/uL (0.0-0.5); HEMATOCRIT 44.7 % (42.0-52.0); HEMOGLOBIN 14.7 g/dl (13.5-17.5); LYMPH # 1.4 10^3/uL (1.5-5.0); LYMPH % 19.1 % (24.0-44.0); MEAN CORPUSCULAR HEMOGLOBIN 27.5 pg (27.0-33.0); MEAN CORPUSCULAR HGB CONC 32.9 g/dl (32.0-36.5); MEAN CORPUSCULAR VOLUME 83.6 fl (80.0-96.0); MONO # 0.8 10^3/uL (0.0-0.8); MONO % 10.4 % (2.0-8.0); NEUTROPHILS # 4.9 10^3/uL (1.5-8.5); NEUTROPHILS % 66.3 % (36.0-66.0); PLATELET COUNT, AUTOMATED 295 10^3/uL (150-450); RED BLOOD COUNT 5.35 10^6/uL (4.30-6.10); WHITE BLOOD COUNT 7.4 10^3/uL (4.0-10.0)
[2024-06-11 13:40] LABS: ALBUMIN 3.3 G/DL (3.2-5.2); ALKALINE PHOSPHATASE 87 U/L (46-116); ALT/SGPT 26 U/L (7.0-40); AST/SGOT 13 U/L (<34); BILIRUBIN,TOTAL 0.6 MG/DL (0.3-1.2); BLOOD UREA NITROGEN 9 MG/DL (9-23); CARBON DIOXIDE LEVEL 30 MMOL/L (20-31); CHLORIDE LEVEL 107 MMOL/L (98-107); CHOLESTEROL LEVEL 177 MG/DL (<200); CHOLESTEROL RISK RATIO 3.77 (<5); CREATININE FOR GFR 0.85 MG/DL (0.70-1.30); GLOMERULAR FILTRATION RATE > 60.0 (>49); GLUCOSE, FASTING 145 MG/DL (74-106); HDL CHOLESTEROL 46.9 MG/DL (>40); LDL CHOLESTEROL 109.5 MG/DL (<100); NON-HDL-C 130.1 MG/DL; POTASSIUM SERUM 3.9 MMOL/L (3.5-5.1); SODIUM LEVEL 142 MMOL/L (136-145); TOTAL PROTEIN 6.3 G/DL (5.7-8.2); TRIGLYCERIDES LEVEL 103 MG/DL (<150)
== END ==
LOC: M PLALAB 09:20
PROVIDERS: ATTEND Student in an Organized Health Care Education/Training Program
DX: E11.43 Type 2 diabetes mellitus with diabetic autonomic (poly)neuropathy (principal)

== ENCOUNTER 2024-07-04 10:21 | Day surgery (SDC) | payer MEDICAID, MEDICARE ==
[~2024-07-04] VITALS: Ht 175.3 cm; Wt 118.8 kg
[~2024-07-04 10:21] MED LIST changes: +LOSA100T46 PO; +MIDAZOLAM INJ 2MG/2ML VIAL As Ordered ONE; +PREG25CA3 PO; +fentaNYL 100 MCG/2 ML INJECTION As Ordered ONE
[2024-07-04] MEDS: LIDOCAINE 3.5 % 1ML OPHTH TOPICAL GEL OU ONE (11:45)
[2024-07-04] MEDS: POVIDONE-IODINE 5% OPHTH PREP SOL 30ML As Ordered ONE (12:20)
[2024-07-04] MEDS: LIDOCAINE 2% W/EPINEPHRINE 20ML VIAL **PRES FREE As Ordered ONE (12:25)
[2024-07-04] MEDS ORDERED: propofoL 200 MG/20 ML VIAL As Ordered ONE (12:31)
[2024-07-04] MEDS: TOBRADEX OPHTH OINT 3.5 GM As Ordered ONE (12:54)
[2024-07-04 13:00] VITALS: BP 155/86; TEMP 98.3; O2SAT 94
[2024-07-04] MEDS ORDERED: TRAZ-252 PO (13:36)
[2024-07-04] MEDS ORDERED: ONDA-83 PO (13:36)
[2024-07-04] MEDS ORDERED: ANOR1AER INH (13:36)
[2024-07-04] MEDS ORDERED: LEVOTAB10 PO (13:36)
== END 2024-07-04 13:30 | disposition home or self-care (01) ==
LOC: M SDC 10:21
PROVIDERS: ATTEND Ophthalmology
DX: H02.401 Unspecified ptosis of right eyelid (principal); E11.9 Type 2 diabetes mellitus without complications; I25.10 Atherosclerotic heart disease of native coronary artery without angina pectoris; I10 Essential (primary) hypertension; I25.2 Old myocardial infarction; J44.9 Chronic obstructive pulmonary disease, unspecified; E78.00 Pure hypercholesterolemia, unspecified; Z79.01 Long term (current) use of anticoagulants; Z79.899 Other long term (current) drug therapy; Z79.4 Long term (current) use of insulin; Z79.82 Long term (current) use of aspirin; Z79.51 Long term (current) use of inhaled steroids; Z95.5 Presence of coronary angioplasty implant and graft; Z79.84 Long term (current) use of oral hypoglycemic drugs; Z85.46 Personal history of malignant neoplasm of prostate; Z86.73 Personal history of transient ischemic attack (TIA), and cerebral infarction without residual deficits; G47.30 Sleep apnea, unspecified; Z92.3 Personal history of irradiation; Z90.89 Acquired absence of other organs; Z88.0 Allergy status to penicillin
CPT/HCPCS: 67904; J2250; J3010

== ENCOUNTER → 2024-07-24 | Outpatient (CLI) | payer MEDICARE ==
[~2024-07-24] MED LIST changes: +ANOR1AER INH; +LEVOTAB10 PO; -MIDAZOLAM INJ 2MG/2ML VIAL As Ordered ONE; +ONDA-83 PO; +TRAZ-252 PO; -fentaNYL 100 MCG/2 ML INJECTION As Ordered ONE
== END ==
LOC: M RAD 14:41
PROVIDERS: ATTEND Nurse Practitioner Family
DX: N17.9 Acute kidney failure, unspecified (principal)

== ENCOUNTER → 2024-08-09 | Outpatient (CLI) | payer MEDICARE ==
[~2024-08-09] MED LIST changes: +GABA-1635 PO; -GABA800T4 PO
== END ==
LOC: M PLALAB 15:33
PROVIDERS: ATTEND Student in an Organized Health Care Education/Training Program
DX: E55.9 Vitamin D deficiency, unspecified (principal); C61 Malignant neoplasm of prostate; E11.43 Type 2 diabetes mellitus with diabetic autonomic (poly)neuropathy; Z12.5 Encounter for screening for malignant neoplasm of prostate
CPT/HCPCS: 36415; 82652; 83036; G0103

== ENCOUNTER 2024-09-03 13:11 | Inpatient (IN) | payer MEDICARE ==
[2024-09-03] VITALS (35 sets, daily range): BP systolic 94–173; BP diastolic 56–84; TEMP 92.8–99.9; O2SAT 86–99
[~2024-09-03] VITALS: Ht 175.3 cm; Wt 106.0 kg
[~2024-09-03 13:11] MED LIST changes: +CALCIUM GLUCONATE 1,000 MG, VIAL MATE ADAPTER 1 EACH in NS 100 ML IV ONE; +EPINEPHrine 1MG/10ML SYRINGE 1.5IN ONE; +GABA-1172 PO; -GABA-282 PO; +KCL 20MEQ IN 100ML SWI (KRUN) 20 MEQ in IV 1 EA IV SCH; +SODIUM BICARBONATE 8.4% INJ 50ML SYRINGE ONE; -TOUJ1.2I; +TOUJ1.2I SQ
[2024-09-03 13:49] LABS: HEMATOCRIT 55.1 % (42.0-52.0); HEMOGLOBIN 16.5 g/dl (13.5-17.5); MEAN CORPUSCULAR HEMOGLOBIN 26.9 pg (27.0-33.0); MEAN CORPUSCULAR HGB CONC 29.9 g/dl (32.0-36.5); MEAN CORPUSCULAR VOLUME 89.9 fl (80.0-96.0); PLATELET COUNT, AUTOMATED 371 10^3/uL (150-450); RED BLOOD COUNT 6.13 10^6/uL (4.30-6.10); WHITE BLOOD COUNT 16.6 10^3/uL (4.0-10.0)
[2024-09-03] MEDS: NS 500 ML IV ONE (14:14)
[2024-09-03 14:16] LABS: CK-MB VALUE MASS 2.3 NG/ML (<3.6)
[2024-09-03] MEDS: DIGOXIN INJ 0.5 MG/2 ML AMP IV STA (14:16)
[2024-09-03 14:19] LABS: CREATININE FOR GFR 1.62 MG/DL (0.70-1.30); GLOMERULAR FILTRATION RATE 45.8 (>49); MB/CK RELATIVE INDEX 0.54 (< OR =4); POTASSIUM SERUM 3.9 MMOL/L (3.5-5.1)
[2024-09-03 14:27] LABS: LYMPHOCYTES 17 % (16-44); METAMYELOCYTES 1 % (0-0); MONOCYTES 14 % (0-5); MYELOCYTES 2 % (0-0); NEUTROPHILS 62 % (28-66)
[2024-09-03 14:28] LABS: PLATELET ESTIMATE NORMAL (NORMAL)
[2024-09-03] MEDS: NOREPINEPHRINE 4MG IN D5 250ML 4 MG in IV 1 EA IV SCH ×2 (14:47→20:00)
[2024-09-03] MEDS ORDERED: MIDAZOLAM INJ 2MG/2ML VIAL IV PRN (15:15)
[2024-09-03] MEDS ORDERED: ATRO2DRO4 OD (15:26)
[2024-09-03] MEDS ORDERED: METF750T36 PO (15:26)
[2024-09-03] MEDS ORDERED: SEMA2PEN PO (15:26)
[2024-09-03] MEDS ORDERED: GLUCAGON INJ 1MG VIAL SC PRN (15:35)
[2024-09-03] MEDS ORDERED: DEXTROSE 50% 50ML SYRINGE IV PRN (15:35)
[2024-09-03] MEDS ORDERED: GLUCOSE 4 GM CHEW PO PRN (15:35)
[2024-09-03] MEDS ORDERED: ALBUTEROL SULFATE 2.5MG/0.5ML INH NEB SOLN NEB PRN (15:40)
[2024-09-03] MEDS ORDERED: HOME MED LIST COMPLETE! XX SCH (15:40)
[2024-09-03] MEDS ORDERED: LACRILUBE (AKWA TEARS) OPHTH OINT 3.5GM OU PRN (15:45)
[2024-09-03 16:58] LABS: ABG BASE EXCESS -12.3 (-2.0-2.0); ABG HCO3 13.1 MMOL/L (22.0-26.0); ABG O2 SATURATION 94.6 % (95.0-99.0); ABG PARTIAL PRESSURE CO2 29.9 mmHg (35.0-45.0); ABG PARTIAL PRESSURE O2 76.4 mmHg (75.0-100.0); ABG STANDARD HCO3 15.2 MMOL/L. (22.0-26.0); ABG pH (ARTERIAL) 7.259 UNITS (7.350-7.450)
[2024-09-03 17:16] LABS: INR 1.56; PARTIAL THROMBOPLASTIN TIME 30.3 SECONDS (24.8-34.2); PROTHROMBIN TIME 18.2 SECONDS (12.5-14.5)
[2024-09-03 17:35] LABS: CK-MB VALUE MASS 14.7 NG/ML (<3.6)
[2024-09-03 17:36] LABS: ALBUMIN 3.2 G/DL (3.2-5.2); BILIRUBIN,TOTAL 0.9 MG/DL (0.3-1.2); CALCIUM LEVEL 9.1 MG/DL (8.3-10.6); CREATININE FOR GFR 2.26 MG/DL (0.70-1.30); GLOMERULAR FILTRATION RATE 31.2 (>49); POTASSIUM SERUM 4.3 MMOL/L (3.5-5.1); TOTAL PROTEIN 6.8 G/DL (5.7-8.2)
[2024-09-03 17:38] LABS: MAGNESIUM LEVEL 2.4 MG/DL (1.8-2.4)
[2024-09-03 17:43] LABS: MB/CK RELATIVE INDEX 1.42 (< OR =4)
[2024-09-03] MEDS: NS 0.45% 1,000 ML IV SCH (17:49)
[2024-09-03] MEDS: PANTOPRAZOLE 40MG VIAL IV SCH (17:52)
[2024-09-03] MEDS: VANCOMYCIN 2,000 MG/400 ML IV BAG *LOAD IV ONE (17:52)
[2024-09-03] MEDS: INSULIN LISPRO (NovoLOG) PER UNIT SC SCH (18:00)
[2024-09-03] MEDS: LACRILUBE (AKWA TEARS) OPHTH OINT 3.5GM OU SCH (18:39)
[2024-09-03] MEDS: INSULIN LISPRO (NovoLOG) PER UNIT SC ONE (19:05)
[2024-09-03] MEDS: HEPARIN 1,000UNITS/ML 10ML VIAL (FOR RADIOLOGY & DIALYSIS ONLY) IV STA (20:00)
[2024-09-03] MEDS: cefTRIAXone SOD 2 GM in D5W MINI-BAG PLUS 50 ML IV SCH (20:31)
[2024-09-03] MEDS: NS 1,000 ML IV ONE (20:40)
[2024-09-03] MEDS ORDERED: SODIUM CHLORIDE 0.9% INJ 10 ML SYR CRRT PRN (20:45)
[2024-09-03 21:17] LABS: ABG HCO3 15.2 MMOL/L (22.0-26.0); ABG PARTIAL PRESSURE CO2 35.4 mmHg (35.0-45.0); ABG PARTIAL PRESSURE O2 76.8 mmHg (75.0-100.0); ABG TOTAL CO2 16.3 MMOL/L (23.0-31.0); ABG pH (ARTERIAL) 7.251 UNITS (7.350-7.450)
[2024-09-03 21:25] LABS: HEMOGLOBIN 15.8 g/dl (13.5-17.5); MEAN CORPUSCULAR HEMOGLOBIN 26.9 pg (27.0-33.0); MEAN CORPUSCULAR HGB CONC 31.6 g/dl (32.0-36.5); PLATELET COUNT, AUTOMATED 233 10^3/uL (150-450); RED BLOOD COUNT 5.88 10^6/uL (4.30-6.10); WHITE BLOOD COUNT 15.8 10^3/uL (4.0-10.0)
[2024-09-03 21:41] LABS: INR 1.6; PARTIAL THROMBOPLASTIN TIME 22.4 SECONDS (24.8-34.2); PROTHROMBIN TIME 18.6 SECONDS (12.5-14.5)
[2024-09-03 22:21] LABS: ALBUMIN 2.8 G/DL (3.2-5.2); BILIRUBIN,TOTAL 0.5 MG/DL (0.3-1.2); CALCIUM LEVEL 8.2 MG/DL (8.3-10.6); CREATININE FOR GFR 2.3 MG/DL (0.70-1.30); GLOMERULAR FILTRATION RATE 30.5 (>49); MAGNESIUM LEVEL 2.2 MG/DL (1.8-2.4); PHOSPHORUS LEVEL 3.4 MG/DL (2.4-5.1); POTASSIUM SERUM 3.6 MMOL/L (3.5-5.1)
[2024-09-03] MEDS: HEPARIN 1000 UNIT/ML CRRT 20,000 UNITS in IV 1 EA CRRT SCH (22:27)
[2024-09-03] MEDS: HEPARIN 1000 UNIT/ML *20ML* SYRINGE CRRT CRRT ONE (22:28)
[2024-09-04] VITALS (17 sets, daily range): BP systolic 80–149; BP diastolic 34–73; TEMP 93–95.7; O2SAT 95–98
[2024-09-04] MEDS: KCL 20MEQ IN 100ML SWI (KRUN) 20 MEQ in IV 1 EA IV SCH (00:29)
[2024-09-04] MEDS: CALCIUM GLUCONATE 1,000 MG, VIAL MATE ADAPTER 1 EACH in NS 100 ML IV ONE (00:33)
[2024-09-04 00:51] LABS: ABG BASE EXCESS -11.6 (-2.0-2.0); ABG O2 SATURATION 92.4 % (95.0-99.0); ABG PARTIAL PRESSURE CO2 36.6 mmHg (35.0-45.0); ABG PARTIAL PRESSURE O2 69.4 mmHg (75.0-100.0); ABG STANDARD HCO3 15.6 MMOL/L. (22.0-26.0); ABG TOTAL CO2 16.1 MMOL/L (23.0-31.0); ABG pH (ARTERIAL) 7.231 UNITS (7.350-7.450)
[2024-09-04 01:28] LABS: HEMATOCRIT 50.4 % (42.0-52.0); HEMOGLOBIN 16.3 g/dl (13.5-17.5); MEAN CORPUSCULAR HEMOGLOBIN 27.2 pg (27.0-33.0); MEAN CORPUSCULAR HGB CONC 32.3 g/dl (32.0-36.5); PLATELET COUNT, AUTOMATED 212 10^3/uL (150-450); WHITE BLOOD COUNT 11.8 10^3/uL (4.0-10.0)
[2024-09-04 01:43] LABS: INR 1.47; PARTIAL THROMBOPLASTIN TIME 25.1 SECONDS (24.8-34.2); PROTHROMBIN TIME 17.3 SECONDS (12.5-14.5)
[2024-09-04] MEDS ORDERED: VANCOMYCIN 1,500 MG/300 ML IV BAG IV SCH (02:00)
[2024-09-04 02:28] LABS: ALBUMIN 2.8 G/DL (3.2-5.2); BILIRUBIN,TOTAL 0.5 MG/DL (0.3-1.2); CALCIUM LEVEL 8.2 MG/DL (8.3-10.6); CREATININE FOR GFR 2.12 MG/DL (0.70-1.30); GLOMERULAR FILTRATION RATE 33.5 (>49); MAGNESIUM LEVEL 2.1 MG/DL (1.8-2.4); PHOSPHORUS LEVEL 3.8 MG/DL (2.4-5.1); POTASSIUM SERUM 4.3 MMOL/L (3.5-5.1)
[2024-09-04] MEDS: fentaNYL 100 MCG/2 ML INJECTION IV PRN (04:29)
[2024-09-04] MEDS ORDERED: ENOXAPARIN 120MG/0.8ML SYRINGE SC SCH (09:00)
== END 2024-09-04 04:35 | disposition expired | DRG 296 ==
LOC: M ED 13:11 → M ED INP 14:46 → M ICU 15:48
PROVIDERS: ADMIT Internal Medicine Pulmonary Disease; ATTEND Internal Medicine Pulmonary Disease
PROC: 04HY32Z Insertion of Monitoring Device into Lower Artery, Percutaneous Approach (ICD-10-PCS; principal; 2024-09-03)
PROC: 02HV33Z Insertion of Infusion Device into Superior Vena Cava, Percutaneous Approach (ICD-10-PCS; 2024-09-03)
PROC: 05HM33Z Insertion of Infusion Device into Right Internal Jugular Vein, Percutaneous Approach (ICD-10-PCS; 2024-09-03)
PROC: 5A1935Z Respiratory Ventilation, Less than 24 Consecutive Hours (ICD-10-PCS; 2024-09-03)
DX: I46.9 Cardiac arrest, cause unspecified (principal); J96.00 Acute respiratory failure, unspecified whether with hypoxia or hypercapnia; N17.0 Acute kidney failure with tubular necrosis; R57.9 Shock, unspecified; N17.9 Acute kidney failure, unspecified; E87.0 Hyperosmolality and hypernatremia; E87.20 Acidosis, unspecified; I25.10 Atherosclerotic heart disease of native coronary artery without angina pectoris; J45.909 Unspecified asthma, uncomplicated; E11.42 Type 2 diabetes mellitus with diabetic polyneuropathy; G47.33 Obstructive sleep apnea (adult) (pediatric); I11.0 Hypertensive heart disease with heart failure; F31.9 Bipolar disorder, unspecified; Z86.73 Personal history of transient ischemic attack (TIA), and cerebral infarction without residual deficits; I48.91 Unspecified atrial fibrillation; I50.9 Heart failure, unspecified; K21.9 Gastro-esophageal reflux disease without esophagitis; Z90.49 Acquired absence of other specified parts of digestive tract; Z98.49 Cataract extraction status, unspecified eye; Z95.5 Presence of coronary angioplasty implant and graft; Z66 Do not resuscitate; Z79.01 Long term (current) use of anticoagulants; Z79.4 Long term (current) use of insulin; Z79.84 Long term (current) use of oral hypoglycemic drugs; Z79.899 Other long term (current) drug therapy; Z88.0 Allergy status to penicillin; R00.0 Tachycardia, unspecified